=== PATIENT | female | born 1945 | race Caucasian/White ===

== ENCOUNTER 2018-06-15 19:24 | Inpatient (IN) ==
[2018-06-15] MEDS ORDERED: SODIUM CHLORIDE 0.9% 1000ML 1,000 ML IV STA (20:20)
[2018-06-15] MEDS ORDERED: SODIUM CHLORIDE 0.9% 500 ML IV SCH (20:30)
[2018-06-15] MEDS ORDERED: ONDANSETRON INJ 2 MG/ML 2 ML VIAL IV STA (20:51)
[2018-06-15] MEDS ORDERED: HYDROmorphone INJ 0.5 MG/0.5 ML SYR IV PRN (20:51)
[2018-06-15 20:56] LABS: Basophils # (auto) 0.03 K/uL (0-0.2); Basophils % (auto) 0.3 %; Eosinophils # (auto) 0.14 K/uL (0-0.5); Eosinophils % (auto) 1.3 %; Hematocrit (blood only) 43.7 % (37-47); Hemoglobin 15.2 g/dL (12.0-16.0); Immature Granulocytes # (auto) 0.03 K/uL (0.00-0.02); Immature Granulocytes % (auto) 0.3 %; Lymphocytes # (auto) 1.88 K/uL (1.2-3.4); Lymphocytes % (auto) 17.8 %; Mean Corpuscular Hgb Conc 34.8 g/dL (32-36); Mean Corpuscular Volume 82.3 fL (80-100); Mean Platelet Volume 8.9 fL (7.4-10.4); Monocytes # (auto) 1.09 K/uL (0.11-0.59); Monocytes % (auto) 10.3 %; Neutrophils # (auto) 7.39 K/uL (1.4-6.5); Platelet Count 257 K/uL (130-400); RDW Standard Deviation 41.8 fL (36.4-46.3); Red Blood Count 5.31 M/uL (4.2-5.4); White Blood Count 10.56 K/uL (4.8-10.8)
[2018-06-15 21:08] LABS: Appearance Urine Clear (Clear); Blood Urine Negative (Negative); Glucose Urine UA Negative (Negative); Ketones Urine 1+ (Negative); Leukocyte Esterase Urine Trace (Negative); Nitrite Urine Negative (Negative); Protein Urine 1+ (Negative); Specific Gravity Urine >= 1.030 (1.000-1.030); Urobilinogen Urine Negative (Negative); pH Urine 5.5 (4.5-7.5)
[2018-06-15 21:10] LABS: Bilirubin Urine Negative (Negative); Ictotest Urine Negative (Negative)
[2018-06-15 21:11] LABS: Color Urine Yellow
[2018-06-15 21:15] LABS: Albumin Level 3.7 gm/dl (3.4-5.0); BUN Creatinine Ratio 18.1 (10-20); Calcium 9.9 mg/dl (8.5-10.1); Creatinine Clr Calc Pharmacy 43.4 ml/min; Est GFR (African American) 60.5; Est GFR (Non-African American) 52.2
[2018-06-15 21:18] LABS: Albumin Globulin Ratio 0.9 (0.9-2); Bilirubin,Total 0.6 mg/dl (0.2-1); Globulin 3.9 gm/dl (2.5-4.0); Total Protein 7.6 gm/dl (6.4-8.2)
--- NOTE | 2018-06-15 21:53 | CT Scan Report ---
CT SCAN OF THE ABDOMEN AND PELVIS WITHOUT IV CONTRAST CLINICAL HISTORY: Right lower quadrant abdominal pain. Nausea and vomiting. Reported history of rec ent diverticulitis. COMPARISON STUDY: Abdominal CT dated 06/09/2015. Abdominal ultrasound dated 06/04/2018. TECHNIQUE: CT scan of the abdomen and pelvis is performed from the lung bases to the proximal femora. Images are reviewed in the axial, sagittal, and coronal planes. IV contrast was not administered for this examination as per the referring clinician. Note that the examination was performed in suboptim al fashion without oral and IV contrast. A dose lowering technique was utilized adhering to the [facility] of CHEMO. CT DOSE: 346.55 mGy.cm FINDINGS: Lung bases: The heart is mildly enlarged and without pericardial effusion. The coronary arteries are densely calcified. A large hiatal hernia is noted. The lung bases are clear, noting bibasilar scarrin g/atelectasis. Liver: The unenhanced liver is normal in size and contour. The liver demonstrates diffusely diminishe d attenuation consistent with hepatic steatosis. Fatty sparing is seen adjacent to gallbladder fossa. There is no intrahepatic biliary ductal dilatation. Gallbladder: Unremarkable. Spleen: Normal in size and attenuation. Pancreas: The unenhanced pancreas is grossly unremarkable. Adrenal glands: Unremarkable. Kidneys: The unenhanced kidneys history cortical atrophy and are without hydronephrosis. There are no renal calculi identified. An 8 cm cyst arises from the upper pole of the left kidney. There are thin calcifications within the cyst wall, and this is consistent with a Bosniak 2 lesion. Abdominal vasculature: The abdominal aorta is normal in course and caliber noting mild atheroscleroti c calcification. Bowel: There is moderate sigmoid diverticulosis. Mild wall thickening and stranding is identified kiko und the sigmoid colon consistent with mild acute diverticulitis. There is no evidence of abscess on t his unenhanced examination. No bowel obstruction is identified. Fecal retention is noted in the right colon. The appendix is not identified and reported surgically absent. There is a large duodenal div erticulum. Peritoneum: There is no intraperitoneal free air or abdominal ascites. There is a small fat-containin g umbilical hernia. Lymphadenopathy: None. Pelvic viscera: The bladder is decompressed and grossly unremarkable. The uterus is surgically absent . No adnexal lesion is seen. Skeletal structures: The skeletal structures are osteopenic. Moderate lumbosacral spondylosis is obse rved. A large posterior disc osteophyte complex is seen at L2-L3. Degenerative sclerosis is noted at the symphysis pubis. No lytic or blastic lesions are seen. IMPRESSION: 1. Suboptimal examination without oral and IV contrast. 2. Colonic diverticulosis without evidence of mild acute sigmoid diverticulitis. 3. No intraperitoneal free air is seen, and there is no evidence of abscess on this unenhanced examin ation. 4. Hepatic steatosis. 5. Large hiatal hernia. 6. Additional findings as above. Electronically signed by: James Becker M.D. 06/15/2018 9:52 PM
[2018-06-15] MEDS ORDERED: metroNIDAZOLE 500 MG/100 ML BAG IV STA (21:59)
[2018-06-15] MEDS ORDERED: AZTREONAM 2,000 MG in DEXTROSE 5% 100 ML IV STA (22:01)
[2018-06-15] MEDS ORDERED: POTASSIUM CHLORIDE / WTR 10 MEQ/100 ML PLCT IV ONE (22:01)
[2018-06-15] MEDS ORDERED: POTASSIUM CHLORIDE 20 MEQ TABCR PO STA (22:15)
[2018-06-15 22:43] LABS: Magnesium 1.9 mg/dl (1.8-2.4)
[2018-06-15] MEDS ORDERED: PROCHLORPERAZINE 5 MG in SYRINGE 4 ML IV ONE (22:49)
[2018-06-15] MEDS ORDERED: PROCHLORPERAZINE 5 MG/ML 2 ML VIAL IV ONE ×2 (23:00)
[2018-06-15] MEDS ORDERED: LACTATED RINGER'S 1,000 ML IV ONE (23:01)
--- NOTE | 2018-06-15 23:19 | History & Physical Report ---
Date of Service June 15, 2018 Assessment & Plan (1) Diverticulitis: Improved symptoms on outpatient regimen Patient not septic. Resolved on repeat CT today. Incomplete Rx given possible intolerance to oral antibiotics Hypokalemia, clinical dehydration secondary to emesis symptoms Home diuretic contributory Hypertension, elevated secondary discomfort Abnormal LFTs likely from fatty liver GMF Bowel rest, clear liquids for now IV Ceftriaxone, Flagyl course for now Replace potassium, hold home diuretic until hydration status better Antiemetics as needed DVT prophylaxis. Lovenox subcu Full code History of Present Illness Chief Complaint: Nausea, emesis Primary Care Provider: Krissy Carson MD History obtained from patient and records. Medical history significant for hypertension, osteoarthritis, diverticulosis. Last week patient noted achy lower abdominal pain. No fever, no chills. Some nausea. Outpatient CT showed mild acute sigmoid diverticulitis. Patient prescribed oral Cipro and Flagyl. Abdominal discomfort improved. Patient noted increased nausea, intractable emesis after 2 days of antibiotic Rx. No constipation/diarrhea. At the ER, patient received IV Azactam and Flagyl. 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 Allergies Allergy/AdvReac Type Severity Reaction Status Date / Time erythromycin base Allergy Severe HIVES,SOB,I Unverified 06/15/18 20:35 TCHIDAWSON ESTES Penicillins Allergy Severe SOB,ITCHING Unverified 06/15/18 20:35 ,HIVES,SWEL LING Sulfa (Sulfonamide Allergy Severe HIVES,SOB,I Unverified 06/15/18 20:35 Antibiotics) TCDAWSON PINON Home Medications Home Medications Medication Instructions Recorded Confirmed Type aspirin [Aspir-Low] 81 mg PO DAILY 06/04/18 06/15/18 History hydrochlorothiazide 25 mg PO DAILY 06/04/18 06/15/18 History lisinopril 20 mg PO DAILY 06/04/18 06/15/18 History multivitamin 1 tab PO DAILY 06/04/18 06/15/18 History naproxen [Naprosyn] 500 mg PO BID PRN 06/04/18 06/15/18 History omeprazole 20 mg PO DAILY 06/04/18 06/15/18 History ranitidine HCl [Zantac] 150 mg PO BID PRN #60 tab 06/04/18 06/15/18 Rx Past Med/Surg History Medical History Diverticulitis (Resolved) No pertinent past medical history Surgical History No pertinent past surgical history Family History Other Family history non-contributory Social History Preferred Language: Nigerian Communication Ability: Effective [employer] Required: No Beliefs That Will Affect Care: None Current Living Situation: Spouse Other Information That Helps Us Care for You: No Feels Safe at Home: Yes Safety Concerns: Feels Safe At This Time Smoking Status: Never smoker Hx Alcohol Use: Yes Hx Substance Use: No Review of Systems As per HPI, all 10 systems reviewed, all other ROS negative Physical Exam Vital Signs (Past 24 Hours): Last Vital Signs Temp 36.9 C 06/15/18 19:36 Pulse 83 06/15/18 20:48 Resp 18 06/15/18 20:48 BP 175/89 H 06/15/18 20:48 Pulse Ox 96 06/15/18 20:56 Physical Exam: GENERAL: Slightly uncomfortable, obese, dry heaving, no respiratory distress SKIN: Normal color, warm HEENT: [place] palpebral conjunctivae, no ptosis, dry buccal mucosa NECK : Supple, short neck, no tenderness CHEST : CTA, no tenderness HEART : RRR, no obvious murmurs ABDOMEN: Some distention, minimal epigastric tenderness EXTREMITIES : No LE swelling/tenderness, purpuric lesions both forearms (chronic as per patient), no other conspicuous deformities noted NEUROLOGIC : Coherent, no facial asymmetry, no other gross focality Results & Data Laboratory Results Laboratory Results WBC 10.56 K/uL (4.8-10.8) 06/15/18 20:39 RBC 5.31 M/uL (4.2-5.4) 06/15/18 20:39 Hgb 15.2 g/dL (12.0-16.0) 06/15/18 20:39 Hct 43.7 % (37-47) 06/15/18 20:39 MCV 82.3 fL (80-100) 06/15/18 20:39 MCH 28.6 pg (25-34) 06/15/18 20:39 MCHC 34.8 g/dL (32-36) 06/15/18 20:39 RDW Std Deviation 41.8 fL (36.4-46.3) 06/15/18 20:39 RDW Coeff of Leanne 14.0 % (11.5-14.5) 06/15/18 20:39 Plt Count 257 K/uL (130-400) 06/15/18 20:39 MPV 8.9 fL (7.4-10.4) 06/15/18 20:39 Immature Gran % (Auto) 0.3 % 06/15/18 20:39 Neut % (Auto) 70.0 % 06/15/18 20:39 Lymph % (Auto) 17.8 % 06/15/18 20:39 [place] % (Auto) 10.3 % 06/15/18 20:39 Eos % (Auto) 1.3 % 06/15/18 20:39 Baso % (Auto) 0.3 % 06/15/18 20:39 Immature Gran # (Auto) 0.03 K/uL (0.00-0.02) H 06/15/18 20:39 Neut # (Auto) 7.39 K/uL (1.4-6.5) H 06/15/18 20:39 Lymph # (Auto) 1.88 K/uL (1.2-3.4) 06/15/18 20:39 [place] # (Auto) 1.09 K/uL (0.11-0.59) H 06/15/18 20:39 Eos # (Auto) 0.14 K/uL (0-0.5) 06/15/18 20:39 Baso # (Auto) 0.03 K/uL (0-0.2) 06/15/18 20:39 Sodium 143 mmol/L (136-145) 06/15/18 20:39 Potassium 3.0 mmol/L (3.5-5.1) L 06/15/18 20:39 Chloride 107 mmol/L (98-107) 06/15/18 20:39 Carbon Dioxide 29 mmol/L (21-32) 06/15/18 20:39 Anion Gap 7.0 (3-11) 06/15/18 20:39 BUN 19 mg/dl (7-18) H 06/15/18 20:39 Creatinine 1.07 mg/dl (0.6-1.2) 06/15/18 20:39 Est Cr Clr Drug Dosing 43.4 ml/min 06/15/18 20:39 Est GFR ( Amer) 60.5 06/15/18 20:39 Est GFR (Non-Af Amer) 52.2 06/15/18 20:39 BUN/Creatinine Ratio 18.1 (10-20) 06/15/18 20:39 Glucose 110 mg/dl (70-99) H 06/15/18 20:39 Calcium 9.9 mg/dl (8.5-10.1) 06/15/18 20:39 Magnesium 1.9 mg/dl (1.8-2.4) 06/15/18 20:39 Total Bilirubin 0.6 mg/dl (0.2-1) 06/15/18 20:39 AST 114 U/L (15-37) H 06/15/18 20:39 ALT 134 U/L (12-78) H 06/15/18 20:39 Alkaline Phosphatase 89 U/L (45-117) 06/15/18 20:39 Total Protein 7.6 gm/dl (6.4-8.2) 06/15/18 20:39 Albumin 3.7 gm/dl (3.4-5.0) 06/15/18 20:39 Globulin 3.9 gm/dl (2.5-4.0) 06/15/18 20:39 Albumin/Globulin Ratio 0.9 (0.9-2) 06/15/18 20:39 Lipase 114 U/L (73-393) 06/15/18 20:39 Urine Color Yellow 06/15/18 20:53 Urine Appearance Clear (Clear) 06/15/18 20:53 Urine pH 5.5 (4.5-7.5) 06/15/18 20:53 Ur Specific [place] >= 1.030 (1.000-1.030) 06/15/18 20:53 Urine Protein 1+ (Negative) H 06/15/18 20:53 Urine Glucose (UA) Negative (Negative) 06/15/18 20:53 Urine Ketones 1+ (Negative) H 06/15/18 20:53 Urine Blood Negative (Negative) 06/15/18 20:53 Urine Nitrite Negative (Negative) 06/15/18 20:53 Urine Bilirubin Negative (Negative) 06/15/18 20:53 Urine Urobilinogen Negative (Negative) 06/15/18 20:53 Ur Leukocyte Esterase Trace (Negative) H 06/15/18 20:[address] abdomen pelvis: 1. Suboptimal examination without oral and IV contrast. 2. Colonic diverticulosis without evidence of mild acute sigmoid diverticulitis. 3. No intraperitoneal free air is seen, and there is no evidence of abscess on this unenhanced examination. 4. Hepatic steatosis. 5. Large hiatal hernia.
[2018-06-15] MEDS ORDERED: ACETAMINOPHEN 325 MG TAB PO PRN (23:21)
[2018-06-15] MEDS ORDERED: TRAMADOL HCL 50 MG TABLET PO PRN (23:21)
[2018-06-15] MEDS ORDERED: MoRPHine SULFATE 2 MG/ML CARP IV PRN (23:21)
[2018-06-16] MEDS: POTASSIUM CHLORIDE / WTR 10 MEQ/100 ML PLCT IV SCH ×4 (00:48→04:03)
[2018-06-16 05:46] LABS: Basophils # (auto) 0.04 K/uL (0-0.2); Basophils % (auto) 0.5 %; Eosinophils # (auto) 0.15 K/uL (0-0.5); Hematocrit (blood only) 38.7 % (37-47); Immature Granulocytes # (auto) 0.02 K/uL (0.00-0.02); Immature Granulocytes % (auto) 0.3 %; Lymphocytes # (auto) 1.87 K/uL (1.2-3.4); Lymphocytes % (auto) 24.4 %; Mean Corpuscular Hgb Conc 33.6 g/dL (32-36); Mean Corpuscular Volume 84.3 fL (80-100); Mean Platelet Volume 8.8 fL (7.4-10.4); Monocytes # (auto) 0.91 K/uL (0.11-0.59); Monocytes % (auto) 11.9 %; Neutrophils # (auto) 4.68 K/uL (1.4-6.5); Neutrophils % (auto) 60.9 %; Platelet Count 224 K/uL (130-400); RDW Coefficient of Variation 14.1 % (11.5-14.5); RDW Standard Deviation 43.3 fL (36.4-46.3); Red Blood Count 4.59 M/uL (4.2-5.4); White Blood Count 7.67 K/uL (4.8-10.8)
[2018-06-16 06:09] LABS: INR 1.1 (0.9-1.1); Prothrombin Time 11.1 Seconds (9.0-12.0)
[2018-06-16 06:21] LABS: Albumin Globulin Ratio 0.9 (0.9-2); BUN Creatinine Ratio 21.9 (10-20); Bilirubin,Total 0.5 mg/dl (0.2-1); Calcium 8.5 mg/dl (8.5-10.1); Creatinine Clr Calc Pharmacy 56.4 ml/min; Est GFR (African American) 82.2; Est GFR (Non-African American) 70.9; Globulin 3.2 gm/dl (2.5-4.0); Potassium 3.5 mmol/L (3.5-5.1); Total Protein 6.2 gm/dl (6.4-8.2)
[2018-06-16] MEDS: PROCHLORPERAZINE 5 MG in SYRINGE 4 ML IV PRN (06:33)
[2018-06-16] MEDS ORDERED: metroNIDAZOLE 500 MG/100 ML BAG IV SCH (08:00)
[2018-06-16] MEDS ORDERED: cefTRIAXone SODIUM 1,000 MG in DEXTROSE 5% 50 ML IV SCH (09:00)
[2018-06-16] MEDS: ASPIRIN 81 MG ECTAB PO SCH (09:30)
[2018-06-16] MEDS: MULTIVITAMIN TAB PO SCH (09:31)
[2018-06-16] MEDS: PANTOprazole 40 MG TAB PO SCH (09:31)
[2018-06-16] MEDS: LISINOPRIL 20 MG TAB PO SCH (09:31)
[2018-06-16] MEDS: ENOXAPARIN INJ 30 MG/0.3 ML SYR SQ SCH (09:32)
--- NOTE | 2018-06-16 15:19 | Hospitalist Progress Note ---
Date of Service June 16, 2018 Assessment & Plan (1) Diverticulitis: Patient was recently diagnosed through a CT scan with mild acute sigmoid diverticulitis which was done outpatient. She was started on antibiotics and 2 days after receiving it she developed nausea and vomiting which brought her here to the ED. Repeat CT scan on admission shows no diverticulitis, colonic diverticulosis, large hiatal hernia Afebrile, no leukocytosis -Symptoms have improved now. -Advance diet to mechanical soft from clear liquids -Ok to discontinue IVF. Hold diuretics -IV Rocephin and Flagyl---> Will change to PO Flagyl and Ciprofloxacin HYPOKALEMIA Repleted. On diuretics Monitor HYPERTENSION Stable Continue with home medication DVT prophylaxis. Lovenox subcu Full code Disposition Likely next 24 hours if she continues to improve and tolerates p.o. diet/antibiotics Subjective Patient is feeling better today. No more episodes of vomiting. No nausea, abdominal pain. No fever, chills. Tolerating clear liquid diet well. Physical Exam Vital Signs (Past 24 Hours): Last Vital Signs Temp 36.8 C 06/16/18 07:31 Pulse 61 06/16/18 07:31 Resp 16 06/16/18 07:31 BP 126/74 06/16/18 07:31 Pulse Ox 95 06/16/18 07:31 Constitutional: well developed Awake, alert, oriented x3 Cardiovascular: Rate/Rhythm: regular rate and regular rhythm Heart Sounds: normal S1 and normal S2 Extremities: no pedal edema Gastrointestinal (Abdomen): Inspection/Auscultation: normal bowel sounds; abdomen not distended Percussion/Palpation: abdomen soft; abdomen nontender
[2018-06-16] MEDS: CIPROFLOXACIN 500 MG TAB PO SCH ×2 (16:38→22:51)
[2018-06-16] MEDS: metroNIDAZOLE 500 MG TAB PO SCH ×2 (16:39→20:26)
[2018-06-16] MEDS ORDERED: POTASSIUM CHLORIDE 10 MEQ TABCR PO ONE (18:00)
--- NOTE | 2018-06-16 19:35 | Emergency Department Note ---
Entered by Shruthi Ojeda acting as a scribe for Dom White MD ED Provider Note CHIEF COMPLAINT: Vomiting HISTORY OF PRESENT ILLNESS: The patient is a 72 year old female presenting to the ED with vomiting beginning x2 days ago. Patient states that she was recently diagnosed x1 week ago with diverticulitis at [facility]. She shares that she was placed on antibiotics but has not been able to keep them down since onset. She notes she is having RLQ pain, which is moderate in severity and constant since onset. Pain is rated a 8/10. She shares she is having associated fevers and loss of appetite as well. Pt denies LOC, headache, chills, diaphoresis, visual changes, neck pain, chest pain, breathing difficulties, back pain, melena, hematochezia, urinary symptoms, numbness, weakness, lymphadenopathy, rash, or other complaints. REVIEW OF SYSTEMS: See HPI for pertinent positives and negatives. A total of ten systems were reviewed and were otherwise negative. PMHx/PSHx: Diverticulitis SOCIAL HISTORY: Patient lives at home. PHYSICAL EXAM: GENERAL: Awake, alert, well-appearing, in no distress HENT: Normocephalic, atraumatic. Oropharynx unremarkable. EYES: Normal conjunctiva. Sclera non-icteric. NECK: Inspection normal. Non-tender. Supple. No nuchal rigidity. FROM. No masses. RESPIRATORY: Clear to auscultation. No wheezes. No rales. Normal respiratory effort. CARDIAC: Normal rate. Normal rhythm. No murmurs. No rubs. Extremities warm and well perfused. Pulses equal. No JVD. GI: Soft, non-distended. No rebound or guarding. No masses. RLQ tenderness to palpation. RECTAL: Deferred. MUSCULOSKELETAL: Atraumatic. Chest examination reveals no tenderness. The back is symmetrical on inspection without obvious abnormality. There is no CVA tenderness to palpation. No joint edema. LOWER EXTREMITIES: Calves are equal size bilaterally and non-tender. No edema. No discoloration. NEURO: Normal sensorium. No sensory or motor deficits noted. SKIN: No rash or jaundice noted. EMERGENCY DEPARTMENT COURSE: 2048: The patient was evaluated in room C01B, and a complete history and physical examination were performed. 2204: Discussed patient case with Dr. Rodriguez, who accepts patient for admission. 2210: Updated patient on plan for admission. Patient is agreeable to plan. MEDICAL DECISION MAKING: Triage Nursing notes reviewed and agree them. The patient's history was concerning for abdominal pain, recent diverticulitis, and vomiting Differential diagnosis: Etiologies such as appendicitis, worsening diverticulitis, PUD, biliary pathology, UTI, pancreatitis, obstruction, mesenteric ischemia, aortic pathology, infections, inflammatory bowel disease, renal colic, as well as others were entertained. Physical examination findings: As above. Right lower tenderness. ER treatment provided: IV Zofran IV Dilaudid Normal saline hydration On reassessment the patient felt better. IV Flagyl IV aztreonam IV potassium Diagnostics interpreted by me: The labs revealed an unremarkable CBC and chemistry panel except for mild hypokalemia. LFTs lipase negative. Imaging studies: CT scan abdomen pelvis was performed. Mild diverticulitis present. No perforation. Consultation: [facility] was discussed and diagnostics were reviewed. The patient was evaluated in the ER for further treatment. IMPRESSION: Diverticulitis, nausea, vomiting, hypokalemia PLAN: Admission under Dr. Schmidt's care. Impression & Plan Diverticulitis, Nausea & vomiting, Hypokalemia Past Med/Surg History Medical History Diverticulitis (Resolved) No pertinent past medical history Surgical History No pertinent past surgical history Family History Other Family history non-contributory Social History Preferred Language: Mohawk Communication Ability: Effective Table Hand Required: No Beliefs That Will Affect Care: None Current Living Situation: Spouse Other Information That Helps Us Care for You: No Feels Safe at Home: Yes Safety Concerns: Feels Safe At This Time Smoking Status: Never smoker Hx Alcohol Use: Yes Hx Substance Use: No Results & Data Vital Signs Vital Signs - 24 hr 06/15/18 19:36 06/15/18 20:48 06/15/18 20:56 Temperature 36.9 C Temperature Source Oral Sepsis Recent Fever Within 48 Hours No Sepsis Action Taken by Nursing No Action Required Pulse Rate 83 Pulse Rate [Apical] 83 Respiratory Rate 18 18 Respiratory Effort / Characteristics Non-Labored Spontaneous Respiratory Depth Normal Respiratory Pattern Blood Pressure 148/80 H Blood Pressure [Left Arm] Blood Pressure [Right Arm] 175/89 H Blood Pressure Mean 102 Blood Pressure Mean [Left Arm] Blood Pressure Mean [Right Arm] 117 Blood Pressure Position Sitting Blood Pressure Position [Left Arm] Blood Pressure Position [Right Arm] Pulse Oximetry 96 94 96 Oxygen Delivery Method Room Air Room Air Room Air 06/16/18 01:01 06/16/18 07:31 06/16/18 16:35 Temperature 37.0 C 36.8 C 36.6 C Temperature Source Oral Oral Oral Sepsis Recent Fever Within 48 Hours Sepsis Action Taken by Nursing Pulse Rate Pulse Rate [Apical] 81 61 73 Respiratory Rate 16 16 18 Respiratory Effort / Characteristics Non-Labored Spontaneous Respiratory Depth Normal Respiratory Pattern Regular Blood Pressure Blood Pressure [Left Arm] 126/73 126/74 Blood Pressure [Right Arm] 134/75 Blood Pressure Mean Blood Pressure Mean [Left Arm] 90 91 Blood Pressure Mean [Right Arm] 94 Blood Pressure Position Blood Pressure Position [Left Arm] Sitting Lying Blood Pressure Position [Right Arm] Lying Pulse Oximetry 94 95 92 Oxygen Delivery Method Room Air Room Air Room Air Home Medications Current Medication List: was personally reviewed by me Laboratory Data Attestation: I reviewed the patient's lab results. Result diagrams: 06/16/18 05:26 06/16/18 05:26 Lab Results 06/15/18 06/15/18 06/15/18 Range/Units 20:39 20:39 20:53 WBC 10.56 (4.8-10.8) K/uL RBC 5.31 (4.2-5.4) M/uL Hgb 15.2 (12.0-16.0) g/dL Hct 43.7 (37-47) % MCV 82.3 (80-100) fL MCH 28.6 (25-34) pg MCHC 34.8 (32-36) g/dL RDW Std Deviation 41.8 (36.4-46.3) fL RDW Coeff of Leanne 14.0 (11.5-14.5) % Plt Count 257 (130-400) K/uL MPV 8.9 (7.4-10.4) fL Immature Gran % (Auto) 0.3 % Neut % (Auto) 70.0 % Lymph % (Auto) 17.8 % Slope % (Auto) 10.3 % Eos % (Auto) 1.3 % Baso % (Auto) 0.3 % Immature Gran # (Auto) 0.03 H (0.00-0.02) K/uL Neut # (Auto) 7.39 H (1.4-6.5) K/uL Lymph # (Auto) 1.88 (1.2-3.4) K/uL Slope # (Auto) 1.09 H (0.11-0.59) K/uL Eos # (Auto) 0.14 (0-0.5) K/uL Baso # (Auto) 0.03 (0-0.2) K/uL PT (9.0-12.0) Seconds INR (0.9-1.1) Sodium 143 (136-145) mmol/L Potassium 3.0 L (3.5-5.1) mmol/L Chloride 107 (98-107) mmol/L Carbon Dioxide 29 (21-32) mmol/L Anion Gap 7.0 (3-11) BUN 19 H (7-18) mg/dl Creatinine 1.07 (0.6-1.2) mg/dl Est Cr Clr Drug Dosing 43.4 ml/min Est GFR ( Amer) 60.5 Est GFR (Non-Af Amer) 52.2 BUN/Creatinine Ratio 18.1 (10-20) Glucose 110 H (70-99) mg/dl Calcium 9.9 (8.5-10.1) mg/dl Magnesium 1.9 (1.8-2.4) mg/dl Total Bilirubin 0.6 (0.2-1) mg/dl AST 114 H (15-37) U/L ALT 134 H (12-78) U/L Alkaline Phosphatase 89 (45-117) U/L Total Protein 7.6 (6.4-8.2) gm/dl Albumin 3.7 (3.4-5.0) gm/dl Globulin 3.9 (2.5-4.0) gm/dl Albumin/Globulin Ratio 0.9 (0.9-2) Lipase 114 (73-393) U/L Urine Color Yellow Urine Appearance Clear (Clear) Urine pH 5.5 (4.5-7.5) Ur Specific [place] >= 1.030 (1.000-1.030) Urine Protein 1+ H (Negative) Urine Glucose (UA) Negative (Negative) Urine Ketones 1+ H (Negative) Urine Blood Negative (Negative) Urine Nitrite Negative (Negative) Urine Bilirubin Negative (Negative) Urine Urobilinogen Negative (Negative) Ur Leukocyte Esterase Trace H (Negative) 06/16/18 06/16/18 06/16/18 Range/Units 05:26 05:26 05:26 WBC 7.67 (4.8-10.8) K/uL RBC 4.59 (4.2-5.4) M/uL Hgb 13.0 (12.0-16.0) g/dL Hct 38.7 (37-47) % MCV 84.3 (80-100) fL MCH 28.3 (25-34) pg MCHC 33.6 (32-36) g/dL RDW Std Deviation 43.3 (36.4-46.3) fL RDW Coeff of Leanne 14.1 (11.5-14.5) % Plt Count 224 (130-400) K/uL MPV 8.8 (7.4-10.4) fL Immature Gran % (Auto) 0.3 % Neut % (Auto) 60.9 % Lymph % (Auto) 24.4 % Slope % (Auto) 11.9 % Eos % (Auto) 2.0 % Baso % (Auto) 0.5 % Immature Gran # (Auto) 0.02 (0.00-0.02) K/uL Neut # (Auto) 4.68 (1.4-6.5) K/uL Lymph # (Auto) 1.87 (1.2-3.4) K/uL Slope # (Auto) 0.91 H (0.11-0.59) K/uL Eos # (Auto) 0.15 (0-0.5) K/uL Baso # (Auto) 0.04 (0-0.2) K/uL PT 11.1 (9.0-12.0) Seconds INR 1.1 (0.9-1.1) Sodium 142 (136-145) mmol/L Potassium 3.5 D (3.5-5.1) mmol/L Chloride 110 H (98-107) mmol/L Carbon Dioxide 29 (21-32) mmol/L Anion Gap 3.0 (3-11) BUN 18 (7-18) mg/dl Creatinine 0.83 (0.6-1.2) mg/dl Est Cr Clr Drug Dosing 56.4 ml/min Est GFR ( Amer) 82.2 Est GFR (Non-Af Amer) 70.9 BUN/Creatinine Ratio 21.9 H (10-20) Glucose 101 H (70-99) mg/dl Calcium 8.5 (8.5-10.1) mg/dl Magnesium (1.8-2.4) mg/dl Total Bilirubin 0.5 (0.2-1) mg/dl AST 81 H (15-37) U/L ALT 105 H (12-78) U/L Alkaline Phosphatase 71 (45-117) U/L Total Protein 6.2 L (6.4-8.2) gm/dl Albumin 3.0 L (3.4-5.0) gm/dl Globulin 3.2 (2.5-4.0) gm/dl Albumin/Globulin Ratio 0.9 (0.9-2) Lipase (73-393) U/L Urine Color Urine Appearance (Clear) Urine pH (4.5-7.5) Ur Specific [place] (1.000-1.030) Urine Protein (Negative) Urine Glucose (UA) (Negative) Urine Ketones (Negative) Urine Blood (Negative) Urine Nitrite (Negative) Urine Bilirubin (Negative) Urine Urobilinogen (Negative) Ur Leukocyte Esterase (Negative) Administered Medications Acetaminophen (Tylenol) 325 mg PO Q4H PRN PRN Reason: Mild Pain Stop: 07/15/18 23:20 Last Admin: 06/16/18 14:44 Dose: 325 mg Documented by: [id number] Aspirin (Ecotrin Ectab) 81 mg PO DAILY [facility] Stop: 07/16/18 08:59 Last Admin: 06/16/18 09:30 Dose: 81 mg Documented by: [id number] Ciprofloxacin (Cipro) 500 mg PO BID [facility] Stop: 06/26/18 15:29 Last Admin: 06/16/18 16:38 Dose: 500 mg Documented by: [id number] Enoxaparin Sodium (Lovenox) 30 mg SQ QAM [facility] Stop: 07/16/18 08:59 Last Admin: 06/16/18 09:32 Dose: 30 mg Documented by: [id number] Prochlorperazine 5 mg/ Syringe 5 mls @ 5 mls/min IV Q6H PRN PRN Reason: Nausea And Vomiting Stop: 07/15/18 23:20 Last Admin: 06/16/18 06:33 Dose: 5 mls/min Documented by: [id number] Lisinopril (Zestril) 20 mg PO DAILY JOSIANE Stop: 07/16/18 08:59 Last Admin: 06/16/18 09:31 Dose: 20 mg Documented by: [id number] Metronidazole (Flagyl) 500 mg PO TID JOSIANE Stop: 06/26/18 15:29 Last Admin: 06/16/18 16:39 Dose: 500 mg Documented by: [id number] Multivitamins (Multivitamin Tab) 1 tab PO DAILY JOSIANE Stop: 07/16/18 08:59 Last Admin: 06/16/18 09:31 Dose: 1 tab Documented by: [id number] Pantoprazole Sodium (Protonix) 40 mg PO DAILY [facility] Stop: 07/16/18 08:59 Last Admin: 06/16/18 09:31 Dose: 40 mg Documented by: [id number] Ranitidine HCl (Zantac) 150 mg PO BID PRN PRN Reason: gastritis Stop: 07/16/18 00:26 Last Admin: 06/16/18 09:30 Dose: 150 mg Documented by: [id number] Discontinued Medications Hydromorphone HCl (Dilaudid) 0.5 mg IV Q15M PRN PRN Reason: Pain Stop: 06/29/18 20:50 Last Admin: 06/15/18 20:59 Dose: 0.5 mg Documented by: [id number] Sodium Chloride (Nss 1000ml) 1,000 mls @ 125 mls/hr IV .Q8H STA Stop: 06/16/18 04:19 Last Infusion: 06/16/18 02:17 Dose: 0 mls/hr Documented by: [id number] Admin: 06/15/18 21:25 Dose: 125 mls/hr Documented by: [id number] Sodium Chloride (Nss) 500 mls @ 999 mls/hr IV .Q31M JOSIANE Stop: 06/15/18 21:00 Last Infusion: 06/15/18 21:25 Dose: 0 mls/hr Documented by: [id number] Admin: 06/15/18 20:47 Dose: 999 mls/hr Documented by: [id number] Metronidazole (Flagyl) 500 mg in 100 mls @ 100 mls/hr IV NOW STA Stop: 06/15/18 22:58 Last Infusion: 06/16/18 02:39 Dose: 0 mls/hr Documented by: [id number] Admin: 06/16/18 01:25 Dose: 100 mls/hr Documented by: [id number] Aztreonam 2,000 mg/ Dextrose 110 mls @ 100 mls/hr IV NOW STA Stop: 06/15/18 23:06 Last Infusion: 06/16/18 02:11 Dose: 0 mls/hr Documented by: [id number] Admin: 06/15/18 22:38 Dose: 100 mls/hr Documented by: [id number] Potassium Chloride (K Dylan / Wtr) 10 meq in 100 mls @ 100 mls/hr IV ONE ONE Stop: 06/15/18 23:00 Last Infusion: 06/16/18 00:04 Dose: 0 mls/hr Documented by: [id number] Admin: 06/15/18 22:38 Dose: 100 mls/hr Documented by: [id number] Lactated Ringer's (Lr) 1,000 mls @ 75 mls/hr IV .[id number] ONE Stop: 06/16/18 12:20 Last Infusion: 06/16/18 14:44 Dose: 75 mls/hr Documented by: [id number] Admin: 06/16/18 00:36 Dose: 75 mls/hr Documented by: [id number] Metronidazole (Flagyl) 500 mg in 100 mls @ 100 mls/hr IV Q8H JOSIANE Stop: 06/26/18 07:59 Last Infusion: 06/16/18 09:16 Dose: 100 mls/hr Documented by: [id number] Admin: 06/16/18 08:05 Dose: 100 mls/hr Documented by: [id number] Ceftriaxone Sodium 1,000 mg/ (Dextrose) 50 mls @ 100 mls/hr IV Q24H JOSIANE Stop: 06/26/18 08:59 Last Infusion: 06/16/18 09:32 Dose: 100 mls/hr Documented by: [id number] Admin: 06/16/18 08:05 Dose: 100 mls/hr Documented by: [id number] Potassium Chloride (K Dylan / Wtr) 10 meq in 100 mls @ 100 mls/hr IV Q1H JOSIANE Stop: 06/16/18 04:59 Last Infusion: 06/16/18 06:12 Dose: 0 mls/hr Documented by: [id number] Admin: 06/16/18 04:03 Dose: 100 mls/hr Documented by: [id number] Infusion: 06/16/18 04:03 Dose: 100 mls/hr Documented by: [id number] Admin: 06/16/18 03:06 Dose: 100 mls/hr Documented by: [id number] Infusion: 06/16/18 02:58 Dose: 100 mls/hr Documented by: [id number] Admin: 06/16/18 01:58 Dose: 100 mls/hr Documented by: [id number] Infusion: 06/16/18 01:48 Dose: 100 mls/hr Documented by: [id number] Admin: 06/16/18 00:48 Dose: 100 mls/hr Documented by: [id number] Morphine Sulfate (Morphine Sulfate) 2 mg IV Q4H PRN PRN Reason: Pain Stop: 06/29/18 23:20 Last Admin: 06/16/18 01:35 Dose: 2 mg Documented by: [id number] Ondansetron HCl (Zofran) 4 mg IV NOW STA Stop: 06/15/18 20:52 Last Admin: 06/15/18 20:59 Dose: 4 mg Documented by: [id number] Potassium Chloride (Klor-Con M20) 40 meq PO NOW STA Stop: 06/15/18 22:16 Last Admin: 06/15/18 23:21 Dose: Not Given Documented by: [id number] Potassium Chloride (Klor-Con M10) 20 meq PO NOW ONE Stop: 06/16/18 18:01 Last Admin: 06/16/18 18:42 Dose: 20 meq Documented by: [id number] Prochlorperazine (Compazine) 5 mg IV ONE ONE Stop: 06/15/18 23:01 Last Admin: 06/15/18 22:56 Dose: 5 mg Documented by: [id number] Imaging Data Radiologist's Impression: CT SCAN OF THE ABDOMEN AND PELVIS WITHOUT IV CONTRAST CLINICAL HISTORY: Right lower quadrant abdominal pain. Nausea and vomiting. Reported history of recent diverticulitis. COMPARISON STUDY: Abdominal CT dated 06/09/2015. Abdominal ultrasound dated 06/04/2018. TECHNIQUE: CT scan of the abdomen and pelvis is performed from the lung bases to the proximal femora. Images are reviewed in the axial, sagittal, and coronal planes. IV contrast was not administered for this examination as per the referring clinician. Note that the examination was performed in suboptimal fashion without oral and IV contrast. A dose lowering technique was utilized adhering to the principles of ALARA. CT DOSE: 346.55 mGy.cm FINDINGS: Lung bases: The heart is mildly enlarged and without pericardial effusion. The coronary arteries are densely calcified. A large hiatal hernia is noted. The lung bases are clear, noting bibasilar scarring/atelectasis. Liver: The unenhanced liver is normal in size and contour. The liver demonstrates diffusely diminished attenuation consistent with hepatic steatosis. Fatty sparing is seen adjacent to gallbladder fossa. There is no intrahepatic b iliary ductal dilatation. Gallbladder: Unremarkable. Spleen: Normal in size and attenuation. Pancreas: The unenhanced pancreas is grossly unremarkable. Adrenal glands: Unremarkable. Kidneys: The unenhanced kidneys history cortical atrophy and are without hydronephrosis. There are no renal calculi identified. An 8 cm cyst arises from the upper pole of the left kidney. There are thin calcifications within the cyst wall, and this is consistent with a Bosniak 2 lesion. Abdominal vasculature: The abdominal aorta is normal in course and caliber noting mild atherosclerotic calcification. Bowel: There is moderate sigmoid diverticulosis. Mild wall thickening and stranding is identified around the sigmoid colon consistent with mild acute diverticulitis. There is no evidence of abscess on this unenhanced examination. No bowel obstruction is identified. Fecal retention is noted in the right colon. The appendix is not identified and reported surgically absent. There is a large duodenal diverticulum. Peritoneum: There is no intraperitoneal free air or abdominal ascites. There is a small fat-containing umbilical hernia. Lymphadenopathy: None. Pelvic viscera: The bladder is decompressed and grossly unremarkable. The uterus is surgically absent. No adnexal lesion is seen. Skeletal structures: The skeletal structures are osteopenic. Moderate lumbosacral spondylosis is observed. A large posterior disc osteophyte complex is seen at L2-L3. Degenerative sclerosis is noted at the symphysis pubis. No lytic or blastic lesions are seen. IMPRESSION: 1. Suboptimal examination without oral and IV contrast. 2. Colonic diverticulosis without evidence of mild acute sigmoid diverticulitis. 3. No intraperitoneal free air is seen, and there is no evidence of abscess on this unenhanced examination. 4. Hepatic steatosis. 5. Large hiatal hernia. 6. Additional findings as above. Electronically signed by: James Becker M.D. 06/15/2018 9:52 PM Blood Pressure Blood Pressure Findings: Elevated blood pressure Blood Pressure Disposition: further management by hospitalist Discharge Plan Visit Data *Final* Discharge Date/Time: 06/15/18 23:40 Chief Complaint: Vomiting Stated Complaint: VOMITING, SLIGHT PAIN UPPER RT SIDE, DEHYDRATION ED Provider: Dom White Discharge Problem: Diverticulitis, Nausea & vomiting, Hypokalemia Patient Disposition: Admitted As Inpatient Discharge Instructions Interventions: ED Discharge Assessment Last Done: 06/15/18 23:40 Discharge Problem: Nausea & vomiting Qualifiers: Vomiting type: unspecified Vomiting Intractability: unspecified Qualified Code(s): R11.2 - Nausea with vomiting, unspecified The scribe's documentation has been prepared under my direction and personally reviewed by me in its entirety. I confirm that the note above accurately reflects all work, treatment, procedures, and medical decision making performed by me.
[2018-06-17] MEDS: PROCHLORPERAZINE 5 MG in SYRINGE 4 ML IV PRN (05:32)
[2018-06-17 05:52] LABS: Hematocrit (blood only) 38.2 % (37-47); Hemoglobin 13.1 g/dL (12.0-16.0); Mean Corpuscular Hgb Conc 34.3 g/dL (32-36); Mean Corpuscular Volume 82.5 fL (80-100); Mean Platelet Volume 8.9 fL (7.4-10.4); Platelet Count 198 K/uL (130-400); RDW Coefficient of Variation 13.9 % (11.5-14.5); RDW Standard Deviation 41.9 fL (36.4-46.3); Red Blood Count 4.63 M/uL (4.2-5.4); White Blood Count 7.55 K/uL (4.8-10.8)
[2018-06-17 06:12] LABS: BUN Creatinine Ratio 14.3 (10-20); Calcium 8.7 mg/dl (8.5-10.1); Creatinine Clr Calc Pharmacy 54.5 ml/min; Est GFR (African American) 78.8; Potassium 3.3 mmol/L (3.5-5.1)
[2018-06-17] MEDS: CIPROFLOXACIN 500 MG TAB PO SCH (08:00)
[2018-06-17] MEDS: MULTIVITAMIN TAB PO SCH (08:01)
[2018-06-17] MEDS: PANTOprazole 40 MG TAB PO SCH (08:01)
[2018-06-17] MEDS: ENOXAPARIN INJ 30 MG/0.3 ML SYR SQ SCH (08:01)
[2018-06-17] MEDS: ASPIRIN 81 MG ECTAB PO SCH (08:01)
[2018-06-17] MEDS: LISINOPRIL 20 MG TAB PO SCH (08:01)
[2018-06-17] MEDS: metroNIDAZOLE 500 MG TAB PO SCH ×2 (08:01→12:55)
--- NOTE | 2018-06-17 14:10 | Hospitalist Progress Note ---
Date of Service June 17, 2018 Assessment & Plan (1) Diverticulitis: Patient was recently diagnosed through a CT scan with mild acute sigmoid diverticulitis which was done outpatient. She was started on antibiotics and 2 days after receiving it she developed nausea and vomiting which brought her here to the ED. Repeat CT scan on admission shows no diverticulitis, colonic diverticulosis, large hiatal hernia Afebrile, no leukocytosis -Asymtomatic today -Tolerating regular diet -S/P IVF -IV Rocephin and Flagyl---> Changed to PO Flagyl and Ciprofloxacin yesterday and tolerating it well. Continue for 7 more days HYPOKALEMIA Repleted. On diuretics Monitor HYPERTENSION Stable Continue with home medication DVT prophylaxis. Lovenox subcu Full code Disposition Eager to be discharged Okay to discharge home today Subjective Patient is feeling better. No more episodes of vomiting. No nausea, abdominal pain. No fever, chills. Tolerating regular diet well Eager to be discharged Physical Exam Vital Signs (Past 24 Hours): Last Vital Signs Temp 36.9 C 06/17/18 13:21 Pulse 82 06/17/18 13:21 Resp 18 06/17/18 13:21 BP 149/83 H 06/17/18 13:21 Pulse Ox 93 06/17/18 13:21 Physical Exam: Gen: AAOX3, no acute distress CVS: Rate/Rhythm: regular rate and regular rhythm Heart Sounds: normal S1 and normal S2 Extremities: no edema Gastrointestinal (Abdomen): Inspection/Auscultation: normal bowel sounds; abdomen not distended Percussion/Palpation: abdomen soft; abdomen nontender Skin: no rashes
--- NOTE | 2018-06-17 14:16 | Discharge Summary ---
Date of Service June 17, 2018 Admission HPI Per Admitting Provider History obtained from patient and records. Medical history significant for hypertension, osteoarthritis, diverticulosis. Last week patient noted achy lower abdominal pain. No fever, no chills. Some nausea. Outpatient CT showed mild acute sigmoid diverticulitis. Patient prescribed oral Cipro and Flagyl. Abdominal discomfort improved. Patient noted increased nausea, intractable emesis after 2 days of antibiotic Rx . No constipation/diarrhea. At the ER, patient received IV Azactam and Flagyl. 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 Nausea, vomiting, resolved 2. Diverticulitis, resolved 3. Hypokalemia SECONDARY DIAGNOSIS ON DISCHARGE 1 hypertension Discharge Exam Constitutional well developed Cardiovascular Rate/Rhythm: regular rate and regular rhythm Heart Sounds: normal S1 and normal S2 Extremities: no pedal edema Gastrointestinal (Abdomen) Inspection/Auscultation: normal bowel sounds; abdomen not distended Percussion/Palpation: abdomen soft; abdomen nontender Discharge Data Allergies Allergy/AdvReac Type Severity Reaction Status Date / Time erythromycin base Allergy Severe HIVES,SOB,I Unverified 06/15/18 20:35 DAWSON RAMOS Penicillins Allergy Severe SOB,ITCHING Unverified 06/15/18 20:35 ,DAWSON REDDY Sulfa (Sulfonamide Allergy Severe HIVES,SOB,I Unverified 06/15/18 20:35 Antibiotics) DAWSON RAMOS Consultations 06/15/18 22:02 ED Decision to Admit Stat Ordered Studies 06/15/18 20:51 CT abd pelvis wo con Stat Hospital Course (1) Diverticulitis: Patient was recently diagnosed through a CT scan with mild acute sigmoid diverticulitis which was done outpatient. She was started on antibiotics and 2 days after receiving it she developed nausea and vomiting which brought her here to the ED. Repeat CT scan on admission shows no diverticulitis, colonic diverticulosis, large hiatal hernia Afebrile, no leukocytosis -Asymtomatic today -Tolerating regular diet -S/P IVF -IV Rocephin and Flagyl---> Changed to PO Flagyl and Ciprofloxacin yesterday and tolerating it well. Continue for 7 more days to complete course for diverticulitis HYPOKALEMIA Repleted. On diuretics Monitor HYPERTENSION Stable Continue with home medication DVT prophylaxis. Lovenox subcu Full code Disposition Eager to be discharged Okay to discharge home today Total Time Total Time Spent Total Time Spent (In Minutes): 35 minutes Discharge Plan Discharge Items Reason For Visit: DIVERTICULITIS FAILED OUTPX, HYPOKALEMIA Discharge Diagnosis: Nausea/vomiting, resolved Diverticulitis, resolved Discharge Goals: Decrease discomfort Activity: Resume your previous activity Non-emergency contact: Primary Care Provider Call non-emergency contact if: your symptoms worsen Follow-up/Referrals: Krissy Carson MD [Primary Care Provider] - 06/19/18 5:25 am Diet: Low Sodium (2gm) Addtl Provider Instructions: MEDICATION CHANGES: 1. NEW MEDICATION-ciprofloxacin twice a day for 7 days Flagyl twice a day for 7 days Prescriptions: New metronidazole 500 mg Tablet 500 mg PO TID 7 Days Qty: 21 RF: 0 ciprofloxacin HCl 500 mg Tablet 500 mg PO BID 7 Days Qty: 14 RF: 0 Continued multivitamin Tablet 1 tab PO DAILY RF: 0 lisinopril 20 mg Tablet 20 mg PO DAILY RF: 0 aspirin [Aspir-Low] 81 mg Tablet,Delayed Release (Dr/Ec) 81 mg PO DAILY RF: 0 hydrochlorothiazide 25 mg Tablet 25 mg PO DAILY RF: 0 omeprazole 20 mg Tablet,Delayed Release (Dr/Ec) 20 mg PO DAILY RF: 0 ranitidine HCl [Zantac] 150 mg tablet 150 mg PO BID PRN (Reason: gastritis) Qty: 60 RF: 0 Discontinued naproxen [Naprosyn] 500 mg Tablet 500 mg PO BID PRN (Reason: Pain) RF: 0 Stand-Alone Forms: [facility] Admission Data Admit Date/Time: 06/15/18 23:21 Attending Provider: Ally Rucker Admit Provider: Yung Schmidt Primary Care Provider: Krissy Carson Other Providers: Yung Schmidt Service: Medical Other Interventions: Discharge Summary Assessment (RN) Last Done: 06/17/18 13:21
== END 2018-06-17 14:43 | disposition home or self-care (01) | DRG 392 ==
LOC: ED 19:24 → 4E 23:21

== ENCOUNTER 2022-05-27 15:55 | Inpatient (IN) ==
[2022-05-27] MEDS ORDERED: METOCLOPRAMIDE HCL INJ 5 MG/ML 2 ML VIAL IV STA (16:01)
[2022-05-27] MEDS ORDERED: SODIUM CHLORIDE 0.9% 1000ML 1,000 ML IV ONE (16:02)
--- NOTE | 2022-05-27 16:05 | Emergency Department Note ---
Impression & Plan Acute hypoxemic respiratory failure, Hypokalemia, Nausea & vomiting ED Provider Note NAME: DIANE GALLARDO AGE: 76 SEX: F : 1945 ARRIVES VIA: Ambulance INFORMANT: Patient ED PROVIDER(S): Joshua Borges DO CHIEF COMPLAINT: N/V HPI: Patient is a 76-year-old female who presents to the ER for abdominal pain associate with nausea and vomiting. She notes symptoms have been present for the past 3 days. She is been unable to keep anything down. Denies any headache or change in vision. No chest pain or shortness of breath. She does admit to a cough and runny nose. Has been exposed to COVID. No other exacerbating or remitting factors. PAST MEDICAL HISTORY:See Below PAST SURGICAL HISTORY:See Below FAMILY HISTORY:See Below SOCIAL HISTORY:See Below HOME MEDICATIONS:See Below ALLERGIES:See Below VITALS:See Below PHYSICAL EXAMINATION: GENERAL: Sitting up in bed, alert, well appearing, well nourished, no distress, non-toxic EYE EXAM: normal conjunctiva. PERRL and EOM's grossly intact. OROPHARYNX: no exudate, no erythema, lips, buccal mucosa, and tongue normal and mucous membranes are moist NECK: supple, no nuchal rigidity, no adenopathy, non-tender LUNGS: Clear to auscultation. Normal chest wall mechanics HEART: no murmurs, S1 normal and S2 normal ABDOMEN: abdomen soft, non-tender, normo-active bowel sounds, no masses, no rebound or guarding. UPPER EXTREMITIES: upper extremities are grossly normal. LOWER EXTREMITIES: No pitting edema. NEURO EXAM: Normal sensorium, cranial nerves II-XII grossly intact, normal speech, no gross weakness of arms, no gross weakness of legs. MEDICAL DECISION MAKING: Patient is a 76-year-old female who presents the ER for above-stated complaint. IV was established and blood work was obtained. Labs show no significant leukocytosis or anemia. BMP with a hypokalemia of 2.9. LFTs, bilirubin, and lipase is unremarkable. UA was unremarkable. COVID was positive. External records were reviewed. CT abdomen pelvis showed no acute pathology. Chest x- ray was clean. Patient was found to be hypoxic and placed on 2 L nasal cannula. She dipped down to 88. Do favor this secondary to COVID. Was given Decadron IV as well as IV potassium for the hypokalemia which is likely secondary to the diarrhea. Patient was updated bedside. Discussed with the hospitalist admitted for further work-up. Triage Nursing notes reviewed. Limited review of prior medical records performed Vital Signs: reviewed and remarkable for no significant abnormalities Differential diagnosis: Differential diagnoses includes but is not limited to gastritis, peptic ulcer disease, GERD, gallbladder disease, pancreatitis, small bowel obstruction, appendicitis, diverticulitis, hernia, urinary tract infection, torsion, perforation, trauma, infectious. ER treatment provided: See below Diagnostics interpreted by me include EKG and cardiac monitoring as listed below: -Cardiac Monitoring: An order was placed for continuous cardiac monitoring. The monitor shows a rate of 70 with sinus rhythm. -ECG: none -Laboratory studies:Interpreted by me as stated above in MDM and shown below. Imaging studies: Xrays: As interpreted by me: Portable AP upright with chest shows no pneumonia CTs show: CT abdomen pelvis is unremarkable Consultation(s): D/w the hospitalist Procedures:none Critical Care: I have personally spent 32 minutes of critical care time in the direct management of this patient. This includes bedside care, interpretation of diagnostic studies, and testing, discussion with consultants, patient, and family members, and other required patient management activities. This 32 minutes is in excess of all separately billable procedures. Past Med/Surg History Medical History (Updated 05/27/22 @ 22:45 by Joshua Borges DO) Diverticulitis No pertinent past medical history Surgical History No pertinent past surgical history Family History Other Family history non-contributory Social History Smoking Status: Never smoker Hx Alcohol Use: Yes Hx Substance Use: No Preferred Language: Thai Communication Ability: Effective House Cleaner Required: No Beliefs That Will Affect Care: None Current Living Situation: Spouse Feels Safe at Home: Yes Assistive Devices: Glasses Allergies Allergies Allergy/AdvReac Type Severity Reaction Status Date / Time erythromycin base Allergy Severe HIVES,SOB,I Verified 05/27/22 19:18 TCHING,SWEL LING Penicillins Allergy Severe SOB,ITCHING Verified 05/27/22 19:18 ,HIVES,SWEL LING Sulfa (Sulfonamide Allergy Severe HIVES,SOB,I Verified 05/27/22 19:18 Antibiotics) DAWSON RAMOS Home Meds Home Medications Medication Instructions Recorded Confirmed acetaminophen 325 mg tablet 650 mg PO QID PRN Pain 05/27/22 05/27/22 (Tylenol) buspirone 5 mg tablet 5 mg PO TID PRN Anxiety 05/27/22 05/27/22 diclofenac sodium 1 % topical gel 4 g topical QID PRN Pain 05/27/22 05/27/22 hydrochlorothiazide 25 mg tablet 25 mg PO DAILY 05/27/22 05/27/22 lisinopril 20 mg tablet 20 mg PO DAILY 05/27/22 05/27/22 multivitamin 1 tab PO DAILY 05/27/22 05/27/22 Results & Data (ED) Vital Signs Vital Signs - 24 hr 05/27/22 16:04 05/27/22 16:04 05/27/22 16:13 Temperature 38.4 C H Temperature Source Oral Pulse Rate 56 L 98 H Pulse Rate [Right Brachial] Pulse Rate from SpO2 Sensor Pulse Rhythm Regular Pulse Rhythm [Right Brachial] Pulse Strength Normal Pulse Strength [Right Brachial] Respiratory Rate 18 Respiratory Effort / Characteristics Non-Labored Spontaneous Respiratory Depth Normal Respiratory Pattern Regular Blood Pressure 138/71 Blood Pressure [Right Arm] Blood Pressure Mean 93 Blood Pressure Mean [Right Arm] Blood Pressure Position Lying Blood Pressure Position [Right Arm] Pulse Oximetry 95 92 Oxygen Delivery Method Room Air Room Air Oxygen Flow Rate Sepsis Recent Fever Within 48 Hours Yes Sepsis New/Unexplained Change in Mental Status No Sepsis Action Taken by Nursing No Action Required 05/27/22 16:03 05/27/22 16:10 05/27/22 16:20 Temperature Temperature Source Pulse Rate 94 H 88 86 Pulse Rate [Right Brachial] Pulse Rate from SpO2 Sensor 79 89 85 Pulse Rhythm Pulse Rhythm [Right Brachial] Pulse Strength Pulse Strength [Right Brachial] Respiratory Rate 24 21 16 Respiratory Effort / Characteristics Respiratory Depth Respiratory Pattern Blood Pressure Blood Pressure [Right Arm] Blood Pressure Mean Blood Pressure Mean [Right Arm] Blood Pressure Position Blood Pressure Position [Right Arm] Pulse Oximetry 93 91 95 Oxygen Delivery Method Oxygen Flow Rate Sepsis Recent Fever Within 48 Hours Sepsis New/Unexplained Change in Mental Status Sepsis Action Taken by Nursing 05/27/22 16:30 05/27/22 16:40 05/27/22 16:50 Temperature Temperature Source Pulse Rate 81 84 81 Pulse Rate [Right Brachial] Pulse Rate from SpO2 Sensor 81 80 83 Pulse Rhythm Pulse Rhythm [Right Brachial] Pulse Strength Pulse Strength [Right Brachial] Respiratory Rate 23 18 22 Respiratory Effort / Characteristics Respiratory Depth Respiratory Pattern Blood Pressure Blood Pressure [Right Arm] Blood Pressure Mean Blood Pressure Mean [Right Arm] Blood Pressure Position Blood Pressure Position [Right Arm] Pulse Oximetry 96 97 94 Oxygen Delivery Method Oxygen Flow Rate Sepsis Recent Fever Within 48 Hours Sepsis New/Unexplained Change in Mental Status Sepsis Action Taken by Nursing 05/27/22 17:00 05/27/22 17:10 05/27/22 17:20 Temperature Temperature Source Pulse Rate 79 78 82 Pulse Rate [Right Brachial] Pulse Rate from SpO2 Sensor 79 79 83 Pulse Rhythm Pulse Rhythm [Right Brachial] Pulse Strength Pulse Strength [Right Brachial] Respiratory Rate 22 19 21 Respiratory Effort / Characteristics Respiratory Depth Respiratory Pattern Blood Pressure Blood Pressure [Right Arm] Blood Pressure Mean Blood Pressure Mean [Right Arm] Blood Pressure Position Blood Pressure Position [Right Arm] Pulse Oximetry 94 92 95 Oxygen Delivery Method Oxygen Flow Rate Sepsis Recent Fever Within 48 Hours Sepsis New/Unexplained Change in Mental Status Sepsis Action Taken by Nursing 05/27/22 17:30 05/27/22 17:40 05/27/22 17:50 Temperature Temperature Source Pulse Rate 84 85 85 Pulse Rate [Right Brachial] Pulse Rate from SpO2 Sensor 81 79 86 Pulse Rhythm Pulse Rhythm [Right Brachial] Pulse Strength Pulse Strength [Right Brachial] Respiratory Rate 20 18 20 Respiratory Effort / Characteristics Respiratory Depth Respiratory Pattern Blood Pressure Blood Pressure [Right Arm] Blood Pressure Mean Blood Pressure Mean [Right Arm] Blood Pressure Position Blood Pressure Position [Right Arm] Pulse Oximetry 94 96 93 Oxygen Delivery Method Oxygen Flow Rate Sepsis Recent Fever Within 48 Hours Sepsis New/Unexplained Change in Mental Status Sepsis Action Taken by Nursing 05/27/22 18:17 05/27/22 18:20 05/27/22 18:23 Temperature Temperature Source Pulse Rate 79 77 Pulse Rate [Right Brachial] Pulse Rate from SpO2 Sensor 70 79 78 Pulse Rhythm Pulse Rhythm [Right Brachial] Pulse Strength Pulse Strength [Right Brachial] Respiratory Rate 21 20 Respiratory Effort / Characteristics Respiratory Depth Respiratory Pattern Blood Pressure Blood Pressure [Right Arm] Blood Pressure Mean Blood Pressure Mean [Right Arm] Blood Pressure Position Blood Pressure Position [Right Arm] Pulse Oximetry 95 93 89 L Oxygen Delivery Method Oxygen Flow Rate Sepsis Recent Fever Within 48 Hours Sepsis New/Unexplained Change in Mental Status Sepsis Action Taken by Nursing 05/27/22 18:24 05/27/22 18:38 05/27/22 18:56 Temperature 37.2 C Temperature Source Oral Pulse Rate Pulse Rate [Right Brachial] 97 H Pulse Rate from SpO2 Sensor Pulse Rhythm Pulse Rhythm [Right Brachial] Regular Pulse Strength Pulse Strength [Right Brachial] Normal Respiratory Rate 19 Respiratory Effort / Characteristics Non-Labored Spontaneous Respiratory Depth Normal Respiratory Pattern Regular Blood Pressure 122/59 L Blood Pressure [Right Arm] 128/58 L Blood Pressure Mean 80 Blood Pressure Mean [Right Arm] 81 Blood Pressure Position Blood Pressure Position [Right Arm] Lying Pulse Oximetry 88 L 97 Oxygen Delivery Method Room Air Nasal Cannula Oxygen Flow Rate 2 Sepsis Recent Fever Within 48 Hours Sepsis New/Unexplained Change in Mental Status Sepsis Action Taken by Nursing 05/27/22 20:01 Temperature Temperature Source Pulse Rate 73 Pulse Rate [Right Brachial] Pulse Rate from SpO2 Sensor Pulse Rhythm Pulse Rhythm [Right Brachial] Pulse Strength Pulse Strength [Right Brachial] Respiratory Rate Respiratory Effort / Characteristics Respiratory Depth Respiratory Pattern Blood Pressure Blood Pressure [Right Arm] Blood Pressure Mean Blood Pressure Mean [Right Arm] Blood Pressure Position Blood Pressure Position [Right Arm] Pulse Oximetry Oxygen Delivery Method Oxygen Flow Rate Sepsis Recent Fever Within 48 Hours Sepsis New/Unexplained Change in Mental Status Sepsis Action Taken by Nursing Laboratory Data 05/27/22 16:06 05/27/22 17:54 Lab Results 05/27/22 05/27/22 05/27/22 Range/Units 16:05 16:06 16:06 WBC 7.27 (4.8-10.8) K/ul RBC 4.83 (4.20-5.40) M/uL Hgb 12.0 (12.0-16.0) g/dl Hct 37.6 (37.0-47.0) % MCV 77.8 L (80.0-100.0) fL MCH 24.8 L (25.0-34.0) pg MCHC 31.9 L (32.0-36.0) g/dL RDW Std Deviation 44.7 (36.4-46.3) fL RDW Coeff of Leanne 15.8 H (11.5-14.5) % Plt Count 223 (130-400) K/uL MPV 9.8 (9.4-12.4) fL Immature Gran % (Auto) 0.4 % Neut % (Auto) 71.1 % Lymph % (Auto) 12.4 % [place] % (Auto) 15.8 % Eos % (Auto) 0.0 % Baso % (Auto) 0.3 % Neut # (Auto) 5.17 (1.40-6.50) K/uL Lymph # (Auto) 0.90 L (1.2-3.4) K/uL [place] # (Auto) 1.15 H (0.11-0.59) K/uL Eos # (Auto) 0.00 (0-0.50) K/uL Baso # (Auto) 0.02 (0-0.2) K/uL Immature Gran # (Auto) 0.03 (0.01-0.20) K/uL Sodium 137 (136-145) mmol/L Potassium TNP Chloride 97 L (98-107) mmol/L Carbon Dioxide 27 (21-32) mmol/L Anion Gap 13 H (3-11) BUN 19 (6-23) mg/dl Creatinine 0.90 (0.6-1.2) mg/dl Est Cr Clr Drug Dosing 49.5 ml/min Est GFR ( Amer) 72.5 ml/min Est GFR (Non-Af Amer) 62.5 ml/min BUN/Creatinine Ratio 21.1 H (10-20) Glucose 112 H (70-99(Fasting)) mg/dl Calcium 9.0 (8.6-10.3) mg/dl Magnesium (1.7-2.4) mg/dl Total Bilirubin 0.4 (0.2-1.0) mg/dl AST TNP ALT 17 (7-52) U/L Alkaline Phosphatase 100 (34-104) U/L Total Protein 7.3 (6.0-8.3) gm/dl Albumin 3.8 (3.4-5.0) gm/dl Globulin 3.5 (2.5-4.0) gm/dl Albumin/Globulin Ratio 1.1 (0.9-2) Lipase 13 (11-82) U/L Urine Color Urine Appearance (Clear) Urine pH (4.5-7.5) Ur Specific [place] (1.000-1.030) Urine Protein (Negative) Urine Glucose (UA) (Negative) Urine Ketones (Negative) Urine Blood (Negative) Urine Nitrite (Negative) Urine Bilirubin (Negative) Urine Urobilinogen (Negative) Ur Leukocyte Esterase (Negative) Urine WBC (Auto) (0-5) /hpf Urine RBC (Auto) (0-4) /hpf U Hyaline Cast (Auto) (0-5) /lpf U Epithel Cells (Auto) (0-5) /lpf Urine Bacteria (Auto) (Negative) SARS-CoV-2 (PCR) POSITIVE A* (Negative) Influenza Type A (PCR) Negative (Neg) Influenza Type B (PCR) Negative (Neg) RSV (RT-PCR) Negative (Neg) 05/27/22 05/27/22 05/27/22 Range/Units 17:54 19:10 19:15 WBC (4.8-10.8) K/ul RBC (4.20-5.40) M/uL Hgb (12.0-16.0) g/dl Hct (37.0-47.0) % MCV (80.0-100.0) fL MCH (25.0-34.0) pg MCHC (32.0-36.0) g/dL RDW Std Deviation (36.4-46.3) fL RDW Coeff of Leanne (11.5-14.5) % Plt Count (130-400) K/uL MPV (9.4-12.4) fL Immature Gran % (Auto) % Neut % (Auto) % Lymph % (Auto) % [place] % (Auto) % Eos % (Auto) % Baso % (Auto) % Neut # (Auto) (1.40-6.50) K/uL Lymph # (Auto) (1.2-3.4) K/uL [place] # (Auto) (0.11-0.59) K/uL Eos # (Auto) (0-0.50) K/uL Baso # (Auto) (0-0.2) K/uL Immature Gran # (Auto) (0.01-0.20) K/uL Sodium (136-145) mmol/L Potassium 2.9 L Chloride (98-107) mmol/L Carbon Dioxide (21-32) mmol/L Anion Gap (3-11) BUN (6-23) mg/dl Creatinine (0.6-1.2) mg/dl Est Cr Clr Drug Dosing ml/min Est GFR ( Amer) ml/min Est GFR (Non-Af Amer) ml/min BUN/Creatinine Ratio (10-20) Glucose (70-99(Fasting)) mg/dl Calcium (8.6-10.3) mg/dl Magnesium 1.7 Cancelled (1.7-2.4) mg/dl Total Bilirubin (0.2-1.0) mg/dl AST 24 ALT (7-52) U/L Alkaline Phosphatase (34-104) U/L Total Protein (6.0-8.3) gm/dl Albumin (3.4-5.0) gm/dl Globulin (2.5-4.0) gm/dl Albumin/Globulin Ratio (0.9-2) Lipase (11-82) U/L Urine Color Yellow Urine Appearance Clear (Clear) Urine pH 7.0 (4.5-7.5) Ur Specific [place] 1.032 H (1.000-1.030) Urine Protein Trace H (Negative) Urine Glucose (UA) Negative (Negative) Urine Ketones Trace H (Negative) Urine Blood Negative (Negative) Urine Nitrite Negative (Negative) Urine Bilirubin Negative (Negative) Urine Urobilinogen Negative (Negative) Ur Leukocyte Esterase Negative (Negative) Urine WBC (Auto) 1-5 (0-5) /hpf Urine RBC (Auto) 0-4 (0-4) /hpf U Hyaline Cast (Auto) 1-5 (0-5) /lpf U Epithel Cells (Auto) >30 H (0-5) /lpf Urine Bacteria (Auto) Negative (Negative) SARS-CoV-2 (PCR) (Negative) Influenza Type A (PCR) (Neg) Influenza Type B (PCR) (Neg) RSV (RT-PCR) (Neg) Administered Medications Lactated Ringer's (Lr) 1,000 mls @ 75 mls/hr IV .[id number] ONE Stop: 05/28/22 08:35 Last Admin: 05/27/22 19:40 Dose: 75 mls/hr Documented By: ANTONELLA Magnesium Sulfate/Dextrose (Magnesium Sulfate / D5w) 1 gm in 100 mls @ 50 mls/hr IV ONE ONE Stop: 05/27/22 22:59 Last Admin: 05/27/22 21:43 Dose: 50 mls/hr Documented By: ANTONELLA Discontinued Medications Acetaminophen (Acetaminophen 325 Mg Tab) 650 mg PO NOW STA Stop: 05/27/22 16:18 Last Admin: 05/27/22 16:27 Dose: 650 mg Documented By: BRIANNA Dexamethasone Sodium Phosphate (DexamethasonePf 10 Mg/Ml Vial) 10 mg IV NOW ONE Stop: 05/27/22 18:49 Last Admin: 05/27/22 18:58 Dose: 10 mg Documented By: ANTONELLA Sodium Chloride (Nss 1000ml) 1,000 mls @ 999 mls/hr IV .[id number] ONE Stop: 05/27/22 17:02 Last Infusion: 05/27/22 18:17 Dose: 0 mls/hr Documented By: Admin: 05/27/22 16:12 Dose: 999 mls/hr Documented By: ANTONELLA Potassium Chloride (K Dylan / Wtr) 10 meq in 100 mls @ 100 mls/hr IV Q1H JOSIANE; Protocol Stop: 05/27/22 20:59 Last Infusion: 05/27/22 22:10 Dose: 0 mls/hr Documented By: Admin: 05/27/22 21:00 Dose: 100 mls/hr Documented By: Infusion: 05/27/22 19:58 Dose: 100 mls/hr Documented By: Admin: 05/27/22 18:58 Dose: 100 mls/hr Documented By: ANTONELLA Ioversol (Optiray 350 100ml) 85 ml IV ONCE ONE Stop: 05/27/22 18:10 Last Admin: 05/27/22 18:13 Dose: 85 ml Documented By: JEFF Metoclopramide HCl (Metoclopramide Hcl Inj 5 Mg/Ml 2 Ml Vial) 10 mg IV NOW STA Stop: 05/27/22 16:02 Last Admin: 05/27/22 16:12 Dose: 10 mg Documented By: ANTONELLA Potassium Chloride (Potassium Chloride Pwd 20 Meq Pack) 40 meq PO NOW STA Stop: 05/27/22 20:00 Last Admin: 05/27/22 20:32 Dose: 40 meq Documented By: ANTONELLA Imaging Data Radiologist's Impression: Abdomen/Pelvis CT 05/27/22 16:[address] WITH IV CONTRAST CT DOSE: 468.64 mGy.cm HISTORY: Nausea. Vomiting. Right lower quadrant abdominal pain. TECHNIQUE: Multiaxial CT images of the abdomen and pelvis were performed following the use of intravenous contrast. A dose lowering technique was utilized adhering to the principles of ALARA. COMPARISON STUDY: Abdomen and pelvis CT 06/15/2018. FINDINGS: Mild dependent changes and chronic interstitial thickening again noted at the lung bases. No pneumoperitoneum. No pneumatosis. Moderate degenerative changes within the pelvis and hips. No acute fractures identified. Moderate to severe degenerative changes within the lumbar spine. There is a moderate hiatus hernia, unchanged. The heart remains mildly enlarged. There is a large duodenal diverticulum, unchanged. Hepatic steatosis. No hepatic or splenic masses. The gallbladder, spleen, and adrenal glands unremarkable. There are few small hypodense/cystic lesions within the tail the pancreas which are likely present on the prior study. 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 There is a healing/healed left lateral 11th rib fracture. There is a 7.6 cm left renal cyst containing a small amount of punctate peripheral calcification. There are small bilateral peripelvic renal cysts noted. These are similar to the prior lexx dy. No renal or ureteral stones. No hydronephrosis. The main portal vein is patent. Normal caliber abdominal aorta. No retroperitoneal lymphadenopathy. No pelvic free fluid or pelvic lymphadenopathy. Normal bladder. Prior hysterectomy. 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 This extends posteriorly from the mid sigmoid colon multiple colonic diverticula. No evidence for acute diverticulitis. No bowel wall thickening or obstruction. The appendix is not identified and may be surgically absent. IMPRESSION: 1. No bowel wall thickening or obstruction. 2. Colonic diverticulosis. No evidence for acute diverticulitis. 3. 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 4. Hepatic steatosis. 5. Moderate hiatus hernia, unchanged. 6. A healing/healed left lateral left rib fracture. 7. Additional findings as described above. ACT 112: Negative or not required by law. Electronically signed by: Norman Kirby M.D. 05/27/2022 6:39 PM Chest X-Ray 05/27/22 16:31 XR chest 1V portable HISTORY: Shortness of breath. ? covid COMPARISON: Chest 06/21/2018. FINDINGS: No pneumothorax. No pleural effusions. Mild chronic interstitial thickening is again noted. No new focal lung consolidations to suggest a pneumonia. No evidence for pulmonary edema. The axillary veins on enlarged. There is a moderate hiatus hernia, unchanged. IMPRESSION: 1. No acute process within the chest. 2. Moderate hiatus hernia again noted. ACT 112: Negative or not required by law. Electronically signed by: Norman Kirby M.D. 05/27/2022 6:56 PM Discharge Plan Visit Data Chief Complaint: Illness Stated Complaint: NAUSEA/VOMITING EXPOSED TO COVID ED Provider: Joshua Borges Discharge Problem: Acute hypoxemic respiratory failure, Hypokalemia, Nausea & vomiting Patient Disposition: Admitted As Inpatient Discharge Instructions Interventions: ED Discharge Assessment Last Done: 05/27/22 22:04
[2022-05-27] MEDS ORDERED: ACETAMINOPHEN 325 MG TAB PO STA (16:17)
[2022-05-27 16:41] LABS: Basophils # (auto) 0.02 K/uL (0-0.2); Basophils % (auto) 0.3 %; Hematocrit (blood only) 37.6 % (37.0-47.0); Immature Granulocytes # (auto) 0.03 K/uL (0.01-0.20); Immature Granulocytes % (auto) 0.4 %; Lymphocytes % (auto) 12.4 %; Mean Corpuscular Hemoglobin 24.8 pg (25.0-34.0); Mean Corpuscular Hgb Conc 31.9 g/dL (32.0-36.0); Mean Corpuscular Volume 77.8 fL (80.0-100.0); Mean Platelet Volume 9.8 fL (9.4-12.4); Monocytes # (auto) 1.15 K/uL (0.11-0.59); Monocytes % (auto) 15.8 %; Neutrophils # (auto) 5.17 K/uL (1.40-6.50); Neutrophils % (auto) 71.1 %; Platelet Count 223 K/uL (130-400); RDW Coefficient of Variation 15.8 % (11.5-14.5); RDW Standard Deviation 44.7 fL (36.4-46.3); Red Blood Count 4.83 M/uL (4.20-5.40); White Blood Count 7.27 K/ul (4.8-10.8)
[2022-05-27 17:36] LABS: Alanine Aminotransferase 17 U/L (7-52); Albumin Globulin Ratio 1.1 (0.9-2); Albumin Level 3.8 gm/dl (3.4-5.0); Alkaline Phosphatase 100 U/L (34-104); Anion Gap 13 (3-11); BUN Creatinine Ratio 21.1 (10-20); Bilirubin,Total 0.4 mg/dl (0.2-1.0); Blood Urea Nitrogen 19 mg/dl (6-23); Carbon Dioxide 27 mmol/L (21-32); Chloride 97 mmol/L (98-107); Creatinine Clr Calc Pharmacy 49.5 ml/min; Est GFR (African American) 72.5 ml/min; Est GFR (Non-African American) 62.5 ml/min; Globulin 3.5 gm/dl (2.5-4.0); Glucose 112 mg/dl (70-99(Fasting)); Lipase 13 U/L (11-82); Sodium 137 mmol/L (136-145); Total Protein 7.3 gm/dl (6.0-8.3)
[2022-05-27 17:57] LABS: Influenza A virus by PCR Negative (Neg); Influenza B virus by PCR Negative (Neg); RSV by PCR Negative (Neg)
[2022-05-27 17:58] LABS: SARS CoV2 RNA(COVID-19) Ceph POSITIVE (Negative)
[2022-05-27] MEDS ORDERED: OPTIRAY 350 100ml IV ONE (18:09)
[2022-05-27 18:31] LABS: Potassium 2.9 mmol/L (3.5-5.1)
--- NOTE | 2022-05-27 18:42 | CT Scan Report ---
ABDOMEN AND PELVIS CT WITH IV CONTRAST CT DOSE: 468.64 mGy.cm HISTORY: Nausea. Vomiting. Right lower quadrant abdominal pain. TECHNIQUE: Multiaxial CT images of the abdomen and pelvis were performed following the use of intrave nous contrast. A dose lowering technique was utilized adhering to the principles of ALARA. COMPARISON STUDY: Abdomen and pelvis CT 06/15/2018. FINDINGS: Mild dependent changes and chronic interstitial thickening again noted at the lung bases. N o pneumoperitoneum. No pneumatosis. Moderate degenerative changes within the pelvis and hips. No acut e fractures identified. Moderate to severe degenerative changes within the lumbar spine. There is a m oderate hiatus hernia, unchanged. The heart remains mildly enlarged. There is a large duodenal divert iculum, unchanged. Hepatic steatosis. No hepatic or splenic masses. The gallbladder, spleen, and adre nal glands unremarkable. There are few small hypodense/cystic lesions within the tail the pancreas wh ich are likely present on the prior study. Therefore, these favor small side branch intraductal papil jennifer mucinous neoplasms and are of doubtful clinical significance. There is a healing/healed left lat eral 11th rib fracture. There is a 7.6 cm left renal cyst containing a small amount of punctate perip heral calcification. There are small bilateral peripelvic renal cysts noted. These are similar to the prior study. No renal or ureteral stones. No hydronephrosis. The main portal vein is patent. Normal caliber abdominal aorta. No retroperitoneal lymphadenopathy. No pelvic free fluid or pelvic lymphaden opathy. Normal bladder. Prior hysterectomy. There is a small colovaginal fistula best seen on image 3 [id number]. This extends posteriorly from the mid sigmoid colon multiple colonic diverticula. No evidence for acute diverticulitis. No bowel wall thickening or obstruction. The appendix is not identified and ma y be surgically absent. IMPRESSION: 1. No bowel wall thickening or obstruction. 2. Colonic diverticulosis. No evidence for acute diverticulitis. 3. 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 4. Hepatic steatosis. 5. Moderate hiatus hernia, unchanged. 6. A healing/healed left lateral left rib fracture. 7. Additional findings as described above. ACT 112: Negative or not required by law. Electronically signed by: Norman Kirby M.D. 05/27/2022 6:39 PM
[2022-05-27] MEDS ORDERED: dexAMETHasone**PF** 10 MG/ML VIAL IV ONE (18:48)
--- NOTE | 2022-05-27 18:57 | XRay Report ---
XR chest 1V portable HISTORY: Shortness of breath. ? covid COMPARISON: Chest 06/21/2018. FINDINGS: No pneumothorax. No pleural effusions. Mild chronic interstitial thickening is again noted. No new focal lung consolidations to suggest a pneumonia. No evidence for pulmonary edema. The axilla ry veins on enlarged. There is a moderate hiatus hernia, unchanged. IMPRESSION: 1. No acute process within the chest. 2. Moderate hiatus hernia again noted. ACT 112: Negative or not required by law. Electronically signed by: Norman Kirby M.D. 05/27/2022 6:56 PM
[2022-05-27] MEDS: POTASSIUM CHLORIDE / WTR 10 MEQ/100 ML PLCT IV SCH ×2 (18:58→21:00)
[2022-05-27] MEDS ORDERED: LACTATED RINGER'S 1,000 ML IV ONE (19:16)
[2022-05-27 19:44] LABS: Magnesium 1.7 mg/dl (1.7-2.4)
[2022-05-27] MEDS ORDERED: POTASSIUM CHLORIDE PWD 20 MEQ PACK PO STA (19:59)
--- NOTE | 2022-05-27 19:59 | History & Physical Report ---
Date of Service May 27, 2022 Assessment & Plan (1) Acute hypoxemic respiratory failure: Plan: Secondary to severe COVID-19 pneumonia hx PSVT as per records hypertension, stable not on statin Rx hyperlipidemia on statin Rx Hypokalemia, clinical dehydration secondary to emesis symptoms and home diuretic Hyperglycemia rule out DM Medical telemetry supplemental O2 Decadron for severe COVID-19 pneumonia Patient/daughter refusing Remdesivir recommendation. replace potassium, hold home diuretic until patient euvolemic Check hemoglobin A1c DVT prophylaxis. Lovenox subcu Full code Patient daughter requesting updates from providers. Ms. Tanya Taveras, contact #[phone]. Text document was generated using [employer] voice recognition software. It may contain grammatical or spelling errors. Kindly contact undersigned for clarification of any documentation item in question. History of Present Illness Chief Complaint: Abdominal pain, weakness Primary Care Provider: Krissy Carson MD History obtained from patient, family, and records. Medical history significant for PSVT, hypertension, hyperlipidemia, GERD, diverticulosis. Last confinement 2018 for diverticulitis. Few days ago, patient noted chills, dry heaves, dry cough symptoms. Achy abdominal pain with nausea vomiting. No diarrhea. No chest pain, no SOB. Headache attributed to coughing as per patient. Possible sick COVID-19 contacts at a recent gathering. Patient has not received COVID-19 vaccination. Seen at PCP's office yesterday. Requested to return today for COVID-19 test. Patient brought to ER by EMS for worsening symptoms. O2 sats 80s on room air at some point during ER stay. IV Decadron administered at the ER. 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 Allergies Allergy/AdvReac Type Severity Reaction Status Date / Time erythromycin base Allergy Severe HIVES,SOB,I Verified 05/27/22 19:18 TCHIMEERASWEL JACLYN Penicillins Allergy Severe SOB,ITCHING Verified 05/27/22 19:18 ,HIVES,SWEL LING Sulfa (Sulfonamide Allergy Severe HIVES,SOB,I Verified 05/27/22 19:18 Antibiotics) TCKATHRINSWEL JACLYN Home Medications Medication Instructions Recorded Confirmed Type acetaminophen 325 mg tablet 650 mg PO QID PRN Pain 05/27/22 05/27/22 History (Tylenol) buspirone 5 mg tablet 5 mg PO TID PRN Anxiety 05/27/22 05/27/22 History diclofenac sodium 1 % topical gel 4 g topical QID PRN Pain 05/27/22 05/27/22 History hydrochlorothiazide 25 mg tablet 25 mg PO DAILY 05/27/22 05/27/22 History lisinopril 20 mg tablet 20 mg PO DAILY 05/27/22 05/27/22 History multivitamin 1 tab PO DAILY 05/27/22 05/27/22 History Past Med/Surg History Medical History (Updated 05/27/22 @ 21:13 by Yung Schmidt MD) Diverticulitis No pertinent past medical history Surgical History No pertinent past surgical history Family History Other Family history non-contributory Social History Smoking Status: Never smoker Hx Alcohol Use: Yes Hx Substance Use: No Preferred Language: Bhutanese Communication Ability: Effective Water Resources Project Manager Required: No Beliefs That Will Affect Care: None Current Living Situation: Spouse Feels Safe at Home: Yes Assistive Devices: Glasses Review of Systems Review of Systems: As per HPI, all other systems reviewed and negative Physical Exam Physical Exam: GENERAL: Slightly uncomfortable, obese, pleasant, no respiratory distress SKIN: Normal color, warm HEENT: [place] palpebral conjunctivae, no ptosis, dry buccal mucosa, nasal cannula in place NECK : Supple, short neck, no tenderness CHEST : Decreased breath sounds, no tenderness HEART : RRR, no obvious murmurs ABDOMEN: Some distention, no tenderness EXTREMITIES : No LE swelling/tenderness, no other conspicuous deformities noted NEUROLOGIC : Coherent, no facial asymmetry, no other gross focality Results & Data Results & Data Vital Signs (Past 12 Hours) Vital Signs Temp Pulse Pulse Resp BP BP Pulse Ox 05/27/22 18:56 37.2 C 97 H 19 128/58 L 97 05/27/22 18:38 88 L 05/27/22 18:24 122/59 L 05/27/22 18:23 77 20 89 L 03/23/23 18:20 79 21 93 05/27/22 18:17 95 05/27/22 17:50 85 20 93 05/27/22 17:40 85 18 96 05/27/22 17:30 84 20 94 05/27/22 17:20 82 21 95 05/27/22 17:10 78 19 92 05/27/22 17:00 79 22 94 05/27/22 16:50 81 22 94 05/27/22 16:40 84 18 97 05/27/22 16:30 81 23 96 05/27/22 16:20 86 16 95 05/27/22 16:10 88 21 91 05/27/22 16:03 94 H 24 93 05/27/22 16:13 92 05/27/22 16:04 98 H 05/27/22 16:04 38.4 C H 56 L 18 138/71 95 O2 Del Method O2 Flow Rate 05/27/22 18:56 Nasal Cannula 2 05/27/22 18:38 Room Air 05/27/22 18:24 05/27/22 18:23 05/27/22 18:20 05/27/22 18:17 05/27/22 17:50 05/27/22 17:40 05/27/22 17:30 05/27/22 17:20 05/27/22 17:10 05/27/22 17:00 05/27/22 16:50 05/27/22 16:40 05/27/22 16:30 05/27/22 16:20 05/27/22 16:10 05/27/22 16:03 05/27/22 16:13 Room Air 05/27/22 16:04 05/27/22 16:04 Room Air Laboratory Results Laboratory Results WBC 7.27 K/ul (4.8-10.8) 05/27/22 16:06 RBC 4.83 M/uL (4.20-5.40) 05/27/22 16:06 Hgb 12.0 g/dl (12.0-16.0) 05/27/22 16:06 Hct 37.6 % (37.0-47.0) 05/27/22 16:06 MCV 77.8 fL (80.0-100.0) L 05/27/22 16:06 MCH 24.8 pg (25.0-34.0) L 05/27/22 16:06 MCHC 31.9 g/dL (32.0-36.0) L 05/27/22 16:06 RDW Std Deviation 44.7 fL (36.4-46.3) 05/27/22 16:06 RDW Coeff of Leanne 15.8 % (11.5-14.5) H 05/27/22 16:06 Plt Count 223 K/uL (130-400) 05/27/22 16:06 MPV 9.8 fL (9.4-12.4) 05/27/22 16:06 Immature Gran % (Auto) 0.4 % 05/27/22 16:06 Neut % (Auto) 71.1 % 05/27/22 16:06 Lymph % (Auto) 12.4 % 05/27/22 16:06 Cloud % (Auto) 15.8 % 05/27/22 16:06 Eos % (Auto) 0.0 % 05/27/22 16:06 Baso % (Auto) 0.3 % 05/27/22 16:06 Neut # (Auto) 5.17 K/uL (1.40-6.50) 05/27/22 16:06 Lymph # (Auto) 0.90 K/uL (1.2-3.4) L 05/27/22 16:06 Cloud # (Auto) 1.15 K/uL (0.11-0.59) H 05/27/22 16:06 Eos # (Auto) 0.00 K/uL (0-0.50) 05/27/22 16:06 Baso # (Auto) 0.02 K/uL (0-0.2) 05/27/22 16:06 Immature Gran # (Auto) 0.03 K/uL (0.01-0.20) 05/27/22 16:06 Sodium 137 mmol/L (136-145) 05/27/22 16:06 Potassium 2.9 mmol/L (3.5-5.1) L 05/27/22 17:54 Chloride 97 mmol/L (98-107) L 05/27/22 16:06 Carbon Dioxide 27 mmol/L (21-32) 05/27/22 16:06 Anion Gap 13 (3-11) H 05/27/22 16:06 BUN 19 mg/dl (6-23) 05/27/22 16:06 Creatinine 0.90 mg/dl (0.6-1.2) 05/27/22 16:06 Est Cr Clr Drug Dosing 49.5 ml/min 05/27/22 16:06 Est GFR ( Amer) 72.5 ml/min 05/27/22 16:06 Est GFR (Non-Af Amer) 62.5 ml/min 05/27/22 16:06 BUN/Creatinine Ratio 21.1 (10-20) H 05/27/22 16:06 Glucose 112 mg/dl (70-99(Fasting)) H 05/27/22 16:06 Calcium 9.0 mg/dl (8.6-10.3) 05/27/22 16:06 Magnesium Cancelled 05/27/22 19:15 Total Bilirubin 0.4 mg/dl (0.2-1.0) 05/27/22 16:06 AST 24 U/L (13-39) 05/27/22 17:54 ALT 17 U/L (7-52) 05/27/22 16:06 Alkaline Phosphatase 100 U/L (34-104) 05/27/22 16:06 Total Protein 7.3 gm/dl (6.0-8.3) 05/27/22 16:06 Albumin 3.8 gm/dl (3.4-5.0) 05/27/22 16:06 Globulin 3.5 gm/dl (2.5-4.0) 05/27/22 16:06 Albumin/Globulin Ratio 1.1 (0.9-2) 05/27/22 16:06 Lipase 13 U/L (11-82) 05/27/22 16:06 SARS-CoV-2 (PCR) POSITIVE (Negative) A* 05/27/22 16:05 Influenza Type A (PCR) Negative (Neg) 05/27/22 16:05 Influenza Type B (PCR) Negative (Neg) 05/27/22 16:05 RSV (RT-PCR) Negative (Neg) 05/27/22 16:05 Impressions Abdomen/Pelvis CT 05/27/22 16:[address] WITH IV CONTRAST CT DOSE: 468.64 mGy.cm HISTORY: Nausea. Vomiting. Right lower quadrant abdominal pain. TECHNIQUE: Multiaxial CT images of the abdomen and pelvis were performed following the use of intravenous contrast. A dose lowering technique was utilized adhering to the principles of ALARA. COMPARISON STUDY: Abdomen and pelvis CT 06/15/2018. FINDINGS: Mild dependent changes and chronic interstitial thickening again noted at the lung bases. No pneumoperitoneum. No pneumatosis. Moderate degenerative changes within the pelvis and hips. No acute fractures identified. Moderate to severe degenerative changes within the lumbar spine. There is a moderate hiatus hernia, unchanged. The heart remains mildly enlarged. There is a large duodenal diverticulum, unchanged. Hepatic steatosis. No hepatic or splenic masses. The gallbladder, spleen, and adrenal glands unremarkable. There are few small hypodense/cystic lesions within the tail the pancreas which are likely present on the prior study. 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 There is a healing/healed left lateral 11th rib fracture. There is a 7.6 cm left renal cyst containing a small amount of punctate peripheral calcification. There are small bilateral peripelvic renal cysts noted. These are similar to the prior study. No renal or ureteral stones. No hydronephrosis. The main portal vein is patent. Normal caliber abdominal aorta. No retroperitoneal lymphadenopathy. No pelvic free fluid or pelvic lymphadenopathy. Normal bladder. Prior hysterectomy. 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 This extends posteriorly from the mid sigmoid colon multiple colonic diverticula. No evidence for acute diverticulitis. No bowel wall thickening or obstruction. The appendix is not identified and may be surgically absent. IMPRESSION: 1. No bowel wall thickening or obstruction. 2. Colonic diverticulosis. No evidence for acute diverticulitis. 3. 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 4. Hepatic steatosis. 5. Moderate hiatus hernia, unchanged. 6. A healing/healed left lateral left rib fracture. 7. Additional findings as described above. ACT 112: Negative or not required by law. Electronically signed by: Norman Kirby M.D. 05/27/2022 6:39 PM Chest X-Ray 05/27/22 16:31 XR chest 1V portable HISTORY: Shortness of breath. ? covid COMPARISON: Chest 06/21/2018. FINDINGS: No pneumothorax. No pleural effusions. Mild chronic interstitial thickening is again noted. No new focal lung consolidations to suggest a pneumonia. No evidence for pulmonary edema. The axillary veins on enlarged. There is a moderate hiatus hernia, unchanged. IMPRESSION: 1. No acute process within the chest. 2. Moderate hiatus hernia again noted. ACT 112: Negative or not required by law. Electronically signed by: Norman Kirby M.D. 05/27/2022 6:56 PM
[2022-05-27 20:06] LABS: Appearance Urine Clear (Clear); Bacteria Urine Automated Negative (Negative); Bilirubin Urine Negative (Negative); Blood Urine Negative (Negative); Color Urine Yellow; Epithelial Cell Urine Auto >30 /lpf (0-5); Glucose Urine UA Negative (Negative); Ketones Urine Trace (Negative); Leukocyte Esterase Urine Negative (Negative); Nitrite Urine Negative (Negative); Protein Urine Trace (Negative); RBC Urine Automated 0-4 /hpf (0-4); Specific Gravity Urine 1.032 (1.000-1.030); Urobilinogen Urine Negative (Negative)
[2022-05-27] MEDS ORDERED: MAGNESIUM SULFATE / D5W 1 GM/100 ML BAG IV ONE (21:00)
[2022-05-27] MEDS ORDERED: POTASSIUM CHLORIDE PWD 20 MEQ PACK PO ONE (22:00)
[2022-05-27] MEDS ORDERED: PROMETHAZINE HCL 12.5 MG in SODIUM CHLORIDE 0.9% 50 ML IV PRN (23:03)
[2022-05-27] MEDS ORDERED: ACETAMINOPHEN 325 MG TAB PO PRN (23:03)
[2022-05-27] MEDS ORDERED: DICLOFENAC SOD 1% GEL 100 GM TUBE EXT PRN (23:03)
[2022-05-27] MEDS ORDERED: traMADol HCL 50 MG TABLET PO PRN (23:03)
[2022-05-27] MEDS ORDERED: busPIRone 5 MG TAB PO PRN (23:03)
[2022-05-28] MEDS: guaiFENesin 600 MG TABCR PO SCH ×3 (00:02→20:44)
[2022-05-28 07:46] LABS: Hematocrit (blood only) 35.5 % (37.0-47.0); Hemoglobin 11.2 g/dl (12.0-16.0); Immature Granulocytes # (auto) 0.01 K/uL (0.01-0.20); Immature Granulocytes % (auto) 0.3 %; Lymphocytes # (auto) 0.74 K/uL (1.2-3.4); Lymphocytes % (auto) 22.5 %; Mean Corpuscular Hemoglobin 24.7 pg (25.0-34.0); Mean Corpuscular Hgb Conc 31.5 g/dL (32.0-36.0); Mean Corpuscular Volume 78.2 fL (80.0-100.0); Monocytes # (auto) 0.43 K/uL (0.11-0.59); Monocytes % (auto) 13.1 %; Neutrophils # (auto) 2.11 K/uL (1.40-6.50); Neutrophils % (auto) 64.1 %; Platelet Count 191 K/uL (130-400); RDW Coefficient of Variation 15.5 % (11.5-14.5); RDW Standard Deviation 43.9 fL (36.4-46.3); Red Blood Count 4.54 M/uL (4.20-5.40); White Blood Count 3.29 K/ul (4.8-10.8)
[2022-05-28] MEDS: dexAMETHasone 6 MG in SYRINGE 0 ML IV SCH (07:56)
[2022-05-28] MEDS: ENOXAPARIN INJ 40 MG/0.4 ML SYR SQ SCH (07:57)
[2022-05-28] MEDS: MULTIVITAMIN TAB PO SCH (07:57)
[2022-05-28] MEDS: lisinopril 20 MG TAB PO SCH (07:57)
[2022-05-28 08:10] LABS: Albumin Globulin Ratio 1.2 (0.9-2); Albumin Level 3.5 gm/dl (3.4-5.0); BUN Creatinine Ratio 26.5 (10-20); Bilirubin,Total 0.3 mg/dl (0.2-1.0); Calcium 8.6 mg/dl (8.6-10.3); Creatinine Clr Calc Pharmacy 64.8 ml/min; Est GFR (African American) 99.2 ml/min; Est GFR (Non-African American) 85.6 ml/min; Globulin 2.9 gm/dl (2.5-4.0); Potassium 3.9 mmol/L (3.5-5.1); Total Protein 6.4 gm/dl (6.0-8.3)
[2022-05-28 08:36] LABS: Estimated Average Glucose 126 mg/dl
[2022-05-28] MEDS ORDERED: hydrALAZINE 10 MG TAB PO PRN (12:54)
[2022-05-28] MEDS ORDERED: prednisoLONE acetate 1% OP SUSP 5 ML BTL OP SCH (13:00)
--- NOTE | 2022-05-28 14:34 | Hospitalist Progress Note ---
Date of Service May 28, 2022 Assessment & Plan (1) Acute hypoxemic respiratory failure: Plan: COVID-19 Infection Transient Hypoxia due to above --CXR:No acute process within the chest. Moderate hiatus hernia again noted. --Check PCR, Procalcitonin --Patient/family refused Remdesivir per record -Continue Dexamethasone Saturating well on room air Continue Isolation precautions Hypertensive urgency Likely secondary to steroids Continue lisinopril, HCTZ Hydralazine as needed Monitor Hypokalemia Replete electrolytes as needed Monitor Prediabetes HbA1c 6.0 Nausea, vomiting, abdominal pain Likely secondary to COVID infection --CT ABD:No bowel wall thickening or obstruction. Colonic diverticulosis. No evidence for acute diverticulitis. 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 Hepatic steatosis. Moderate hiatus hernia, unchanged. A healing/healed left lateral left rib fracture. Tolerated regular diet Small colovaginal fistula Incidental finding on CT Follow-up as outpatient H/O PSVT Mood disorder Continue home medications DVT Px: Lovenox SQ Code Status Full code Admission and Anticipated Discharge Date Admission Date: May 27, 2022 Subjective Patient is seen and examined bedside States feeling a lot better today Generalized weakness, nausea, abdominal pain resolved Denies any significant cough, dyspnea, dizziness Tolerated regular diet Discussed with patient's daughter over the phone No other complaints Saturating well on room air Review of Systems Review of Systems: All systems reviewed & are unremarkable except as noted in Subjective Physical Exam Physical Exam: Physical Exam: Vitals signs as noted above General Appearance:Obese, no apparent distress Head: normocephalic, Atraumatic Eyes: normal inspection, EOMI Neck: supple, Trachea midline Respiratory/Chest: Decreased breath sounds, CTA, No accessory muscle use Cardiovascular: S1, S2, No murmur Abdomen/GI:Soft, Non tender, Bowel sounds present Extremities/Musculoskeletal:normal inspection, no edema Neurologic/Psych:AAOX3, grossly no focal neurological deficits Skin: normal color, warm Results & Data Results & Data Vital Signs (Past 12 Hours) Vital Signs Temp Pulse Pulse Pulse Resp BP BP 05/28/22 07:00 61 05/28/22 12:00 36.4 C L 67 20 201/84 H 183/77 H 05/28/22 08:58 36.5 C 73 18 181/75 H 05/28/22 04:35 36.4 C L 67 18 168/82 H Pulse Ox O2 Del Method 05/28/22 07:00 05/28/22 12:00 95 Room Air 05/28/22 08:58 96 Room Air 05/28/22 04:35 97 Room Air Laboratory Results Short CBC 05/27/22 05/28/22 Range/Units 16:06 07:19 WBC 7.27 3.29 L (4.8-10.8) K/ul Hgb 12.0 11.2 L (12.0-16.0) g/dl Hct 37.6 35.5 L (37.0-47.0) % Plt Count 223 191 (130-400) K/uL BMP 05/27/22 05/27/22 05/28/22 16:06 17:54 07:19 Sodium 137 140 Potassium TNP 2.9 L 3.9 D Chloride 97 L 106 Carbon Dioxide 27 29 BUN 19 18 Creatinine 0.90 0.68 Glucose 112 H 131 H Calcium 9.0 8.6 Liver Function 05/27/22 05/27/22 05/28/22 Range/Units 16:06 17:54 07:19 Total Bilirubin 0.4 0.3 (0.2-1.0) mg/dl AST TNP 24 22 ALT 17 16 (7-52) U/L Alkaline Phosphatase 100 79 (34-104) U/L Albumin 3.8 3.5 (3.4-5.0) gm/dl Urine 05/27/22 Range/Units 19:10 Urine Color Yellow Urine Appearance Clear (Clear) Urine pH 7.0 (4.5-7.5) Ur Specific [place] 1.032 H (1.000-1.030) Urine Protein Trace H (Negative) Urine Glucose (UA) Negative (Negative)
[2022-05-28] MEDS: hydroCHLOROthiazide 25 MG TAB PO SCH (14:49)
[2022-05-28] MEDS: prednisoLONE acetate 1% OP SUSP 5 ML BTL OP SCH ×3 (14:51→20:45)
[2022-05-29 06:53] LABS: Hematocrit (blood only) 35.5 % (37.0-47.0); Hemoglobin 11.6 g/dl (12.0-16.0); Mean Corpuscular Hemoglobin 25.1 pg (25.0-34.0); Mean Corpuscular Hgb Conc 32.7 g/dL (32.0-36.0); Mean Corpuscular Volume 76.7 fL (80.0-100.0); Mean Platelet Volume 9.3 fL (9.4-12.4); Platelet Count 212 K/uL (130-400); RDW Coefficient of Variation 15.1 % (11.5-14.5); RDW Standard Deviation 41.8 fL (36.4-46.3); Red Blood Count 4.63 M/uL (4.20-5.40)
[2022-05-29 07:18] LABS: C Reactive Protein 3.33 mg/dl (0-0.5); Calcium 8.6 mg/dl (8.6-10.3); Creatinine Clr Calc Pharmacy 55.1 ml/min; Est GFR (African American) 83.6 ml/min; Est GFR (Non-African American) 72.1 ml/min; Magnesium 1.9 mg/dl (1.7-2.4); Potassium 3.3 mmol/L (3.5-5.1)
[2022-05-29] MEDS ORDERED: POTASSIUM CHLORIDE CRTAB 20 MEQ TABCR PO ONE (09:31)
[2022-05-29] MEDS ORDERED: busPIRone 5 MG TAB PO SCH (09:45)
[2022-05-29] MEDS: dexAMETHasone 6 MG in SYRINGE 0 ML IV SCH (11:00)
[2022-05-29] MEDS: ENOXAPARIN INJ 40 MG/0.4 ML SYR SQ SCH (11:00)
[2022-05-29] MEDS: hydroCHLOROthiazide 25 MG TAB PO SCH (11:01)
[2022-05-29] MEDS: lisinopril 20 MG TAB PO SCH (11:01)
[2022-05-29] MEDS: MULTIVITAMIN TAB PO SCH (11:01)
[2022-05-29] MEDS: guaiFENesin 600 MG TABCR PO SCH (11:01)
[2022-05-29] MEDS: prednisoLONE acetate 1% OP SUSP 5 ML BTL OP SCH ×2 (11:02→13:40)
--- NOTE | 2022-05-29 13:38 | Hospitalist Progress Note ---
Date of Service May 29, 2022 Assessment & Plan (1) Acute hypoxemic respiratory failure: Plan: COVID-19 Infection Transient Hypoxia due to above --CXR:No acute process within the chest. Moderate hiatus hernia again noted. --Check PCR, Procalcitonin --Patient/family refused Remdesivir per record -Continue Dexamethasone--no plan to continue upon discharge Saturating well on room air Continue Isolation precautions Plan to discharge home today Hypertensive urgency Likely secondary to steroids Continue lisinopril, HCTZ BP better Monitor Hypokalemia Replete electrolytes as needed Monitor Prediabetes HbA1c 6.0 Nausea, vomiting, abdominal pain Likely secondary to COVID infection --CT ABD:No bowel wall thickening or obstruction. Colonic diverticulosis. No evidence for acute diverticulitis. 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 Hepatic steatosis. Moderate hiatus hernia, unchanged. A healing/healed left lateral left rib fracture. Tolerated regular diet Resolved Small colovaginal fistula Incidental finding on CT Follow-up as outpatient H/O PSVT Mood disorder Continue home medications DVT Px: Lovenox SQ Code Status Full code Admission and Anticipated Discharge Date Admission Date: May 27, 2022 Subjective Patient is seen and examined bedside States having minimal cough Vomiting, abdominal pain resolved Has intermittent nausea Denies any dyspnea, chest pain, dizziness No new complaints Saturating well on room air BP much improved today Review of Systems Review of Systems: All systems reviewed & are unremarkable except as noted in Subjective Physical Exam Physical Exam: Physical Exam: Vitals signs as noted above General Appearance:Obese, no apparent distress Head: normocephalic, Atraumatic Eyes: normal inspection, EOMI Neck: supple, Trachea midline Respiratory/Chest: Decreased breath sounds, CTA, No accessory muscle use Cardiovascular: S1, S2, No murmur Abdomen/GI:Soft, Non tender, Bowel sounds present Extremities/Musculoskeletal:normal inspection, no edema Neurologic/Psych:AAOX3, grossly no focal neurological deficits Skin: normal color, warm Results & Data Results & Data Vital Signs (Past 12 Hours) Vital Signs Temp Pulse Pulse Resp BP BP Pulse Ox 05/29/22 12:22 37.4 C 72 18 164/87 H 95 05/29/22 08:37 36.8 C 70 18 170/72 H 94 05/29/22 07:36 61 05/29/22 03:41 73 O2 Del Method 05/29/22 12:22 Room Air 05/29/22 08:37 Room Air 05/29/22 07:36 05/29/22 03:41 Laboratory Results Short CBC 05/29/22 Range/Units 06:25 WBC 7.30 (4.8-10.8) K/ul Hgb 11.6 L (12.0-16.0) g/dl Hct 35.5 L (37.0-47.0) % Plt Count 212 (130-400) K/uL BMP 05/29/22 06:25 Sodium 140 Potassium 3.3 L Chloride 105 Carbon Dioxide 26 BUN 24 H Creatinine 0.80 Glucose 108 H Calcium 8.6
--- NOTE | 2022-05-29 14:15 | Discharge Summary ---
Date of Service May 29, 2022 Admission HPI Per Admitting Provider History obtained from patient, family, and records. Medical history significant for PSVT, hypertension, hyperlipidemia, GERD, diverticulosis. Last confinement 2018 for diverticulitis. Few days ago, patient noted chills, dry heaves, dry cough symptoms. Achy abdominal pain with nausea vomiting. No diarrhea. No chest pain, no SOB. Headache attributed to coughing as per patient. Possible sick COVID-19 contacts at a recent gathering. Patient has not received COVID-19 vaccination. Seen at PCP's office yesterday. Requested to return today for COVID-19 test. Patient brought to ER by EMS for worsening symptoms. O2 sats 80s on room air at some point during ER stay. IV Decadron administered at the ER. 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 Admission Exam Per Admitting Provider GENERAL: Slightly uncomfortable, obese, pleasant, no respiratory distress SKIN: Normal color, warm HEENT: [place] palpebral conjunctivae, no ptosis, dry buccal mucosa, nasal cannula in place NECK : Supple, short neck, no tenderness CHEST : Decreased breath sounds, no tenderness HEART : RRR, no obvious murmurs ABDOMEN: Some distention, no tenderness EXTREMITIES : No LE swelling/tenderness, no other conspicuous deformities noted NEUROLOGIC : Coherent, no facial asymmetry, no other gross focality Principal Diagnosis COVID-19 Infection Hypertensive urgency Hypokalemia Small colovaginal fistula Discharge Data Allergies Allergy/AdvReac Type Severity Reaction Status Date / Time erythromycin base Allergy Severe HIVES,SOB,I Verified 05/27/22 19:18 DAWSON RAMOS Penicillins Allergy Severe SOB,ITCHING Verified 05/27/22 19:18 ,HIVES,NIKOL JACLYN Sulfa (Sulfonamide Allergy Severe HIVES,SOB,I Verified 05/27/22 19:18 Antibiotics) DAWSON RAMOS Consultations 05/27/22 18:48 ED Decision to Admit Stat Procedures Performed Laboratory Results WBC 7.30 K/ul (4.8-10.8) 05/29/22 06:25 RBC 4.63 M/uL (4.20-5.40) 05/29/22 06:25 Hgb 11.6 g/dl (12.0-16.0) L 05/29/22 06:25 Hct 35.5 % (37.0-47.0) L 05/29/22 06:25 MCV 76.7 fL (80.0-100.0) L 05/29/22 06:25 MCH 25.1 pg (25.0-34.0) 05/29/22 06:25 MCHC 32.7 g/dL (32.0-36.0) 05/29/22 06:25 RDW Std Deviation 41.8 fL (36.4-46.3) 05/29/22 06:25 RDW Coeff of Leanne 15.1 % (11.5-14.5) H 05/29/22 06:25 Plt Count 212 K/uL (130-400) 05/29/22 06:25 MPV 9.3 fL (9.4-12.4) L 05/29/22 06:25 Immature Gran % (Auto) 0.3 % 05/28/22 07:19 Neut % (Auto) 64.1 % 05/28/22 07:19 Lymph % (Auto) 22.5 % 05/28/22 07:19 [place] % (Auto) 13.1 % 05/28/22 07:19 Eos % (Auto) 0.0 % 05/28/22 07:19 Baso % (Auto) 0.0 % 05/28/22 07:19 Neut # (Auto) 2.11 K/uL (1.40-6.50) 05/28/22 07:19 Lymph # (Auto) 0.74 K/uL (1.2-3.4) L 05/28/22 07:19 [place] # (Auto) 0.43 K/uL (0.11-0.59) 05/28/22 07:19 Eos # (Auto) 0.00 K/uL (0-0.50) 05/28/22 07:19 Baso # (Auto) 0.00 K/uL (0-0.2) 05/28/22 07:19 Immature Gran # (Auto) 0.01 K/uL (0.01-0.20) 05/28/22 07:19 Sodium 140 mmol/L (136-145) 05/29/22 06:25 Potassium 3.3 mmol/L (3.5-5.1) L 05/29/22 06:25 Chloride 105 mmol/L (98-107) 05/29/22 06:25 Carbon Dioxide 26 mmol/L (21-32) 05/29/22 06:25 Anion Gap 9 (3-11) 05/29/22 06:25 BUN 24 mg/dl (6-23) H 05/29/22 06:25 Creatinine 0.80 mg/dl (0.6-1.2) 05/29/22 06:25 Est Cr Clr Drug Dosing 55.1 ml/min 05/29/22 06:25 Est GFR ( Amer) 83.6 ml/min 05/29/22 06:25 Est GFR (Non-Af Amer) 72.1 ml/min 05/29/22 06:25 BUN/Creatinine Ratio 30.0 (10-20) H 05/29/22 06:25 Glucose 108 mg/dl (70-99(Fasting)) H 05/29/22 06:25 Estimat Average Glucose 126 mg/dl 05/27/22 16:06 Hemoglobin A1c 6.0 % (4.5-5.6) H 05/27/22 16:06 Calcium 8.6 mg/dl (8.6-10.3) 05/29/22 06:25 Magnesium 1.9 mg/dl (1.7-2.4) 05/29/22 06:25 Total Bilirubin 0.3 mg/dl (0.2-1.0) 05/28/22 07:19 AST 22 U/L (13-39) 05/28/22 07:19 ALT 16 U/L (7-52) 05/28/22 07:19 Alkaline Phosphatase 79 U/L (34-104) 05/28/22 07:19 C-Reactive Protein 3.33 mg/dl (0-0.5) H 05/29/22 06:25 Total Protein 6.4 gm/dl (6.0-8.3) 05/28/22 07:19 Albumin 3.5 gm/dl (3.4-5.0) 05/28/22 07:19 Globulin 2.9 gm/dl (2.5-4.0) 05/28/22 07:19 Albumin/Globulin Ratio 1.2 (0.9-2) 05/28/22 07:19 Lipase 13 U/L (11-82) 05/27/22 16:06 Procalcitonin < 0.05 ng/ml (0-0.5) 05/29/22 06:25 Urine Color Yellow 05/27/22 19:10 Urine Appearance Clear (Clear) 05/27/22 19:10 Urine pH 7.0 (4.5-7.5) 05/27/22 19:10 Ur Specific [place] 1.032 (1.000-1.030) H 05/27/22 19:10 Urine Protein Trace (Negative) H 05/27/22 19:10 Urine Glucose (UA) Negative (Negative) 05/27/22 19:10 Urine Ketones Trace (Negative) H 05/27/22 19:10 Urine Blood Negative (Negative) 05/27/22 19:10 Urine Nitrite Negative (Negative) 05/27/22 19:10 Urine Bilirubin Negative (Negative) 05/27/22 19:10 Urine Urobilinogen Negative (Negative) 05/27/22 19:10 Ur Leukocyte Esterase Negative (Negative) 05/27/22 19:10 Urine WBC (Auto) 1-5 /hpf (0-5) 05/27/22 19:10 Urine RBC (Auto) 0-4 /hpf (0-4) 05/27/22 19:10 U Hyaline Cast (Auto) 1-5 /lpf (0-5) 05/27/22 19:10 U Epithel Cells (Auto) >30 /lpf (0-5) H 05/27/22 19:10 Urine Bacteria (Auto) Negative (Negative) 05/27/22 19:10 SARS-CoV-2 (PCR) POSITIVE (Negative) A* 05/27/22 16:05 Influenza Type A (PCR) Negative (Neg) 05/27/22 16:05 Influenza Type B (PCR) Negative (Neg) 05/27/22 16:05 RSV (RT-PCR) Negative (Neg) 05/27/22 16:05 Impressions Abdomen/Pelvis CT 05/27/22 16:[address] WITH IV CONTRAST CT DOSE: 468.64 mGy.cm HISTORY: Nausea. Vomiting. Right lower quadrant abdominal pain. TECHNIQUE: Multiaxial CT images of the abdomen and pelvis were performed following the use of intravenous contrast. A dose lowering technique was ut ilized adhering to the principles of ALARA. COMPARISON STUDY: Abdomen and pelvis CT 06/15/2018. FINDINGS: Mild dependent changes and chronic interstitial thickening again noted at the lung bases. No pneumoperitoneum. No pneumatosis. Moderate degenerative changes within the pelvis and hips. No acute fractures identified. Moderate to severe degenerative changes within the lumbar spine. There is a moderate hiatus hernia, unchanged. The heart remains mildly enlarged. There is a large duodenal diverticulum, unchanged. Hepatic steatosis. No hepatic or splenic masses. The gallbladder, spleen, and adrenal glands unremarkable. There are few small hypodense/cystic lesions within the tail the pancreas which are likely present on the prior study. 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 There is a healing/healed left lateral 11th rib fracture. There is a 7.6 cm left renal cyst containing a small amount of punctate peripheral calcification. There are small bilateral peripelvic renal cysts noted. These are similar to the prior study. No renal or ureteral stones. No hydronephrosis. The main portal vein is patent. Normal caliber abdominal aorta. No retroperitoneal lymphadenopathy. No pelvic free fluid or pelvic lymphadenopathy. Normal bladder. Prior hysterectomy. 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 This extends posteriorly from the mid sigmoid colon multiple colonic diverticula. No evidence for acute diverticulitis. No bowel wall thickening or obstruction. The appendix is not identified and may be surgically absent. IMPRESSION: 1. No bowel wall thickening or obstruction. 2. Colonic diverticulosis. No evidence for acute diverticulitis. 3. 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 4. Hepatic steatosis. 5. Moderate hiatus hernia, unchanged. 6. A healing/healed left lateral left rib fracture. 7. Additional findings as described above. ACT 112: Negative or not required by law. Electronically signed by: Norman Kirby M.D. 05/27/2022 6:39 PM Chest X-Ray 05/27/22 16:31 XR chest 1V portable HISTORY: Shortness of breath. ? covid COMPARISON: Chest 06/21/2018. FINDINGS: No pneumothorax. No pleural effusions. Mild chronic interstitial thickening is again noted. No new focal lung consolidations to suggest a pneumonia. No evidence for pulmonary edema. The axillary veins on enlarged. There is a moderate hiatus hernia, unchanged. IMPRESSION: 1. No acute process within the chest. 2. Moderate hiatus hernia again noted. ACT 112: Negative or not required by law. Electronically signed by: Norman Kirby M.D. 05/27/2022 6:56 PM Ordered Studies 05/27/22 16:31 CT Abd and Pelvis [CT abd pelvis IV con only] Stat Hospital Course (1) Acute hypoxemic respiratory failure: COVID-19 Infection Transient Hypoxia due to above --CXR:No acute process within the chest. Moderate hiatus hernia again noted. --Check PCR, Procalcitonin --Patient/family refused Remdesivir per record -Continue Dexamethasone--no plan to continue upon discharge Saturating well on room air Continue Isolation precautions Plan to discharge home today Hypertensive urgency Likely secondary to steroids Continue lisinopril, HCTZ BP better Monitor Hypokalemia Replete electrolytes as needed Monitor Prediabetes HbA1c 6.0 Nausea, vomiting, abdominal pain Likely secondary to COVID infection --CT ABD:No bowel wall thickening or obstruction. Colonic diverticulosis. No evidence for acute diverticulitis. 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 Hepatic steatosis. Moderate hiatus hernia, unchanged. A healing/healed left lateral left rib fracture. Tolerated regular diet Resolved Small colovaginal fistula Incidental finding on CT Follow-up as outpatient H/O PSVT Mood disorder Continue home medications DVT Px: Lovenox SQ Code Status Full code Total Time Total Time Spent Total Time Spent (In Minutes): 59 minutes Discharge Plan Discharge Items Patient Disposition: Home - Home Health Services Reason For Visit: RESP FAILURE, COVID Discharge Diagnosis: COVID-19 Infection Hypertensive urgency Hypokalemia Small colovaginal fistula Activity: Per Instructions section Exercise/Sports: Wait until after follow-up appointment Non-emergency contact: Primary Care Provider Call non-emergency contact if: you have any medication questions, your symptoms worsen, your pain is concerning for you and you have a fever Follow-up/Referrals: Krissy Carson MD [Primary Care Provider] - Diet: Heart Healthy Addtl Attending Provider Instructions: Follow-up with your primary care physician in 1 week Follow-up with your surgeon for evaluation of colovaginal fistula. Seek immediate medical attention if your symptoms reoccur or worsen Please take all medications as instructed on discharge list below. Please call if you have any questions or problems. You can reach a [facility] hospitalist on duty at [facility] 24 hours a day by calling [phone] Home Isolation COVID-19 Instructions The following information about Home Isolation is from the CDC Website: https://www.cdc.gov/coronavirus/2019-ncov/hcp/vsjujdpw-xacdcbm-zfkivx.html Stay home except to get medical care People who are mildly ill with COVID-19 are able to isolate at home during their illness. You should restrict activities outside your home, except for getting medical care. Do not go to work, school, or public areas. Avoid using public transportation, ride-sharing, or taxis. Separate yourself from other people and animals in your home People: As much as possible, you should stay in a specific room and away from other people in your home. Also, you should use a separate bathroom, if avail able. Animals: You should restrict contact with pets and other animals while you are sick with COVID-19, just like you would around other people. Although there have not been reports of pets or other animals becoming sick with COVID-19, it is still recommended that people sick with COVID-19 limit contact with animals until more information is known about the virus. When possible, have another member of your household care for your animals while you are sick. If you are sick with COVID-19, avoid contact with your pet, including petting, snuggling, being kissed or licked, and sharing food. If you must care for your pet or be around animals while you are sick, wash your hands before and after you interact with pets and wear a face mask. Call ahead before visiting your doctor If you have a medical appointment, call the healthcare provider and tell them that you have or may have COVID-19. This will help the healthcare providers office take steps to keep other people from getting infected or exposed. Wear a face mask You should wear a face mask when you are around other people (e.g., sharing a room or vehicle) or pets and before you enter a healthcare providers office. If you are not able to wear a face mask (for example, because it causes trouble breathing), then people who live with you should not stay in the same room with you, or they should wear a face mask if they enter your room. Cover your coughs and sneezes Cover your mouth and nose with a tissue when you cough or sneeze. Throw used tissues in a lined trash can. Immediately wash your hands with soap and water for at least 20 seconds or, if soap and water are not available, clean your hands with an alcohol-based hand dubbing machine operator that contains at least 60% alcohol. Clean your hands often Wash your hands often with soap and water for at least 20 seconds, especially after blowing your nose, coughing, or sneezing; going to the bathroom; and before eating or preparing food. If soap and water are not readily available, use an alcohol-based hand dubbing machine operator with at least 60% alcohol, covering all surfaces of your hands and rubbing them together until they feel dry. Soap and water are the best option if hands are visibly dirty. Avoid touching your eyes, nose, and mouth with unwashed hands. Avoid sharing personal household items You should not share dishes, drinking glasses, cups, eating utensils, towels, or bedding with other people or pets in your home. After using these items, they should be washed thoroughly with soap and water. Clean all high-touch surfaces everyday High touch surfaces include counters, tabletops, doorknobs, bathroom fixtures, toilets, phones, keyboards, tablets, and bedside tables. Also, clean any surfaces that may have blood, stool, or body fluids on them. Use a household cleaning spray or wipe, according to the label instructions. Labels contain instructions for safe and effective use of the cleaning product including precautions you should take when applying the product, such as wearing gloves and making sure you have good ventilation during use of the product. Monitor your symptoms Seek prompt medical attention if your illness is worsening (e.g., difficulty breathing).Beforeseeking care, call your healthcare provider and tell them that you have, or are being evaluated for, COVID-19. Put on a face mask before you enter the facility. These steps will help the healthcare providers office to keep other people in the office or waiting room from getting infected or exposed. Ask your healthcare provider to call the local or state health department. Persons who are placed under active monitoring or facilitated self- monitoring should follow instructions provided by their local health department or occupational health professionals, as appropriate. When working with your local health department check their available hours. If you have a medical emergency and need to call 911, notify the dispatch personnel that you have, or are being evaluated for COVID-19. If possible, put on a face mask before emergency medical services arrive. Discontinuing home isolation Patients with confirmed COVID-19 should remain under home isolation precautions until the risk of secondary transmission to others is thought to be low. The decision to discontinue home isolation precautions should be made on a [id number] basis, in consultation with healthcare providers and [facility] and local health departments. Pending Studies at Discharge: No Stand-Alone Forms: My [facility], Smoking Cessation Medications and DC Order Prescriptions: New guaifenesin [Mucinex] 600 mg Tablet Extended Release 12hr 600 mg PO Q12 Qty: 10 0RF potassium chloride 20 mEq tablet extended release 20 meq PO DAILY Qty: 7 0RF ondansetron HCl 4 mg tablet 4 mg PO BID PRN (Reason: nausea and vomiting) Qty: 10 0RF Continued multivitamin Tablet 1 tab PO DAILY buspirone [BuSpar] 5 mg Tablet 5 mg PO TID PRN (Reason: Anxiety) acetaminophen [Tylenol] 325 mg Tablet 650 mg PO QID PRN (Reason: Pain) lisinopril 20 mg Tablet 20 mg PO DAILY hydrochlorothiazide 25 mg tablet 25 mg PO DAILY diclofenac sodium 1 % Gel 4 g TOPICAL QID PRN (Reason: Pain) Rx Instructions: apply to single knee, ankle, foot; for foot includes sole/toes/top of foot prednisolone acetate 1 % drops,suspension 1 drp ophthalmic (eye) UD Discharge Orders: Discharge Order (Routine); Ordered 05/29/22 Ordered By: Doug Ramirez/Other Patient Handouts: Prediabetes, 5 Steps for Eating Healthier Admission Data Admit Date/Time: 05/27/22 20:03 Attending Provider: Doug Gastelum Admit Provider: Yung Schmidt Primary Care Provider: Krissy Carson Other Providers: Yung Schmidt
== END 2022-05-29 14:54 | disposition home health service (06) | DRG 177 ==
LOC: ED 15:55 → SUATTDRO 20:03 → 2N 20:03

== ENCOUNTER 2023-01-22 10:50 | Inpatient (IN) ==
[2023-01-22 11:31] LABS: Basophils # (auto) 0.03 K/uL (0.00-0.20); Basophils % (auto) 0.3 %; Eosinophils # (auto) 0.08 K/uL (0.00-0.50); Eosinophils % (auto) 0.9 %; Hematocrit (blood only) 34.7 % (37.0-47.0); Hemoglobin 10.6 g/dl (12.0-16.0); Immature Granulocytes # (auto) 0.02 K/uL (0.01-0.20); Immature Granulocytes % (auto) 0.2 %; Lymphocytes # (auto) 1.25 K/uL (1.20-3.40); Mean Corpuscular Hemoglobin 22.1 pg (25.0-34.0); Mean Corpuscular Hgb Conc 30.5 g/dL (32.0-36.0); Mean Corpuscular Volume 72.3 fL (80.0-100.0); Mean Platelet Volume 8.7 fL (9.4-12.4); Monocytes # (auto) 0.81 K/uL (0.11-0.59); Monocytes % (auto) 9.1 %; Neutrophils # (auto) 6.72 K/uL (1.40-6.50); Neutrophils % (auto) 75.5 %; Platelet Count 323 K/uL (130-400); RDW Coefficient of Variation 20.9 % (11.5-14.5); RDW Standard Deviation 53.1 fL (36.4-46.3); White Blood Count 8.91 K/ul (4.8-10.8)
[2023-01-22] MEDS ORDERED: ONDANSETRON INJ 2 MG/ML 2 ML VIAL IV STA ×2 (11:36→14:36)
[2023-01-22 11:44] LABS: Albumin Level 4.1 gm/dl (3.4-5.0); Bilirubin,Total 0.5 mg/dl (0.2-1.0); Calcium 9.7 mg/dl (8.6-10.3); Potassium 3.7 mmol/L (3.5-5.1)
[2023-01-22 11:50] LABS: Albumin Globulin Ratio 1.1 (0.9-2); BUN Creatinine Ratio 23.1 (10-20); Creatinine Clr Calc Pharmacy 47.9 ml/min; Est GFR (Non-African American) 61.3 ml/min; Globulin 3.9 gm/dl (2.5-4.0)
[2023-01-22 11:56] LABS: Anisocytosis Present
[2023-01-22] MEDS: HYDROmorphone INJ 0.5 MG/0.5 ML SYR IV PRN ×3 (12:05→15:02)
[2023-01-22] MEDS ORDERED: OPTIRAY 320 100ml IV ONE (12:18)
[2023-01-22 12:30] LABS: Appearance Urine Clear (Clear); Bacteria Urine Automated Negative (Negative); Bilirubin Urine Negative (Negative); Blood Urine Negative (Negative); Cast Urine Automated 0 /lpf (0-5); Color Urine Dark Yellow; Glucose Urine UA Negative (Negative); Ketones Urine Trace (Negative); Leukocyte Esterase Urine 1+ (Negative); Nitrite Urine Negative (Negative); Protein Urine Negative (Negative); RBC Urine Automated 0-4 /hpf (0-4); Specific Gravity Urine 1.024 (1.000-1.030); Urobilinogen Urine Negative (Negative)
--- NOTE | 2023-01-22 13:08 | Emergency Department Note ---
Impression & Plan Right sided abdominal pain ED Provider Note NAME: DIANE GALLARDO AGE: 77 SEX: Female INFORMANT: Patient ED PROVIDER(S): Dom White MD CHIEF COMPLAINT: Right-sided abdominal pain PLAN: Disposition: Admitted Outpatient prescription management: none Referral: None MEDICAL DECISION MAKING: Patient presented with right side abdominal pain. She was concerned about diverticulitis that she has had this in the past. She was not doing well with Cipro and Flagyl prescribed as an outpatient. Patient had an IV established. She was treated with IV Zofran here. She did request analgesia and was given a small dose of IV Dilaudid. Her CBC, chemistry panel, LFTs and lipase were unremarkable. Urinalysis was unremarkable. Patient does have a mild anemia but this is stable. Patient did not have any obvious identifiable diverticulitis or other emergent pathology on CT imaging. She was still nauseated. She did require additional doses of medication for symptom control. Patient does not feel comfortable with discharge. I believe observation in the hospital is reasonable. [facility] Patient was evaluated in the ER and admitted for the management Care/management discussed with: ED psychiatric showcase trimmer. Requires escalation of care to admission. Level of care consideration(s): After review of the information above and other included data, I feel the patient requires escalation of care to admission. Triage Nursing notes: reviewed and agree them. Vital Signs: reviewed and remarkable for no significant abnormalities Additional History obtained from: none Chronic Medical/Social Conditions affecting care: Hypertension Prior/ Outside/ External records reviewed: Prior admission records from May 2022. Patient was admitted for COVID-19. Diverticulosis noted at the time Differential Diagnosis: Renal colic, UTI, appendicitis, diverticulitis, mesenteric ischemia, aortic pathology, infections, inflammatory bowel disease, PUD, biliary pathology, as well as other pathologies. Diagnostics, independently interpreted by me: ECG: none Cardiac Monitoring: Cardiac monitoring ordered by me: The patient was placed on continuous cardiac monitoring and observed. It revealed a normal sinus rhythm at 78 beats per minute without ectopy or evidence of dysrhythmia. Medical decision rules: none Imaging studies: CT imaging of the abdomen pelvis is negative for acute process. No diverticulitis or perforation. HPI: 77 year old Female arrives for evaluation of right-sided flank pain. Patient states she has a history of diverticulitis and this feels similar. She has noted this has been present for about 3 weeks but worsened over the last several days. She was seen by her primary office and given Cipro and Flagyl. She states she has had nausea and vomiting and cannot tolerate the antibiotic. The patient notes her pain is about a 7 out of 10. She does request analgesia. Pt denies LOC, headache, fevers, chills, diaphoresis, visual changes, neck pain, chest pain, breathing difficulties, back pain, melena, hematochezia, urinary symptoms, numbness, weakness, lymphadenopathy, rash, or other complaints.. PAST MEDICAL HISTORY: See Below, diverticulitis PAST SURGICAL HISTORY: See Below, SOCIAL HISTORY: See Below, retired HOME MEDICATIONS: See Below ALLERGIES: See Below VITALS: See Below PHYSICAL EXAMINATION: GENERAL: Awake, alert, uncomfortable-appearing, in no distress HENT: Normocephalic, atraumatic. Oropharynx unremarkable. EYES: Normal conjunctiva. Sclera non-icteric. NECK: Inspection normal. Non-tender. Supple. No nuchal rigidity. FROM. No masses. RESPIRATORY: Clear to auscultation. No wheezes. No rales. Normal respiratory effort. CARDIAC: Normal rate. Normal rhythm. No murmurs. No rubs. Extremities warm and well perfused. Pulses equal. No JVD. GI: Soft, non-distended. Right lower quad and flank tenderness to palpation. No rebound or guarding. No masses. RECTAL: Deferred. MUSCULOSKELETAL: Atraumatic. Chest examination reveals no tenderness. The back is symmetrical on inspection without obvious abnormality. There is no CVA tenderness to palpation. No joint edema. LOWER EXTREMITIES: Calves are equal size bilaterally and non-tender. No edema. No discoloration. NEURO: Normal sensorium. No sensory or motor deficits noted. SKIN: No rash or jaundice noted. PROCEDURES: none CRITICAL CARE: none OBSERVATION NOTE: none Past Med/Surg History Medical History (Updated 01/22/23 @ 16:56 by Velma Hunt PA-C) Anxiety History of nephrolithiasis Essential hypertension Dyslipidemia Acquired cyst of kidney Prediabetes Osteoarthritis of multiple joints SVT (supraventricular tachycardia) Hernia, hiatal Diverticulitis Surgical History (Updated 01/22/23 @ 16:30 by Velma Hunt PA-C) History of hysterectomy History of appendectomy Family History (Updated 01/22/23 @ 16:18 by Velma Hunt PA-C) Other Diabetes Heart disease Social History Smoking Status: Never smoker Second Hand Exposure: No; Do You Dip or Chew Tobacco: No; Tobacco Cessation Education Requested by Patient: No Hx Alcohol Use: No Hx Substance Use: No Preferred Language: Citizen Of [place] Communication Ability: Effective Switch Operator Required: No Beliefs That Will Affect Care: None Current Living Situation: Alone Current Living Situation Comment: Lives at [facility] [place] [facility] [place] Other Information That Helps Us Care for You: No Feels Safe at Home: Yes Safety Concerns: Feels Safe At This Time Assistive Devices: Denture - Upper and Glasses Allergies Allergies Allergy/AdvReac Type Severity Reaction Status Date / Time erythromycin base Allergy Severe HIVES,SOB,I Verified 01/22/23 12:55 TCDAWSON PINON Penicillins Allergy Severe SOB,ITCHING Verified 01/22/23 12:55 ,DAWSON REDDY Sulfa (Sulfonamide Allergy Severe HIVES,SOB,I Verified 01/22/23 12:55 Antibiotics) TCDAWSON PINON Home Meds Home Medications Medication Instructions Recorded Confirmed acetaminophen 325 mg tablet 650 mg PO QID PRN Pain 05/27/22 01/22/23 (Tylenol) diclofenac sodium 1 % topical gel 4 g topical QID PRN Pain 05/27/22 01/22/23 hydrochlorothiazide 25 mg tablet 25 mg PO DAILY 05/27/22 01/22/23 lisinopril 20 mg tablet 20 mg PO DAILY 05/27/22 01/22/23 multivitamin 1 tab PO DAILY 05/27/22 01/22/23 buspirone 10 mg tablet 10 mg PO BID PRN Anxiety 01/22/23 01/22/23 cholecalciferol (vitamin D3) 25 25 mcg PO DAILY 01/22/23 01/22/23 mcg (1,000 unit) capsule (Vitamin D3) ciprofloxacin HCl 500 mg tablet 500 mg PO BID 01/22/23 01/22/23 ferrous sulfate 325 mg (65 mg 325 mg PO BID 01/22/23 01/22/23 iron) tablet (FeroSul) metronidazole 500 mg tablet 500 mg PO TID 01/22/23 01/22/23 Results & Data (ED) Vital Signs Vital Signs - 24 hr 01/22/23 10:52 01/22/23 10:59 01/22/23 11:00 Temperature 36.4 C L Temperature Source Oral Pulse Rate 82 83 81 Pulse Rate [Left Finger] Pulse Rate from SpO2 Sensor Pulse Rhythm Regular Pulse Rhythm [Left Finger] Pulse Strength Normal Pulse Strength [Left Finger] Respiratory Rate 15 19 19 Respiratory Effort / Characteristics Non-Labored Spontaneous Respiratory Depth Normal Respiratory Pattern Regular Blood Pressure 158/74 H 153/69 H Blood Pressure [Right Arm] Blood Pressure Mean 102 97 Blood Pressure Mean [Right Arm] Blood Pressure Position [Right Arm] Pulse Oximetry 99 96 Oxygen Delivery Method Room Air Room Air Sepsis Recent Fever Within 48 Hours No Sepsis New/Unexplained Change in Mental Status N/A Sepsis Action Taken by Nursing No Action Required 01/22/23 11:04 01/22/23 11:10 01/22/23 11:10 Temperature 36.4 C L Temperature Source Oral Pulse Rate 85 Pulse Rate [Left Finger] 82 Pulse Rate from SpO2 Sensor Pulse Rhythm Pulse Rhythm [Left Finger] Regular Pulse Strength Pulse Strength [Left Finger] Normal Respiratory Rate 15 Respiratory Effort / Characteristics Non-Labored Spontaneous Respiratory Depth Normal Respiratory Pattern Regular Blood Pressure Blood Pressure [Right Arm] 158/74 H Blood Pressure Mean Blood Pressure Mean [Right Arm] 102 Blood Pressure Position [Right Arm] Sitting Pulse Oximetry 99 99 Oxygen Delivery Method Room Air Room Air Sepsis Recent Fever Within 48 Hours Sepsis New/Unexplained Change in Mental Status Sepsis Action Taken by Nursing 01/22/23 11:10 01/22/23 12:03 01/22/23 12:04 Temperature Temperature Source Pulse Rate 79 73 Pulse Rate [Left Finger] Pulse Rate from SpO2 Sensor 79 72 73 Pulse Rhythm Pulse Rhythm [Left Finger] Pulse Strength Pulse Strength [Left Finger] Respiratory Rate 21 14 Respiratory Effort / Characteristics Respiratory Depth Respiratory Pattern Blood Pressure 139/73 Blood Pressure [Right Arm] Blood Pressure Mean 95 Blood Pressure Mean [Right Arm] Blood Pressure Position [Right Arm] Pulse Oximetry 97 97 99 Oxygen Delivery Method Sepsis Recent Fever Within 48 Hours Sepsis New/Unexplained Change in Mental Status Sepsis Action Taken by Nursing 01/22/23 12:10 01/22/23 12:23 01/22/23 12:25 Temperature Temperature Source Pulse Rate 72 79 78 Pulse Rate [Left Finger] Pulse Rate from SpO2 Sensor 74 79 Pulse Rhythm Pulse Rhythm [Left Finger] Pulse Strength Pulse Strength [Left Finger] Respiratory Rate 19 19 Respiratory Effort / Characteristics Respiratory Depth Respiratory Pattern Blood Pressure 155/88 H Blood Pressure [Right Arm] Blood Pressure Mean 110 Blood Pressure Mean [Right Arm] Blood Pressure Position [Right Arm] Pulse Oximetry 98 97 Oxygen Delivery Method Room Air Room Air Sepsis Recent Fever Within 48 Hours Sepsis New/Unexplained Change in Mental Status Sepsis Action Taken by Nursing 01/22/23 12:26 01/22/23 12:30 01/22/23 12:40 Temperature Temperature Source Pulse Rate 74 72 Pulse Rate [Left Finger] 78 Pulse Rate from SpO2 Sensor Pulse Rhythm Pulse Rhythm [Left Finger] Regular Pulse Strength Pulse Strength [Left Finger] Normal Respiratory Rate 16 19 14 Respiratory Effort / Characteristics Non-Labored Spontaneous Respiratory Depth Normal Respiratory Pattern Regular Blood Pressure 156/81 H Blood Pressure [Right Arm] 155/88 H Blood Pressure Mean 106 Blood Pressure Mean [Right Arm] 110 Blood Pressure Position [Right Arm] Lying Pulse Oximetry 98 Oxygen Delivery Method Room Air Sepsis Recent Fever Within 48 Hours Sepsis New/Unexplained Change in Mental Status Sepsis Action Taken by Nursing 01/22/23 12:50 01/22/23 13:00 01/22/23 15:01 Temperature Temperature Source Pulse Rate 77 73 Pulse Rate [Left Finger] Pulse Rate from SpO2 Sensor 78 Pulse Rhythm Pulse Rhythm [Left Finger] Pulse Strength Pulse Strength [Left Finger] Respiratory Rate 23 20 Respiratory Effort / Characteristics Respiratory Depth Respiratory Pattern Blood Pressure 145/75 H 153/78 H Blood Pressure [Right Arm] Blood Pressure Mean 98 103 Blood Pressure Mean [Right Arm] Blood Pressure Position [Right Arm] Pulse Oximetry 92 Oxygen Delivery Method Room Air Sepsis Recent Fever Within 48 Hours Sepsis New/Unexplained Change in Mental Status Sepsis Action Taken by Nursing 01/22/23 15:10 01/22/23 15:20 Temperature Temperature Source Pulse Rate 73 76 Pulse Rate [Left Finger] Pulse Rate from SpO2 Sensor 74 Pulse Rhythm Pulse Rhythm [Left Finger] Pulse Strength Pulse Strength [Left Finger] Respiratory Rate 16 25 H Respiratory Effort / Characteristics Respiratory Depth Respiratory Pattern Blood Pressure Blood Pressure [Right Arm] Blood Pressure Mean Blood Pressure Mean [Right Arm] Blood Pressure Position [Right Arm] Pulse Oximetry 97 Oxygen Delivery Method Room Air Sepsis Recent Fever Within 48 Hours Sepsis New/Unexplained Change in Mental Status Sepsis Action Taken by Nursing Laboratory Data 01/22/23 11:00 01/22/23 11:00 Lab Results 01/22/23 Range/Units 11:00 WBC 8.91 (4.8-10.8) K/ul RBC 4.80 (4.20-5.40) M/uL Hgb 10.6 L (12.0-16.0) g/dl Hct 34.7 L (37.0-47.0) % MCV 72.3 L (80.0-100.0) fL MCH 22.1 L (25.0-34.0) pg MCHC 30.5 L (32.0-36.0) g/dL RDW Std Deviation 53.1 H (36.4-46.3) fL RDW Coeff of Leanne 20.9 H (11.5-14.5) % Plt Count 323 (130-400) K/uL MPV 8.7 L (9.4-12.4) fL Immature Gran % (Auto) 0.2 % Neut % (Auto) 75.5 % Lymph % (Auto) 14.0 % [place] % (Auto) 9.1 % Eos % (Auto) 0.9 % Baso % (Auto) 0.3 % Neut # (Auto) 6.72 H (1.40-6.50) K/uL Lymph # (Auto) 1.25 (1.20-3.40) K/uL [place] # (Auto) 0.81 H (0.11-0.59) K/uL Eos # (Auto) 0.08 (0.00-0.50) K/uL Baso # (Auto) 0.03 (0.00-0.20) K/uL Immature Gran # (Auto) 0.02 (0.01-0.20) K/uL Anisocytosis Present Sodium 139 (136-145) mmol/L Potassium 3.7 (3.5-5.1) mmol/L Chloride 105 (98-107) mmol/L Carbon Dioxide 25 (21-32) mmol/L Anion Gap 9 (3-11) BUN 21 (6-23) mg/dl Creatinine 0.91 (0.6-1.2) mg/dl Est Cr Clr Drug Dosing 47.9 ml/min Est GFR ( Amer) 71.0 ml/min Est GFR (Non-Af Amer) 61.3 ml/min BUN/Creatinine Ratio 23.1 H (10-20) Glucose 119 H (70-99(Fasting)) mg/dl Calcium 9.7 (8.6-10.3) mg/dl Total Bilirubin 0.5 (0.2-1.0) mg/dl AST 39 (13-39) U/L ALT 25 (7-52) U/L Alkaline Phosphatase 93 (34-104) U/L Total Protein 8.0 (6.0-8.3) gm/dl Albumin 4.1 (3.4-5.0) gm/dl Globulin 3.9 (2.5-4.0) gm/dl Albumin/Globulin Ratio 1.1 (0.9-2) Lipase 11 (11-82) U/L Urine Color Dark Yellow Urine Appearance Clear (Clear) Urine pH 5.0 (4.5-7.5) Ur Specific [place] 1.024 (1.000-1.030) Urine Protein Negative (Negative) Urine Glucose (UA) Negative (Negative) Urine Ketones Trace H (Negative) Urine Blood Negative (Negative) Urine Nitrite Negative (Negative) Urine Bilirubin Negative (Negative) Urine Urobilinogen Negative (Negative) Ur Leukocyte Esterase 1+ H (Negative) Urine WBC (Auto) 1-5 (0-5) /hpf Urine RBC (Auto) 0-4 (0-4) /hpf U Hyaline Cast (Auto) 0 (0-5) /lpf U Epithel Cells (Auto) 10-20 H (0-5) /lpf Urine Bacteria (Auto) Negative (Negative) Administered Medications Sodium Chloride (Nss) 1,000 mls @ 100 mls/hr IV .Q10H JOSIANE Stop: 02/21/23 14:44 Last Infusion: 01/22/23 17:50 Dose: 100 mls/hr Documented By: Admin: 01/22/23 15:04 Dose: 125 mls/hr Documented By: DISABILITY BENEFITS SPECIALIST Sucralfate (Sucralfate 1 Gm/10 Ml Udc) 1 gm PO QID JOSIANE Stop: 02/21/23 16:59 Last Admin: 01/22/23 18:47 Dose: 1 gm Documented By: MK Discontinued Medications Hydromorphone HCl (Hydromorphone Inj 0.5 Mg/0.5 Ml Syr) 0.25 mg IV Q15M PRN PRN Reason: Pain Stop: 02/05/23 11:35 Last Admin: 01/22/23 15:02 Dose: 0.25 mg Documented By: Admin: 01/22/23 12:56 Dose: 0.25 mg Documented By: Admin: 01/22/23 12:05 Dose: 0.25 mg Documented By: MARKO Sodium Chloride (Nss) 500 mls @ 999 mls/hr IV .Q31M ONE Stop: 01/22/23 15:06 Last Infusion: 01/22/23 15:38 Dose: Infused Documented By: DISABILITY BENEFITS SPECIALIST Admin: 01/22/23 15:03 Dose: 999 mls/hr Documented By: MARKO Pantoprazole Sodium 40 mg/ (Syringe) 10 mls @ 5 mls/min IV NOW ONE Stop: 01/22/23 17:16 Last Admin: 01/22/23 17:55 Dose: 5 mls/min Documented By: MEETA Lorazepam 0.25 mg/ Syringe 0.25 mls @ 2 mls/min IV NOW ONE Stop: 01/22/23 18:01 Last Admin: 01/22/23 17:54 Dose: 2 mls/min Documented By: MEETA Ioversol (Optiray 320 100ml) 93 ml IV ONCE ONE Stop: 01/22/23 12:19 Last Admin: 01/22/23 12:18 Dose: 93 ml Documented By: LOUISE Ondansetron HCl (Ondansetron Inj 2 Mg/Ml 2 Ml Vial) 4 mg IV NOW STA Stop: 01/22/23 11:37 Last Admin: 01/22/23 12:05 Dose: 4 mg Documented By: MARKO Ondansetron HCl (Ondansetron Inj 2 Mg/Ml 2 Ml Vial) 4 mg IV NOW STA Stop: 01/22/23 14:37 Last Admin: 01/22/23 15:04 Dose: 4 mg Documented By: MARKO Imaging Data Radiologist's Impression: Abdomen/Pelvis CT 01/22/23 11:36 CT SCAN OF THE ABDOMEN AND PELVIS WITH IV CONTRAST CLINICAL HISTORY: Right-sided abdominal pain. COMPARISON STUDY: Abdominal CT dated 05/27/2022 and 06/09/2015. TECHNIQUE: Following the IV administration of 93 cc of Optiray 320, CT scan of the abdomen and pelvis is performed from the lung bases to the proximal femora. Images are reviewed in the axial, sagittal, and coronal planes. IV contrast was administered without complication. A dose lowering technique was utilized adhering to the principles of ALARA. CT DOSE: 1142.47 mGy.cm FINDINGS: Lung bases: The heart is enlarged and without pericardial effusion. There are coronary artery calcifications. A moderate hiatal hernia is noted. The lung bases are clear. Liver: The contrast-enhanced liver is normal in size and contour. The liver demonstrates diffusely diminished attenuation indicating steatosis. Fatty sparing is seen adjacent to the gallbladder fossa. There is no intrahepatic biliary ductal dilatation. The hepatic veins and portal veins are patent. Gallbladder: Unremarkable. Spleen: Normal in size and attenuation. Pancreas: Numerous tiny cystic foci are seen. The pancreas measuring up to 10 mm. These likely represent side branch RPM ends and are similar to previous. The pancreas is otherwise normal as imaged. Adrenal glands: Unremarkable. Kidneys: The contrast enhanced kidneys demonstrate mild cortical atrophy and are without hydronephrosis. The kidneys enhance symmetrically. A 7.5 cm mildly thick walled cyst is again seen arising from the left upper pole. This contains a thin calcified septation and is similar in appearance to studies dating back to 06/09/2015. The enhancing or nodular component is identified. Additional cortical renal sinus cysts are noted bilaterally and measure up to 2.7 cm. Abdominal vasculature: The abdominal aorta is normal in course and caliber noting mild atherosclerotic calcification. Bowel: There is moderate to advanced colonic diverticulosis without CT evidence of acute diverticulitis. No bowel obstruction is identified. The appendix is not identified and reported surgically absent. A large duodenal diverticula is noted. A colovaginal fistula is again suggested on axial image #25[id number]. Peritoneum: There is no intraperitoneal free air or abdominal ascites. Lymphadenopathy: None. Pelvic viscera: The bladder is normal as visualized. The uterus is surgically absent. No adnexal lesion is seen. Skeletal structures: The skeletal structures are osteopenic. There is moderate lumbosacral spondylosis. Sclerotic change is noted in the sacroiliac joints and pubic symphysis. No lytic or blastic lesions are seen. IMPRESSION: 1. No acute infectious or inflammatory findings are identified in the abdomen or pelvis. 2. Colonic diverticulosis without CT evidence of acute diverticulitis. 3. A colovaginal fistula is again suggested. 4. Hepatic steatosis. 5. Moderate hiatal hernia. 6. Additional findings as above. ACT 112: Negative or not required by law. Electronically signed by: James Becker M.D. 01/22/2023 1:23 PM Discharge Plan Visit Data Chief Complaint: Flank Pain ED Provider: Dom White Discharge Problem: Right sided abdominal pain Patient Disposition: Admitted As Inpatient Discharge Instructions Interventions: ED Discharge Assessment Last Done: 01/22/23 17:30
--- NOTE | 2023-01-22 13:25 | CT Scan Report ---
CT SCAN OF THE ABDOMEN AND PELVIS WITH IV CONTRAST CLINICAL HISTORY: Right-sided abdominal pain. COMPARISON STUDY: Abdominal CT dated 05/27/2022 and 06/09/2015. TECHNIQUE: Following the IV administration of 93 cc of Optiray 320, CT scan of the abdomen and pelvi s is performed from the lung bases to the proximal femora. Images are reviewed in the axial, sagittal , and coronal planes. IV contrast was administered without complication. A dose lowering technique wa s utilized adhering to the principles of ALARA. CT DOSE: 1142.47 mGy.cm FINDINGS: Lung bases: The heart is enlarged and without pericardial effusion. There are coronary artery calcifi cations. A moderate hiatal hernia is noted. The lung bases are clear. Liver: The contrast-enhanced liver is normal in size and contour. The liver demonstrates diffusely di minished attenuation indicating steatosis. Fatty sparing is seen adjacent to the gallbladder fossa. T here is no intrahepatic biliary ductal dilatation. The hepatic veins and portal veins are patent. Gallbladder: Unremarkable. Spleen: Normal in size and attenuation. Pancreas: Numerous tiny cystic foci are seen. The pancreas measuring up to 10 mm. These likely repres ent side branch RPM ends and are similar to previous. The pancreas is otherwise normal as imaged. Adrenal glands: Unremarkable. Kidneys: The contrast enhanced kidneys demonstrate mild cortical atrophy and are without hydronephros is. The kidneys enhance symmetrically. A 7.5 cm mildly thick walled cyst is again seen arising from t he left upper pole. This contains a thin calcified septation and is similar in appearance to studies dating back to 06/09/2015. The enhancing or nodular component is identified. Additional cortical renal sinus cysts are noted bilaterally and measure up to 2.7 cm. Abdominal vasculature: The abdominal aorta is normal in course and caliber noting mild atheroscleroti c calcification. Bowel: There is moderate to advanced colonic diverticulosis without CT evidence of acute diverticulit is. No bowel obstruction is identified. The appendix is not identified and reported surgically absen t. A large duodenal diverticula is noted. A colovaginal fistula is again suggested on axial image #25 [id number]. Peritoneum: There is no intraperitoneal free air or abdominal ascites. Lymphadenopathy: None. Pelvic viscera: The bladder is normal as visualized. The uterus is surgically absent. No adnexal lesi on is seen. Skeletal structures: The skeletal structures are osteopenic. There is moderate lumbosacral spondylosi s. Sclerotic change is noted in the sacroiliac joints and pubic symphysis. No lytic or blastic lesion s are seen. IMPRESSION: 1. No acute infectious or inflammatory findings are identified in the abdomen or pelvis. 2. Colonic diverticulosis without CT evidence of acute diverticulitis. 3. A colovaginal fistula is again suggested. 4. Hepatic steatosis. 5. Moderate hiatal hernia. 6. Additional findings as above. ACT 112: Negative or not required by law. Electronically signed by: James Becker M.D. 01/22/2023 1:23 PM
[2023-01-22] MEDS ORDERED: SODIUM CHLORIDE 0.9% 500 ML IV ONE (14:36)
[2023-01-22] MEDS: SODIUM CHLORIDE 0.9% 1,000 ML IV SCH (15:04)
--- NOTE | 2023-01-22 15:23 | History & Physical Report ---
Date of Service January 22, 2023 Assessment & Plan (1) Right sided abdominal pain: Plan: This is a 77 y/o female with prediabetes, HTN, hyperlipidemia, OA, anxiety, and hx of SVT who presents to the ED today with worsening abdominal pain, nausea, vomiting. Pt was being treated as an outpatient for presumed diverticulitis with Cipro and Flagyl; however, no imaging was performed to confirm. She has been feeling worse with N/V over the last 2-3 days. She is unsure if this is related to the medication or her pain. Labs in the ED unremarkable including normal LFTs, no leukocytosis, no BEE. CT showed diverticulosis without evidence of diverticulitis. No clear etiology for pt's symptoms but continues with pain, N/V in the ED so referred for observation and additional evaluation. - Observe in med surg - Tylenol/prn Tramadol for pain control - Continue empiric antibiotics for now - HIDA scan to evaluate gallbladder further - Labs in AM - CBC, BMP, LFTs - Trial of Carafate for symptomatic relief, restart PPI - Diet as tolerated - Stool for H. pylori antigen (2) Anxiety: Plan: Continue prn Buspar (3) Essential hypertension: (4) Dyslipidemia: (5) Prediabetes: (6) Morbid obesity: (7) Colovaginal fistula: Plan: Incidental finding - seen on CT in May 2022 as well, but unclear how long it was present before that. Outpatient surgery evaluation. Plan Continue other home medications as appropriate Pt seen and reviewed with collaborating physician, Dr. Henley. Plan of care discussed and as outlined above. Code Status: Full Code DVT Prophylaxis: Donavon Hunt PA-C History of Present Illness Chief Complaint: abdominal pain, N/V Primary Care Provider: Krissy Carson MD This is a 77 y/o female with prediabetes, HTN, hyperlipidemia, OA, anxiety, and hx of SVT who presents to the ED today with worsening abdominal pain, nausea, vomiting. She hasn't been feeling well for the last 2-3 weeks but has felt worse over the last 4-5 days. Having pain in the right flank and RUQ - waxing and waning. No specific triggers. Seen in PCP office on 01/19/23 because she felt like she had diverticulitis again - started on Cipro and Flagyl. However, she feels worse on the antibiotics because she has had trouble keeping the medication down at times due to N/V. Unsure if the N/V is related to the medications or to the pain. Appetite has been at baseline. However, she has been trying to eat small amounts of bland foods hoping that this would improve her symptoms. She has not been able to identify anything that makes her pain better or worse other than the Dilaudid received in the ED. She denies change in bowel habits - no diarrhea or constipation, no blood in stool. Moving bowels daily - notes starting iron about ten days but symptoms preceded starting the iron. Denies fevers, chills, sweats. History of mild sigmoid diverticulitis documented on CT in 2018 but denies recurrence of diverticulitis since then until current symptoms. When she was admitted in May 2022, she was incidentally noted to have a small colovaginal fistula on CT and was to f/u outpatient for this but has not seen any specialist for this at this point. Allergies Allergy/AdvReac Type Severity Reaction Status Date / Time erythromycin base Allergy Severe HIVES,SOB,I Verified 01/22/23 12:55 TCDAWSON PINON Penicillins Allergy Severe SOB,ITCHING Verified 01/22/23 12:55 ,HIVDAWSON RUTLEDGE Sulfa (Sulfonamide Allergy Severe HIVES,SOB,I Verified 01/22/23 12:55 Antibiotics) DAWSON RAMOS Home Medications Medication Instructions Recorded Confirmed Type acetaminophen 325 mg tablet 650 mg PO QID PRN Pain 05/27/22 01/22/23 History (Tylenol) diclofenac sodium 1 % topical gel 4 g topical QID PRN Pain 05/27/22 01/22/23 His tory hydrochlorothiazide 25 mg tablet 25 mg PO DAILY 05/27/22 01/22/23 History lisinopril 20 mg tablet 20 mg PO DAILY 05/27/22 01/22/23 History multivitamin 1 tab PO DAILY 05/27/22 01/22/23 History buspirone 10 mg tablet 10 mg PO BID PRN Anxiety 01/22/23 01/22/23 History cholecalciferol (vitamin D3) 25 25 mcg PO DAILY 01/22/23 01/22/23 History mcg (1,000 unit) capsule (Vitamin D3) ciprofloxacin HCl 500 mg tablet 500 mg PO BID 01/22/23 01/22/23 History ferrous sulfate 325 mg (65 mg 325 mg PO BID 01/22/23 01/22/23 History iron) tablet (FeroSul) metronidazole 500 mg tablet 500 mg PO TID 01/22/23 01/22/23 History Past Med/Surg History Medical History (Updated 01/22/23 @ 16:56 by Velma Hunt PA-C) Anxiety History of nephrolithiasis Essential hypertension Dyslipidemia Acquired cyst of kidney Prediabetes Osteoarthritis of multiple joints SVT (supraventricular tachycardia) Hernia, hiatal Diverticulitis Surgical History (Updated 01/22/23 @ 16:30 by Velma Hunt PA-C) History of hysterectomy History of appendectomy Family History (Updated 01/22/23 @ 16:18 by Velma Hunt PA-C) Other Diabetes Heart disease Social History Smoking Status: Never smoker Second Hand Exposure: No; Do You Dip or Chew Tobacco: No; Tobacco Cessation Education Requested by Patient: No Hx Alcohol Use: No Hx Substance Use: No Preferred Language: Slovenian Communication Ability: Effective Director Pharmacology Required: No Beliefs That Will Affect Care: None Current Living Situation: Alone Current Living Situation Comment: Lives at [facility] Other Information That Helps Us Care for You: No Feels Safe at Home: Yes Safety Concerns: Feels Safe At This Time Assistive Devices: Denture - Upper and Glasses Review of Systems Review of Systems: All systems reviewed & are unremarkable except as noted in HPI & below Constitutional: no fever, no chills and no sweats Ear, Nose, Mouth, Throat: no nasal congestion, no nasal discharge and no sore throat Respiratory: no cough and no dyspnea Cardiovascular: no chest pain, no palpitations and no syncope Gastrointestinal: as per Subjective / HPI Genitourinary: no dysuria, no urinary frequency and no hematuria Musculoskeletal: + back pain; no neck pain Integumentary: no rash and no yellowing of the skin Neurologic: no seizure-like activity, no headache(s) and no confusion Psychiatric: + anxiety a year ago on 01/13 - notes some increased anxiety over the last few weeks but improving with regular use of buspar Physical Exam Physical Exam: General: awake, alert, NAD, Ox3 Eyes: no scleral icterus Mouth: moist mucus membranes Heart: RRR Lungs: CTA bilaterally, no W/R/R Abdomen: soft, +BS, mild right abdominal and right flank tenderness, no guarding or rebound, non-distended Extremities: no pedal edema Skin: no jaundice Neuro: no focal motor deficits, no dysarthria Results & Data Results & Data Vital Signs (Past 12 Hours) Vital Signs Temp Pulse Pulse Resp BP BP Pulse Ox 01/22/23 12:26 78 16 155/88 H 98 01/22/23 12:25 78 19 155/88 H 97 01/22/23 12:23 79 01/22/23 12:10 72 19 98 01/22/23 12:04 73 14 139/73 99 01/22/23 12:03 97 01/22/23 11:10 79 21 97 01/22/23 11:10 99 01/22/23 11:10 36.4 C L 82 15 158/74 H 99 01/22/23 11:04 85 01/22/23 11:00 81 19 153/69 H 96 01/22/23 10:59 83 19 01/22/23 10:52 36.4 C L 82 15 158/74 H 99 O2 Del Method 01/22/23 12:26 Room Air 01/22/23 12:25 Room Air 01/22/23 12:23 01/22/23 12:10 Room Air 01/22/23 12:04 01/22/23 12:03 01/22/23 11:10 01/22/23 11:10 Room Air 01/22/23 11:10 Room Air 01/22/23 11:04 01/22/23 11:00 Room Air 01/22/23 10:59 01/22/23 10:52 Room Air Laboratory Results 01/22/23 11:00 WBC 8.91 RBC 4.80 Hgb 10.6 L Hct 34.7 L MCV 72.3 L MCH 22.1 L MCHC 30.5 L RDW Std Deviation 53.1 H RDW Coeff of Leanne 20.9 H Plt Count 323 MPV 8.7 L Immature Gran % (Auto) 0.2 Neut % (Auto) 75.5 Lymph % (Auto) 14.0 [place] % (Auto) 9.1 Eos % (Auto) 0.9 Baso % (Auto) 0.3 Neut # (Auto) 6.72 H Lymph # (Auto) 1.25 [place] # (Auto) 0.81 H Eos # (Auto) 0.08 Baso # (Auto) 0.03 Immature Gran # (Auto) 0.02 Anisocytosis Present Sodium 139 Potassium 3.7 Chloride 105 Carbon Dioxide 25 Anion Gap 9 BUN 21 Creatinine 0.91 Est Cr Clr Drug Dosing 47.9 Est GFR ( Amer) 71.0 Est GFR (Non-Af Amer) 61.3 BUN/Creatinine Ratio 23.1 H Glucose 119 H Calcium 9.7 Total Bilirubin 0.5 AST 39 ALT 25 Alkaline Phosphatase 93 Total Protein 8.0 Albumin 4.1 Globulin 3.9 Albumin/Globulin Ratio 1.1 Lipase 11 Urine Color Dark Yellow Urine Appearance Clear Urine pH 5.0 Ur Specific [place] 1.024 Urine Protein Negative Urine Glucose (UA) Negative Urine Ketones Trace H Urine Blood Negative Urine Nitrite Negative Urine Bilirubin Negative Urine Urobilinogen Negative Ur Leukocyte Esterase 1+ H Urine WBC (Auto) 1-5 Urine RBC (Auto) 0-4 U Hyaline Cast (Auto) 0 U Epithel Cells (Auto) 10-20 H Urine Bacteria (Auto) Negative Diagnostic Findings Abdomen/Pelvis CT 01/22/23 11:36 CT SCAN OF THE ABDOMEN AND PELVIS WITH IV CONTRAST CLINICAL HISTORY: Right-sided abdominal pain. COMPARISON STUDY: Abdominal CT dated 05/27/2022 and 06/09/2015. TECHNIQUE: Following the IV administration of 93 cc of Optiray 320, CT scan of the abdomen and pelvis is performed from the lung bases to the proximal femora. Images are reviewed in the axial, sagittal, and coronal planes. IV contrast was administered without complication. A dose lowering technique was utilized adhering to the principles of ALARA. CT DOSE: 1142.47 mGy.cm FINDINGS: Lung bases: The heart is enlarged and without pericardial effusion. There are coronary artery calcifications. A moderate hiatal hernia is noted. The lung bases are clear. Liver: The contrast-enhanced liver is normal in size and contour. The liver demonstrates diffusely diminished attenuation indicating steatosis. Fatty sparing is seen adjacent to the gallbladder fossa. There is no intrahepatic biliary ductal dilatation. The hepatic veins and portal veins are patent. Gallbladder: Unremarkable. Spleen: Normal in size and attenuation. Pancreas: Numerous tiny cystic foci are seen. The pancreas measuring up to 10 mm. These likely represent side branch RPM ends and are similar to previous. The pancreas is otherwise normal as imaged. Adrenal glands: Unremarkable. Kidneys: The contrast enhanced kidneys demonstrate mild cortical atrophy and are without hydronephrosis. The kidneys enhance symmetrically. A 7.5 cm mildly thick walled cyst is again seen arising from the left upper pole. This contains a thin calcified septation and is similar in appearance to studies dating back to 06/09/2015. The enhancing or nodular component is identified. Additional cortical renal sinus cysts are noted bilaterally and measure up to 2.7 cm. Abdominal vasculature: The abdominal aorta is normal in course and caliber noting mild atherosclerotic calcification. Bowel: There is moderate to advanced colonic diverticulosis without CT evidence of acute diverticulitis. No bowel obstruction is identified. The appendix is not identified and reported surgically absent. A large duodenal diverticula is noted. A colovaginal fistula is again suggested on axial image #25[id number]. Peritoneum: There is no intraperitoneal free air or abdominal ascites. Lymphadenopathy: None. Pelvic viscera: The bladder is normal as visualized. The uterus is surgically absent. No adnexal lesion is seen. Skeletal structures: The skeletal structures are osteopenic. There is moderate lumbosacral spondylosis. Sclerotic change is noted in the sacroiliac joints and pubic symphysis. No lytic or blastic lesions are seen. IMPRESSION: 1. No acute infectious or inflammatory findings are identified in the abdomen or pelvis. 2. Colonic diverticulosis without CT evidence of acute diverticulitis. 3. A colovaginal fistula is again suggested. 4. Hepatic steatosis. 5. Moderate hiatal hernia. 6. Additional findings as above. ACT 112: Negative or not required by law. Electronically signed by: James Becker M.D. 01/22/2023 1:23 PM Medications Administered Hydromorphone HCl (Hydromorphone Inj 0.5 Mg/0.5 Ml Syr) 0.25 mg IV Q15M PRN PRN Reason: Pain Stop: 02/05/23 11:35 Last Admin: 01/22/23 15:02 Dose: 0.25 mg Documented By: FARM EQUIPMENT MAINTENANCE SUPERVISOR Admin: 01/22/23 12:56 Dose: 0.25 mg Documented By: FARM EQUIPMENT MAINTENANCE SUPERVISOR Admin: 01/22/23 12:05 Dose: 0.25 mg Documented By: FARM EQUIPMENT MAINTENANCE SUPERVISOR Sodium Chloride (Nss) 1,000 mls @ 125 mls/hr IV .Q8H JOSIANE Stop: 02/21/23 14:44 Last Admin: 01/22/23 15:04 Dose: 125 mls/hr Documented By: FARM EQUIPMENT MAINTENANCE SUPERVISOR Discontinued Medications Sodium Chloride (Nss) 500 mls @ 999 mls/hr IV .Q31M ONE Stop: 01/22/23 15:06 Last Infusion: 01/22/23 15:38 Dose: Infused Documented By: FARM EQUIPMENT MAINTENANCE SUPERVISOR Admin: 01/22/23 15:03 Dose: 999 mls/hr Documented By: FARM EQUIPMENT MAINTENANCE SUPERVISOR Ioversol (Optiray 320 100ml) 93 ml IV ONCE ONE Stop: 01/22/23 12:19 Last Admin: 01/22/23 12:18 Dose: 93 ml Documented By: LOUISE Ondansetron HCl (Ondansetron Inj 2 Mg/Ml 2 Ml Vial) 4 mg IV NOW STA Stop: 01/22/23 11:37 Last Admin: 01/22/23 12:05 Dose: 4 mg Documented By: FARM EQUIPMENT MAINTENANCE SUPERVISOR Ondansetron HCl (Ondansetron Inj 2 Mg/Ml 2 Ml Vial) 4 mg IV NOW STA Stop: 01/22/23 14:37 Last Admin: 01/22/23 15:04 Dose: 4 mg Documented By: MARKO Supervising Physician Co-Signing Physician Notes I have seen and examined the patient and have discussed the case with the provider above. I agree with the assessment and plan as stated with the following exceptions. 77-year-old female with a history of complicated diverticulitis in the past, presents with right upper quadrant pain with radiation to her right costovertebral angle x3 weeks. Pain has been worse in the last couple of days and is associated with vomiting. She saw PCP and was placed on Cipro and Flagyl orally but is reporting vomiting. She feels the vomiting is associated with the pain and not allergic response to the antibiotics, but is not truly sure. Denies any changes with bowel movements. She reports being hungry but is purposely restricting her food intake to see if this would help with the pain and it has not. She has a history of an incidental finding of colovesicular fistula on imaging first seen in May 2022. Patient did not know about a fistula prior to that time and has not seen general surgery for this. She denies any history of recurrent diverticulitis with the last diverticulitis episode happening in 2015. Colonoscopy in 2016 revealed diverticulosis in the sigmoid and descending colon with one 4 mm polyp in the sigmoid colon that was resected and retrieved. The exam was otherwise normal. She underwent an endoscopy in July 2018 for epigastric abdominal pain and was found to have hiatal hernia with gastric erosion. Gastritis was present. She was placed on proton pump inhibitor at that time and is no longer on this. She denied taking naproxen. Pt denies UTI symptoms, and denies any stool changes. On exam she is obese, and in NAD. She is mentating clearly. Abdomen is soft with TTP in the RUQ. She has right CVA tenderness. She easily moves around the bed with no gross focal neuromuscular deficits and she is hemodynamically stable and afebrile. Labs/imaging/meds reviewed. No significant lab abnormalities, patent portal vein on imaging with no other structural causes of pain including no rib fracture, no bony mass lesion, no evidence of nephrolithiasis or choledocholithiasis/cholelithiasis, no liver abnormalities. 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 Right flank pain-unclear etiology. Agree with 48 hour trial of IV abx, although there is no evidence of acute diverticulitis present. Stop after this if no improvement in symptoms. Also, given h/o gastritis and not on PPI therapy now, would question referred pain from stomach. Start trial of carafate to see if this helps her pain and if improved consider GI for endoscopy. H pylori stool check. Restart PPI therapy now. Avoid NSAIDs. Management of other stable chronic comorbidities as noted above. DO Kale
[2023-01-22] MEDS ORDERED: traMADol HCL 50 MG TABLET PO PRN (16:12)
--- NOTE | 2023-01-22 16:40 | Communication Note ---
Date of Service: January 22, 2023 Hospitalist Addendum: I have seen and examined the patient and have discussed the case with the provider above. I agree with the assessment and plan as stated with the following exceptions. 77-year-old female with a history of complicated diverticulitis in the past, presents with right upper quadrant pain with radiation to her right costovertebr al angle x3 weeks. Pain has been worse in the last couple of days and is associated with vomiting. She saw PCP and was placed on Cipro and Flagyl orally but is reporting vomiting. She feels the vomiting is associated with the pain and not allergic response to the antibiotics, but is not truly sure. Denies any changes with bowel movements. She reports being hungry but is purposely restricting her food intake to see if this would help with the pain and it has not. She has a history of an incidental finding of colovesicular fistula on imaging first seen in May 2022. Patient did not know about a fistula prior to that time and has not seen general surgery for this. She denies any history of recurrent diverticulitis with the last diverticulitis episode happening in 2015. Colonoscopy in 2015 revealed diverticulosis in the sigmoid and descending colon with one 4 mm polyp in the sigmoid colon that was resected and retrieved. The exam was otherwise normal. She underwent an endoscopy in July 2018 for epigastric abdominal pain and was found to have hiatal hernia with gastric erosion. Gastritis was present. She was placed on proton pump inhibitor at that time and is no longer on this. She denied taking naproxen. Pt denies UTI symptoms, and denies any stool changes. On exam she is obese, and in NAD. She is mentating clearly. Abdomen is soft with TTP in the RUQ. She has right CVA tenderness. She easily moves around the bed with no gross focal neuromuscular deficits and she is hemodynamically stable and afebrile. Labs/imaging/meds reviewed. No significant lab abnormalities, patent portal vein on imaging with no other structural causes of pain including no rib fracture, no bony mass lesion, no evidence of nephrolithiasis or choledocholithiasis/cholelithiasis, no liver abnormalities. 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 Right flank pain-unclear etiology. Agree with 48 hour trial of IV abx, although there is no evidence of acute diverticulitis present. Stop after this if no improvement in symptoms. Also, given h/o gastritis and not on PPI therapy now, would question referred pain from stomach. Start trial of carafate to see if this helps her pain and if improved consider GI for endoscopy. H pylori stool check. Restart PPI therapy now. Avoid NSAIDs. Management of other stable chronic comorbidities as noted above. DO Kale
[2023-01-22] MEDS ORDERED: PANTOprazole 40 MG in SYRINGE 0 ML IV ONE (17:15)
[2023-01-22] MEDS ORDERED: PROMETHAZINE HCL 12.5 MG in SODIUM CHLORIDE 0.9% 50 ML IV PRN (17:27)
[2023-01-22] MEDS ORDERED: busPIRone 5 MG TAB PO PRN (17:47)
[2023-01-22] MEDS ORDERED: LORazepam 0.25 MG in SYRINGE 0.125 ML IV ONE (18:00)
[2023-01-22] MEDS: SUCRALFATE 1 GM/10 ML UDC PO SCH ×2 (18:47→20:33)
[2023-01-22] MEDS: ONDANSETRON INJ 2 MG/ML 2 ML VIAL IV PRN (20:28)
[2023-01-22] MEDS: metroNIDAZOLE 500 MG/100 ML BAG IV SCH (20:28)
[2023-01-22] MEDS: CIPROFLOXACIN / D5W 400 MG/200 ML BAG IV SCH (20:28)
[2023-01-22] MEDS: ACETAMINOPHEN 500 MG TAB PO SCH (20:33)
[2023-01-23] MEDS: SODIUM CHLORIDE 0.9% 1,000 ML IV SCH (04:08)
[2023-01-23] MEDS: metroNIDAZOLE 500 MG/100 ML BAG IV SCH ×3 (04:58→21:49)
[2023-01-23] MEDS: ACETAMINOPHEN 500 MG TAB PO SCH ×3 (04:59→21:48)
[2023-01-23] MEDS: ONDANSETRON INJ 2 MG/ML 2 ML VIAL IV PRN ×3 (05:10→22:02)
[2023-01-23] MEDS: PANTOprazole 40 MG TAB PO SCH (06:26)
[2023-01-23 07:55] LABS: Basophils # (auto) 0.04 K/uL (0.00-0.20); Basophils % (auto) 0.6 %; Eosinophils # (auto) 0.12 K/uL (0.00-0.50); Eosinophils % (auto) 1.8 %; Hematocrit (blood only) 30.3 % (37.0-47.0); Hemoglobin 9.3 g/dl (12.0-16.0); Immature Granulocytes # (auto) 0.02 K/uL (0.01-0.20); Immature Granulocytes % (auto) 0.3 %; Lymphocytes # (auto) 1.52 K/uL (1.20-3.40); Lymphocytes % (auto) 23.3 %; Mean Corpuscular Hemoglobin 21.7 pg (25.0-34.0); Mean Corpuscular Hgb Conc 30.7 g/dL (32.0-36.0); Mean Corpuscular Volume 70.6 fL (80.0-100.0); Mean Platelet Volume 8.6 fL (9.4-12.4); Monocytes # (auto) 0.86 K/uL (0.11-0.59); Monocytes % (auto) 13.2 %; Neutrophils # (auto) 3.95 K/uL (1.40-6.50); Neutrophils % (auto) 60.8 %; Platelet Count 284 K/uL (130-400); RDW Coefficient of Variation 20.9 % (11.5-14.5); RDW Standard Deviation 51.8 fL (36.4-46.3); Red Blood Count 4.29 M/uL (4.20-5.40); White Blood Count 6.51 K/ul (4.8-10.8)
[2023-01-23 08:21] LABS: Albumin Level 3.4 gm/dl (3.4-5.0); BUN Creatinine Ratio 17.1 (10-20); Bilirubin Direct 0.1 mg/dl (0-0.2); Bilirubin,Total 0.4 mg/dl (0.2-1.0); Calcium 8.8 mg/dl (8.6-10.3); Creatinine Clr Calc Pharmacy 62.1 ml/min; Est GFR (African American) 97.5 ml/min; Est GFR (Non-African American) 84.2 ml/min; Potassium 3.3 mmol/L (3.5-5.1); Total Protein 6.5 gm/dl (6.0-8.3)
[2023-01-23] MEDS ORDERED: POTASSIUM CHLORIDE CRTAB 20 MEQ TABCR PO ONE (08:24)
[2023-01-23] MEDS: PROMETHAZINE HCL 12.5 MG in SODIUM CHLORIDE 0.9% 50 ML IV PRN ×2 (08:25→17:09)
[2023-01-23 08:26] LABS: Anisocytosis Present; Polychromasia 1+
[2023-01-23] MEDS: CIPROFLOXACIN / D5W 400 MG/200 ML BAG IV SCH ×2 (08:28→21:49)
[2023-01-23] MEDS: ENOXAPARIN INJ 40 MG/0.4 ML SYR SQ SCH (08:29)
[2023-01-23] MEDS: lisinopril 20 MG TAB PO SCH (08:29)
[2023-01-23] MEDS: CHOLECALCIFEROL 1,000 UNITS 25 MCG TAB PO SCH (08:29)
[2023-01-23] MEDS: SUCRALFATE 1 GM/10 ML UDC PO SCH ×4 (08:29→21:48)
[2023-01-23] MEDS: hydroCHLOROthiazide 25 MG TAB PO SCH (08:29)
--- OUTSIDE RECORDS SUMMARY | 2023-01-23 08:35 | External Medical Summary | Summary of Care ---
Author Name Unknown Organization [facility] Address [address] [place] [address] Phone [phone] Care Team Providers Care Director Of Planning Name Role Phone Krissy Carson MD Primary Care Provide r Reason for Visit * Reason Comments eRx-Medication Refill Encounter Details Date Type Department Care Team (Late st Contact Info) Description 01/18/2023 Refill Family Medicine [address] [phone] Fariha Sylvester PA-C [address] [place] [address] [place] [address] Anxiety Allergies Active Allergy Reactions Criticality Noted Date Comments Cephalosporins 06/28/2003 Itching/hands swelling Erythromycin 06/28/2003 Itching/hands swelling Penicillins 06/14/2000 Sulfamethoxazole W/Trimethoprim (Co-Trimoxazole) 05/17/2001 rash documented as of this encounter (statuses as of 01/19/2023) Medications Medication Sig Dispensed Refills Start Date End Date Status Acetaminophen 325 MG Oral Tablet Take 1 Tablet by mouth every 6 hours as needed for Pain. 0 Active multivitamin (MVI) Tablet Take 1 Tablet by mouth in the morning. 0 Active Triamcinolone Acetonide 0.1 % External Cream (Aristocort) Apply topically to affected area 2 times a day . 30 g 1 10/16/2021 Active Lisinopril 20 MG Oral Tablet (Prinivil)Indicat ions:HTN, goal below 140/90 Take 1 Tablet by mouth in the morning. 100 Tablet 1 08/10/2022 Active hydroCHLOROthiazi de 25 MG Oral Tablet (Hydrodiuril) Take 1 Tablet by mouth in the morning. 100 Tablet 1 08/10/2022 Active Vitamin D3 25 MCG (1000 UT) Oral Capsule Take by mouth daily. Unsure dose 0 Active Diclofenac Sodium 1 % External Gel (Voltaren) APPLY 4 GRAMS TOPICALLY TO THE SKIN 4 TIMES A DAY DIRECTED 1200 g 1 12/20/2022 12/20/2023 Active ALPRAZolam 0.5 MG Oral Tablet (xaNAX) Take 1 Tablet by mouth daily as needed for Anxiety. 10 Tablet 0 12/30/2022 Active Ferrous Sulfate 325 (65 Fe) MG Oral Tablet (Feosol)Indicatio ns:Iron deficiency anemia, unspecified iron deficiency anemia type Take 1 Tablet by mouth in the morning and 1 Tablet before bedtime. 60 Tablet 11 12/31/2022 Active busPIRone HCl 10 MG Oral Tablet (Buspar)Indicatio ns:Anxiety Take 1 Tablet by mouth in the morning and 1 Tablet before bedtime. 20 Tablet 0 12/29/2022 01/19/2023 Discontinue d(Refill) documented as of this encounter (statuses as of 01/19/2023) Active Problems Problem Noted Date Diagnosed Date Immunization not carried out because of patient decision 12/07/2022 History of 2019 novel coronavirus disease (COVID -19) 06/04/2022 Prediabetes 06/04/2022 Anxiety 06/04/2022 Hyperlipidemia 05/28/2019 SVT (supraventricular tachycardia) 11/30/2018 Flat foot (pes planus) (acquired), right foot Bunion of great toe of right foot 11/30/2018 History of kidney stones 06/12/2018 History of colonic diverticulitis 06/12/2018 Hiatal hernia 06/09/2018 Primary osteoarthritis of both knees 12/25/2015 Degenerative disc disease, cervical 12/24/2014 Primary osteoarthritis of right shoulder 015 BMI 35-39 ISOLATED (SEE ACTUAL BMI) 06/02/2009 Overview: Per Obesity Taxonomy HTN, goal below 140/90 09/23/2006 Overview: 168/102 ADVANCE DIRECTIVE INFORMATION 05/24/2005 Overview: No, Advance Directive brochure given to patient. Kidney cyst, acquired documented as of this encounter (statuses as of 01/19/2023) Resolved Problems Problem Noted Date Diagnosed Date Resolved Date Hypertensive kidney disease with chronic kidney disease stage II 12/04/2021 12/04/2021 CKD (chronic kidney disease), stage II 10/21/2021 12/04/2021 Overview: EGFR 77 Sigmoid diverticulitis 06/09/201806/12 Gastroesophageal reflux dise ase without esophagitis 11/24/2016 08/24/2022 Dyslipidemia, goal to be determined 02/19/2009 08/05/2011 Overview: Per Lipid Taxonomy. chol 219 Obesity, BMI not known 12/01/200406/02 Overview: Per Obesity Taxonomy ARTHRITIS,RHEUMATOID 12/01/2004 015 Cardiac dysrhythmia, unspecified 12/01/2004 10/27/2012 FAM HX-DIABETES MELLITUS 12/01/2004 Dyslipidemia, goal LDL below 160 04/16/1998 02/19/2009 Overview: Per Lipid Taxonomy. chol 219 Renal calculus 06/12/2018 documented as of this encounter (statuses as of 01/19/2023) Immunizations Name Administration Dates Next Due PPD 08/06/2014,11/21/2006 TDAP (age 10 and older)(Boostrix) 12/08/2017 TDAP (age 11 and older)(Adacel) 03/07/2001 documented as of this encounter Social History Tobacco Use Types Packs/Day Years Used Date Smoking Tobacco: Never Smokeless Tobacco: Never Alcohol Use Standard Drinks/Week Comments No 0 (1 standard drink = 0.6 oz pur e alcohol) PHQ-2 Answer Date Recorded PHQ Adult Total Score 1 12/07/2022 Hunger Vital Sign Answer Date Recorded Within the past 12 months, y ou worried that your food would run out before you got the money to buy more. Never true 12/08/19 23 Within the past 12 months, t he food you bought just didn't last and you didn't have money to get more. Never true 12/07/2022 Sex and Gender Information Value Date Recorded Sex Assigned at Not on file Gender Identity Female 12/07/2022 11:11 AM EDT Sexual Orientation Straight 12/07/2022 11 :11 AM EDT Job Start Date Occupation Industry Not on file Not on file Not on file documented as of this encounter Miscellaneous Notes * Telephone Encounter - John Hickman RPh - 01/19/2023 11:12 AM ESTPending Prescriptions: Disp Refills busPIRone HCl 10 MG Oral Tablet [Pharmacy *20 Tab*0 Sig: Take 1 Tablet by mouth in the morning and 1 Tablet before bedtime. * Telephone Encounter - John Hickman RPh - 01/19/2023 11:11 AM EST [facility] is currently not authorized to approve refills for the pended medication(s) per refill protocol. Please approve if appropriate. Did you pend patient's preferred pharmacy and medication before forwarding?yes Pharmacy: [facility], [address] [place] Pending Prescriptions: Disp Refills busPIRone HCl 10 MG Oral Tablet (Buspar) *20 Tab*0 Sig: Take 1 Tablet by mouth in the morning and 1 Tablet before bedtime. Last Visit: 12/30/2022 (in office), Visit date not found (telemedicine) Next Visit: 01/19/2023 If no future appointments scheduled, and last appointment is greater than a year ago, please schedule patient for a follow-up appointment Last date the medication was ordered: 12/29/22 Is this request for a controlled substance?No Urine Drug Screen:No results found for this or any previous visit. Patient Phone Numbers Labs: Lab Results Component Value Date/Time CREAT 0.8 12/22/2022 12:48 PM CREAT 0.91 06/21/2018 12:00 AM CREAT 0.8 09/06/2017 10:45 AM POTASSIUM 4.2 12/22/2022 12:48 PM POTASSIUM 3.4 (L) 06/30/2018 01:42 PM TSH 0.70 12/30/2022 11:20 AM TSH 1.11 01/02/1999 09:48 AM LDLCALC 147 (H) 11/24/2016 01:24 PM LDLDIRECT NOT APPLICABLE 11/24/2016 01:24 PM ALT 24 10/21/2021 12:47 PM ALT 45 (H) 11/06/2010 10:41 AM HGBA1C 6.2 (H) 12/22/2022 12:48 PM documented in this encounter Plan of Treatment Upcoming Encounters Date Type Department Care Team (Late st Contact Info) Description 02/18/2023 11:00 AM EST Office Visit Cardiology, [facility] [address] [place] [address] Troy Barrera, [address] [place] [address] 06/13/2023 11:00 AM EDT Office Visit Family Medicine [address] [place] [phone] Krissy Carson MD [address] [place] [address] [place] [address] 12/12/2023 11:00 AM EDT Nurse Only Ancillary [address] [place] [address] [place], Nurse Annual Wellness [address] [place] [address] [place] [address] Scheduled Procedures Name Priority Associated Diagnoses Date/Ti me COLONOSCOPY FLEXIBLE PROXIMA L DIAGNOSTIC Recall Encounter for screening colonoscopy Health Maintenance Due Date Last Done Comments DXA Scan 1945 COVID-19 Vaccine (#1) 01/03/1946 Hepatitis C Screening 1963 Depression Screening 12/08/2023 12/07/2022 GFR 12/23/2023 12/22/2022, 08/06, 10/21/2021, Additional history exists HbA1c 12/23/2023 12/22/2022, 08/24/2022 Albumin/Creatinine Ratio 08/24/2025 08/24/2022 DTaP,Tdap,and Td Vaccines (3 - Td or Tdap) 12/09/2027 12/08/2017, 03/07/2001 Colonoscopy Discontinued 07/02/2015, 07/02/2015 Colorectal Cancer Screening Discontinued Cologuard Discontinued Fecal Occult Blood Test Discontinued GARDASIL-HPV IMMUNIZATION SERIES Aged Out No longer eligible based on patient's age to complete this topic Hepatitis B Aged Out No longer eligi ble based on patient's age to complete this topic MENINGOCOCCAL (MENACTRA/MENVEO) Aged Out No longer eligible based on patient's age to complete this topic Sigmoidoscopy Discontinued Zoster Vaccines Discontinued documented as of this encounter Medical Devices Not on filedocumented as of this encounter Visit Diagnoses Diagnosis Anxiety Anxiety state, unspecified documented in this encounter Care Teams Director Of Planning Relationship Specialty Start Date End Date Krissy Carson MD [address] [place] [address] [place] [address] PCP - General Family Medicine 09/22/22 documented as of this encounter
--- OUTSIDE RECORDS SUMMARY | 2023-01-23 08:35 | External Medical Summary | Summary of Care ---
Author Name Unknown Organization [facility] Address [address] [place] [address] Phone [phone] Care Team Providers Care Medical Communication Specialist Name Role Phone Krissy Carson MD Primary Care Provide r Reason for Visit * Reason Onset Date Comments Advice 01/18/2023 Diverticulitis F lare Up Encounter Details Date Type Department Care Team (Late st Contact Info) Description 01/18/2023 Telephone Family Medicine [address] [phone] Krissy Carson MD [address] [place] [address] Advice (Diverticulitis Flare Up ) Allergies Active Allergy Reactions Criticality Noted Date Comments Cephalosporins 06/28/2003 Itching/hands swelling Erythromycin 06/28/2003 Itching/hands swelling Penicillins 06/14/2000 Sulfamethoxazole W/Trimethoprim (Co-Trimoxazole) 05/17/2001 rash documented as of this encounter (statuses as of 01/18/2023) Medications Medication Sig Dispensed Refills Start Date [...] 10/16/2021 Active Lisinopril 20 MG Oral Tablet (Prinivil)Indicatio ns:HTN, goal below 140/90 Take 1 Tablet by mouth in the morning. 100 Tablet 1 08/10/2022 Active hydroCHLOROthiazide 25 MG Oral Tablet (Hydrodiuril) Take 1 Tablet by mouth in the morning. 100 Tablet 1 08/10/2022 Active Vitamin D3 25 MCG (1000 UT) Oral Capsule Take by mouth daily. Unsure dose 0 Active Diclofenac Sodium 1 % External Gel (Voltaren) APPLY 4 GRAMS TOPICALLY TO THE SKIN 4 TIMES A DAY DIRECTED 1200 g 1 12/20/2022 12/20/2023 Active busPIRone HCl 10 MG Oral Tablet (Buspar)Indications :Anxiety Take 1 Tablet by mouth in the morning and 1 Tablet before bedtime. 20 Tablet 0 12/29/2022 Active ALPRAZolam 0.5 MG Oral Tablet (xaNAX) Take 1 Tablet by mouth daily as needed for Anxiety. 10 Tablet 0 12/30/2022 Active Ferrous Sulfate 325 (65 Fe) MG Oral Tablet (Feosol)Indications :Iron deficiency anemia, unspecified iron deficiency anemia type Take 1 Tablet by mouth in the morning and 1 Tablet before bedtime. 60 Tablet 11 12/31/2022 Active documented as of this encounter (statuses as of 01/18/2023) Active Problems Problem Noted Date Diagnosed Date [...] as of this encounter (statuses as of 01/18/2023) Resolved Problems Problem Noted Date Diagnosed Date [...] as of this encounter (statuses as of 01/18/2023) Immunizations Name Administration Dates Next Due PPD [...] encounter Miscellaneous Notes * Telephone Encounter - Marjorie Parrish OSA - 01/18/2023 2:31 PM EST Appt scheduled, pt aware. * Telephone Encounter - Krissy Carson MD - 01/18/2023 12:24 PM EST She really should be seen for this * Telephone Encounter - Tiago Yoder LPN - 01/18/2023 10:32 AM EST See call details. Hx Diverticulitis Tx in 2019 with Cipro and Metronidazole No apt made for issues at this time * Telephone Encounter - Joana Mathews OSA - 01/18/2023 8:28 AM EST Please see call details documented in this encounter Plan of Treatment Upcoming Encounters Date Type Department Care Team (Late st Contact Info) Description 01/19/2023 11:40 AM EST Office Visit Family Medicine [address] [place] [phone] Fariha Sylvester PA-C [address] [place] [address] [place] [address] 02/18/2023 11:00 AM EST Office Visit Cardiology, [facility] [address] [place] [address] Troy Barrera DO [address] [place] [address] 06/13/2023 11:00 AM EDT Office Visit Family Medicine [address] [place] [phone] Krissy Carson MD [address] [place] [address] [place] [address] 12/12/2023 11:00 AM EDT Nurse Only Ancillary [address] [place] [address] [place], Nurse Annual Wellness [address] [place] [address] [place] [address] Scheduled Procedures Name Priority Associated Diagnoses Date/Ti [...] Not on filedocumented as of this encounter Care Teams Medical Communication Specialist Relationship Specialty Start Date End Date Krissy Carson MD [address] [place] [address] [place] [address] PCP - General Family Medicine 09/22/22 documented as of this encounter
--- OUTSIDE RECORDS SUMMARY | 2023-01-23 08:35 | External Medical Summary | Summary of Care ---
Author Name Unknown Organization [facility] Address [address] [place] [address] Phone [phone] Care Team Providers Care Nematology Teacher Name Role Phone Krissy Carson MD Primary Care Provide r Reason for Visit * Reason Comments Acute Encounter Details Date Type Department Care Team (Late st Contact Info) Description 01/19/2023 11:40 AM EST Office Visit Family Medicine [address] [phone] Fariha Sylvester PA-C [address] [place] [address] [place] [address] Anxiety*; Abdominal pain, right lower quadrant Allergies Active Allergy Reactions Criticality Noted Date [...] and 1 Tablet before bedtime. 60 Tablet 5 01/19/2023 Active Ciprofloxacin HCl 500 MG Oral Tablet (Cipro)Indication s:Abdominal pain, right lower quadrant Take 1 Tablet by mouth in the morning and 1 Tablet before bedtime. Do all this for 10 days. 20 Tablet 0 01/19/2023 01/29/2023 Active metroNIDAZOLE 500 MG Oral Tablet (Flagyl)Indicatio ns:Abdominal pain, right lower quadrant Take 1 Tablet by mouth in the morning and 1 Tablet at noon and 1 Tablet before bedtime. Do all this for 10 days. until gone.. 30 Tablet 0 01/19/2023 01/29/2023 Active busPIRone HCl 10 MG Oral Tablet [...] on file documented as of this encounter Last Filed Vital Signs Vital Sign Reading Time Taken Comments Blood Pressure 148/80 01/19/2023 11:34 AM EST Pulse 68 01/19/2023 11:34 AM EST Temperature 36.4 C (97.6 F) 01/19/2023 11:[address] Respiratory Rate 16 01/19/2023 11:34 AM EST Oxygen Saturation - - Inhaled Oxygen Concentration - - Weight 78.5 kg (173 lb) 01/19/2023 11:34 AM EST Height - - Body Mass Index 36.16 12/07/2022 11:05 AM EDT documented in this encounter Progress Notes * Fariha Sylvester PA-C - 01/19/2023 11:37 AM EST Nursing Notes: Hoda Carey RN 01/19/23 6005 Sign at exiting of workspace Pt having a Divertic Flare, thinks she needs an antibiotic again Pt here today with possible diverticulitis. She has had this in the past and this feels the same. Pain is at right abdomen. Pt denies fever, chills, nausea, vomiting, diarrhea, blood in stool, mucus in stool. Pt would like the abx to clear this up. Pt is eating milder foods. Pt also needs the buspar refilled. It is really helping her anxiety. Review of patient's allergies indicates: Allergen Reactions Cephalosporins Itching/hands swelling Erythromycin Itching/hands swelling Penicillins Sulfamethoxazole W/Trimethoprim (Co-Trimoxazole) rash Current Outpatient Medications Medication Sig Dispense Refill Acetaminophen 325 MG Oral Tablet Take 1 Tablet by mouth every 6 hours as needed for Pain. multivitamin (MVI) Tablet Take 1 Tablet by mouth in the morning. Triamcinolone Acetonide 0.1 % External Cream (Aristocort) Apply topically to affected area 2 times a day . 30 g 1 Lisinopril 20 MG Oral Tablet (Prinivil) Take 1 Tablet by mouth in the morning. 100 Tablet 1 hydroCHLOROthiazide 25 MG Oral Tablet (Hydrodiuril) Take 1 Tablet by mouth in the morning. 100 Tablet 1 Vitamin D3 25 MCG (1000 UT) Oral Capsule Take by mouth daily. Unsure dose Diclofenac Sodium 1 % External Gel (Voltaren) APPLY 4 GRAMS TOPICALLY TO THE SKIN 4 TIMES A DAY DIRECTED 1200 g 1 busPIRone HCl 10 MG Oral Tablet (Buspar) Take 1 Tablet by mouth in the morning and 1 Tablet before bedtime. 20 Tablet 0 ALPRAZolam 0.5 MG Oral Tablet (xaNAX) Take 1 Tablet by mouth daily as needed for Anxiety. 10 Tablet0 Ferrous Sulfate 325 (65 Fe) MG Oral Tablet (Feosol) Take 1 Tablet by mouth in the morning and 1 Tablet before bedtime. 60 Tablet 11 No current facility-administered medications for this visit. Past Medical History: Diagnosis Date Arthritis, rheumatoid (HCC) Cardiac dysrhythmia, unspecified CKD (chronic kidney disease), stage II 10/21/2021 EGFR 77 Degenerative disc disease, cervical 12/24/2014 Dyslipidemia, goal LDL below 160 04/16/1998 chol 219 Family history of diabetes mellitus HTN, goal below 140/90 09/23/2006 168/102 Kidney cyst, acquired Obesity, BMI not known Primary osteoarthritis of right shoulder 12/24/2014 Renal calculus Sigmoid diverticulitis 06/09/2018 Social History Socioeconomic History Marital status: Spouse name: Not on file Number of children: Not on file Years of education: Not on file Highest education level: Not on file Occupational History Not on file Tobacco Use Smoking status: Never Smokeless tobacco: Never Vaping Use Vaping Use: Never used Substance and Sexual Activity Alcohol use: No Drug use: No Sexual activity: Not on file Other Topics Concern Not on file Social History Narrative 01/2022 Social Determinants of Health Financial Resource Strain: Not on file Food Insecurity: No Food Insecurity (12/07/2022) Hunger Vital Sign Worried About Running Out of Food in the Last Year: Never true Ran Out of Food in the Last Year: Never true Transportation Needs: Not on file Physical Activity: Not on file Stress: Not on file Social Connections: Not on file Intimate Partner Violence: Not on file Housing Stability: Not on file O:Blood pressure 148/80, pulse 68, temperature 36.4 C (97.6 F), resp. rate 16, weight 78.5 kg (173 lb). GENERAL: alert, healthy, and no distress ABDOMEN: abdomen soft, non-tender, normal bowel sounds, and no masses or organomegaly A:Anxiety (Primary) - busPIRone HCl 10 MG Oral Tablet (Buspar); Take 1 Tablet by mouth in the morning and 1 Tablet before bedtime. Abdominal pain, right lower quadrant - Ciprofloxacin HCl 500 MG Oral Tablet (Cipro); Take 1 Tablet by mouth in the morning and 1 Tablet before bedtime. Do all this for 10 days. - metroNIDAZOLE 500 MG Oral Tablet (Flagyl); Take 1 Tablet by mouth in the morning and 1 Tablet at noon and 1 Tablet before bedtime. Do all this for 10 days. until gone.. Start above meds. If this doesn't clear or worsens, please call [facility]. Any questions/problems, please call. If anything changes, worsens, develops new sx, please call [facility]. Follow Up: Return if symptoms worsen or fail to improve. Fariha Sylvester PA-C documented in this encounter Nursing Notes * Hoda Carey RN - 01/19/2023 11:32 AM EST Pt having a Divertic Flare, thinks she needs an antibiotic again documented in this encounter Plan of Treatment Upcoming Encounters Date Type Department Care Team (Late st Contact Info) Description 02/18/2023 11:00 AM EST Office Visit Cardiology, [facility] [address] [place] [address] Troy Barrera DO [address] [place] [address] 06/13/2023 11:00 AM EDT Office Visit Family Medicine [address] [place] [phone] Krissy Carson MD [address] [place] [address] [place] [address] 12/12/2023 11:00 AM EDT Nurse Only Ancillary [address] [place] [address] [place], Nurse Annual [address] [place] [address] Scheduled Procedures Name Priority Associated Diagnoses Date/Ti [...] as of this encounter Visit Diagnoses Diagnosis Anxiety- Primary Anxiety state, unspecified Abdominal pain, right lower quadrant documented in this encounter Care Teams Nematology Teacher Relationship Specialty Start Date End Date Krissy Carson MD [address] [place] [address] [place] [id number] PCP - General Family Medicine 09/22/22 documented as of this encounter
--- OUTSIDE RECORDS SUMMARY | 2023-01-23 08:35 | External Medical Summary | Summary of Care ---
Author Name Unknown Organization [facility] Address [address] [place] [address] Phone [phone] Care Team Providers Care Form Setter Steel Pan Forms Name Role Phone Krissy Carson MD Primary Care Provide r Reason for Referral * Evaluate & Treat - Unlimited Visits (Within 3 days (urgent)) - Authorized Specialty Diagnoses / Procedures Referred By Contact Referred To Contact Cardiovascular Medicine / Cardiology Diagnoses SVT (supraventricular tachycardia) Fariha Sylvester PA-C [address] [place] [address] [place] [address] Referral ID Status Reason Start Date Expiration Date Visits Requested Visits Authorized [id number] Authorized Specialty Services Required 3 [phone] Question Answer Referral Priority Within 3 days (urgent) Where should this appointment be scheduled? [facility] To which of the following clinics are you referring your patient? General Cardiology Clinic Comments Zio showed SVT Reason for Visit * Reason Onset Date Comments Cardiology Study 01/17/2023 zio Encounter Details Date Type Department Care Team (Late st Contact Info) Description 01/17/2023 Telephone Family Medicine [address] [place] [phone] Fariha Sylvester PA-C [address] [place] [address] [place] [address] Cardiology Study (zio) Allergies Active Allergy Reactions Criticality Noted Date [...] Encounter - Marjorie Parrish OSA - 01/18/2023 12:31 PM EST Cardiology scheduled, pt aware. * Telephone Encounter - Tiago Yoder LPN - 01/18/2023 10:38 AM EST She is agreeable to see Cardiology She has Been Feeling Fine last week no Palpitations or Tachycardia , but still jennifer like to see Cardiology Ref Signed please help schedule apt. Abby Page ihsan * Telephone Encounter - Fariha Sylvester PA-C - 01/17/2023 2:20 PM EST Please call pt and see how she is feeling. Her zio shows frequent episodes of SVT. She should probably get in to see cardiology for this. Does she want to do this? documented in this encounter Plan of Treatment Upcoming Encounters Date Type Department Care Team (Late st Contact Info) Description 02/18/2023 11:00 AM EST Office Visit Cardiology, [facility] [address] [place] [address] Troy Barrera, [address] [place] [address] 06/13/2023 11:00 AM EDT Office Visit Family Medicine [address] [place] [phone] Krissy Carson MD [address] [place] [address] [place] [address] 12/12/2023 11:00 AM EDT Nurse Only Ancillary [address] [place] [address] [place], Nurse Annual [address] [place] [address] Scheduled Procedures Name Priority Associated Diagnoses Date/Ti me COLONOSCOPY FLEXIBLE PROXIMA L DIAGNOSTIC Recall Encounter for screening colonoscopy Scheduled Referrals Name Type Priority Associated Diagnoses Orde r Schedule CARDIOLOGY REFERRAL OP Referral Within 3 days (urgent) SVT (supraventricular tachycardia) Ordered: 01/18/2023 Health Maintenance Due Date Last Done Comments [...] as of this encounter Visit Diagnoses Diagnosis SVT (supraventricular tachycardia)- Primary Other specified cardiac dysrhythmias documented in this encounter Care Teams Form Setter Steel Pan Forms Relationship Specialty Start Date End Date Krissy Carson MD [address] [place] [address] [place] [address] PCP - General Family Medicine 09/22/22 documented as of this encounter
--- OUTSIDE RECORDS SUMMARY | 2023-01-23 08:36 | External Medical Summary ---
Author Name Unknown Address Unknown Organization K01:[facility] [place] [address] [facility] [address] [facility] [address] Laboratory Report Ordering Provider Test Date Status CHANELLE BHAKTAELENA 12/30/2022 11:20:32 Final Observation Date Value Abnormality Reference (Units ) Status Ferritin 12/30/2022 11:20:32 15 13-150 (ng /mL) Final Postmenopausal women have hi gher ferritin levels than pre-menopausal women. The above reference interval is based on pre-menopausal women. Performing Location [facility] - [address] [place] [address]
--- OUTSIDE RECORDS SUMMARY | 2023-01-23 08:36 | External Medical Summary ---
Author Name Unknown Address Unknown Organization [id number]:[facility] [place] [address] [place] [address] Laboratory Report Ordering Provider Test Date Status JULEE BHAKTA 12/30/2022 11:20:32 Final Observation Date Value Abnormality Reference (Units ) Status TSH 12/30/2022 11:20:32 0.70 0.27-4.20 (uIU/mL) Final Performing Location [facility] [place] [address] [place] [address]
--- OUTSIDE RECORDS SUMMARY | 2023-01-23 08:36 | External Medical Summary | Summary of Care ---
Author Name Unknown Organization [facility] Address [address] [place] [address] Phone [phone] Care Team Providers Care Threader Operator Name Role Phone Krissy Carson MD Primary Care Provide r Reason for Visit * Reason Comments Acute Encounter Details Date Type Department Care Team Description 12/22/2022 Office Visit Family Medicine [address] [phone] Shyla Rincon MD [address] [place] [address] [place] [address] Prediabetes*; Anxiety Allergies Active Allergy Reactions Severity Noted Date Comments Cephalosporins 06/28/2003 Itching/hands swelling Erythromycin 06/28/2003 Itching/hands swelling Penicillins 06/14/2000 Sulfamethoxazole W/Trimethop rim (Co-Trimoxazole) 05/17/2001 rash documented as of this encounter (statuses as of 12/22/2022) Medications Medication Sig Dispensed Refills Start Date [...] 10/16/2021 Active Lisinopril 20 MG Oral Tablet (Prinivil)Indicati ons:HTN, goal below 140/90 Take 1 Tablet by mouth in the morning. 100 Tablet 1 08/10/2022 Active hydroCHLOROthiazid e 25 MG Oral Tablet (Hydrodiuril) Take 1 Tablet by mouth in the morning. 100 Tablet 1 08/10/2022 Active busPIRone HCl 5 MG Oral Tablet (Buspar) Take 1 Tablet by mouth in the morning and 1 Tablet at noon and 1 Tablet before bedtime. 180 Tablet 1 08/20/2022 Active Vitamin D3 25 MCG (1000 UT) Oral Capsule Take by mouth daily. Unsure dose 0 Active Diclofenac Sodium 1 % External Gel (Voltaren) APPLY 4 GRAMS TOPICALLY TO THE SKIN 4 TIMES A DAY DIRECTED 1200 g 1 12/20/2022 12/20/2023 Active Diclofenac Sodium 1 % External Gel (Voltaren) APPLY 4 GRAMS TOPICALLY TO THE SKIN 4 TIMES A DAY DIRECTED 300 g 0 12/20/2022 12/20/2023 Active documented as of this encounter (statuses as of 12/22/2022) Active Problems Problem Noted Date Immunization not carried out because of patient decision 12/07/2022 History of 2019 novel coronavirus diseas e (COVID-19) 06/04/2022 Prediabetes 06/04/2022 Anxiety 06/04/2022 Hyperlipidemia 05/28/2019 SVT (supraventricular tachycardia) 11/30 Flat foot (pes planus) (acquired), right foot 11/30/2018 Bunion of great toe of right foot 2018 History of kidney stones 06/12/2018 History of colonic diverticulitis 2018 Hiatal hernia 06/09/2018 Primary osteoarthritis of both knees Degenerative disc disease, cervical 12/06 Primary osteoarthritis of right shoulder 12/24/2014 BMI 35-39 ISOLATED (SEE ACTUAL BMI) 05/06 Overview: Per Obesity Taxonomy HTN, goal below 140/90 09/23/2006 Overview: 168/102 ADVANCE DIRECTIVE INFORMATION 05/24/2005 Overview: No, Advance Directive brochure given to patient. Kidney cyst, acquired documented as of this encounter (statuses as of 12/22/2022) Resolved Problems Problem Noted Date Resolved Date Hypertensive kidney disease with chronic kidney disease stage II 12/04/2021 12/04/2021 CKD (chronic kidney disease), stage II 2 12/04/2021 Overview: EGFR 77 Sigmoid diverticulitis 06/09/2018 9 Gastroesophageal reflux disease without esophagi tis 11/24/2016 08/24/2022 Dyslipidemia, goal to be determined 02/19/2009 08/05/2011 Overview: Per Lipid Taxonomy. chol 219 Obesity, BMI not known 12/01/2004 0 Overview: Per Obesity Taxonomy ARTHRITIS,RHEUMATOID 12/01/2004 01/23/2015 Cardiac dysrhythmia, unspecified 12/01/2004 10/27/2012 FAM HX-DIABETES MELLITUS 12/01/2004 017 Dyslipidemia, goal LDL below 160 04/16/1998 02/19/2009 Overview: Per Lipid Taxonomy. chol 219 Renal calculus 06/12/2018 documented as of this encounter (statuses as of 12/22/2022) Immunizations Name Administration Dates Next Due PPD 08/06/2014,11/21/2006 TDAP (age 10 and older)(Boostrix) 12/08/2017 TDAP (age 11 and older)(Adacel) 03/07/2001 documented as of this encounter Social History Tobacco Use Types Packs/Day Years Used Date Smoking Tobacco: Never Smokeless Tobacco: Never Tobacco Cessation:Counseling Given: Not Answered Alcohol Use Standard Drinks/Week Comments No 0 (1 standard drink = 0.6 oz pur e alcohol) Food Insecurity Answer Date Recorded Within the past 12 months, y ou worried that your food would run out before you got money to buy more. Never true 12/07/2022 Within the past 12 months, t he food you bought just didn't last and you didn't have money to get more. Never true 12/07/2022 Sex Assigned at Date Recorded Not on file Job Start Date Occupation Industry Not on file Not on file Not on file documented as of this encounter Last Filed Vital Signs Vital Sign Reading Time Taken Comments Blood Pressure 140/70 12/22/2022 12:16 PM EDT Pulse 76 12/22/2022 12:16 PM EDT Temperature 36.3 C (97.3 F) 12/22/2022 12:16 PM E DT Respiratory Rate - - Oxygen Saturation 98% 12/22/2022 12:16 PM EDT Inhaled Oxygen Concentration - - Weight 76.9 kg (169 lb 8 oz) 12/22/2022 12:16 PM EDT Height - - Body Mass Index 35.43 12/07/2022 11:05 AM EDT documented in this encounter Progress Notes * Shyla Robison MD - 12/22/2022 12:27 PM EDT Subjective Criss Umana is a 77 year old female. Chief Complaint Patient presents with Acute HPI: Worrying about diabetes. She was told recently she has prediabetes with A1C 5.9 in August. Denies excess thirst or urination. Has been attentive to healthy diet and daily exercise. Just wants to make sure she is OK. Lost her Jan 2022; is tearful about this. Gets anxiety sometimes but wants to be sure its not a sugar problem. Is using buspar for anxiety, it does help. Taking 5mg BID. PMH: Patient Active Problem List Diagnosis Code ADVANCE DIRECTIVE INFORMATION HTN, goal below 140/90 I10 BMI 35-39 ISOLATED (SEE ACTUAL BMI) E66.9 Kidney cyst, acquired N28.1 Degenerative disc disease, cervical M50.30 Primary osteoarthritis of right shoulder M19.011 Primary osteoarthritis of both knees M17.0 Hiatal hernia K44.9 History of kidney stones Z87.442 History of colonic diverticulitis Z87.19 SVT (supraventricular tachycardia) I47.10 Flat foot (pes planus) (acquired), right foot M21.41 Bunion of great toe of right foot M21.611 Hyperlipidemia E78.5 History of 2019 novel coronavirus disease (COVID-19) Z86.16 Prediabetes R73.03 Anxiety F41.9 Immunization not carried out because of patient decision Z28.20 Current Outpatient Medications Medication Sig Dispense Refill [...] mouth in the morning. 100 Tablet 1 busPIRone HCl 5 MG Oral Tablet (Buspar) Take 1 Tablet by mouth in the morning and 1 Tablet at noon and 1 Tablet before bedtime. 180 Tablet 1 Vitamin D3 25 MCG (1000 UT) Oral Capsule Take by mouth daily. Unsure dose Diclofenac Sodium 1 % External Gel (Voltaren) APPLY 4 GRAMS TOPICALLY TO THE SKIN 4 TIMES A DAY DIRECTED 1200 g 1 Diclofenac Sodium 1 % External Gel (Voltaren) APPLY 4 GRAMS TOPICALLY TO THE SKIN 4 TIMES A DAY DIRECTED 300 g 0 No current facility-administered medications for this visit. Review of patient's allergies indicates: Allergen Reactions Cephalosporins Itching/hands swelling Erythromycin Itching/hands swelling Penicillins Sulfamethoxazole W/Trimethoprim (Co-Trimoxazole) rash Objective BP 140/70 | Pulse 76 | Temp 36.3 C (97.3 F) (Tympanic) | Wt 76.9 kg (169 lb 8 oz) | SpO2 98% | BMI 35.43 kg/m | BSA 1.77 m Physical Exam Constitutional: Appearance: Normal appearance. Cardiovascular: Rate and Rhythm: Normal rate and regular rhythm. Pulses: Normal pulses. Heart sounds: Normal heart sounds. Pulmonary: Effort: Pulmonary effort is normal. Breath sounds: Normal breath sounds. Neurological: Mental Status: She is alert. ASSESSMENT/PLAN: Prediabetes (Primary) - BASIC METABOLIC PANEL; Future; Expected date: 12/22/2022 - HEMOGLOBIN A1C; Future; Expected date: 12/22/2022 Anxiety Repeat labs for reassurance Increase Buspar from 5mg BID to 5mg TID Shyla Gambino MD documented in this encounter Nursing Notes * Tiago Yoder LPN - 12/22/2022 12:14 PM EDT Chief Complaint Patient presents with Acute 08/24/2022 A1C lab work 5.9 and Glucose reading 123 She states when she woke this AM she was a little shaky and after eating it resolved She has changed diet/exercising Wants to talk about Diabetes today The patient has been properly identified by confirmation of name and date of . documented in this encounter Plan of Treatment Upcoming Encounters Date Type Specialty Care Team Description 06/13/2023 Office Visit Family Medicine [place]i, Krissy Hassan MD [address] [place] [address] [place] [address] 12/12/2023 Nurse Only Ancillary [place], Nurse Annual [facility] [address] [place] [address] [place] [address] Pending Results Name Type Priority Associated Diagnoses Date /Time BASIC METABOLIC PANEL Lab Routine Prediabetes 12/22/2022 12:48 PM EDT HEMOGLOBIN A1C Lab Routine Prediabetes 12/22/2022 12:48 PM EDT Scheduled Orders Name Type Priority Associated Diagnoses Orde r Schedule BASIC METABOLIC PANEL Lab Routine Prediabetes Expected: 12/22/2022 (Approximate), Expires: 12/22/2023 HEMOGLOBIN A1C Lab Routine Prediabetes Expected: 12/22/2022 (Approximate), Expires: 12/22/2023 Scheduled Procedures Name Priority Associated Diagnoses Date/Ti me COLONOSCOPY FLEXIBLE PROXIMA L DIAGNOSTIC Recall Encounter for screening colonoscopy Health Maintenance Due Date Last Done Comments DXA Scan 1945 COVID-19 Vaccine (#1) 01/03/1946 Hepatitis C Screening 1963 GFR 08/25/2023 08/24/2022, 10/05, 06/21/2018, Additional history exists HbA1c 08/25/2023 08/24/2022 Depression Screening 12/08/2023 12/07/2022 Albumin/Creatinine Ratio 08/24/2025 08/24/2022 DTaP,Tdap,and Td Vaccines [...] as of this encounter Visit Diagnoses Diagnosis Prediabetes- Primary Other abnormal glucose Anxiety Anxiety state, unspecified documented in this encounter Care Teams Threader Operator Relationship Specialty Start Date End Date Krissy Carson MD [address] [place] [address] [place] [address] PCP - General Family Medicine 09/22/22 documented as of this encounter"
--- OUTSIDE RECORDS SUMMARY | 2023-01-23 08:36 | External Medical Summary | Summary of Care ---
Author Name Unknown Organization [facility] Address [address] [place] [address] Phone [phone] Care Team Providers Care Horizontal Boring Mill Operator Name Role Phone Krissy Carson MD Primary Care Provide r Reason for Visit * Reason Comments Acute Encounter Details Date Type Department Care Team (Late st Contact Info) Description 12/30/2022 11:20 AM EDT Office Visit Family Medicine [address] [phone] Fariha Sylvester PA-C [address] [place] [address] [place] [address] Palpitations* Allergies Active Allergy Reactions Criticality Noted Date Comments Cephalosporins 06/28/2003 Itching/hands swelling Erythromycin 06/28/2003 Itching/hands swelling Penicillins 06/14/2000 Sulfamethoxazole W/Trimethoprim (Co-Trimoxazole) 05/17/2001 rash documented as of this encounter (statuses as of 12/30/2022) Medications Medication Sig Dispensed Refills Start Date [...] Active busPIRone HCl 10 MG Oral Tablet (Buspar)Indication s:Anxiety Take 1 Tablet by mouth in the morning and 1 Tablet before bedtime. 20 Tablet 0 12/29/2022 Active ALPRAZolam 0.5 MG Oral Tablet (xaNAX) Take 1 Tablet by mouth daily as needed for Anxiety. 10 Tablet 0 12/30/2022 Active documented as of this encounter (statuses as of 12/30/2022) Active Problems Problem Noted Date Diagnosed Date [...] as of this encounter (statuses as of 12/30/2022) Resolved Problems Problem Noted Date Diagnosed Date [...] as of this encounter (statuses as of 12/30/2022) Immunizations Name Administration Dates Next Due PPD 08/06/2014,11/21/2006,12/01/2004 ,12/10/2002 TDAP (age 10 and older)(Boostrix) 12/08/2017 TDAP [...] Sign Reading Time Taken Comments Blood Pressure 136/82 12/30/2022 10:49 AM EDT Pulse 71 12/30/2022 10:49 AM EDT Temperature 36.1 C (96.9 F) 12/30/2022 10:49 AM E DT Respiratory Rate - - Oxygen Saturation 99% 12/30/2022 10:49 AM EDT Inhaled Oxygen Concentration - - Weight 76 kg (167 lb 9.6 oz) 12/30/2022 10:49 AM EDT Height - - Body Mass Index 35.03 12/07/2022 11:05 AM EDT documented in this encounter Progress Notes * Fariha Sylvester PA-C - 12/30/2022 10:51 AM EDT Nursing Notes: Tiago Yoder LPN 12/30/22 1051 Signed Chief Complaint Patient presents with Acute Left hand tingling , stiff neck, elevated heart rate States has been acute 4 days , but last night got worse The patient has been properly identified by confirmation of name and date of . Pt here today with worsening sx. She just doesn't fell well. Her heart feels like it is racing. Pulse and BP ok today. We did increase buspar yesterday. It is coming up on a year of the of her . She doesn't feel that much more anxiety than normal. Pt denies chest pain, SOB, dizziness, lightheadedness, syncope, swelling in legs. Pt is tearful in exam room. She feels like her heart is fluttering. It got worse last night. She was just seen yesterday, in office. She is taking her buspar. Review of patient's allergies indicates: Allergen Reactions [...] 1 Tablet before bedtime. 20 Tablet 0 No current facility-administered medications for this [...] Housing Stability: Not on file O:Blood pressure 136/82, pulse 71, temperature 36.1 C (96.9 F), temperature source Tympanic, weight 76 kg (167 lb 9.6 oz), SpO2 99%. GENERAL: alert, healthy, and no distress NECK: supple, no adenopathy, no bruits, thyroid normal size, non-tender, without nodularity EYES: conjunctiva are pink and non-injected, sclera clear HEART: regular rate & rhythm, no murmur, and no gallops LUNGS: chest symmetric with normal AP diameter, no chest deformities noted, no chest wall tenderness, lungs clear to auscultation EXTREMITIES: no edema A:Palpitations (Primary) - EKG - TSH WITH FREE T4 IF INDICATED; Future; Expected date: 12/30/2022 - CBC WITH WBC DIFFERENTIAL AND ANEMIA REFLEX WORKUP; Future; Expected date: 12/30/2022 - TROPONIN T, HIGH SENSITIVITY; Future; Expected date: 12/30/2022 - CK-MB; Future; Expected date: 12/30/2022 - EXTERNAL EKG 2 TO 7 DAYS; Future; Expected date: 12/31/2022 Other orders - ALPRAZolam 0.5 MG Oral Tablet (xaNAX); Take 1 Tablet by mouth daily as needed for Anxiety. EKG normal. Will check some labs. Continue current meds. Will do zio. Alprazolam only as needed. Any questions/problems, please call. If anything changes, worsens, develops new sx, please call [facility]. Follow Up: Return if symptoms worsen or fail to improve. Fariha Sylvester PA-C documented in this encounter Nursing Notes * Tiago Yoder LPN - 12/30/2022 11:25 AM EDT Zio patch applied in clinic, as per provider orders. * Tiago Yoder LPN - 12/30/2022 10:48 AM EDT Chief Complaint Patient presents with Acute Left hand tingling , stiff neck, elevated heart rate States has been acute 4 days , but last night got worse The patient has been properly identified by confirmation of name and date of . documented in this encounter Plan of Treatment Upcoming Encounters Date Type Department Care Team (Late st Contact Info) Description 12/30/2022 11:40 AM EDT Laboratory Laboratory [address] [place] [phone] [place], Lab [address] [place] [address] Palpitations 06/13/2023 11:00 AM EDT Office Visit Family Medicine [address] [place] [phone] Krissy Carson MD [address] [place] [address] [place] [address] 12/12/2023 11:00 AM EDT Nurse Only Ancillary [address] [place] [address] [place], Nurse Annual [facility]ness [address] [place] [address] [place] [address] Pending Results Name Type Priority Associated Diagnoses Date /Time TSH WITH FREE T4 IF INDICATED Lab Routine Palpitations 12/30/2022 11:20 AM EDT CBC WITH WBC DIFFERENTIAL AND ANEMIA REFLEX WORKUP Lab Routine Palpitations 12/30/2022 11:20 AM EDT TROPONIN T, HIGH SENSITIVITY Lab Routine Palpitations 12/30/2022 11:20 AM EDT CK-MB Lab Routine Palpitations 12/30/2022 11:19 AM EDT Scheduled Orders Name Type Priority Associated Diagnoses Orde r Schedule EKG EKG Routine Palpitations Ordered: 12/30/2022 TSH WITH FREE T4 IF INDICATED Lab Routine Palpitations Expected: 12/30/2022 (Approximate), Expires: 12/30/2023 CBC WITH WBC DIFFERENTIAL AND ANEMIA REFLEX WORKUP Lab Routine Palpitations Expected: 12/30/2022 (Approximate), Expires: 12/31/2023 TROPONIN T, HIGH SENSITIVITY Lab Routine Palpitations Expected: 12/30/2022 (Approximate), Expires: 12/30/2023 CK-MB Lab Routine Palpitations Expected: 12/30/2022 (Approximate), Expires: 12/30/2023 EXTERNAL EKG 2 TO 7 DAYS Holter Routine Palpitations Expected: 12/31/2022 (Approximate), Expires: 12/31/2023 Scheduled Procedures Name Priority Associated Diagnoses Date/Ti [...] as of this encounter Visit Diagnoses Diagnosis Palpitations- Primary Palpitations documented in this encounter Care Teams Horizontal Boring Mill Operator Relationship Specialty Start Date End Date Krissy Carson MD [address] [place] [address] [place] [id number] PCP - General Family Medicine 09/22/22 documented as of this encounter
--- OUTSIDE RECORDS SUMMARY | 2023-01-23 08:36 | External Medical Summary ---
Author Name Unknown Address Unknown Organization K01:[facility] [place] [address] [place] [address] Laboratory Report Ordering Provider Test Date Status LIVIACHANELLEELENA 12/30/2022 11:20:32 Final Observation Date Value Abnormality Reference (Units ) Status Iron 12/30/2022 11:20:32 19 Below low normal 33-151 (ug/dL) Final Iron-binding capacity 12/30/2022 11:20:32 422 250-425 (ug/dL) Final Transferrin Sat % 12/30/2022 11:20:32 5 Below low normal 15-55 (%) Final Performing Location [facility] [place] [address] [place] [address]
--- OUTSIDE RECORDS SUMMARY | 2023-01-23 08:36 | External Medical Summary ---
Author Name Unknown Address Unknown Organization [id number]:[facility] [place] [address] [facility] [address] Laboratory Report Ordering Provider Test Date Status JULEE BHAKTA 12/30/2022 11:20:32 Final Observation Date Value Abnormality Reference (Units ) Status SYNC LEUKOCYTES IN BLOOD BY AUTOMATED COUNT 12/30/2022 11:20:32 9.16 4.00-10.80 (K/uL) Final Segs 12/30/2022 11:20:32 69.4 40.0-75.0 (%) Final Lymphs % 12/30/2022 11:20:32 18.6 18.0-42.0 (%) Final Monos 12/30/2022 11:20:32 10.5 1.0-11.0 (%) Final Eosinophils 12/30/2022 11:20:32 0.7 0.0-6.0 (%) Final Basos 12/30/2022 11:20:32 0.4 0.0-2.0 (%) Final Immature Granulocyte, Percent 12/30/2022 11:20:32 0.4 0.0-2.0 (%) Final Absolute Segs 12/30/2022 11:20:32 6.36 1.80-7.70 (K/uL) Final Lymphs, absolute 12/30/2022 11:20:32 1.70 1.00-4.80 (K/ul) Final Monos, Abs 12/30/2022 11:20:32 0.96 0.00-1.10 (K/uL) Final Eos, Abs 12/30/2022 11:20:32 0.06 0.00-0.70 (K/uL) Final Basos, Abs 12/30/2022 11:20:32 0.04 0.00-0.20 (K/uL) Final Immature Granulocytes, Number 12/30/2022 11:20:32 0.04 0.00-0.20 (K/uL) Final Performing Location [facility]ORY [facility] [place] - [facility] [address] [facility] [address]
--- OUTSIDE RECORDS SUMMARY | 2023-01-23 08:36 | External Medical Summary | Summary of Care ---
Author Name Unknown Organization [facility] Address [address] [place] [address] Phone [phone] Care Team Providers Care Physical Education Aide Name Role Phone Krissy Carson MD Primary Care Provide r Encounter Details Date Type Department Care Team (Late st Contact Info) Description 12/30/2022 Telephone Family Medicine [address] [phone] Krissy Carson MD [address] [place] [address] [place] [address] Allergies Active Allergy Reactions Criticality Noted Date Comments Cephalosporins 06/28/2003 Itching/hands swelling Erythromycin 06/28/2003 Itching/hands swelling Penicillins 06/14/2000 Sulfamethoxazole W/Trimethoprim (Co-Trimoxazole) 05/17/2001 rash documented as of this encounter (statuses as of 01/03/2023) Medications Medication Sig Dispensed Refills Start Date [...] as of this encounter (statuses as of 01/03/2023) Active Problems Problem Noted Date Diagnosed Date [...] as of this encounter (statuses as of 01/03/2023) Resolved Problems Problem Noted Date Diagnosed Date [...] as of this encounter (statuses as of 01/03/2023) Immunizations Name Administration Dates Next Due PPD [...] encounter Miscellaneous Notes * Telephone Encounter - Ghada Giang LPN - 01/03/2023 2:43 PM EDT Pt states she has cut out caffeine, pasta, white bread, etc. * Telephone Encounter - Melanie Andres OSA - 12/30/2022 4:28 PM EDT Patient calling to see if Doctor can recommend heart healthy diet Please advise documented in this encounter Plan of Treatment Upcoming Encounters Date Type Department Care Team (Late st Contact Info) Description 06/13/2023 11:00 AM EDT Office Visit Family Medicine [address] [place] [phone] Krissy Carson MD [address] [place] [address] [place] [address] 12/12/2023 11:00 AM EDT Nurse Only Ancillary [address] [place] [address] [place], Nurse Annual Wellness [address] [place] [address] [place] [address] Scheduled Procedures Name Priority Associated Diagnoses Date/Ti [...] filedocumented as of this encounter Care Teams Physical Education Aide Relationship Specialty Start Date End Date Krissy Carson MD [address] [place] [address] [place] [address] PCP - General Family Medicine 09/22/22 documented as of this encounter
--- OUTSIDE RECORDS SUMMARY | 2023-01-23 08:36 | External Medical Summary | Summary of Care ---
Author Name Unknown Organization [facility] Address [address] [place] [address] Phone [phone] Care Team Providers Care Technician [employer] Equipment Name Role Phone Krissy Carson MD Primary Care Provide r Reason for Visit * Reason Comments Acute Elevated BP Encounter Details Date Type Department Care Team (Latest Contact Info) Description 12/29/2022 11:00 AM EDT Office Visit Family Medicine [address] [phone] Fariha Sylvester PA-C [address] [place] [id number] Anxiety*; HTN, goal below 140/90; Hyperlipidemia, unspecified hyperlipidemia type; Prediabetes; SVT (supraventricular tachycardia); Primary osteoarthritis of both knees Allergies Active Allergy Reactions Criticality Noted Date Comments Cephalosporins 06/28/2003 Itching/hands swelling Erythromycin 06/28/2003 Itching/hands swelling Penicillins 06/14/2000 Sulfamethoxazole W/Trimethoprim (Co-Trimoxazole) 05/17/2001 rash documented as of this encounter (statuses as of 12/29/2022) Medications Medication Sig Dispensed Refills Start Date [...] 10/16/2021 Active Lisinopril 20 MG Oral Tablet (Prinivil)Indic ations:HTN, goal below 140/90 Take 1 Tablet by mouth in the morning. 100 Tablet 1 08/10/2022 Active hydroCHLOROthia zide 25 MG Oral Tablet (Hydrodiuril) Take 1 Tablet by mouth in the morning. 100 Tablet 1 08/10/2022 Active Vitamin D3 25 MCG (1000 UT) Oral Capsule Take by mouth daily. Unsure dose 0 Active Diclofenac Sodium 1 % External Gel (Voltaren) APPLY 4 GRAMS TOPICALLY TO THE SKIN 4 TIMES A DAY DIRECTED 1200 g 1 12/20/2022 4 Active busPIRone HCl 10 MG Oral Tablet (Buspar)Indicat ions:Anxiety Take 1 Tablet by mouth in the morning and 1 Tablet before bedtime. 20 Tablet 0 12/29/2022 Active busPIRone HCl 5 MG Oral Tablet (Buspar) Take 1 Tablet by mouth in the morning and 1 Tablet at noon and 1 Tablet before bedtime. 180 Tablet 1 08/20/2022 3 Discontinued(Ref ill) Diclofenac Sodium 1 % External Gel (Voltaren) APPLY 4 GRAMS TOPICALLY TO THE SKIN 4 TIMES A DAY DIRECTED 300 g 0 12/20/2022 3 Discontinued documented as of this encounter (statuses as of 12/29/2022) Active Problems Problem Noted Date Diagnosed Date [...] as of this encounter (statuses as of 12/29/2022) Resolved Problems Problem Noted Date Diagnosed Date [...] as of this encounter (statuses as of 12/29/2022) Immunizations Name Administration Dates Next Due PPD [...] money to buy more. Never true 12/08/19 Within the past 12 months, t he [...] Sign Reading Time Taken Comments Blood Pressure 134/82 12/29/2022 10:48 AM EDT Pulse 113 12/29/2022 10:48 AM EDT Temperature 35.1 C (95.1 F) 12/29/2022 10:48 AM E DT Respiratory Rate - - Oxygen Saturation 98% 12/29/2022 10:48 AM EDT Inhaled Oxygen Concentration - - Weight 76.7 kg (169 lb 3.2 oz) 12/29/2022 10:48 AM EDT Height - - Body Mass Index 35.36 12/07/2022 11:05 AM EDT documented in this encounter Progress Notes * Fariha Sylvester PA-C - 12/29/2022 10:53 AM EDT Nursing Notes: Gena Pickett, [facility] 12/29/22 1047 Sign at exiting of workspace She is here for elevated BP and HR. She knows it is her anxiety so she has been taking her buspar three times a day per Dr. Jamie Robison's instruction. Pt here today with elevated BP and HR. Pt states that it has been like this over the past couple days. She has a wrist cuff but she thinks it is off. Pt did not bring it with her today. BP good today. HR is 113. Pt denies chest pain, SOB, dizziness, lightheadedness, syncope, headache, palpitations.Pt does have hx of PSVT. Pt just had regular check up a couple of weeks ago. Pt has no other issues today. She is having a lot of anxiety. It will be 1 year since the of her , soon. She is taking buspar 5 mg tid. She wonders if she can bump it to 10 mg bid. Review of patient's allergies indicates: Allergen Reactions [...] TIMES A DAY DIRECTED 1200 g 1 No current facility-administered medications for this visit. [...] Housing Stability: Not on file O:Blood pressure 134/82, pulse 113, temperature (!) 35.1 C (95.1 F), weight 76.7 kg (169 lb 3.2oz), SpO2 98%. GENERAL: alert, healthy, and no distress HEART: regular rate & rhythm, no murmur, and no gallops LUNGS: chest symmetric with normal AP diameter, no chest deformities noted, no chest wall tenderness, lungs clear to auscultation A:Anxiety (Primary) - busPIRone HCl 10 MG Oral Tablet (Buspar); Take 1 Tablet by mouth in the morning and 1 Tablet before bedtime. HTN, goal below 140/90 Hyperlipidemia, unspecified hyperlipidemia type Prediabetes SVT (supraventricular tachycardia) Primary osteoarthritis of both knees Start buspar 10 mg bid. Any questions/problems, please call. If anything changes, worsens, developsnew sx, please call [facility]. Nurse visit to check home BP machine. Follow Up: Return if symptoms worsen or fail to improve. Fariha Sylvester PA-C documented in this encounter Nursing Notes * Gena Pickett CMA - 12/29/2022 10:47 AM EDT She is here for elevated BP and HR. She knows it is her anxiety so she has been taking her buspar three times a day per Dr. Jamie Robison's instruction. documented in this encounter Plan of Treatment Upcoming Encounters Date Type Department Care Team (Late st Contact Info) Description 06/13/2023 11:00 AM EDT Office Visit Family [address] [place] [phone] Krissy Carson MD [address] [place] [address] [place] [id number] 12/12/2023 11:00 AM EDT Nurse Only Ancillary [place] [address] [place] [address] [place], Nurse Annual [address] [place] [id number] Scheduled Procedures Name Priority Associated Diagnoses Date/Ti [...] Diagnoses Diagnosis Anxiety- Primary Anxiety state, unspecified HTN, goal below 140/90 Unspecified essential hypertension Hyperlipidemia, unspecified hyperlipidemia type Prediabetes Other abnormal glucose SVT (supraventricular tachycardia) Other specified cardiac dysrhythmias Primary osteoarthritis of both knees Primary localized osteoarthrosis, lower leg documented in this encounter Care Teams Technician [employer] Equipment Relationship Specialty Start Date End Date Krissy Carson MD [address] [place] [address] [place] [id number] PCP - General Family Medicine 09/22/22 documented as of this encounter
--- OUTSIDE RECORDS SUMMARY | 2023-01-23 08:36 | External Medical Summary | Summary of Care ---
Author Name Unknown Organization [facility] Address [address] [place] [address] Phone [phone] Care Team Providers Care Audit Control Clerk Name Role Phone Krissy Carson MD Primary Care Provide r Reason for Visit * Reason Comments Adult Annual Wellness Visit, Initial Vis it Encounter Details Date Type Department Care Team Description 12/07/2022 Nurse Only Ancillary [address] [place] [id number] [facility] Nurse Annual [address] [place] [id number] Adult Annual Wellness Visit, Initial Visit Allergies Active Allergy Reactions Severity Noted Date Comments Cephalosporins 06/28/2003 Itching/hands swelling Erythromycin 06/28/2003 Itching/hands swelling Penicillins 06/14/2000 Sulfamethoxazole W/Trimethop rim (Co-Trimoxazole) 05/17/2001 rash documented as of this encounter (statuses as of 12/07/2022) Medications Medication Sig Dispensed Refills Start Date [...] before bedtime. 180 Tablet 1 08/20/2022 Active Diclofenac Sodium 1 % External Gel (Voltaren) APPLY 4 GRAMS TOPICALLY TO THE SKIN 4 TIMES A DAY DIRECTED 1200 g 1 07/13/2022 07/13/2023 Active Vitamin D3 25 MCG (1000 UT) Oral Capsule Take by mouth daily. Unsure dose 0 Active documented as of this encounter (statuses as of 12/07/2022) Active Problems Problem Noted Date Immunization not [...] as of this encounter (statuses as of 12/07/2022) Resolved Problems Problem Noted Date Resolved Date [...] as of this encounter (statuses as of 12/07/2022) Immunizations Name Administration Dates Next Due PPD [...] Sign Reading Time Taken Comments Blood Pressure 138/64 12/07/2022 11:05 AM EDT Pulse 106 12/07/2022 11:05 AM EDT pt states she does get anxious Temperature - - Respiratory Rate - - Oxygen Saturation 97% 12/07/2022 11: 05 AM EDT Inhaled Oxygen Concentration - - Weight 78.1 kg (172 lb 3.2 oz) 12/07/2022 11:05 AM EDT Height 147.3 cm (4' 10") 12/07/2022 11: 05 AM EDT Body Mass Index 35.99 12/07/2022 11:05 AM EDT documented in this encounter Patient Instructions * Patient Instructions* Jazzy Cavazos RN - 12/07/2022 11:02 AM EDT Patient Instructions - Fall Prevention (This education is for all patients over 65 regardless of symptoms) Remember to take your current medications as prescribed. In order to prevent falls, you are encouraged to: Exercise Utilize assistive/adaptive devices Avoid multifocal lenses when walking Avoid hazards in home Maintain a regular toileting schedule Any questions please contact our office. Preventing Falls in the Home (This education is for all patients over 65 regardless of symptoms) As you get older, falls are more likely. Thats because your reaction time slows. Your muscles and joints may also get stiffer, making them less flexible. Illness, medications, and vision changes can also affect your balance. A fall could leave you unable to live on your own. To make your home safer, follow these tips: Floors Put nonskid pads under area rugs Remove throw rugs Replace worn floor coverings Tack carpets firmly to each step on carpeted stairs. Put nonskid strips on the edges of uncarpeted stairs Keep floors and stairs free of clutter and cords Arrange furniture so there are clear pathways Clean up any spills right away Bathrooms Install grab bars in the tub or shower Apply nonskid strips or put a nonskid rubber mat in the tub or shower Sit on a bath chair to bathe Use bathmats with nonskid backing Lighting Keep a flashlight in each room Put a nightlight along the pathway between the bedroom and the bathroom [employer] Patient Education Copyright 2008 - 2010 James except where otherwise noted Preventing Falls: Exercises to Improve Balance, Flexibility, Strength, and Staying Power (This education is for all patients over 65 regardless of symptoms) Certain types of exercises may help make you less likely to fall. Try the ones below. Or do other exercises that your healthcare provider suggests. Depending on your health, you may need to start slowly. Dont let that stop you. Even small amounts of exercise can help you. Be sure to talk to yourhealthcare provider before starting any exercise program. Improve Balance Many types of exercise can help improve balance. Iam chi and yoga are good examples. Heres another one to try. You can do it anytime and almost anywhere. Stand next to a counter or solid support. Push yourself up onto your tiptoes. Hold for 5 seconds. If you start to lose your balance, hold on to the counter. Rest and repeat 5 times. Work up to holding for 20 to 30 seconds, if you can. Increase Flexibility Being more flexible makes it easier for you to move around safely. Try exercises like the seated hamstring stretch. Sit in a chair and put one foot on a stool. Straighten your leg and reach with both hands down either side of your leg. Reach as far down your leg as you can. Hold for about 20 seconds. Go back to the starting position. Then repeat 5 times. Switch legs. Build Strength Resistance exercises help build strength. You can do them without equipment. Or you can use weights, elastic bands, or special machines. One such exercise is called the biceps curl. You can hold a 1 pound weight or even a can of soup. Do this exercise at least 3 times a week. Strive for everyday. Sit up straight in a chair. Keep your elbow close to your body and your wrist straight. Bend your arm, moving your hand up to your shoulder. Then slowly lower your arm. Repeat 5 times. Switch to the other arm. Build Your Staying Power Aerobic exercises make your heart and lungs stronger so you can keep moving longer. Walking and swimming are two of the best types of exercises you can do. Using a stationary bike is great, too. Find an aerobic exercise that you enjoy. Start slowly and build up. Even 5 minutes is helpful. Aimfor a goal of 30 minutes, at least 3 times a week. You dont have to do 30 minutes in one session. Break it up and walk a little throughout the day. More Helpful Tips Start easy. Slowly work up to doing more. Talk with your healthcare provider about the best exercises for you. Call senior centers or health clubs about exercise programs. If needed, have a family member watch you walk every so often to check your stability. Exercise with a friend. Choose an activity you both enjoy. Try exercises that you can do anytime, anywhere. Here are two examples. Have someone with you when you first try these: Practice walking by placing one foot right in front of the other. Stand up and sit down 10 times. Repeat this throughout the day. [employer] Patient Education Copyright 2008 [employer] except where otherwise noted. Preventing Falls: Moving Safely Using a Cane or Walker (This education is for all patients over 65 regardless of symptoms) Keep the cane away from your feet so you dont trip. A walking aid, such as a cane or walker, can help you stay more independent and avoid falls. Remember to keep your walking aid within easy reach when youre in a chair or in bed. And learn how to use it safely so you dont injure yourself. Using a Cane If you have a stronger side, hold the cane on that side. Get your balance. Move the cane and your weaker leg forward. Support your weight on both the cane and your weaker side. Step with your stronger leg. Start again from step 1. If youre using a folding walker, be sure you know how to lock it open. Check that its locked open before each use. Using a Walker Roll the walker (or lift it, if youre using one without wheels) forward about 12 inches. Step forward with your weaker leg first. Use the walker to help keep your balance. Bring your other foot forward to the center of the walker. Start again from step 1. Helpful Tips Check with your healthcare provider about the right walking aid to use. Ask about a walker with a seat attached. Check the tips of your cane or walker to make sure they have nonskid covers. Move slowly from room to room. Dont parmar. Sit down to get dressed. Use a maurice pack or backpack to keep your hands free. Get help for jobs that mean climbing, even on a stepstool. [employer] Patient Education Copyright 2008 - 2010 [employer] except where otherwise noted. Urinary Incontinence Plan of Care Documentation: (This education is for all patients over 65 regardless of symptoms) Current medications reconciled. Patient encouraged to: Practice kegal exercises Provide education materials Use the restroom every 2 hours throughout the day Limit caffeine, alcohol, spicy foods and acidic foods Keep a bladder diary Limit fluid intake 3-4 hours before bed Lose weight Prevent constipation Take fluid pills at a time when you can get to the bathroom quickly Control sugar better if diabetic Limit fluid intake to 60 oz. per day Wear support stockings (TEDs)if you have edema Jazzy Cavazos RN 12/07/2022 Kegel Exercises Kegel exercises dont require special clothing or equipment. Theyre easy to learn and simple to do. And if you do them right, no one can tell youre doing them, so they can be done almost anywhere. Your doctor, nurse, or physical therapist can answer any questions you have and help you get started. A Weak Pelvic Floor The pelvic floor muscles may weaken due to aging, and vaginal childbirth, injury, surgery, chronic cough, or lack of exercise. If the pelvic floor is weak, your bladder and other pelvic organs may sag out of place. The urethra may also open too easily and allow urine to leak out. Kegel exercises can help you strengthen your pelvic floor muscles so they can better support the pelvic organs and control urine flow. How Kegel Exercises Are Done Try each of the Kegel exercises described below. When youre doing them, try not to move your leg, buttock, or stomach muscles. While youre urinating, try to stop the flow of urine. Start and stop it as often as you can. Contract as if you were stopping your urine stream, but do it when youre not urinating. Tighten your rectum as if trying not to pass gas. Contract your anus, but dont move your buttocks. Helpful Hints Do your Kegels as often as you can. The more you do them, the faster youll feel the results. Pick an activity you do often as a reminder. For instance, do your Kegels every time you sit down. Tighten your pelvic floor before you sneeze, get up from a chair, cough, laugh, or lift. This protects your pelvic floor from injury and can help prevent urine leakage. Try to hold each Kegel for a slow count to five. You probably wont be able to hold them for thatlong at first, but keep practicing. It will get easier as your pelvic floor gets stronger. Eventually, special weights that you place in your vagina may be recommended to help make your Kegels even more effective. James Patient Education Copyright 2009 - 2010 James except where otherwise noted. Here are some helpful tips for your urinary incontinence: (This education is for all patients over 65 regardless of symptoms) Practice Kegel exercises Use the restroom every 2 hours throughout the day Limit caffeine, alcohol, spicy foods, and acidic foods Keep a bladder diary Limit fluid intake 3-4 hours before bed Lose weight Prevent constipation Take fluid pills at a time when can get to the bathroom quickly Control sugar better if diabetic Limit fluid intake to 60 oz. per day Any questions, please feel free to contact our office. Hi Amalia Dong, As your primary care physician, I know that regular visits with my patients who have several chronic conditions can go a long way in helping you stay healthy. Many times, the clinic team and I are in touch with you and/or other care team members between office visits to adjust medications, discuss any changes in your health, and review our care plan to make sure it is still meeting your needs. I am dedicated to helping you take a more active role in your overall care. It is important that there are resources available to you, so I created a personalized plan of care with a Health Calendar for you, which is included on the next page of this letter. Below is a list that summarizes your electronic health record: Health Maintenance Due: Health Maintenance Due Topic Date Due DXA Scan Never done COVID-19 Vaccine (1) Never done Hepatitis C Screening Never done Depression Screening 12/06/2020 Current Medication List: (as of Visit date not found (in office), Visit date not found (telemedicine) ) Current Outpatient Medications Medication Sig Dispense Refill Acetaminophen 325 MG Oral Tablet Take 1 Tablet by mouth every 6 hours as needed for Pain. multivitamin (MVI) Tablet Take 1 Tablet by mouth in the morning. Lisinopril 20 MG Oral Tablet (Prinivil) Take 1 Tablet by mouth in the morning. 100 Tablet 1 hydroCHLOROthiazide 25 MG Oral Tablet (Hydrodiuril) Take 1 Tablet by mouth in the morning. 100 Tablet 1 Diclofenac Sodium 1 % External Gel (Voltaren) APPLY 4 GRAMS TOPICALLY TO THE SKIN 4 TIMES A DAYAS DIRECTED 1200 g 1 Vitamin D3 25 MCG (1000 UT) Oral Capsule Take by mouth daily. Unsure dose Triamcinolone Acetonide 0.1 % External Cream (Aristocort) Apply topically to affected area 2 times a day . 30 g 1 busPIRone HCl 5 MG Oral Tablet (Buspar) Take 1 Tablet by mouth in the morning and 1 Tablet at noon and 1 Tablet before bedtime. 180 Tablet 1 No current facility-administered medications for this visit. Current List of Allergies: (as of Visit date not found (in office), Visit date not found (telemedicine) ) Review of patient's allergies indicates: Allergen Reactions Cephalosporins Itching/hands swelling Erythromycin Itching/hands swelling Penicillins Sulfamethoxazole W/Trimethoprim (Co-Trimoxazole) rash Most Recent Lab Results: Results for orders placed or performed in visit on 08/24/22 ALBUMIN / CREATININE RATIO, URINE Result Value Ref Range Albumin, Random Urine 1.33 mg/dL Creatinine, Random Urine 236 mg/dL Albumin / Creatinine Ratio, Urine 6 <30 mg/g Creat HEMOGLOBIN A1C Result Value Ref Range Hemoglobin A1C 5.9 (H) 4.0 - 5.6 % Estimated Average Glucose 123 <126 mg/dL BASIC METABOLIC PANEL Result Value Ref Range BUN 22 (H) 6 - 20 mg/dL Creatinine 0.9 0.5 - 1.0 mg/dL Estimated Glomerular Filtration Rate 71 >=60 mL/min Sodium 142 135 - 146 mmol/L Potassium 3.8 3.5 - 5.1 mmol/L Chloride 104 98 - 107 mmol/L CO2 25 22 - 32 mmol/L Anion Gap 13 7 - 15 mmol/L Glucose 102 70 - 120 mg/dL Calcium 9.4 8.4 - 10.2 mg/dL Sincerely, Krissy Carson MD 12/07/2022 [facility] Health Calendar (as of Visit date not found (in office), Visit date not found (telemedicine) ) Care needs Care needs Last completed Due next Bone Density --- Never done COVID-19 Vaccine (1) --- Never done Hepatitis C screening --- Never done A1C blood sugar test 08/24/2022 08/25/2023 Kidney Function Test 08/24/2022 08/25/2023 Urine albumin/creatinine test 08/24/2022 08/24/2025 Diphtheria, tetanus & pertussis vaccines (3 - Td or Tdap) 12/08/2017 12/09/2027 As you look over the recommended services, be sure to check with your insurance company to determine what's covered. Free[employer]M is a great tool that helps you review your medical record online, including test results, doctor notes and your health summary. You can also schedule appointments with me and other members of your care team, request prescription refills and ask for advice related to your medical conditions at [email or web address]. documented in this encounter Progress Notes * Jazzy Cavazos RN - 12/07/2022 11:02 AM EDT Urinary Incontinence Plan of Care Documentation: (This education is for all patients over 65 regardless of symptoms) Current medications reconciled. Patient encouraged to: Practice kegal exercises Provide education materials Use the restroom every 2 hours throughout the day Limit caffeine, alcohol, spicy foods and acidic foods Keep a bladder diary Limit fluid intake 3-4 hours before bed Lose weight Prevent constipation Take fluid pills at a time when you can get to the bathroom quickly Control sugar better if diabetic Limit fluid intake to 60 oz. per day Wear support stockings (TEDs)if you have edema Jazzy Cavazos RN 12/07/2022AD8 Dementia Screening Interview Person answering questions: patient Remember, "Yes, a change" indicates that there has been a change in the last several years caused by cognitive (thinking and memory) problems 1. Problems with judgement (eg: problems making decisions, bad financial decisions, problems with thinking). No (0) 2. Less interest in hobbies/activities. No (0) 3. Repeats the same things over and over (questions, stories, or statements). No (0) 4. Trouble learning how to use a tool, appliance, or gadget (eg: VCR, computer, microwave, remote control). No (0) 5. Forgets correct month or year. No (0) 6. Trouble handling complicated financial affairs (eg: balancing checkbook, income taxes, paying bills). No (0) 7. Trouble remembering appointments. No (0) 8. Daily problems with thinking and/or memory. No (0) TOTAL AD8: 0 - AD8 Dementia Screening Score The final score is a sum of the number items marked "Yes, A Change". 0 - 1: Normal cognition; 2 or greater: Cognitive impairments is likely to be present - further testing required Adult Annual Wellness Visit: Criss Umana is a 77 year old female who presents for an Adult Annual Wellness Visit. Depression Screening: Did the patient complete the screening questionnaire for Depression? Yes Is the patient's total score for Depression 15 or greater? No, no further intervention needed, unless requested by patient. Did the patient answer positively to the suicide question? No, no further intervention needed, unless requested by patient. In general, compared to other people your age, what would you say that your health is? Good Ht Readings from Last 1 Encounters: 12/07/22 1.473 m (4' 10") Wt Readings from Last 1 Encounters: 12/07/22 78.1 kg (172 lb 3.2 oz) Body Mass Index: BMI Greater than 30 Body mass index is 35.99 kg/m. BP Readings from Last 1 Encounters: 12/07/22 138/64 Medical/Surgical/Family History Reviewed: Yes Past Medical History: Diagnosis Date Arthritis, rheumatoid (HCC) Cardiac dysrhythmia, unspecified CKD (chronic kidney disease), stage II 10/21/2021 EGFR 77 Degenerative disc disease, cervical 12/24/2014 Dyslipidemia, goal LDL below 160 04/16/1998 chol 219 Family history of diabetes mellitus HTN, goal below 140/90 09/23/2006 168/102 Kidney cyst, acquired Obesity, BMI not known Primary osteoarthritis of right shoulder 12/24/2014 Renal calculus Sigmoid diverticulitis 06/09/2018 Past Surgical History: Procedure Laterality Date CATARACT SURGERY,COMPLEX 2022 bilateral , Dr. Rojas COLONOSCOPY, DIAGNOSTIC (RECTUM) 07/02/2015 hyperplastic polyp, diverticulosis, repeat 10 yrs/COLONOSCOPY FLEXIBLE PROXIMAL DIAGNOSTIC performed by Julianne Gann MD at [facility]COPY [facility] EGD, FLEXIBLE, DIAGNOSTIC 07/05/2018 benign fundic gland polyp, gastric irritation, hiatal hernia/ESOPHAGOGASTRODUODENOSCOPY (EGD), FLEXIBLE, TRANSORAL, DIAGNOSTIC performed by Earl Lemus MD at ENDOSCOPY [facility] REMOVAL OF APPENDIX age 18 REMOVAL OF BLADDER LESION benign TOTAL ABD HYSTERECTOMY W/WO REMOVAL OF TUBE(S) Family History Adopted: Yes Problem Relation Age of Onset Heart Disorder Mother Heart Disorder Sister Heart Disorder Brother Heart Disorder Brother Heart Disorder Brother Diabetes Sister Has patient ever had cancer? No Social History Tobacco Use Smoking status: Never Smokeless tobacco: Never Substance Use Topics Alcohol use: No Vaping/E-Cigarette Use Vaping/E-Cigarette Use Never User Vaping/E-Cigarette Substances Vaping/E-Cigarette Devices Tobacco/Alcohol screening completed today? Yes Hospital Care: Admissions (within the last year): Not Applicable ER within 30 days: No Does the patient have an Advance Directives/Living Will? Yes Last Physical Exam: Last physical exam: 10/27 Does patient see primary provider regularly? Yes Does patient see other providers? Yes, Specialist Patient Care Team updated? Yes Review of patient's allergies indicates: Allergen Reactions Cephalosporins Itching/hands swelling Erythromycin Itching/hands swelling Penicillins Sulfamethoxazole W/Trimethoprim (Co-Trimoxazole) rash Immunization History Administered Date(s) Administered PPD 12/10/2002, 12/01/2004, 11/21/2006, 08/06/2014 TDAP (age 10 and older)(Boostrix) 12/08/2017 TDAP (age 11 and older)(Adacel) 03/07/2001 Current Outpatient Medications Medication Sig Dispense Refill Acetaminophen 325 MG Oral Tablet Take 1 Tablet by mouth every 6 hours as needed for Pain. multivitamin (MVI) Tablet Take 1 Tablet by mouth in the morning. Lisinopril 20 MG Oral Tablet (Prinivil) Take 1 Tablet by mouth in the morning. 100 Tablet 1 hydroCHLOROthiazide 25 MG Oral Tablet (Hydrodiuril) Take 1 Tablet by mouth in the morning. 100 Tablet 1 Diclofenac Sodium 1 % External Gel (Voltaren) APPLY 4 GRAMS TOPICALLY TO THE SKIN 4 TIMES A DAY DIRECTED 1200 g 1 Vitamin D3 25 MCG (1000 UT) Oral Capsule Take by mouth daily. Unsure dose Triamcinolone Acetonide 0.1 % External Cream (Aristocort) Apply topically to affected area 2 times a day . 30 g 1 busPIRone HCl 5 MG Oral Tablet (Buspar) Take 1 Tablet by mouth in the morning and 1 Tablet at noon and 1 Tablet before bedtime. 180 Tablet 1 No current facility-administered medications for this visit. Patient Active Problem List Diagnosis Code ADVANCE [...] carried out because of patient decision Z28.20 Medication Compliance: Patient is able to obtain all of her medications? Yes Patient takes medications as prescribed? Yes Patient manages own medications: Yes Patient uses a pill box? Yes, refill(s) completed by self Dental Exam: encouraged every 6mths Eye Screening: Yes: Every year Are you having trouble with hearing? No Do you use an assistive device to help your hearing? No Exercise Screening: exercises 3-4 times per week Nutrition Assessment: tea for breakfast, light lunch, supper Pain Screening: Are you having any pain? Yes. Pain Scale: 3 out of 10; knee pain Sleep Screening Tool 'STOP': Do you snore? No Do you feel fatigued during the day? Yes Do you wake up feeling like you haven't slept? No Have you been told you stop breathing at night? No Do you gasp for air or choke while sleeping? No Have you been told you have Sleep Apnea? No Do you have high blood pressure or are on medication(s) to control high blood pressure? Yes, white coat sx SCORE: If you check YES to two or more questions, make a referral for Obstructive Sleep Apnea Patient and Caregiver Support System: Patient lives alone Means of Transportation: Drives. Not a concern. Patient lives in 2nd floor in [facility] Community Resources: Not Applicable Functional Status and ADL Skills: Has patient ever had an amputation? No Functional Assessment: 90- Able to carry on normal activity, minor symptoms of disease Ambulation: Patient ambulates with assistive device. Walker to take laundry, or taking out the garbage and Motorized Wheelchair Dressing: Gets clothes and dresses without any assistance: Independent Able to move freely in chair or bed including turning over: Independent Repositioning (bed or chair): Not applicable Transfers: Independent Toileting: Goes to bathroom, uses toilet, arranges clothes and returns without any assistance: Independent Toileting: continent of bowel and incontinent of bladder Feeding: Self Bathing: Self; walk in shower with bench and grab bars Requires none assistance with ADLs. Instrumental ADL's: Shopping: Independent Housekeeping: Independent Handling Finances: Independent DME Vendor Name: Not Applicable Fall Risk Assessment: Can the patient demonstrate that she can stand from a sitting position? Yes Has the patient had a fall within the last 6 months? No Does the patient have a problem with her gait or balance? No Does the patient take 4 or more prescription medicines? Yes Does the patient use sedatives or narcotics? No Fall Risk Factors Present: Uses more than 4 medications Balance or gait disturbances Visually impaired Older than age 70 [id number] Test: Time began at 1100. Patient stood from sitting position and walked approximately 10 feet, returned and sat down. Total time for [id number]-go test was 10 seconds. [id number]-Go Test completed? Yes Gender Specific Preventative Plan: Health Maintenance Topic Date Due DXA Scan Never done COVID-19 Vaccine (1) Never done Hepatitis C Screening Never done Depression Screening 12/06/2020 HbA1c 08/25/2023 GFR 08/25/2023 Albumin/Creatinine Ratio 08/24/2025 DTaP,Tdap,and Td Vaccines (3 - Td or Tdap) 12/09/2027 Hepatitis B Aged Out MENINGOCOCCAL (MENACTRA/MENVEO) Aged Out GARDASIL-HPV IMMUNIZATION SERIES Aged Out Colorectal Cancer Screening Discontinued Zoster Vaccines Discontinued Follow Up/ Referrals/Handouts: Depression screening - completed, patient just lost her 01/2022 and moved into [facility] Functional assessment - doing well, trying to stay active Falls Risk screening - discussed, patient does use her scooter Exercise screening - Nutrition assessment -. Education Provided Incontinence screening - patient wears a liner Patient has been verbally educated on the need or importance of Cholesterol, GFR, Glucose, Hemoglobin A1c, and Immunizations: flu,covid,shingrix Declines all vaccines. Pt has completed the covid vaccines: No declines all vaccines Routine general medical examination at a health care facility (Primary) Risk and functional assessment BMI 35-39 ISOLATED (SEE ACTUAL BMI) Body mass index is 35.99 kg/m. - Discussed Healthy lifestyle, importance of exercise - Diet education - Reviewed labs Anxiety - Med reconciliation completed and compliance discussed. - pt to continue present medications. Immunization not carried out because of patient decision -declined all vaccines Prediabetes - Discussed Healthy lifestyle, importance of exercise - Diet education - Reviewed labs Primary osteoarthritis of both knees -patient does follow up with orthopeadics SVT (supraventricular tachycardia) - Med reconciliation completed and compliance discussed. - pt to continue present medications. Patient declined dexa scan, she states she has never had one and does not want to schedule. Patientgiven handouts on meeting your calcium needs. Follow Up: Return in 1 year (on 12/08/2023) for 12 month Subsequent Adult Wellness Visit. | For: 12 month Subsequent Adult Wellness Visit | Check-out note: 12 month Subsequent Adult Wellness Visit Would patient like to schedule next AWV visit? Yes Jazzy Cavazos RN documented in this encounter Miscellaneous Notes * Pt Handout (on AVS) - Jazzy Cavazos RN - 12/07/2022 11:48 AM EDT [id number] Controlling Your Cholesterol Cholesterol is a waxy substance. Your body needs it to stay healthy. But too much can cause problems. It travels in your blood through the blood vessels. If you have a lot of cholesterol in your blood, it can build up along the haddad of the blood vessels. This makes the vessels narrower. It decreases blood flow. You are then at greater risk of a heart attack or a stroke. Good and bad cholesterol Cholesterol is a type of lipid. Lipids are fats. Blood is mostly water. Fat and water don't mix. Solipids are carried in the blood inside a protein shell. These are called lipoproteins. There are 2 main kinds of lipoproteins: LDL (low-density lipoprotein). This is known as "bad cholesterol." It mainly carries cholesterolto body cells. Excess LDL will build up on artery haddad. This raises your risk for heart disease and stroke. HDL (high-density lipoprotein). This is known as "good cholesterol." This protein shell collectsexcess cholesterol that LDL has left behind on blood vessel haddad. That's why high levels of HDL can lower your risk of heart disease and stroke. Controlling cholesterol levels Total cholesterol includes LDL and HDL cholesterol, as well as other fats in the bloodstream. If your total cholesterol is high, follow the steps below to help lower your total cholesterol level: Eat less unhealthy fat Cut back on saturated fats and trans fats. A diet that?s high in these fats raises your bad cholesterol. It's not enough to just cut back on foods that have cholesterol. Trans fats are also calledpartially hydrogenated oil. Choose lean cuts of meat and low-fat dairy. Use oils instead of solid fats. Limit baked goods, processed meats, and fried foods. Eat about 2 servings of fish each week. A serving size is about 3.5 ounces. Good choices includesalmon, linder, tuna, sardines, or mackerel. The fish should not be fried. Most fish contain omega-3 fatty acids. These help lower total blood cholesterol. [place]-3 fatty acids lowers triglyceride levels, another form of fat in the blood. If you are , planning to be , or are , talk with your healthcare provider for advice. Ask about the best fish choices and how much is safe to eat. Eat more whole grains. Eat soluble fiber such as oat bran. These lower overall cholesterol. Be active If you haven't been exercising regularly, start slowly. Check with your healthcare provider to make sure the exercise plan is right for you. Choose a physical activity you enjoy. Walk, swim, or ride a bike. These are all good ways to be active. Start at a level where you feel comfortable. Increase your time and pace a little each week. Work up to 30 to 40 minutes of moderate to high intensity physical activity at least 3 to 4 daysper week. Remember, some activity is better than none. Quit smoking Quitting smoking can improve your lipid levels. It also lowers your risk for heart disease and stroke. Manage your weight If you are overweight, your healthcare provider will help you to lose weight. They will help you lower your BMI (body mass index) to a normal or near-normal level. Making diet changes and increasing physical activity can help. Take medicine as directed Many people need medicine to help their cholesterol levels. Medicine to treat high cholesterol is effective and safe. But keep in mind that medicine does not take the place of exercise and eating healthy foods. All of these things work together. Your healthcare provider can tell you if you may needa medicine to help lower your cholesterol. Last Reviewed Date: 08/05/202019996153-5250 [employer]. All rights reserved. This information is not intended as a substitute for professional medical care. Always follow your healthcare professional's instructions. * Pt Handout (on AVS) - Jazzy Cavazos RN - 12/07/2022 11:48 AM EDT Images from the original note were not included. [id number] Understanding Diverticulosis and Diverticulitis The colon (large intestine) is the last part of the digestive tract. It absorbs water from stool and changes it from a liquid to a solid. In some people, small pouches called diverticula can form in the colon wall. This is called diverticulosis. It's very common as people get older. The pouches canbecome inflamed and infected. If this happens, it becomes a more severe problem called diverticulitis. These problems can be painful. But they may be managed with treatment. Pouches or diverticula usually occur in the lower part of the colon called the sigmoid. Diverticulitis occurs when the pouches become infected or inflamed. Managing your condition Your provider may prescribe diet changes or medicines. You might need surgery if your problem is severe. If you have diverticulosis Follow this treatment advice: Make changes to your diet. This is often all that's needed to control symptoms. The main changesare adding fiber and drinking more water. Fiber absorbs water as it travels through your colon. This helps your stool stay soft and move smoothly. Water helps this process. If needed, you may be told to take fayr-mti-[id number] stool softeners. To help ease pain, take antispasmodic medicines as prescribed. Watch for changes in your bowel movements. Tell your healthcare provider if you have any changes. Begin an exercise program. Ask your provider how to get started. Get plenty of rest and sleep. If you have diverticulitis Treatment depends on how bad your symptoms are. They include: For mild symptoms. You may be put on a liquid diet for a short time. Antibiotic medicine is often prescribed. If these 2 steps ease your symptoms, you may then be prescribed a high-fiber diet. If you still have symptoms, your healthcare provider will discuss more treatment choices with you. For severe symptoms. You may need to be in the hospital. There, you can be given IV (intravenous) antibiotics and fluids. You'll be put on a low-fiber or liquid diet. You may need surgery if severe symptoms aren't eased by medical treatment, or if diverticula have burst (ruptured). [place]strom to colon health Help keep your colon healthy with these lifestyle tips: Eat a healthy diet. Include plenty of high-fiber fruits, vegetables, and whole grains. Drink plenty of liquids such as water and juice. Keep a healthy lifestyle. Do regular exercise, manage your stress, and get enough rest and sleep. Last Reviewed Date: 12/05/202019999264-6124 [employer]. All rights reserved. This information is not intended as a substitute for professional medical care. Always follow your healthcare professional's instructions. * Pt Handout (on AVS) - Jazzy Cavazos RN - 12/07/2022 11:43 AM EDT Images from the original note were not included. 67077 Understanding Healthy Teeth and Gums When you look at your mouth in the mirror, you can see hard white teeth surrounded by soft gums. What you likely can?t see is a sticky coating of bacteria and other substances on your teeth and gums.This coating, called plaque, can harm your mouth if it?s not kept under control. Healthy teeth and gums To have good oral health, you must have healthy teeth and gums: Teeth are made of hard tissue designed to break up food. Healthy teeth can be many shades of white (some staining on the teeth is normal). Teeth are set into the supporting bone of the jaw. Gums are soft tissues that cover bone and part of each tooth. The color of your gums depends on your ethnicity. Racial pigmentation may or may not be spread evenly throughout the gums. This is normal. Enamel is a hard coating that protects the surface of the tooth. Dentin is the middle layer of the tooth. The pulp is the soft inner tissue of the tooth. Ligaments are tiny fibers of connective tissue that attach the root to the bone. Blood vessels carry nutrients to the tooth. The crown is the part of the tooth you can see. It has surfaces used for biting and chewing. Bone in the jaw provides support and stability. The root is the part of the tooth that is lodged in the supporting bone. Nerves relay signals such as pain to and from the brain. When plaque and tartar form Even in a healthy mouth, plaque forms. If not cleared away with daily brushing and flossing, this sticky film coats the teeth, gums, and tongue: As saliva and the tongue move in the mouth, some plaque is wiped off the tooth surfaces. But plaque can collect in the grooves of the teeth, between teeth, and at the gumline. Plaque bacteria feed on bits of sugary and starchy foods left in your mouth after you eat. This results in acid, the main cause of tooth decay. If not removed, plaque hardens into tartar. Tartar can spread below the gumline, where it damages the gums and bone. Are you at risk? Some factors make you more likely to have problems with your teeth and gums. These include: Not taking good care of your teeth and gums Having a low amount of saliva in the mouth, which allows plaque to collect Smoking, which makes your body less able to fight infections like gum disease and also reduces the amount of saliva in your mouth Eating a lot of sugary and starchy foods, which causes more acid to form Frequent snacking, which lets acid form more often Having crooked teeth, which can be harder to clean Your dentist can help you keep your teeth and gums healthy. Talk with them about resources to help you quit smoking, if needed. Have them show you the best way to keep your teeth clean. And make sureyou see your dentist regularly for cleanings and checkups. They can address any concerns you have. Last Reviewed Date: 10/05/202119990545-3258 [employer]. All rights reserved. This information is not intended as a substitute for professional medical care. Always follow your healthcare professional's instructions. * Pt Handout (on AVS) - Jazzy Cavazos RN - 12/07/2022 11:43 AM EDT Images from the original note were not included. 91382 Understanding Carbohydrates A car needs the right type of fuel to run. And you need the right kind of food to function. To keepyour energy level up, your body needs food that has carbohydrates (carbs). But carbs raise blood sugar levels higher and faster than other kinds of food. Your dietitian will work with you to figure out the amount of carbs you need. Carbs come in 3 types: starches, sugars, and fiber. Starches Starches are found in grains, some vegetables, and beans. Grain products include bread, pasta, cereal, and tortillas. Starchy vegetables include potatoes, peas, corn, gatica beans, yams, and squash. Kidney beans, chu beans, black beans, garbanzo beans, and lentils also have starches. Sugars Sugars are found naturally in many foods. Or they can be added. Foods that contain natural sugar include fruits and fruit juices, dairy products, honey, and molasses. Added sugars are found in most desserts, processed foods, candy, regular soda, and fruit drinks. These are very helpful to treat lowblood sugar (hypoglycemia). They give you sugar quickly. Try to keep at least 15 to 20 grams of these simple sugars with you at all times. Eat or drink these if you start to have symptoms of low blood sugar. Fiber Fiber comes from plant foods. Your body can't digest most fiber. Instead of raising blood sugar levels like other carbs, fiber stops blood sugar from rising too fast. Fiber is found in fruits, vegetables, whole grains, beans, peas, and many nuts. Carb counting Keep track of the amount of carbs you eat. This can help you keep the right balance of carbs, physical activity, and medicine. The amount of carbs you need will be different from what other people need. How much you need depends on many things. These include your health, the medicines you take, andhow active you are. Your healthcare team will help you figure out the right amount of carbs for you. You may start with 45 to 60 grams of carbs per meal, depending on your case. Carb counting is a system that helps you keep track of the carbohydrates you eat at each meal. Carbs come from many foods. These include grains, starchy vegetables, fruit, milk, beans, and snackfoods. You can either count carbohydrate grams or carbohydrate servings. When you count carbohydrate servings, 1 carbohydrate serving = 15 grams of carbohydrates. Here are some examples of foods that have about 15 grams of carbs (1 serving of carbohydrates): 1/2 cup of canned or frozen fruit A small piece of fresh fruit (4 ounces) 1 slice of bread 1/2 cup of oatmeal 1/3 cup of rice 4 to 6 crackers 1/2 Mozamb[place] muffin 1/2 cup of black beans 1/4 of a large baked potato (3 ounces) 2/3 cup of plain fat-free yogurt 1 cup of soup 1/2 cup of casserole 6 chicken nuggets [id number]-[id number] brownie or cake without frosting 2 small cookies 1/2 cup of ice cream or sherbet Carb counting is easier when food labels are available. Look at the label to see how many grams of total carbs per serving the food contains. Then you can figure out how much you should eat. If your food doesn't have a nutrition label, you should be able to get an idea how many carbs there are per serving by using a book or website. Two very important lines to look at on the label are the serving size and the total carbohydrate amount per serving. Here are some tips for using food labels to count your carbs: Check the serving size. The information on the label is based on that serving size. If you eat more than the listed serving size, you may have to double or triple the other information on the label. Check the total grams of carbs. Total carbohydrate from the label includes sugar, starch, and fiber. Be sure to use the total carbohydrate number (minus the fiber) and not sugar alone. Know how many grams of carbs you can have. Be familiar with the matching portion sizes. Compare labels. Compare the labels of different products. Look at serving sizes and total carbs to find the products that work best for you. Don't forget protein and fat. With the focus on carb counting, it might be easy to forget protein and fat in your meals. Don't forget to include sources of protein and healthy fat to balance your meals. Also watch how much salt (sodium) you eat. This is especially true if you have high blood pressure. If you have diabetes, limit the amount of sodium to less than 2,300 mg a day. It?s also important to be consistent with the amount of carbs and time you eat when taking a fixed dose of diabetes medicine. Work with your healthcare provider or dietitian if you need more help. They can help you keep track of your carbs. They can also help you figure out how many grams of carbs you should have. Last Reviewed Date: 02/04/202119993079-3377 [employer]. All rights reserved. This information is not intended as a substitute for professional medical care. Always follow your healthcare professional's instructions. * Pt Handout (on AVS) - Jazzy Cavazos RN - 12/07/2022 11:43 AM EDT Images from the original note were not included. [id number] Preventing Osteoporosis: Meeting Your Calcium Needs Your body needs calcium to build and repair bones. But it can't make calcium on its own. That's whyit's important to eat calcium-rich foods. Some foods are naturally rich in calcium. Others have calcium added (fortified). It's best to get calcium from the foods you eat. But if you can't get enough, you may want to take calcium supplements. To meet your daily calcium needs, try the foods listed below. Dairy Fish & beans Other sources Source Calcium (mg) per serving Source Calcium (mg) per serving Source Calcium (mg) per serving Low-fat yogurt, plain 415 mg/8 oz. Sardines, [place], canned, with bones 351 mg/3 oz. Oatmeal, instant, fortified 215 mg/1 cup Nonfat milk 302 mg/1 cup [place], sockeye, canned, with bones 239 mg/3 oz. Tofu made with calcium sulfate 204 mg/3 oz. Low-fat milk 297 mg/1 cup Soybeans, fresh, boiled 131 mg/1/2 cup Collards 179 mg/1/2 cup Uzbek cheese 272 mg/1 oz. White beans, cooked 81 mg/1/2 cup [place]amb[place] muffin, whole wheat 175 mg/1 muffin Cheddar cheese 205 mg/1 oz. [place] beans, cooked 79 mg/1/2 cup Kale 90 mg/1/2 cup Ice cream strawberry 79 mg/1/2 cup [place], navel 56 mg/1 medium Note: Calcium levels may vary depending on brand and size. Daily calcium needs 14 to 18 years old: 1,300 mg 19 to 30 years old: 1,000 mg 31 to 50 years old: 1,000 mg 51 to 70 years old, women: 1,200 mg 51 to 70 years old, men: 1,000 mg or nursin to 18 years old: 1,300 mg, 19 to 50 years old: 1,000 mg Older than 70 (women and men): 1,200 mg Last Reviewed Date: 01/05/202119994453-2985 [employer]. All rights reserved. This information is not intended as a substitute for professional medical care. Always follow your healthcare professional's instructions. * Pt Handout (on AVS) - Jazzy Cavazos RN - 12/07/2022 11:42 AM EDT Images from the original note were not included. 08572 Healthy Meals for Diabetes Ask your healthcare team to help you make a meal plan that fits your needs. Your meal plan tells you when to eat your meals and snacks, what kinds of foods to eat, and how much of each food to eat. You don?t have to give up all the foods you like. But you do need to follow some guidelines. A healthcare provider will help you develop a meal plan that fits your needs. Choose healthy carbohydrates Starches, sugars, and fiber are all types of carbohydrates (carbs). Carbs can get a bad reputation,especially since they affect your blood sugar. But your body benefits from the right amount of healthy carbs. Fiber can help lower your cholesterol and triglycerides. Fiber is also healthy for your heart. You should have 20 to 35 grams of total fiber each day. Fiber comes from plants. Fiber-rich foods include: Whole-grain breads and cereals Nuts Brown rice and quinoa Whole-wheat pasta Fruits and vegetables Beans and peas Keep track of the amount of carbs you eat. This can help you keep the right balance of physical activity and medicine. The amount of carbs needed will vary for each person. It depends on many things such as your health, the medicines you take, and how active you are. Your healthcare team will help you figure out the right amount of carbs for you. You may start with around 45 to 60 grams of carbs per meal, depending on your situation. Here are some examples of foods containing about 15 grams of carbs (1 serving of carbs): 1/2 cup of canned or frozen fruit A small piece of fresh fruit (4 ounces) 1 slice of bread 1/2 cup of oatmeal 1/3 cup of rice 4 to 6 crackers 1/2 Mozambican muffin 1/2 cup of black beans 1/4 of a large baked potato (3 ounces) 2/3 cup of plain fat-free yogurt 1 cup of soup 1/2 cup of casserole 6 chicken nuggets 9-mbtr-djtkym brownie or cake without frosting 2 small cookies 1/2 cup of ice cream or sherbet Choose healthy protein foods Proteins plays a thomson role in building healthy muscles, bones, skin, and many other parts of your body. Eating protein that's low in fat can help you control your weight. It also helps keep your hearthealthy. Low-fat protein foods include: Fish Plant proteins, such as lentils, beans, peas, nuts, and soy products like tofu and soymilk Lean meat with all visible fat removed Poultry with the skin removed Low-fat or nonfat milk, cheese, and yogurt Limit unhealthy fats and sugar Saturated and trans fats are unhealthy for your heart. They raise LDL ("bad") cholesterol. Fat is also high in calories, so it can make you gain weight. To cut down on unhealthy fats and sugar, limitthese foods: Butter or margarine Palm and palm kernel oils and coconut oil Cream Cheese Leal Lunch meats Ice cream Sweet bakery goods such as pies, muffins, and donuts Jams and jellies Candy bars Regular sodas How much to eat The amount of food you eat affects your blood sugar. It also affects your weight. Your healthcare team will tell you how much of each type of food you should eat. Use measuring cups and spoons and a food scale to measure serving sizes. Learn what a correct serving size looks like on your plate. This will help when you're [facility] and can?t measure your servings. For instance, a serving of meat is about the size of the palmof your hand. Eat only the number of servings given on your meal plan for each food. Don?t take seconds. Learn to read food labels. Be sure to look at serving size, total carbohydrates, fiber, calories, sugar, salt, and saturated and trans fats. Look for healthier options to foods that have added sugar or salt. Plan ahead for parties. Then you can still have a good time without going overboard with unhealthy food choices. Set a good example yourself by bringing a healthy dish to [employer]. Choose healthy snacks When it comes to snacks, we often think about foods with added sugar and fats. But there are many other options for healthier snack choices. Here are a few snack ideas to choose from: Snacks with less than 5 grams of carbohydrates 1 piece of string cheese 3 celery sticks plus 1 tablespoon of peanut butter 5 cosby tomatoes plus 1 tablespoon of ranch dressing 1 hard-boiled egg 1/4 cup of fresh blueberries 5 baby carrots 1 cup of light popcorn 1/2 cup of sugar-free gelatin 15 almonds Snacks with about 10 to 20 grams of carbohydrates 1/3 cup of hummus plus 1 cup of fresh cut nonstarchy vegetables (carrots, green peppers, broccoli, celery, or a mix) 1/2 cup of fresh or canned fruit plus 1/4 cup of cottage cheese 1/2 cup of tuna salad with 4 crackers 2 rice cakes and a tablespoon of peanut butter 1 small apple or orange 3 cups light popcorn 1/2 of a turkey sandwich (1 slice of whole-wheat bread, 2 ounces of turkey, and mustard) Portion sizes are important to controlling your blood sugar and staying at a healthy weight. Stock up on healthy snack items so you always have them on hand. When to eat Your meal plan will likely include breakfast, lunch, dinner, and some snacks. Try to eat your meals and snacks at about the same times each day. Eat all your meals and snacks. Skipping a meal or snack can make your blood sugar drop too low. It can also cause you to eat too much at the next meal or snack. Then your blood sugar could get toohigh. Last Reviewed Date: 02/04/202119994979-3037 [employer]. All rights reserved. This information is not intended as a substitute for professional medical care. Always follow your healthcare professional's instructions. * Pt Handout (on AVS) - Jazzy Cavazos RN - 12/07/2022 11:42 AM EDT Images from the original note were not included. [id number] Diabetes: Learning About Serving and Portion Sizes Servings and portions. What?s the difference? These terms can be very confusing. But learning to measure serving sizes can help you figure out how many carbohydrates (carbs) and other foods you eat each day. They're also powerful tools for managing your weight. A good rule of thumb: Devote half your plate to vegetables and green salad. Split the other half between protein and starchy carbohydrates. Fruit makes a good dessert. Servings and portions Many different words are used to describe amounts of food. If your healthcare provider uses a term you?re not sure of, don?t be afraid to ask. It helps to know the difference between servings and portions: A serving size. This is a fixed size. Food producers use this term to describe their products. For example, the label on a cereal box could say that 1 cup of dry cereal = 1 serving. A portion (also called a helping). This is how much you eat or how much you put on your plate pedro pablo meal. For instance, you might eat 2 cups of cereal at breakfast. Watching serving sizes The portion you choose to eat (such as 2 cups of cereal) may be more than 1 serving as listed on the food label (such as 1 cup of cereal). That?s why it helps to measure or weigh the food you eat. Because the food label values are based on servings, you?ll need to know how many servings you eat at 1 sitting. When you?re planning for a snack or a meal, keep servings in mind. If you don?t have measuring cupsor a scale handy, there are ways to figure out serving sizes. For instance, you can compare the food to the size of your hand (see pictures below). Here are some general tips: About 3 ounces of meat fits in the palm of your hand 1 cup of food is about the size of your fist An open hand holds about 1 to 2 ounces of nuts Ounces: 2 to 3 ounces is about the size of your palm. 1 cup: 1 cup (or a medium-sized piece) is about the size of your fist. 1/2 cup: 1/2 cup is about the size of your cupped hand. Managing portion sizes If your weight is a concern, reducing your portions can help. A portion is the amount of each type of food on your plate. You can eat more than 1 serving of a food at once. But to keep from eating too much at 1 meal, learn how to manage your portions. Portion control will also help with blood sugarmanagement. Last Reviewed Date: 03/07/202119995967-2569 [employer]. All rights reserved. This information is not intended as a substitute for professional medical care. Always follow your healthcare professional's instructions. * Pt Handout (on AVS) - Jazzy Cavazos RN - 12/07/2022 11:41 AM EDT Images from the original note were not included. [id number] 5 Steps for Eating Healthier Changing the way you eat can improve your health. It can lower your cholesterol and blood pressure,and help you stay at a healthy weight. Your diet doesn?t have to be bland and boring to be healthy.Just watch your calories and follow these steps: Step 1. Eat fewer unhealthy fats Choose more fish and lean meats instead of fatty cuts of meat. Skip butter and lard, and use less margarine. Replace these with healthier fats, such as olive, canola, or avocado oils. Pass on foods that have palm, coconut, or partially hydrogenated oils. Eat fewer high-fat dairy foods like cheese, ice cream, and whole milk. Get a heart-healthy cookbook and try some new recipes. Step 2. Go light on salt Keep the saltshaker off the table. Limit high-salt ingredients, such as soy sauce, bouillon, and garlic salt. Instead of adding salt when cooking, season your food with herbs, spices, and other flavorings. Try lemon, garlic, onion, vinegar, or salt-free herb seasonings. Limit convenience foods, such as boxed or canned foods and restaurant food. Read food labels and choose lower-sodium options. Buy fresh, frozen, or canned vegetables that don't have added salt. Step 3. Limit sugar Pause before you add sugars to pancakes, cereal, coffee, or tea. This includes white and brown table sugar, syrup, honey, and molasses. Cut your usual amount by half. Swap out sugar-filled soda and other drinks. Buy sugar-free or low-calorie beverages. Remember, water is always the best choice. Try adding lemon juice to water for extra flavor. Read labels and choose foods with less added sugar. Keep in mind that dairy foods and foods withfruit will have some natural sugar. Cut the sugar in recipes by 1/3 to 1/2. Boost the flavor with extracts like almond, vanilla, or orange. Or add spices such as cinnamon or nutmeg. Step 4. Eat more fiber Eat fresh fruits and vegetables every day. Boost your diet with whole grains. Go for oats, whole-grain rice, and bran. Add beans and lentils to your meals. Drink more water to match your fiber increase to help prevent constipation. Step 5. Pay attention to serving sizes Remember that a serving size is a standard measurement. It will let you track the amount of fat,calories, and other nutrients in the food you eat. Read the Nutrition Facts label on packaged foods to learn their serving sizes. Use serving sizes to assess how much food you put on your plate. Pay attention to your portions.How many servings are you eating? Keep in mind that your needs may change if you?re more active or less active, or if you have other factors that change your calorie needs. Use your hand to help you measure serving sizes. For example: o 1 teaspoon: This is about the size of the first joint of your thumb. o 1 tablespoon: This is about the size of the first 2 joints of your thumb. o 1 ounce: This is about what you can fit in your cupped hand. o 2 to 3 ounces: This is about the size of the palm of your hand. o cup: This is also about what you can fit in your cupped hand. o 1 cup: This is about the size of your fist. Last Reviewed Date: 02/04/202219998435-1032 [employer]. All rights reserved. This information is not intended as a substitute for professional medical care. Always follow your healthcare professional's instructions. documented in this encounter Plan of Treatment Upcoming Encounters Date Type Specialty Care Team Description 12/09/2022 Office Visit Orthopedics Steve Angela MD [address] [place] [address] 06/13/2023 Office Visit Family Medicine Krissy Carson MD [address] [place] [address] [place] [address] 12/12/2023 Nurse Only Ancillary [facility] [address] [place] [address] [place] [address] Scheduled Procedures Name Priority Associated Diagnoses Date/Ti me COLONOSCOPY FLEXIBLE PROXIMA L DIAGNOSTIC Recall Encounter for screening colonoscopy Health Maintenance Due Date Last Done Comments DXA Scan 1945 COVID-19 Vaccine (#1) 01/03/1946 Hepatitis C Screening 1963 Depression Screening 12/06/2020 12/07/2019 GFR 08/25/2023 08/24/2022, 10/05, 06/21/2018, Additional history exists HbA1c 08/25/2023 08/24/2022 Albumin/Creatinine Ratio 08/24/2025 08/24/2022 DTaP,Tdap,and Td [...] as of this encounter Visit Diagnoses Diagnosis Routine general medical examination at a health care facility- Primary Risk and functional assessment Screening for unspecified condition BMI 35-39 ISOLATED (SEE ACTUAL BMI) Morbid obesity Anxiety Anxiety state, unspecified Immunization not carried out because of patient decision Vaccination not carried out for other reason Prediabetes Other abnormal glucose Primary osteoarthritis of both knees Primary localized osteoarthrosis, lower leg SVT (supraventricular tachycardia) Other specified cardiac dysrhythmias documented in this encounter Care Teams Audit Control Clerk Relationship Specialty Start Date End Date Krissy Carson MD [address] [place] [address] [place] [id number] PCP - General Family Medicine 09/22/22 documented as of this encounter
--- OUTSIDE RECORDS SUMMARY | 2023-01-23 08:36 | External Medical Summary ---
Author Name Unknown Address Unknown Organization K01:[facility] [place] [address] [facility] [address] Laboratory Report Ordering Provider Test Date Status JULEE BHAKTA 12/30/2022 11:20:32 Final Observation Date Value Abnormality Reference (Units ) Status WBC, Total 12/30/2022 11:20:32 9.16 4.00-10.8 0 (K/uL) Final RBC 12/30/2022 11:20:32 4.80 3.85-5.15 (M/uL) Final Hemoglobin 12/30/2022 11:20:32 10.3 Below low normal 12 .0-15.3 (g/dL) Final Anemia reflex testing trigge rs on a HGB < 12.0 for Females and HGB < 13.0 for Males in accordance with the WHO Anemia Guidelines
Anemia reflex testing triggers on a HGB < 12.0 for Females and HGB < 13.0 for Males in accordance with the WHO Anemia Guidelines HCT 12/30/2022 11:20:32 36.2 36.0-45.2 (%) Final MCV 12/30/2022 11:20:32 75.4 81.5-97.5 (fL) Final MCH 12/30/2022 11:20:32 21.5 27.0-34.0 (pg) Final MCHC 12/30/2022 11:20:32 28.5 32.0-36.0 (g/dL) Final RDW 12/30/2022 11:20:32 17.2 11.5-15.5 (%) Final Platelets 12/30/2022 11:20:32 362 140-400 (K /uL) Final MPV 12/30/2022 11:20:32 9.2 6.6-11.1 ( fL) Final Nucleated erythrocytes/100 leukocytes [Ratio] in Blood by Automated count 12/30/2022 11:20:32 0 <=0 (/100 WBCs) Critical access hospital Performing Location [facility] [place] [address] [facility] [address]
--- OUTSIDE RECORDS SUMMARY | 2023-01-23 08:36 | External Medical Summary ---
Author Name Unknown Address Unknown Organization K01:LAB[facility]ATORY [facility] - [address] [place] [address] Laboratory Report Ordering Provider Test Date Status JULEE BHAKTA 12/30/2022 11:19:58 Final Observation Date Value Abnormality Reference (Units ) Status CK-MB 12/30/2022 11:19:58 1.4 0.0-4.3 (n g/mL) Final Performing Location LABORATORY [facility] - [address] [place] [address]
--- OUTSIDE RECORDS SUMMARY | 2023-01-23 08:36 | External Medical Summary | Summary of Care ---
Author Name Unknown Organization [facility] Address [address] [place] [address] Phone [phone] Care Team Providers Care Director Records Management Name Role Phone Krissy Carson MD Primary Care Provide r Reason for Visit * Reason Comments Outpatient Testing Encounter Details Date Type Department Care Team (Late st Contact Info) Description 12/30/2022 11:40 AM EDT Laboratory Laboratory [address] [place] [phone] [place] [address] Palpitations Allergies Active Allergy Reactions Criticality Noted Date [...] on file documented as of this encounter Plan of Treatment Upcoming Encounters Date Type Department Care Team (Late st Contact Info) Description 06/13/2023 11:00 AM EDT Office Visit Family Medicine [address] [place] [phone] Krissy Carson MD [address] [place] [address] [place] [address] 12/12/2023 11:00 AM EDT Nurse Only Ancillary [address] [place] [address] [place], Nurse Annual Wellness [address] [place] [address] [place] [address] Pending Results Name Type Priority Associated Diagnoses Date /Time CK-MB Lab Routine Palpitations 12/30/2022 11:19 AM EDT TROPONIN T, HIGH SENSITIVITY Lab Routine Palpitations 12/30/2022 11:20 AM EDT TSH WITH FREE T4 IF INDICATED Lab Routine Palpitations 12/30/2022 11:20 AM EDT CBC WITH WBC DIFFERENTIAL AND ANEMIA REFLEX WORKUP Lab Routine Palpitations 12/30/2022 11:20 AM EDT ANEMIA CBC Lab Routine Palpitations 12/30/2022 11:20 AM EDT DIFFERENTIAL, AUTOMATED Lab Routine Palpitations 12/30/2022 11:20 AM EDT ANEMIA REFLEX CHEMISTRY HOLD Lab Routine Palpitations 12/30/2022 11:20 AM EDT Scheduled Procedures Name Priority Associated Diagnoses Date/Ti [...] as of this encounter Visit Diagnoses Diagnosis Palpitations documented in this encounter Care Teams Director Records Management Relationship Specialty Start Date End Date Krissy Carson MD [address] [place] [address] [place] [address] PCP - General Family Medicine 09/22/22 documented as of this encounter
--- OUTSIDE RECORDS SUMMARY | 2023-01-23 08:36 | External Medical Summary ---
Author Name Unknown Address Unknown Organization K01:[facility] [place] [facility] [address] [address] [place] [address] Laboratory Report Ordering Provider Test Date Status MANAS DYKES 12/22/2022 12:48:15 Final Observation Date Value Abnormality Reference (Units ) Status BUN 12/22/2022 12:48:15 25 Above high normal 6-20 (mg/dL) Final Creatinine 12/22/2022 12:48:15 0.8 0.5-1.0 (mg/dL) Final Glomerular filtration rate/1.73 sq M.predicted [Volume Rate/Area] in Serum, Plasma or Blood by Creatinine-based formula (CKD-EPI) 12/22/2022 12:48:15 74 >=60 (mL/min) Final eGFR is calculated based on the CKD-EPI 2020 equation SODIUM 12/22/2022 12:48:15 141 135-146 (m mol/L) Final Potassium 12/22/2022 12:48:15 4.2 3.5-5.1 (m mol/L) Final Cl 12/22/2022 12:48:15 103 98-107 (mm ol/L) Final CO2 12/22/2022 12:48:15 24 22-32 (mmo l/L) Final Anion gap 12/22/2022 12:48:15 14 7-15 (mmol /L) Final Glucose 12/22/2022 12:48:15 91 70-120 (mg /dL) Final Calcium 12/22/2022 12:48:15 9.9 8.4-10.2 ( mg/dL) Final Performing Location [facility] [place] [address] [place] [address]
--- OUTSIDE RECORDS SUMMARY | 2023-01-23 08:36 | External Medical Summary | Summary of Care ---
Author Name Unknown Organization [facility] Address [address] [place] [address] Phone [phone] Care Team Providers Care Medical Technologist Name Role Phone Krissy Carson MD Primary Care Provide r Reason for Referral * Ancillary Services (Within 10 days (routine)) - Authorized Specialty Diagnoses / Procedures Referred By Teagan corrales Referred To Contact Gastroenterology Diagnoses Iron deficiency anemia, unspecified iron deficiency anemia type Fariha Sylvester PA-C [address] [place] [address] [place] [address] Referral ID Status Reason Start Date Expiration Date Visits Requested Visits Authorized [id number] Authorized Ancillary Services Required 3 [phone] Question Answer Referral Priority Within 10 days (routine) Where should this appointment be scheduled? [facility] Comments ALERT: Do not order for pediatric patients (18 years or younger). Cancel off screen and order PEDS GASTROENTEROLOGY CONSULT (Type: 1 visit only-Evaluate and Treat) The following Pt. Instructions are available: - Gastro Colonoscopy Prep Instructions [32512] - Gastro Colonoscopy Prep Instructions (Gambian Version) [26082] Go to the Pt. Instructions section within the Visit Navigator to access. Colonoscopy ASGE Guidelines: Iron deficiency anemia ADDITIONAL INFORMATION 1. Is the patient on Coumadin? No 2. Is the patient on Pradaxa? No Reason for Visit * Reason Onset Date Comments Advice 12/31/2022 Appointment 12/31/2022 Colonoscopy Encounter Details Date Type Department Care Team (Late st Contact Info) Description 12/31/2022 Telephone Family Medicine Myriam Rico Jessica [address] [place] [address] [place] [phone] Fariha Sylvester PA-C [address] [place] [address] [place] [address] Advice; Appointment (Colonoscopy ) Allergies Active Allergy Reactions Criticality Noted Date Comments Cephalosporins 06/28/2003 Itching/hands swelling Erythromycin 06/28/2003 Itching/hands swelling Penicillins 06/14/2000 Sulfamethoxazole W/Trimethoprim (Co-Trimoxazole) 05/17/2001 rash documented as of this encounter (statuses as of 01/04/2023) Medications Medication Sig Dispensed Refills Start Date [...] as of this encounter (statuses as of 01/04/2023) Active Problems Problem Noted Date Diagnosed Date [...] as of this encounter (statuses as of 01/04/2023) Resolved Problems Problem Noted Date Diagnosed Date [...] as of this encounter (statuses as of 01/04/2023) Immunizations Name Administration Dates Next Due PPD [...] Telephone Encounter - Marjorie Parrish OSA - 01/04/2023 9:33 AM EDT Criss needs a colonoscopy for: Iron deficiency anemia, unspecified iron deficiency anemia type [D50.9] - Primary * Telephone Encounter - Ghada Giang LPN - 01/03/2023 2:42 PM EDT Pt notified of message below from Fariha, advised that the ferrous sulfate is the iron supplement. * Telephone Encounter - Sheri Fam OSA - 01/03/2023 12:19 PM EDT Pt calling in stating that her medication was delivered and she got a med that she isnt sure what it is for. Ferrous sulfate. Please advise. * Telephone Encounter - Fariha Sylvester PA-C - 12/31/2022 10:40 AM EDT Please call pt. Her blood count is a little on the low side. Her iron is also low. She needs to start on an iron supplement and get a colonoscopy. Med sent to pharm. Order in for colonoscopy. documented in this encounter Plan of Treatment Upcoming Encounters Date Type Department Care Team (Late st Contact Info) Description 06/13/2023 11:00 AM EDT Office Visit Family Medicine [address] [place] [phone] Krissy Carson MD [address] [place] [address] [place] [address] 12/12/2023 11:00 AM EDT Nurse Only Ancillary [address] [place] [address] [place], Nurse Annual [address] [place] [address] Scheduled Procedures Name Priority Associated Diagnoses Date/Ti me COLONOSCOPY FLEXIBLE PROXIMA L DIAGNOSTIC Recall Encounter for screening colonoscopy Scheduled Referrals Name Type Priority Associated Diagnoses Orde r Schedule COLONOSCOPY, GI REFERRAL OP Referral Within 10 days (routine) Iron deficiency anemia, unspecified iron deficiency anemia type Ordered: 12/31/2022 Health Maintenance Due Date Last Done Comments [...] as of this encounter Visit Diagnoses Diagnosis Iron deficiency anemia, unspecified iron deficiency anemia type- Primary documented in this encounter Care Teams Medical Technologist Relationship Specialty Start Date End Date Krissy Carson MD [address] [place] [address] [place] [address] PCP - General Family Medicine 09/22/22 documented as of this encounter
--- OUTSIDE RECORDS SUMMARY | 2023-01-23 08:36 | External Medical Summary | Summary of Care ---
Author Name Unknown Organization [facility] Address [address] [place] [address] Phone [phone] Care Team Providers Care Advertising Sales Consultant Name Role Phone Tamika Carson MD Primary Care Provide r Reason for Visit * Reason Comments Medication Refill Encounter Details Date Type Department Care Team Description 12/20/2022 Refill Family Medicine [address] [phone] Tamika Carson MD [address] [place] [address] [place] [address] Allergies Active Allergy Reactions Severity Noted Date Comments Cephalosporins 06/28/2003 Itching/hands swelling Erythromycin 06/28/2003 Itching/hands swelling Penicillins 06/14/2000 Sulfamethoxazole W/Trimethop rim (Co-Trimoxazole) 05/17/2001 rash documented as of this encounter (statuses as of 12/20/2022) Medications Medication Sig Dispensed Refills Start Date [...] 10/16/2021 Active Lisinopril 20 MG Oral Tablet (Prinivil)Indica tions:HTN, goal below 140/90 Take 1 Tablet by mouth in the morning. 100 Tablet 1 08/10/2022 Active hydroCHLOROthiaz rene 25 MG Oral Tablet (Hydrodiuril) Take 1 [...] DIRECTED 300 g 0 12/20/2022 12/20/2023 Active Diclofenac Sodium 1 % External Gel (Voltaren) APPLY 4 GRAMS TOPICALLY TO THE SKIN 4 TIMES A DAY DIRECTED 1200 g 1 07/13/2022 12/20/2022 Discontinued (Refill) documented as of this encounter (statuses as of 12/20/2022) Active Problems Problem Noted Date Immunization not [...] as of this encounter (statuses as of 12/20/2022) Resolved Problems Problem Noted Date Resolved Date [...] as of this encounter (statuses as of 12/20/2022) Immunizations Name Administration Dates Next Due PPD [...] encounter Miscellaneous Notes * Telephone Encounter - Tamika Carson MD - 12/20/2022 10:54 AM EDT Signed Prescriptions: Disp Refills Diclofenac Sodium 1 % External Gel (Voltar*1200 g 1 Sig: APPLY 4GRAMS TOPICALLY TO THE SKIN 4 TIMES A DAY DIRECTEDAuthorizing Provider: TAMIKA CARSONDiclofenac Sodium 1 % External Gel (Voltar*300 g 0 Sig: APPLY 4 GRAMS TOPICALLY TO THE SKIN 4 TIMESA DAY DIRECTEDAuthorizing Provider: TAMIKA CARSON * Telephone Encounter - Tamika Carson MD - 12/20/2022 10:54 AM EDT Signed Prescriptions: Disp Refills Diclofenac Sodium 1 % External Gel (Voltar*1200 g 1 Sig: APPLY 4 GRAMS TOPICALLY TO THE SKIN 4 TIMES A DAY DIRECTED Authorizing Provider: TAMIKA CARSON Diclofenac Sodium 1 % External Gel (Voltar*300 g 0 Sig: APPLY 4 GRAMS TOPICALLY TO THE SKIN 4 TIMES A DAY DIRECTED Authorizing Provider: TAMIKA CARSON * Telephone Encounter - Velma Machado [facility] - 12/20/2022 10:02 AM EDTPending Prescriptions: Disp Refills Diclofenac Sodium 1 % External Gel (Voltar*1200 g 1 Sig: APPLY 4 GRAMS TOPICALLY TO THE SKIN 4 TIMES A DAY DIRECTED Diclofenac Sodium 1 % External Gel (Voltar*300 g 0 Sig: APPLY 4 GRAMS TOPICALLY TO THE SKIN 4 TIMES A DAY DIRECTED * Telephone Encounter - Velma Machado [facility] - 12/20/2022 10:02 AM EDT [facility] is currently not authorized to approve refills for the pended medication(s) per refill protocol. Please approve if appropriate. Thanks, Velma Machado, PharmD Clinical Pharmacist [facility] [phone] 12/20/2022 10:02 AM * Telephone Encounter - Lani Vargas CPhT - 12/20/2022 9:27 AM EDT Pt out of gel Pt is requesting a new 90 day prescription for mail order and a short term prescription for their local pharmacy for the meantime. Please review and approve if appropriate. Pending Prescriptions: Disp Refills Diclofenac Sodium 1 % External Gel ([place]*1200 g 1 Sig: APPLY 4 GRAMS TOPICALLY TO THE SKIN 4 TIMES A DAY DIRECTED Diclofenac Sodium 1 % External Gel ([place]*300 g 0 Sig: APPLY 4 GRAMS TOPICALLY TO THE SKIN 4 TIMES A DAY DIRECTED Last Visit: 10/07/2022 (in office), Visit date not found (telemedicine) 06/13/2023 If no future appointments scheduled, and last appointment is greater than a year ago, please schedule patient for a follow-up appointment Last date the medication was ordered: 07/13/22 Patient Phone Numbers Labs: Lab Results Component Value Date/Time CREAT 0.9 08/24/2022 11:47 AM CREAT 0.91 06/21/2018 12:00 AM CREAT 0.8 09/06/2017 10:45 AM POTASSIUM 3.8 08/24/2022 11:47 AM POTASSIUM 3.4 (L) 06/30/2018 01:42 PM TSH 1.11 01/02/1999 09:48 AM LDLCALC 147 (H) 11/24/2016 01:24 PM LDLDIRECT NOT APPLICABLE 11/24/2016 01:24 PM ALT 24 10/21/2021 12:47 PM ALT 45 (H) 11/06/2010 10:41 AM HGBA1C 5.9 (H) 08/24/2022 11:47 AM documented in this encounter Plan of Treatment Upcoming Encounters Date Type Specialty Care Team Description 06/13/2023 Office Visit Family Medicine Tamika Carson MD [address] [place] [address] [place] [address] 12/12/2023 Nurse Only Ancillary [place], Nurse Annual Wellness [address] [place] [address] [place] [address] Scheduled Procedures Name Priority Associated Diagnoses Date/Ti [...] filedocumented as of this encounter Care Teams Advertising Sales Consultant Relationship Specialty Start Date End Date Tamika Carson MD [address] [place] [address] [place] [address] PCP - General Family Medicine 09/22/22 documented as of this encounter
--- OUTSIDE RECORDS SUMMARY | 2023-01-23 08:36 | External Medical Summary | Summary of Care ---
Author Name Unknown Organization [facility] Address [address] [place] [address] Phone [phone] Care Team Providers Care Director Of Institutional Research Name Role Phone Krissy Carson MD Primary Care Provide r Reason for Referral * Ancillary Services (Within 10 days (routine)) - Authorized Specialty Diagnoses / Procedures Referred By Teagan corrales Referred To Contact Gastroenterology Diagnoses Iron deficiency anemia, unspecified iron deficiency anemia type Fariha Sylvester PA-C [address] [place] [address] [place] [address] Referral ID Status Reason Start Date Expiration Date Visits Requested Visits Authorized [id number] Authorized Ancillary Services Required 3 999 999 Question Answer Referral Priority Within 10 days (routine) Where should this appointment be scheduled? Сергей Comments ALERT: Do not order for pediatric patients (18 years or younger). Cancel off screen and order PEDS GASTROENTEROLOGY CONSULT (Type: 1 visit only-Evaluate and Treat) The following Pt. Instructions are available: - Gastro Colonoscopy Prep Instructions [[id number]] - Gastro Colonoscopy Prep Instructions (Iraqi Version) [[id number]] Go to the Pt. Instructions section within the Visit Navigator to access. Colonoscopy ASGE Guidelines: Iron deficiency anemia ADDITIONAL INFORMATION 1. Is the patient on Coumadin? No 2. Is the patient on Pradaxa? No Reason for Visit * Reason Onset Date Comments Advice 12/31/2022 Encounter Details Date Type Department Care Team ([facility] Contact Info) Description 12/31/2022 Telephone Family Medicine [place] [address] [place] [address] [place] [phone] Fariha Sylvester PA-C [address] [place] [address] [place] [address] Advice Allergies Active Allergy Reactions Criticality Noted Date [...] because of patient decision 12/07/2022 History of 2018 novel coronavirus disease (COVID -19) 06/04/2022 Prediabetes [...] the iron supplement. * Telephone Encounter - Sarwat Sheri, KAMALJIT - 01/03/2023 12:19 PM EDT Pt calling [...] 11:00 AM EDT Office Visit Family Medicine [address] [place] [phone] Krissy Carson MD [address] [place] [address] [place] [address] 12/12/2023 11:00 AM EDT Nurse Only Ancillary [address] [place] [address] [facility], Nurse [address] [place] [address] Scheduled Procedures Name Priority Associated Diagnoses Date/Ti [...] Depression Screening 12/08/2023 12/07/2022 GFR 12/23/2023 12/22/2022, 06, 10/21/2021, Additional history exists HbA1c 12/23/2023 12/22/2022, [...] Primary documented in this encounter Care Teams Director Of Institutional Research Relationship Specialty Start Date End Date Krissy Carson MD [address] [place] [address] [place] [address] PCP - General Family Medicine 09/22/22 documented as of this encounter
--- OUTSIDE RECORDS SUMMARY | 2023-01-23 08:36 | External Medical Summary ---
Author Name Unknown Address Unknown Organization K01:LABORATORY [facility] - [facility] [address] [place] [address] Laboratory Report Ordering Provider Test Date Status JLUEE BHAKTA 12/30/2022 11:20:32 Final Observation Date Value Abnormality Reference (Units ) Status Retic, % (auto) 12/30/2022 11:20:32 1.31 0.80-1.90 (%) Final Reticulocytes, Absolute 12/30/2022 11:20:32 62.6 31.3-100.1 (K/uL) Final Reticulocyte fraction, immature 12/30/2022 11:20:32 25.0 Above high normal 2.5-20.6 (%) Final Reticulocyte HGB 12/30/2022 11:20:32 24.1 Below low normal 29.7-37.4 (pg) Final Performing Location LABORATORY [facility] - [facility] [address] [facility] [address]
--- OUTSIDE RECORDS SUMMARY | 2023-01-23 08:36 | External Medical Summary | Summary of Care ---
Author Name Unknown Organization [facility] Address [address] [place] [address] Phone [phone] Care Team Providers Care Supervisor Air Conditioning Installer Name Role Phone Krissy Carson MD Primary Care Provide r Reason for Visit * Reason Comments Pain * Evaluate & Treat - Unlimited Visits (Within 10 days (routine)) - Authorized Specialty Diagnoses / Procedures Referred By Teagan corrales Referred To Contact Orthopaedic Surgery / Orthopedics Diagnoses Primary osteoarthritis of both knees Krissy Carson MD [address] [place] [address] [place] [address] Referral ID Status Reason Start Date Expiration Date Visits Requested Visits Authorized [id number] Authorized Specialty Services Required 08/25/2022 999 999 Encounter Details Date Type Department Care Team Description 10/28/2022 Office Visit Orthopaedics [address] [phone] Steve Angela MD [address] [place] [address] Primary osteoarthritis of right knee*; Primary osteoarthritis of left knee Allergies Active Allergy Reactions Severity Noted Date Comments Cephalosporins 06/28/2003 Itching/hands swelling Erythromycin 06/28/2003 Itching/hands swelling Penicillins 06/14/2000 Sulfamethoxazole W/Trimethop rim (Co-Trimoxazole) 05/17/2001 rash documented as of this encounter (statuses as of 10/28/2022) Medications Medication Sig Dispensed Refills Start Date [...] DIRECTED 1200 g 1 07/13/2022 07/13/2023 Active documented as of this encounter (statuses as of 10/28/2022) Active Problems Problem Noted Date History of 2019 novel coronavirus diseas e [...] as of this encounter (statuses as of 10/28/2022) Resolved Problems Problem Noted Date Resolved Date [...] as of this encounter (statuses as of 10/28/2022) Immunizations Name Administration Dates Next Due PPD [...] got money to buy more. Never true 12/14/2018 Within the past 12 months, t he food you bought just didn't last and you didn't have money to get more. Never true 12/14/2018 Sex Assigned at Date Recorded Not on file Job Start Date Occupation Industry Not on file Not on file Not on file documented as of this encounter Patient Instructions * Patient Instructions* Steve Angela MD - 10/28/2022 1:59 PM EDT Tylenol (Acetaminophen) Regular Strength 325 mg (1-2 tablets up to 4 times per day)and/or Aleve with food (No other over the counter NSAID medications) Try to limit the aleve (agree with you currently limiting it to just one time per day) Okay to take these medications at the same time or alternate. Use the lowest amount of medication as infrequently as possible to control your pain at a tolerablelevel Do not take Tylenol if drinking more than 3 alcohol drinks daily You can also try topical Voltaren gel (Diclofenac Sodium Topical Gel) which is over the counter up to 4 times per day documented in this encounter Progress Notes * Steve Angela MD - 10/28/2022 1:30 PM EDT Criss Rodriguez Umana [phone] Criss Umana is a 77 year old female who presents for consultation to [facility] Orth[facility] Medicine for bilateral knee injury/pain. Consult requested by Krissy Carson MD. Criss Rodriguez Umana is here unaccompanied Quality: reviewed and agree with Nursing Notes for HPI elements History: History - B/l knee 06/14 today Patient denies any PT for knees Last injection of B/L knee Farihagiovanna Jarrettk PA-C was 09/02/2022 (2 mth out ) notes just started to bepainful last week or so. last injections of gelsyn 3rd injection. 01/22/2021, did not help at all Last A1C 5.9 08/24/2022 ROS: ROS per HPI otherwise non-contributory Past Medical History: Diagnosis Date Arthritis, rheumatoid (HCC) Cardiac dysrhythmia, unspecified CKD (chronic kidney disease), stage II 10/21/2021 EGFR 77 Degenerative disc disease, cervical 12/24/2014 Dyslipidemia, goal LDL below 160 04/16/1998 chol 219 Family history of diabetes mellitus HTN, goal below 140/90 09/23/2006 168/102 Kidney cyst, acquired Obesity, BMI not known Primary osteoarthritis of right shoulder 12/24/2014 Renal calculus Sigmoid diverticulitis 06/09/2018 Family History Adopted: Yes Problem Relation Age of Onset Heart Disorder Mother Heart Disorder Sister Heart Disorder Brother Heart Disorder Brother Heart Disorder Brother Diabetes Sister Social History Socioeconomic History Marital status: Spouse name: Not on file Number of children: Not on file Years of education: Not on file Highest education level: Not on file Occupational History Not on file Tobacco Use Smoking status: Never Smokeless tobacco: Never Substance and Sexual Activity Alcohol use: No Drug use: No Sexual activity: Not on file Other Topics Concern Not on file Social History Narrative Not on file Social Determinants of Health Financial Resource Strain: Not on file Food Insecurity: Not on file Transportation Needs: Not on file Physical Activity: Not on file Stress: Not on file Social Connections: Not on file Intimate Partner Violence: Not on file Housing Stability: Not on file Physical Exam Constitutional: Generally well-nourished and in no acute distress Psychiatric: Mood and Affect normal Eyes: EOMI Respiratory: Normal respiratory effort with regular rate and rhythm Cardiovascular: No edema in the affected extremity(s) Knee Exam, Bilateral Inspection: Alignment: Normal Bilateral Effusion: Negative Bilateral Palpation: Greatest tenderness bilaterally was across the medial joint ROM: Flexion/Neutral/Extension: L - 120/0/0, R - 120/0/0 Pain with full flexion Strength: SLR: Extension: L - 5/5, R - 5/5 Flexion: L - 5/5, R - 5/5 Quadriceps Tone: Good and Equal Bilateral Single Leg Squat: Balance and Control - Fair Special Tests: Crepitus - positive bilateral Iliotibial band: Dunbar compression test- Negative Bilateral Hip exam, bilateral: passive internal and external rotation reproduces no pain. Full ROM B/L Radiology (I have personally reviewed the following films): 08/21/2019: Four view x-ray of each knee FINDINGS Right knee: Tricompartmental osteophytosis with moderate medial compartment joint space narrowing, similar to prior. No radiographically apparent fracture. No knee joint effusion. Left knee: Tricompartmental osteophytosis with severe medial compartment joint space narrowing. No radiographically apparent fracture. No knee joint effusion. IMPRESSION IMPRESSION Severe left and moderate right knee osteoarthritis Assessment and Plan: 1) chronic bilateral knee pain Suspect secondary to DJD. Most recent radiographs are from over 3 years ago. Those showed severe left and moderate right DJD. Suspect progression. Patient however continues to get significant response from intra-articular steroid injections beingperformed at her primary care office. Most recent ones were performed on 09/02/2022. It is too early to repeat these but she is also currently doing relatively well. Patient be scheduled after 12/03/2022 for likely bilateral intra-articular steroid injections Recommended the following medications: Tylenol (Acetaminophen) Regular Strength 325 mg (1-2 tablets up to 4 times per day)and/or Aleve with food (No other over the counter NSAID medications) Try to limit the aleve (agree with you currently limiting it to just one time per day) Okay to take these medications at the same time or alternate. Use the lowest amount of medication as infrequently as possible to control your pain at a tolerablelevel Do not take Tylenol if drinking more than 3 alcohol drinks daily You can also try topical Voltaren gel (Diclofenac Sodium Topical Gel) which is over the counter up to 4 times per day Note: Discussed possibly updating radiographs. However patient is on a fixed budget and these wouldlikely cost her money. Given she continues to respond to steroid injections I do not think there mandatory. She also does not have interest in total knee arthroplasty or formal physical therapy at this time. 2) soft tissue enlargement in the anterolateral proximal lower leg Suspect asymmetric distribution of adipose tissue. View with ultrasound with an unofficial scan. Inthe area of concern was enlargement of adipose tissue. Patient will continue to monitor and for change she will let me know. Could always obtain MRI for changes. Steve Angela MD Primary Care Sports Medicine Orthopaedics [address] [phone] documented in this encounter Nursing Notes * Alice Marcos LPN - 10/28/2022 1:46 PM EDT F/u B/l knee 06/14 today Patient denies any PT for knees Last injection of B/L knee Fariha Koptchak PA-C was 09/02/2022 (2 mth out ) notes just started to bepainful last week or so. last injections of gelsyn 3rd injection. 01/22/2021, did not help at all Last A1C 5.9 08/24/2022 documented in this encounter Plan of Treatment Upcoming Encounters Date Type Specialty Care Team Description 11/01/2022 Nurse Only Ancillary [facility] Nurse [facility] [address] [place] [address] [place] [id number] 12/06/2022 Office Visit Family Medicine Gwendolyn Meza PA-C [address] [place] [address] [place] [address] 12/09/2022 Office Visit Orthopedics Steve Angela MD [address] [place] [address] 06/13/2023 Office Visit Family Medicine Krissy Carson MD [address] [place] [address] [place] [address] Scheduled Procedures Name Priority Associated Diagnoses Date/Ti me COLONOSCOPY FLEXIBLE PROXIMA L DIAGNOSTIC Recall Encounter for screening colonoscopy Scheduled Referrals Name Type Priority Associated Diagnoses Orde r Schedule ORTHOPAEDICS REFERRAL OP Referral Within 10 days (routine) Primary osteoarthritis of both knees Ordered: 08/25/2022 Health Maintenance Due Date Last Done Comments DXA Scan 1945 COVID-19 Vaccine (#1) 01/03/1946 Hepatitis C Screening 1963 Depression Screening, Annual for Pts 12 and Over 12/06/2020 12/07/2019 GFR 08/25/2023 08/24/2022, 10/05, 06/21/2018, [...] as of this encounter Visit Diagnoses Diagnosis Primary osteoarthritis of right knee- Primary Primary localized osteoarthrosis, lower leg Primary osteoarthritis of left knee Primary localized osteoarthrosis, lower leg documented in this encounter Care Teams Supervisor Air Conditioning Installer Relationship Specialty Start Date End Date Krissy Carson MD [address] [place] [address] [place] [phone] PCP - General Family Medicine 09/22/22 documented as of this encounter
--- OUTSIDE RECORDS SUMMARY | 2023-01-23 08:36 | External Medical Summary | Summary of Care ---
Author Name Unknown Organization [facility] Address [address] [place] [address] Phone [phone] Care Team Providers Care Other Sales Support Worker Name Role Phone Krissy Carson MD Primary Care Provide r Reason for Visit * Reason Comments Follow Up B/l knee pain Encounter Details Date Type Department Care Team Description 12/09/2022 Office Visit Orthopaedics [address] [phone] Steve Angela MD [address] [place] [address] Primary osteoarthritis of both knees* Allergies Active Allergy Reactions Severity Noted Date Comments Cephalosporins 06/28/2003 Itching/hands swelling Erythromycin 06/28/2003 Itching/hands swelling Penicillins 06/14/2000 Sulfamethoxazole W/Trimethop rim (Co-Trimoxazole) 05/17/2001 rash documented as of this encounter (statuses as of 12/09/2022) Medications Medication Sig Dispensed Refills Start Date [...] as of this encounter (statuses as of 12/09/2022) Active Problems Problem Noted Date Immunization not [...] as of this encounter (statuses as of 12/09/2022) Resolved Problems Problem Noted Date Resolved Date [...] as of this encounter (statuses as of 12/09/2022) Immunizations Name Administration Dates Next Due PPD [...] on file documented as of this encounter Progress Notes * Steve Angela MD - 12/09/2022 11:30 AM EDT Criss Umana [id number] Criss Umana is a 77 year old female who presents for f/u to [facility] Orthopaedics and Sports Medicine for bilateral knee injury/pain. I saw her originally for this on 10/28/2022 Criss Umana is here unaccompanied Quality: reviewed and agree with Nursing Notes for HPI elements History: History on 10/28/2022 - B/l knee 06/14 today Patient denies any PT for knees Last injection of B/L knee Fariha Koptchak PA-C was 09/02/2022 (2 mth out ) notes just started to bepainful last week or so. last injections of gelsyn 3rd injection. 01/22/2021, did not help at all Last A1C 5.9 08/24/2022 Since that visit: B/l knee 08/14 today with activity Patient has been doing exercise. Patient denies any PT for knees Last injection of B/L knee Fariha Koptchak PA-C was 09/02/2022 (3 mth out ) notes just started to bepainful last week or so. Last A1C 5.9 08/24/2022 ROS: ROS per [...] on file Food Insecurity: No Food Insecurity Worried About Running Out of Food in [...] Flexion/Neutral/Extension: L - 120/0/0, R - 120/0/0 Radiology (I have personally reviewed the following [...] she is also currently doing relatively well. He continues to do well. Did not want her knees injected at this time. She is been taking 1 leave in the morning then taking Tylenol extra-strength 2 tablets 4 times per day. I recommended she decrease from 2 tablets 4 times a day to 1 tablet 4 times a day She also has been using Voltaren gel, which I have instructed her can be used up to 4 times per day Note: [...] Angela MD Primary Care Sports Medicine Orthopaedics [address] [phone] documented in this encounter Nursing Notes * Alice Marcos LPN - 12/09/2022 11:24 AM EDT F/u B/l knee 08/14 today with activity Patient has been doing exercise. Patient denies any PT for knees Last injection of B/L knee Fariha Sylvester PA-C was 09/02/2022 (3 mth out ) notes just started to bepainful last week or so. last injections of gelsyn 3rd injection. 01/22/2021, did not help at all Last A1C 5.9 08/24/2022 documented in this encounter Plan of Treatment Upcoming Encounters Date Type Specialty Care Team Description 06/13/2023 Office Visit Family Medicine Krissy Carson MD [address] [place] [address] [place] [address] 12/12/2023 Nurse Only Ancillary [facility] Nurse [facility] [address] [place] [place] [address] [place] [address] Scheduled Procedures Name Priority Associated Diagnoses Date/Ti [...] encounter Visit Diagnoses Diagnosis Primary osteoarthritis of both knees- Primary Primary localized osteoarthrosis, lower leg documented in this encounter Care Teams Other Sales Support Worker Relationship Specialty Start Date End Date Krissy Carson MD [address] [place] [address] [place] [phone] PCP - General Family Medicine 09/22/22 documented as of this encounter
--- OUTSIDE RECORDS SUMMARY | 2023-01-23 08:36 | External Medical Summary | Summary of Care ---
Author Name Unknown Organization [facility] Address [address] [place] [address] Phone [phone] Care Team Providers Care Sterile Processing Manager Name Role Phone Krissy Carson MD Primary Care Provide r Encounter Details Date Type Department Care Team (Late st Contact Info) Description 12/30/2022 Telephone Family Medicine [address] [phone] Krissy Carson MD [address] [place] [address] [place] [address] Allergies Active Allergy Reactions Criticality Noted [...] 11:00 AM EDT Office Visit Family Medicine [address] [place] [phone] Krissy Carson MD [address] [place] [address] [place] [address] 12/12/2023 11:00 AM EDT Nurse Only Ancillary [address] [place] [address] [place], Nurse [facility] [address] [place] [address] [place] [address] Scheduled Procedures Name Priority Associated Diagnoses Date/Ti [...] filedocumented as of this encounter Care Teams Sterile Processing Manager Relationship Specialty Start Date End Date Krissy Carson MD [address] [place] [address] [place] [address] PCP - General Family Medicine 09/22/22 documented as of this encounter
--- OUTSIDE RECORDS SUMMARY | 2023-01-23 08:36 | External Medical Summary | Summary of Care ---
Author Name Unknown Organization [facility] Address [address] [place] [address] Phone [phone] Care Team Providers Care Marbleizing Machine Tender Name Role Phone Krissy Carson MD Primary Care Provide r Reason for Visit * Reason Comments Outpatient Testing Encounter Details Date Type Department Care Team Description 12/22/2022 Laboratory Laboratory [address] [place] [phone] [place] [address] Prediabetes Allergies Active Allergy Reactions Severity Noted Date [...] Office Visit Family Medicine Krissy Carson MD [address] [place] [address] [place] [address] 12/12/2023 Nurse Only Ancillary Nurse [facility] [address] [place] [address] [place] [address] Pending Results Name Type Priority Associated Diagnoses Date /Time BASIC METABOLIC PANEL Lab Routine Prediabetes 12/22/2022 12:48 PM EDT HEMOGLOBIN A1C Lab Routine Prediabetes 12/22/2022 12:48 PM EDT Scheduled Procedures Name Priority Associated Diagnoses [...] as of this encounter Visit Diagnoses Diagnosis Prediabetes Other abnormal glucose documented in this encounter Care Teams Marbleizing Machine Tender Relationship Specialty Start Date End Date Krissy Carson MD [address] [place] [address] [place] [address] PCP - General Family Medicine 09/22/22 documented as of this encounter
--- OUTSIDE RECORDS SUMMARY | 2023-01-23 08:36 | External Medical Summary | Summary of Care ---
Author Name Unknown Organization [facility] Address [address] [place] [address] Phone [phone] Care Team Providers Care Miller Helper Distillery Name Role Phone Krissy Carson MD Primary Care Provide r Reason for Visit * Reason Comments Acute Encounter Details Date Type Department Care Team (Late st Contact Info) Description 12/30/2022 11:20 AM EDT Office Visit Family Medicine [address] [phone] Fariha Sylvester PA-C [address] [place] [address] [place] [address] Palpitations* Allergies Active Allergy Reactions Criticality Noted [...] Description 12/30/2022 11:40 AM EDT Laboratory Laboratory [address] [place] [phone] [place] [address] [place] [address] Palpitations 06/13/2023 11:00 AM EDT Office Visit Family Medicine [address] [place] [phone] Krissy Carson MD [address] [place] [address] [place] [address] 12/12/2023 11:00 AM EDT Nurse Only Ancillary [address] [place] [address] [place], Nurse [facility] [address] [place] [address] [place] [address] Pending Results Name Type Priority Associated Diagnoses [...] Palpitations documented in this encounter Care Teams Miller Helper Distillery Relationship Specialty Start Date End Date Krissy Carson MD [address] [place] [address] [place] [id number] PCP - General Family Medicine 09/22/22 documented as of this encounter
--- OUTSIDE RECORDS SUMMARY | 2023-01-23 08:36 | External Medical Summary | Summary of Care ---
Author Name Unknown Organization [facility] Address [address] [place] [address] Phone [phone] Care Team Providers Care Senior Sales Representative Name Role Phone Krissy Carson MD Primary Care Provide r Reason for Referral * Ancillary Services (Within 10 days (routine)) - Authorized Specialty Diagnoses / Procedures Referred By Teagan corrales Referred To Contact Gastroenterology Diagnoses Iron deficiency anemia, unspecified iron deficiency anemia type Fariha Sylvester PA-C [address] [place] [address] [place] [address] Referral ID Status Reason Start Date Expiration Date Visits Requested Visits Authorized [id number] Authorized Ancillary Services Required 3 999 999 Question Answer Referral Priority Within 10 days (routine) Where should this appointment be scheduled? Сергей Comments ALERT: Do not order for pediatric patients (18 years or younger). Cancel off screen and order PEDS GASTROENTEROLOGY CONSULT (Type: 1 visit only-Evaluate and Treat) The following Pt. Instructions are available: - Gastro Colonoscopy Prep Instructions [[id number]] - Gastro Colonoscopy Prep Instructions (French Version) [[id number]] Go to the Pt. Instructions section within [...] 12/31/2022 Telephone Family Medicine Myriam Rico Jessica [address] [place] [address] [place] [phone] Fariha Sylvester PA-C [address] [place] [address] [place] [address] Advice; Appointment (Colonoscopy ) Allergies Active Allergy [...] encounter Miscellaneous Notes * Telephone Encounter - Ruben Hidalgo OSA - 01/04/2023 11:07 AM EDT Called and spoke w/ pt, she declined to schedule colonoscopy. * Telephone Encounter - Marjorie Parrish OSA [...] 11:00 AM EDT Office Visit Family Medicine [address] [place] [phone] Krissy Carson MD [address] [place] [address] [place] [address] 12/12/2023 11:00 AM EDT Nurse Only Ancillary [address] [place] [address] [place], Nurse [address] [place] [address] Scheduled Procedures Name Priority Associated Diagnoses Date/Ti [...] Primary documented in this encounter Care Teams Senior Sales Representative Relationship Specialty Start Date End Date Krissy Carson MD [address] [place] [address] [place] [address] PCP - General Family Medicine 09/22/22 documented as of this encounter
--- OUTSIDE RECORDS SUMMARY | 2023-01-23 08:36 | External Medical Summary ---
Author Name Unknown Address Unknown Organization K01:[facility] [place] [address] [facility] [address] Laboratory Report Ordering Provider Test Date Status MANAS DYKES 12/22/2022 12:48:15 Final Observation Date Value Abnormality Reference (Units ) Status HbA1C 12/22/2022 12:48:15 6.2 Above high normal 4. 0-5.6 (%) Final The use of HbA1c to monitor glycemic status is based on normal hemoglobin and HbA composition. This test should not be used in patients with abnormal hemoglobin that affects the half life of the red blood cell or the in vivo glycation rates. Glucose, estimated average 12/22/2022 12:48:15 131 Above high normal <126 (mg/dL) Filiberto oaklye Performing Location [facility] [place] [address] [facility] [address]
--- OUTSIDE RECORDS SUMMARY | 2023-01-23 08:37 | External Medical Summary | Summary of Care ---
Author Name Unknown Organization [facility] Address [address] [place] [address] Phone [phone] Care Team Providers Care Railroad Maintenance Clerk Name Role Phone Krissy Carson MD Primary Care Provide r Reason for Referral * Evaluate & Treat - Unlimited Visits (Within 10 days (routine)) - Authorized Specialty Diagnoses / Procedures Referred By Teagan corrales Referred To Contact Orthopaedic Surgery / Orthopedics Diagnoses Primary osteoarthritis of both knees Krissy Carson MD [address] [place] [address] [place] [address] Referral ID Status Reason Start Date Expiration Date Visits Requested Visits Authorized [id number] Authorized Specialty Services Required 08/25/2022 999 999 Question Answer Referral Priority Within 10 days (routine) What body part is the patient being seen for? Thigh/Knee What condition is the patient being seen for? Arthritis including related infection Reason for Visit * Reason Onset Date Comments Test Results 08/24/2022 Encounter Details Date Type Department Care Team Description 08/24/2022 Telephone Family Medicine [address] [phone] Krissy Carson MD [address] [place] [address] [place] [id number] Test Results Allergies Active Allergy Reactions Severity Noted Date Comments Cephalosporins 06/28/2003 Itching/hands swelling Erythromycin 06/28/2003 Itching/hands swelling Penicillins 06/14/2000 Sulfamethoxazole W/Trimethop rim (Co-Trimoxazole) 05/17/2001 rash documented as of this encounter (statuses as of 08/25/2022) Medications Medication Sig Dispensed Refills Start Date [...] day . 30 g 1 10/16/2021 Active Diclofenac Sodium 1 % External Gel (Voltaren) APPLY 4 GRAMS TOPICALLY TO THE SKIN 4 TIMES A DAY DIRECTED 1200 g 1 07/13/2022 Active Lisinopril 20 MG Oral Tablet (Prinivil)Indicatio [...] before bedtime. 180 Tablet 1 08/20/2022 Active documented as of this encounter (statuses as of 08/25/2022) Active Problems Problem Noted Date History of 2018 novel coronavirus diseas e (COVID-19) 06/04/2022 Prediabetes [...] as of this encounter (statuses as of 08/25/2022) Resolved Problems Problem Noted Date Resolved Date [...] as of this encounter (statuses as of 08/25/2022) Immunizations Name Administration Dates Next Due PPD [...] encounter Miscellaneous Notes * Telephone Encounter - KAMALJIT Swartz - 08/25/2022 3:52 PM EDT I spoke to pt. She is scheduled and aware * Telephone Encounter - KAMALJIT Swartz - 08/25/2022 1:57 PM EDT I called pt and left message on # [phone] to call me back to see where she wants to see ortho at. * Telephone Encounter - Krissy Carson MD - 08/25/2022 11:23 AM EDT Agree with referral. Signed * Telephone Encounter - Franchesca Mariscal LPN - 08/25/2022 10:53 AM EDT Pt talked with me for a bit about her knees & replacements & other options that might be out there for her. She said she would like to discuss with ortho about her knees, she knows she may need a replacement& she would be willing to talk with them about it & see what they have to say. Please advise if okay for referral? * Telephone Encounter - Franchesca Mariscal LPN - 08/25/2022 10:51 AM EDT Made pt aware and they expressed understanding. * Telephone Encounter - Krissy Carson MD - 08/24/2022 5:28 PM EDT Please let patient know her doppler was negative. No blood clot! documented in this encounter Plan of Treatment Upcoming Encounters Date Type Specialty Care Team Description 09/02/2022 Office Visit Family Medicine Fariha Sylvester PA-C [address] [place] [address] [place] [address] 09/30/2022 Office Visit Orthopedics Steve Angela MD [address] [facility] [place] [address] 12/06/2022 Office Visit Family Medicine Gwendolyn Meza PA-C [address] [place] [address] [place] [address] 06/13/2023 Office Visit Family Medicine Krissy Carson MD [address] [place] [address] [place] [address] Scheduled Procedures Name Priority Associated Diagnoses Date/Ti [...] leg documented in this encounter Care Teams Railroad Maintenance Clerk Relationship Specialty Start Date End Date Krissy Carson MD PCP - General Family Medicine 03/11/14 documented as of this encounter
--- OUTSIDE RECORDS SUMMARY | 2023-01-23 08:37 | External Medical Summary | Summary of Care ---
Author Name Unknown Organization [facility] Address [address] [place] [address] Phone [phone] Care Team Providers Care Cook Vegetable Name Role Phone Tamika Carson MD Primary Care Provide r Reason for Visit * Reason Onset Date Comments Medication Refill 08/19/2022 Encounter Details Date Type Department Care Team Description 08/19/2022 Refill Family Medicine [address] [phone] Tamika Carson MD [address] [place] [address] Allergies Active Allergy Reactions Severity Noted Date Comments Cephalosporins 06/28/2003 Itching/hands swelling Erythromycin 06/28/2003 Itching/hands swelling Penicillins 06/14/2000 Sulfamethoxazole W/Trimethop rim (Co-Trimoxazole) 05/17/2001 rash documented as of this encounter (statuses as of 08/20/2022) Medications Medication Sig Dispensed Refills Start Date [...] 07/13/2022 Active Lisinopril 20 MG Oral Tablet (Prinivil)Indica [...] before bedtime. 180 Tablet 1 08/20/2022 Active busPIRone HCl 5 MG Oral Tablet (Buspar) Take 1 Tablet by mouth in the morning and 1 Tablet at noon and 1 Tablet before bedtime. 180 Tablet 1 12/04/2021 08/20/2022 Discontinued (Refill) documented as of this encounter (statuses as of 08/20/2022) Active Problems Problem Noted Date History of 2019 novel coronavirus diseas e (COVID-19) 06/04/2022 Prediabetes 06/04/2022 Anxiety 06/04/2022 Hyperlipidemia 05/28/2019 SVT (supraventricular tachycardia) 11/30 Flat foot (pes planus) (acquired), right foot 11/30/2018 Bunion of great toe of right foot 2018 History of kidney stones 06/12/2018 History of colonic diverticulitis 2018 Hiatal hernia 06/09/2018 Gastroesophageal reflux disease without esophagitis 11/24/2016 Primary osteoarthritis of right knee Degenerative disc disease, cervical 12/06 Primary osteoarthritis of right shoulder 12/24/2014 BMI 35-39 ISOLATED (SEE ACTUAL BMI) 05/06 Overview: Per Obesity Taxonomy HTN, goal below 140/90 09/23/2006 Overview: 168/102 ADVANCE DIRECTIVE INFORMATION 05/24/2005 Overview: No, Advance Directive brochure given to patient. Kidney cyst, acquired documented as of this encounter (statuses as of 08/20/2022) Resolved Problems Problem Noted Date Resolved Date Hypertensive kidney disease with chronic kidney disease stage II 12/04/2021 12/04/2021 CKD (chronic kidney disease), stage II 2 12/04/2021 Overview: EGFR 77 Sigmoid diverticulitis 06/09/2018 9 Dyslipidemia, goal to be determined 02/19/2009 08/05/2011 Overview: Per Lipid Taxonomy. chol 219 Obesity, BMI not known 12/01/2004 0 Overview: Per Obesity Taxonomy ARTHRITIS,RHEUMATOID 12/01/2004 01/23/2015 Cardiac dysrhythmia, unspecified 12/01/2004 10/27/2012 FAM HX-DIABETES MELLITUS 12/01/2004 017 Dyslipidemia, goal LDL below 160 04/16/1998 02/19/2009 Overview: Per Lipid Taxonomy. chol 219 Renal calculus 06/12/2018 documented as of this encounter (statuses as of 08/20/2022) Immunizations Name Administration Dates Next Due PPD [...] Telephone Encounter - Tamika Carson MD - 08/20/2022 10:32 AM EDT Signed Prescriptions: Disp Refills busPIRone HCl 5 MG Oral Tablet (Buspar) 180 Ta*1 Sig: Take 1 Tablet by mouth in the morning and 1 Tablet at noon and 1 Tablet before bedtime. Authorizing Provider: TAMIKA CARSON * Telephone Encounter - Dixie Fatima LPN - 08/20/2022 9:39 AM EDT Pended if agreeable * Telephone Encounter - OLU Snowden Tech - 08/19/2022 10:46 AM EDT Pharmacy calling requesting the following medication below that is listed as "Historical". The following information was provided: Medication Name: Buspirone Strength: 5 mg Directions: Take 1 Tablet by mouth in the morning and 1 Tablet at noon and 1 Tablet before bedtime. Preferred Quantity: 180 Previous Prescriber: Dr Carson Preferred Pharmacy: [facility], [address] [place] Please review and approve if appropriate. Trupti Cisse Athletics Director II [facility] [address] [address] 08/19/2022 10:46 AM documented in this encounter Plan of Treatment Upcoming Encounters Date Type Specialty Care Team Description 12/06/2022 Office Visit Family Medicine Gwendolyn Meza PA-C [address] [place] [address] [place] [address] 06/13/2023 Office Visit Family Medicine Tamika Carson MD [address] [place] [address] [place] [address] Scheduled Procedures Name Priority Associated Diagnoses Date/Ti me COLONOSCOPY FLEXIBLE PROXIMA L DIAGNOSTIC Recall Encounter for screening colonoscopy Health Maintenance Due Date Last Done Comments DXA Scan 1945 COVID-19 Vaccine (#1) 01/03/1946 HbA1c 1954 Albumin/Creatinine Ratio 1964 Hepatitis C Screening 1964 Depression Screening, Annual for Pts 12 and Over 12/06/2020 12/07/2019 GFR 10/21/2022 10/21/2021, 06/05, 06/15/2018, Additional history exists DTaP,Tdap,and Td Vaccines (3 - Td or [...] filedocumented as of this encounter Care Teams Cook Vegetable Relationship Specialty Start Date End Date Tamika Carson MD PCP - General Family Medicine 03/11/14 documented as of this encounter
--- OUTSIDE RECORDS SUMMARY | 2023-01-23 08:37 | External Medical Summary | Summary of Care ---
Author Name Unknown Organization [facility] Address [address] [place] [address] Phone [phone] Care Team Providers Care Toppiece Chopper Name Role Phone Krissy Carson MD Primary Care Provide r Reason for Visit * Reason Comments Outpatient Testing Encounter Details Date Type Department Care Team Description 08/24/2022 Laboratory Laboratory [address] [place] [phone] [place] [address] HTN, goal below 140/90; Prediabetes Allergies Active Allergy Reactions Severity Noted Date Comments Cephalosporins 06/28/2003 Itching/hands swelling Erythromycin 06/28/2003 Itching/hands swelling Penicillins 06/14/2000 Sulfamethoxazole W/Trimethop rim (Co-Trimoxazole) 05/17/2001 rash documented as of this encounter (statuses as of 08/24/2022) Medications Medication Sig Dispensed Refills Start Date [...] as of this encounter (statuses as of 08/24/2022) Active Problems Problem Noted Date History of 2019 novel coronavirus diseas e (COVID-19) 06/04/2022 Prediabetes 06/04/2022 Anxiety 06/04/2022 Hyperlipidemia 05/28/2019 SVT (supraventricular tachycardia) 11/30 Flat foot (pes planus) (acquired), right foot 11/30/2018 Bunion of great toe of right foot 2018 History of kidney stones 06/12/2018 History of colonic diverticulitis 2018 Hiatal hernia 06/09/2018 Primary osteoarthritis of right knee Degenerative disc disease, cervical 12/06 Primary osteoarthritis of right shoulder 12/24/2014 BMI 35-39 ISOLATED (SEE ACTUAL BMI) 05/06 Overview: Per Obesity Taxonomy HTN, goal below 140/90 09/23/2006 Overview: 168/102 ADVANCE DIRECTIVE INFORMATION 05/24/2005 Overview: No, Advance Directive brochure given to patient. Kidney cyst, acquired documented as of this encounter (statuses as of 08/24/2022) Resolved Problems Problem Noted Date Resolved Date [...] as of this encounter (statuses as of 08/24/2022) Immunizations Name Administration Dates Next Due PPD [...] Encounters Date Type Specialty Care Team Description 08/24/2022 Imaging Radiology 09/02/2022 Office Visit Family Medicine Fariha Sylvester PA-C [address] [place] [address] [place] [address] 12/06/2022 Office Visit Family Medicine Gwendolyn Meza PA-C [address] [place] [address] [place] [address] 06/13/2023 Office Visit Family Medicine Krissy Carson MD [address] [place] [address] [place] [address] Pending Results Name Type Priority Associated Diagnoses Date /Time ALBUMIN / CREATININE RATIO, URINE Lab Routine HTN, goal below 140/90 08/24/2022 11:47 AM EDT HEMOGLOBIN A1C Lab Routine Prediabetes 08/24/2022 11:47 AM EDT BASIC METABOLIC PANEL Lab Routine HTN, goal below 140/90 08/24/2022 11:47 AM EDT Scheduled Procedures Name Priority Associated [...] as of this encounter Visit Diagnoses Diagnosis HTN, goal below 140/90 Unspecified essential hypertension Prediabetes Other abnormal glucose documented in this encounter Care Teams Toppiece Chopper Relationship Specialty Start Date End Date Krissy Carson MD PCP - General Family Medicine 03/11/14 documented as of this encounter
--- OUTSIDE RECORDS SUMMARY | 2023-01-23 08:37 | External Medical Summary | Summary of Care ---
Author Name Unknown Organization [facility] Address [address] [place] [address] Phone [phone] Care Team Providers Care Maxillofacial Pathology Name Role Phone Krissy Carson MD Primary Care Provide r Reason for Visit * Reason Comments Procedure Encounter Details Date Type Department Care Team Description 09/02/2022 Office Visit Family Medicine [address] [phone] Fariha Sylvester PA-C [address] [place] [address] [place] [address] Bilateral chronic knee pain* Allergies Active Allergy Reactions Severity Noted Date Comments Cephalosporins 06/28/2003 Itching/hands swelling Erythromycin 06/28/2003 Itching/hands swelling Penicillins 06/14/2000 Sulfamethoxazole W/Trimethop rim (Co-Trimoxazole) 05/17/2001 rash documented as of this encounter (statuses as of 09/02/2022) Medications Medication Sig Dispensed Refills Start Date [...] before bedtime. 180 Tablet 1 08/20/2022 Active Hospital, Clinic, or Other Facility Administered Medication Ordered Dose Route Frequency Start Date End Date Status Triamcinolone Acetonide (Kenalog) 40 MG/ML inj 80 mgIndications:Bilateral chronic knee pain 80 mg IX ONCE 09/02/2022 09/02/2022 Ended Triamcinolone Acetonide (Kenalog) 40 MG/ML inj 80 mgIndications:Bilateral chronic knee pain 80 mg IX ONCE 09/02/2022 09/02/2022 Ended lidocaine 2 % inj 20 mgIndications:Bilateral chronic knee pain 20 mg IX ONCE 09/02/2022 09/02/2022 Ended lidocaine 2 % inj 20 mgIndications:Bilateral chronic knee pain 20 mg IX ONCE 09/02/2022 09/02/2022 Ended documented as of this encounter (statuses as of 09/02/2022) Active Problems Problem Noted Date History of [...] as of this encounter (statuses as of 09/02/2022) Resolved Problems Problem Noted Date Resolved Date [...] as of this encounter (statuses as of 09/02/2022) Immunizations Name Administration Dates Next Due PPD [...] Sign Reading Time Taken Comments Blood Pressure 152/80 09/02/2022 9:45 AM EDT Pulse 81 09/02/2022 9:45 AM EDT Temperature 36.1 C (97 F) 09/02/2022 9:45 AM EDT Respiratory Rate 16 09/02/2022 9:45 AM EDT Oxygen Saturation 97% 09/02/2022 9:45 AM EDT Inhaled Oxygen Concentration - - Weight 75.8 kg (167 lb) 09/02/2022 9:45 AM EDT Height - - Body Mass Index 34.9 06/04/2022 10:56 AM EDT documented in this encounter Progress Notes * Fariha Sylvester PA-C - 09/02/2022 9:58 AM EDT Nursing Notes: Franchesca Mariscal, [place] 09/02/22 0945 Sign at exiting of workspace Bilateral knee injections Pt here today with bilateral knee pain. She is seeing ortho soon. She wants injections. Last injections were 6 months ago and lasted about 5 months. She doesn't want replacements. Review of patient's allergies indicates: Allergen Reactions [...] times a day . 30 g 1 Diclofenac Sodium 1 % External Gel (Voltaren) APPLY 4 GRAMS TOPICALLY TO THE SKIN 4 TIMES A DAYAS DIRECTED 1200 g 1 Lisinopril 20 MG Oral Tablet [...] Housing Stability: Not on file O:Blood pressure 152/80, pulse 81, temperature 36.1 C (97 F), temperature source Tympanic, resp. rate 16, weight 75.8 kg (167 lb), SpO2 97 %. GENERAL: alert, healthy and no distress EXTREMITIES: bilateral knees - mild edema, no erythema, no ecchymosis. A:Bilateral chronic knee pain (Primary) - Triamcinolone Acetonide (Kenalog) 40 MG/ML inj 80 mg - Triamcinolone Acetonide (Kenalog) 40 MG/ML inj 80 mg - lidocaine 2 % inj 20 mg - lidocaine 2 % inj 20 mg - ARTHROCENT ASP &/OR INJ MAJOR JX/BURSA W/O US Bilateral knees prepped with betadine and alcohol swab x 2. Each knee injected with 80 mg kenalog and 1.0 mL lidocaine. Pt tolerated procedure well. Any questions/problems, please call. If anything changes, worsens, develops new sx, please call [facility]. Follow Up: Return if symptoms worsen or fail to improve. Fariha Sylvester PA-C documented in this encounter Nursing Notes * Franchesca Mariscal LPN - 09/02/2022 9:45 AM EDT Bilateral knee injections documented in this encounter Plan of Treatment Upcoming Encounters Date Type Specialty Care Team Description 09/30/2022 Office Visit Orthopedics Steve Angela MD [address] [place] [address] 12/06/2022 Office Visit Family Medicine Gwendolyn Meza PA-C [address] [place] [address] [place] [address] 06/13/2023 Office Visit Family Medicine Krissy Carson MD [address] [place] [address] [place] [address] Scheduled Orders Name Type Priority Associated Diagnoses Orde r Schedule ARTHROCENT ASP &/OR INJ MAJOR JX/BURSA W/O US Procedures Routine Bilateral chronic knee pain Ordered: 09/02/2022 Scheduled Procedures Name Priority Associated Diagnoses Date/Ti [...] as of this encounter Visit Diagnoses Diagnosis Bilateral chronic knee pain- Primary Pain in joint, lower leg documented in this encounter Administered Medications Inactive Administered Medications - up to 3 most recent administrations Medication Order MAR Action Action Date Dose Rate Site lidocaine 2 % inj 20 mg 20 mg (1 mL), Intra-Articular, ONCE, On Raisa 09/02/22 at 1030, For 1 dose Given 09/02/2022 10:20 AM EDT 20 mg Knee Left lidocaine 2 % inj 20 mg 20 mg (1 mL), Intra-Articular, ONCE, On Raisa 09/02/22 at 1030, For 1 dose Given 09/02/2022 10:20 AM EDT 20 mg Knee Right Triamcinolone Acetonide (Kenalog) 40 MG/ML inj 80 mg 80 mg, Intra-Articular, ONCE, On Raisa 09/02/22 at 1030, For 1 dose Given 09/02/2022 10:21 AM EDT 80 mg Knee Right Triamcinolone Acetonide (Kenalog) 40 MG/ML inj 80 mg 80 mg, Intra-Articular, ONCE, On Raisa 09/02/22 at 1030, For 1 dose Given 09/02/2022 10:20 AM EDT 80 mg Knee Right documented in this encounter Care Teams Maxillofacial Pathology Relationship Specialty Start Date End Date Krissy Carson MD PCP - General Family Medicine 03/11/14 documented as of this encounter
--- OUTSIDE RECORDS SUMMARY | 2023-01-23 08:37 | External Medical Summary | Summary of Care ---
Author Name Unknown Organization [facility] Address [address] [place] [address] Phone [phone] Care Team Providers Care Education Reporter Name Role Phone Tamika Carson MD Primary Care Provide r Reason for Visit * Reason Onset Date Comments Medication Refill 08/10/2022 Encounter Details Date Type Department Care Team Description 08/10/2022 Refill Family Medicine [address] [address] Tamika Carson MD [address] [place] [address] [place] [address] HTN, goal below 140/90 Allergies Active Allergy Reactions Severity Noted Date [...] hydroCHLOROthiaz rene 25 MG Oral Tablet (Hydrodiuril) TAKE ONE TABLET BY MOUTH EVERY DAY 100 Tablet 1 11/04/2021 08/10/2022 Discontinued (Refill) Lisinopril 20 MG Oral Tablet (Prinivil)Indica tions:HTN, goal below 140/90 TAKE ONE TABLET BY MOUTH EVERY DAY 100 Tablet 1 11/04/2021 08/10/2022 Discontinued (Refill) busPIRone HCl 5 MG Oral Tablet (Buspar) [...] encounter Miscellaneous Notes * Telephone Encounter - Char Hunter CPhT - 08/20/2022 1:27 PM EDT Pt calling to request Rx. Informed pt that RX is available at their pharmacy. Pt verbalized understanding and stated they will check with their pharmacy regarding this medication. Thank you, Char Hunter Welding Machine Tender Baby [facility] 08/20/2022, 1:27 PM * Telephone Encounter - Valorie Grant [facility] - 08/10/2022 9:43 AM EDTSigned Prescriptions: Disp Refills Lisinopril 20 MG Oral Tablet (Prinivil) 100 Ta*1 Sig: Take 1 Tablet by mouth in the morning. Authorizing Provider: TAMIKA CARSON Ordering User: VALORIE GRANT hydroCHLOROthiazide 25 MG Oral Tablet (Hyd*100 Ta*1 Sig: Take 1 Tablet by mouth in the morning. Authorizing Provider: TAMIKA CARSON Ordering User: VALORIE MATIAS * Telephone Encounter - Gwendolyn Valentine CPhT - 08/10/2022 9:26 AM EDT Pharmacy requesting priority Did you pend patient's preferred pharmacy and medication before forwarding?yes Pharmacy: [facility], [address] [place] Pending Prescriptions: Disp Refills Lisinopril 20 MG Oral Tablet (Prinivil) 100 Ta*1 Sig: Take 1 Tablet by mouth in the morning. hydroCHLOROthiazide 25 MG Oral Tablet (Hy*100 Ta*1 Sig: Take 1 Tablet by mouth in the morning. Last Visit: 06/04/2022 (in office), Visit date not found (telemedicine) Next Visit: 12/06/2022 If no future appointments scheduled, and last appointment is greater than a year ago, please schedule patient for a follow-up appointment Last date the medication was ordered: 11/04/2021 Is this request for a controlled substance?No Urine Drug Screen:No results found for this or any previous visit. Patient Phone Numbers Labs: Lab Results Component Value Date/Time CREAT 0.8 10/21/2021 12:47 PM CREAT 0.91 06/21/2018 12:00 AM CREAT 0.8 09/06/2017 10:45 AM POTASSIUM 3.7 10/21/2021 12:47 PM POTASSIUM 3.4 (L) 06/30/2018 01:42 PM TSH 1.11 01/02/1999 09:48 AM LDLCALC 147 (H) 11/24/2016 01:24 PM LDLDIRECT NOT APPLICABLE 11/24/2016 01:24 PM ALT 24 10/21/2021 12:47 PM ALT 45 (H) 11/06/2010 10:41 AM documented in this encounter Plan of Treatment Upcoming Encounters Date Type Specialty Care Team Description 09/02/2022 Office Visit Family Medicine Fariha Sylvester PA-C [address] [place] [address] [place] [address] 12/06/2022 Office Visit Family Medicine Gwendolyn Meza PA-C [address] [place] [address] [place] [address] 06/13/2023 Office Visit Family Medicine Tamika Carson MD [address] [place] [address] [place] [address] Scheduled Procedures Name Priority Associated Diagnoses Date/Ti [...] HTN, goal below 140/90 Unspecified essential hypertension documented in this encounter Care Teams Education Reporter Relationship Specialty Start Date End Date Tamika Carson MD PCP - General Family Medicine 03/11/14 documented as of this encounter
--- OUTSIDE RECORDS SUMMARY | 2023-01-23 08:37 | External Medical Summary | Summary of Care ---
Author Name Unknown Organization [facility] Address [address] [place] [address] Phone [phone] Care Team Providers Care Food Storeroom Clerk Name Role Phone Krissy Carson MD Primary Care Provide r Reason for Visit * Reason Onset Date Comments Health Maintenance 09/09/2022 Encounter Details Date Type Department Care Team Description 09/09/2022 Telephone Family Medicine [address] [address] Krissy Carson MD [address] [place] [address] Health Maintenance Allergies Active Allergy Reactions Severity Noted Date Comments Cephalosporins 06/28/2003 Itching/hands swelling Erythromycin 06/28/2003 Itching/hands swelling Penicillins 06/14/2000 Sulfamethoxazole W/Trimethop rim (Co-Trimoxazole) 05/17/2001 rash documented as of this encounter (statuses as of 09/09/2022) Medications Medication Sig Dispensed Refills Start Date [...] as of this encounter (statuses as of 09/09/2022) Active Problems Problem Noted Date History of [...] as of this encounter (statuses as of 09/09/2022) Resolved Problems Problem Noted Date Resolved Date [...] as of this encounter (statuses as of 09/09/2022) Immunizations Name Administration Dates Next Due PPD [...] encounter Miscellaneous Notes * Telephone Encounter - Lani Dickey LPN - 09/09/2022 11:13 AM EDT Care Gaps Comprehensive Care Outreach Last Office/Telemedicine Visit: 09/02/2022 (in office), Visit date not found (telemedicine) Next Office Visit: 12/06/2022 Hemoglobin AIC Results: Lab Results Component Value Date/Time HEMOGLOBIN A1C - [facility] 5.9 (H) 08/24/2022 11:47 AM Reviewed Health Maintenance below: Health Maintenance Topic Date Due DXA Scan Never done COVID-19 Vaccine (1) Never done Hepatitis C Screening Never done Depression Screening, Annual for Pts 12 and Over 12/06/2020 dexa declined awv scheduled Care Gap Outreach Action Taken: Spoke to patient documented in this encounter Plan of Treatment Upcoming Encounters Date Type Specialty Care Team Description 09/30/2022 Office Visit Orthopedics Steve Angela MD [address] [place] [address] 11/01/2022 Nurse Only Ancillary [facility], Nurse Annual [facility] [address] [place] [address] [place] [address] 12/06/2022 Office Visit Family Medicine Gwendolyn Meza PA-C [address] [place] [address] [place] [address] 06/13/2023 Office Visit Family Medicine Krissy Carson MD [address] [place] [address] [place] [address] Scheduled Procedures Name Priority Associated Diagnoses Date/Ti [...] filedocumented as of this encounter Care Teams Food Storeroom Clerk Relationship Specialty Start Date End Date Krissy Carson MD PCP - General Family Medicine 03/11/14 documented as of this encounter
--- OUTSIDE RECORDS SUMMARY | 2023-01-23 08:37 | External Medical Summary | Summary of Care ---
Author Name Unknown Organization [facility] Address [address] [place] [address] Phone [phone] Care Team Providers Care Grain And Yeast Plants Supervisor Name Role Phone Krissy Carson MD Primary Care Provide r Reason for Visit * Reason Comments Procedure Encounter Details Date Type Department Care Team Description 09/02/2022 Office Visit Family Medicine [address] [address] Fariha Sylvester PA-C [address] [place] [address] [place] [address] Bilateral chronic knee pain* Allergies Active [...] pain 80 mg IX ONCE 09/02/2022 09/02/2022 Active Triamcinolone Acetonide (Kenalog) 40 MG/ML inj 80 mgIndications:Bilateral chronic knee pain 80 mg IX ONCE 09/02/2022 09/02/2022 Active lidocaine 2 % inj 20 mgIndications:Bilateral chronic knee pain 20 mg IX ONCE 09/02/2022 09/02/2022 Active lidocaine 2 % inj 20 mgIndications:Bilateral chronic knee pain 20 mg IX ONCE 09/02/2022 09/02/2022 Active documented as of this encounter (statuses [...] 09/02/2022 9:58 AM EDT Nursing Notes: Franchesca Mariscal LPN 09/02/22 0945 Sign at exiting of workspace [...] Angela MD [address] [place] [address] 12/06/2022 Office Visit Family Medicine Gwendolyn Meza PA-C [address] [place] [address] [place] [address] 06/13/2023 Office Visit Family Medicine Krissy Carson MD [address] [place] [address] [place] [address] Scheduled Orders Name Type Priority Associated Diagnoses [...] joint, lower leg documented in this encounter Care Teams Grain And Yeast Plants Supervisor Relationship Specialty Start Date End Date Krissy Carson MD PCP - General Family Medicine 03/11/14 documented as of this encounter
--- OUTSIDE RECORDS SUMMARY | 2023-01-23 08:37 | External Medical Summary | Summary of Care ---
Author Name Unknown Organization [facility] Address [address] [place] [address] Phone [phone] Care Team Providers Care Academic Associate Name Role Phone Tamika Carson MD Primary Care Provide r Reason for Visit * Reason Onset Date Comments Medication Refill 08/10/2022 Encounter Details Date Type Department Care Team Description 08/10/2022 Refill Family Medicine [address] [address] Tamika Carson MD [address] [place] [address] HTN, goal below 140/90 Allergies Active Allergy Reactions Severity Noted Date Comments Cephalosporins 06/28/2003 Itching/hands swelling Erythromycin 06/28/2003 Itching/hands swelling Penicillins 06/14/2000 Sulfamethoxazole W/Trimethop rim (Co-Trimoxazole) 05/17/2001 rash documented as of this encounter (statuses as of 08/10/2022) Medications Medication Sig Dispensed Refills Start Date [...] day . 30 g 1 10/16/2021 Active busPIRone HCl 5 MG Oral Tablet (Buspar) Take 1 Tablet by mouth in the morning and 1 Tablet at noon and 1 Tablet before bedtime. 180 Tablet 1 12/04/2021 Active Diclofenac Sodium 1 % External Gel [...] 100 Tablet 1 11/04/2021 08/10/2022 Discontinued (Refill) documented as of this encounter (statuses as of 08/10/2022) Active Problems Problem Noted Date History of [...] as of this encounter (statuses as of 08/10/2022) Resolved Problems Problem Noted Date Resolved Date [...] as of this encounter (statuses as of 08/10/2022) Immunizations Name Administration Dates Next Due PPD [...] encounter Miscellaneous Notes * Telephone Encounter - Valorie Grant [facility] - 08/10/2022 9:43 AM EDTSigned Prescriptions: Disp [...] pharmacy and medication before forwarding?yes Pharmacy: [facility], [address] [place] Pending Prescriptions: Disp Refills [...] Office Visit Family Medicine Gwendolyn Meza PA-C [address] [place] [address] [place] [address] 06/13/2023 Office Visit Family Medicine Tamika Carson MD [address] [place] [address] [place] [address] Scheduled Procedures Name Priority Associated Diagnoses Date/Ti [...] hypertension documented in this encounter Care Teams Academic Associate Relationship Specialty Start Date End Date Tamika Carson MD PCP - General Family Medicine 03/11/14 documented as of this encounter
--- OUTSIDE RECORDS SUMMARY | 2023-01-23 08:37 | External Medical Summary | Summary of Care ---
Author Name Unknown Organization [facility] Address [address] [place] [address] Phone [phone] Care Team Providers Care Welder Fitter Helper Name Role Phone Krissy Carson MD Primary Care Provide r Reason for Visit * Reason Onset Date Comments Advice 10/05/2022 Encounter Details Date Type Department Care Team Description 10/05/2022 Telephone Family Medicine [address] [address] Krissy Carson MD [address] [place] [address] [place] [address] Advice (/) Allergies Active Allergy Reactions Severity Noted Date Comments Cephalosporins 06/28/2003 Itching/hands swelling Erythromycin 06/28/2003 Itching/hands swelling Penicillins 06/14/2000 Sulfamethoxazole W/Trimethop rim (Co-Trimoxazole) 05/17/2001 rash documented as of this encounter (statuses as of 10/06/2022) Medications Medication Sig Dispensed Refills Start Date [...] as of this encounter (statuses as of 10/06/2022) Active Problems Problem Noted Date History of [...] as of this encounter (statuses as of 10/06/2022) Resolved Problems Problem Noted Date Resolved Date [...] as of this encounter (statuses as of 10/06/2022) Immunizations Name Administration Dates Next Due PPD [...] encounter Miscellaneous Notes * Telephone Encounter - Ely Pedroza LPN - 10/06/2022 10:07 AM EDT Looks like pt is scheduled to see Dr. Holland tomorrow for this * Telephone Encounter - KAMALJIT Peoples - 10/05/2022 2:16 PM EDT No Appointments Available Patient declined appointments?: Yes What Visit Type is needed? Acute If Acute Visit Type is needed, were surrounding clinics offered to patient (Yes/No)? Yes Was patient offered appointments with other available providers (Yes/No)? Yes See Call Details? (Yes or No): No Patient was moving furniture when she scraped her right forearm on . She has been using triple abx ointment. She states it now looks infected. No pain. She will see anyone but Dr. Arnold documented in this encounter Plan of Treatment Upcoming Encounters Date Type Specialty Care Team Description 10/07/2022 Office Visit Family Medicine Andrews Holland MD [address] [place] [address] [place] [address] 10/19/2022 Office Visit Orthopedics Steve Angela MD [address] [place] [address] 11/01/2022 Nurse Only Ancillary [facility] Nurse [facility] [address] [place] [address] [place] [address] 12/06/2022 Office Visit Family Medicine Gwendolyn Meza PA-C [address] [place] [address] [place] [address] 06/13/2023 Office Visit Family Medicine Krissy Carson MD [address] [place] [address] [place] [address] Scheduled Procedures Name Priority Associated Diagnoses Date/Ti [...] filedocumented as of this encounter Care Teams Welder Fitter Helper Relationship Specialty Start Date End Date Krissy Carson MD [address] [place] [address] [place] [id number] PCP - General Family Medicine 09/22/22 documented as of this encounter
--- OUTSIDE RECORDS SUMMARY | 2023-01-23 08:37 | External Medical Summary | Summary of Care ---
Author Name Unknown Organization [facility] Address [address] [place] [address] Phone [phone] Care Team Providers Care Recovery Specialist Name Role Phone Krissy Carson MD Primary Care Provide r Reason for Visit * Reason Comments Acute Encounter Details Date Type Department Care Team Description 08/24/2022 Office Visit Family Medicine [address] [address] Krissy Carson MD [address] [place] [address] [place] [address] Pain and swelling of right lower leg*; Primary osteoarthritis of both knees; Prediabetes; HTN, goal below 140/90 Allergies Active Allergy [...] Sign Reading Time Taken Comments Blood Pressure 152/76 08/24/2022 11:14 AM EDT Pulse 70 08/24/2022 11:14 AM EDT Temperature 36.4 C (97.6 F) 08/24/2022 11:14 AM E DT Respiratory Rate 16 08/24/2022 11:14 AM EDT Oxygen Saturation 98% 08/24/2022 11:14 AM EDT Inhaled Oxygen Concentration - - Weight 75.8 kg (167 lb) 08/24/2022 11:14 AM EDT Height - - Body Mass Index 34.9 06/04/2022 10:56 AM EDT documented in this encounter Progress Notes * Krissy Carson MD - 08/24/2022 11:33 AM EDT Subjective: Criss Umana is a 77 year old female. Chief Complaint Patient presents with Acute HPI: Brief Clinical History Ms. Umana is a 77 year old woman last seen in Family Medicine 2 months ago (06-04-22). She has h/o heart arrhythmia and SVT (supraventricular tachycardia) (HCC). Has a puffy spot below the right knee. Is does not hurt. Thinks it is from arthritis. Putting ice on it makes the swelling go down. Has arthritis of both knees. Is afraid to have knee replacements. Takes Tylenol and Aleve in the morning. She also uses Voltaren gel. Is having her right eye cataract done this week by Dr. Varela in [place]. Had the left one done already and it went well. Has her blood pressure checked by the nurse at her apartments. Is usually in the 120/s70s. Results for orders placed or performed in visit on 05/27/22 INFLUENZA A/B RSV SARS-COV2,PCR Result Value Ref Range SARS-CoV-2 (COVID-19) Result Positive (A) Negative Influenza A PCR Result Negative Negative Influenza B PCR Result Negative Negative RSV PCR Result Negative Negative PHM: Patient Active Problem List Diagnosis Code ADVANCE DIRECTIVE INFORMATION HTN, goal below 140/90 I10 BMI 35-39 ISOLATED (SEE ACTUAL BMI) E66.9 Kidney cyst, acquired N28.1 Degenerative disc disease, cervical M50.30 Primary osteoarthritis of right shoulder M19.011 Primary osteoarthritis of right knee M17.11 Hiatal hernia K44.9 History of kidney stones Z87.442 History of colonic diverticulitis Z87.19 SVT (supraventricular tachycardia) (HCC) I47.1 Flat foot (pes planus) (acquired), right foot M21.41 Bunion of great toe of right foot M21.611 Hyperlipidemia E78.5 History of 2019 novel coronavirus disease (COVID-19) Z86.16 Prediabetes R73.03 Anxiety F41.9 Current Outpatient Medications Medication Sig Dispense Refill [...] 06/09/2018 Past Surgical History: Procedure Laterality Date COLONOSCOPY, DIAGNOSTIC (RECTUM) 07/02/2015 hyperplastic polyp, diverticulosis, repeat 10 yrs/COLONOSCOPY FLEXIBLE PROXIMAL DIAGNOSTIC performed by Julianne Gann MD at ENDOSCOPY [facility] EGD, FLEXIBLE, DIAGNOSTIC 07/05/2018 benign fundic gland polyp, gastric irritation, hiatal hernia/ESOPHAGOGASTRODUODENOSCOPY (EGD), FLEXIBLE, TRANSORAL, DIAGNOSTIC performed by Earl Lemus MD at ENDOSCOPY [facility] REMOVAL OF APPENDIX age 18 REMOVAL OF BLADDER LESION benign TOTAL ABD HYSTERECTOMY W/WO REMOVAL OF TUBE(S) Social History Socioeconomic History Marital status: Spouse [...] on file Housing Stability: Not on file Review of patient's allergies indicates: Allergen Reactions Cephalosporins Itching/hands swelling Erythromycin Itching/hands swelling Penicillins Sulfamethoxazole W/Trimethoprim (Co-Trimoxazole) rash Objective: BP 152/76 | Pulse 70 | Temp 36.4 C (97.6 F) (Tympanic) | Resp 16 | Wt 75.8 kg (167 lb) | SpO2 98% | BMI 34.90 kg/m | BSA 1.76 m Physical Exam: General: alert, healthy, no distress, well nourished and well developed Extremities: no clubbing, no cyanosis, right lower extremity with edema of proximal lateral calf area and right lower extremity circumference noticeably larger than left. Negative Radha's sign. +marked arthritic deformities of bilateral knees Extensive ROS Constitutional (f/c/wt/vision/hearing): Negative Resp (cough/sob/cabrera): Negative CV (cp/palp/fluttering/diaphoresis/cabrera/pnd):see above hpi GI (n/v/d/hrtburn): Negative Endo (hair/cold or heat intol/ 3 p's): Negative Neuro (shaking/weak/fatigu/parasthesi/): Negative Skin (rash/easy bruis/xerosis): Negative Psy (si/hi/halluc/): +anxiety and grieving (nocturia/hesit/drib/sexual review): Negative Lymph (swollen glands/b sx's/: Negative ASSESSMENT: Pain and swelling of right lower leg (Primary) - VASC DUPLEX VENOUS LE UNILAT Primary osteoarthritis of both knees Prediabetes - HEMOGLOBIN A1C; Future; Expected date: 08/24/2022 HTN, goal below 140/90 - BASIC METABOLIC PANEL; Future; Expected date: 08/24/2022 Follow-up: Return as scheduled. | Check-out note: Schedule doppler PLAN: Continue present medication(s): Study(ies) ordered: Venous doppler to r/o right lower extremity DVT due to swelling and pain. Schedule labs: A1C and BMP to f/u prediabetes and hypertension. Recommend holding off on knee injections until DVT ruled out and after cataract surgery this week. Follow up: As scheduled. Krissy Carson MD documented in this encounter Nursing Notes * Franchesca Mariscal LPN - 08/24/2022 11:13 AM EDT Lump/ "puffy spot" under bilateral knees- believes it is fluid from arthritis. Due for injections next week, seeing Fariha- Wants them today so she doesn't have to come back for another appointment. documented in this encounter Plan of Treatment Upcoming Encounters Date Type Specialty Care Team Description 09/02/2022 Office Visit Family Medicine Fariha Sylvester PA-C [address] [place] [address] [place] [address] 12/06/2022 Office Visit Family Medicine Gwendolyn Meza PA-C [address] [place] [address] [place] [address] 06/13/2023 Office Visit Family Medicine Krissy Carson MD [address] [place] [address] [place] [address] Pending Results Name Type Priority Associated Diagnoses Date /Time HEMOGLOBIN A1C Lab Routine Prediabetes 08/24/2022 11:47 AM EDT BASIC METABOLIC PANEL Lab Routine HTN, goal below 140/90 08/24/2022 11:47 AM EDT Scheduled Orders Name Type Priority Associated Diagnoses Orde r Schedule HEMOGLOBIN A1C Lab Routine Prediabetes Expected: 08/24/2022 (Approximate), Expires: 09/24/2023 BASIC METABOLIC PANEL Lab Routine HTN, goal below 140/90 Expected: 08/24/2022 (Approximate), Expires: 08/24/2023 Scheduled Procedures Name Priority Associated Diagnoses Date/Ti [...] Not on filedocumented as of this encounter Procedures Procedure Name Priority Date/Time Associated Diagnosis Comments VASC DUPLEX VENOUS LE UNILAT Routine 08/24/2022 2:22 PM EDT Pain and swelling of right lower leg documented in this encounter Results * VASC DUPLEX VENOUS LE UNILAT (08/24/2022 2:22 PM EDT) Anatomical Region Laterality Modality Lower Extremity, Vascular Ultras ound 08/24/2022 2:29 PM EDT Impressions 08/24/2022 2:26 PM EDT IMPRESSION 1. No evidence of a deep venous thrombosis within the visualized veins of the right lower extremity as described above. Narrative 08/24/2022 2:26 PM EDT EXAM VASC DUPLEX VENOUS LE UNILAT-08/24/2022 2:22 pm HISTORY Swelling COMPARISON None TECHNIQUE Using duplex and color flow Doppler, the common femoral, profunda femoral, femoral, popliteal, peroneal and posterior tibial veins were evaluated in the right lower extremity. FINDINGS All of the visualized veins demonstrate compressibility along with flow and augmentation without evidence of a deep venous thrombosis. The contralateral common femoral vein is without intraluminal thrombus. Targeted ultrasound was also performed at the right proximal lateral crook in the area of swelling which demonstrates no discrete abnormality. Procedure Note Lucie Ramirez, DO - 08/24/2022 EXAM VASC DUPLEX VENOUS LE UNILAT-08/24/2022 2:22 pm HISTORY Swelling COMPARISON None TECHNIQUE Using duplex and color flow Doppler, the common femoral, profunda femoral,femoral, popliteal, peroneal and posterior tibial veins were evaluated inthe right lower extremity. FINDINGS All of the visualized veins demonstrate compressibility along with flowand augmentation without evidence of a deep venous thrombosis. Thecontralateral common femoral vein is without intraluminal thrombus. Targeted ultrasound was also performed at the right proximal lateral shinin the area of swelling which demonstrates no discrete abnormality. IMPRESSION IMPRESSION 1. No evidence of a deep venous thrombosis within the visualized veins ofthe right lower extremity as described above. Krissy Carson MD RAD VASCULAR documented in this encounter Visit Diagnoses Diagnosis Pain and swelling of right lower leg- Primary Primary osteoarthritis of both knees Primary localized osteoarthrosis, lower leg Prediabetes Other abnormal glucose HTN, goal below 140/90 Unspecified essential hypertension documented in this encounter Care Teams Recovery Specialist Relationship Specialty Start Date End Date Krissy Carson MD PCP - General Family Medicine 03/11/14 documented as of this encounter
--- OUTSIDE RECORDS SUMMARY | 2023-01-23 08:37 | External Medical Summary ---
Author Name Unknown Address Unknown Organization K01:[facility] [place] [facility] [place] [address] Laboratory Report Ordering Provider Test Date Status LAZARO LUNDBERG 08/24/2022 11:47:00 Final Normal: <30 mg/g creatinine< br/>High: 30-300 mg/g creatinine
Very High: >300 mg/g creatinine
Nephrotic: >2200 mg/g creatinine Observation Date Value Abnormality Reference (Units ) Status Albumin, Urine 08/24/2022 11:47:00 1.33 (mg/dL) Final Creatinine, Urine 08/24/2022 11:47:00 236 (mg/dL) Final Albumin/Creatinine [Mass Ratio] in Urine 08/24/2022 11:47:00 6 <30 (mg/g Creat) Final Performing Location [facility] [place] [address] [place] [address]
--- OUTSIDE RECORDS SUMMARY | 2023-01-23 08:37 | External Medical Summary | Summary of Care ---
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 Name Role Phone Krissy Carson MD Primary Care Provide r Reason for Visit * Reason Comments Acute Encounter Details Date Type Department Care Team Description 10/07/2022 Office Visit Family Medicine [address] [id number] Andrews Holland MD [address] [place] [address] [place] [address] Skin tear of right forearm without complication, initial encounter* Allergies Active Allergy Reactions Severity Noted Date Comments Cephalosporins 06/28/2003 Itching/hands swelling Erythromycin 06/28/2003 Itching/hands swelling Penicillins 06/14/2000 Sulfamethoxazole W/Trimethop rim (Co-Trimoxazole) 05/17/2001 rash documented as of this encounter (statuses as of 10/07/2022) Medications Medication Sig Dispensed Refills Start Date [...] as of this encounter (statuses as of 10/07/2022) Active Problems Problem Noted Date History of [...] as of this encounter (statuses as of 10/07/2022) Resolved Problems Problem Noted Date Resolved Date [...] as of this encounter (statuses as of 10/07/2022) Immunizations Name Administration Dates Next Due PPD 08/06/2014,11/21/2006 TDAP (age 10 and older)(Boostrix) 12/08/2017 TDAP (age 11 and older)(Adacel) 03/07/2001 documented as of this encounter Social History Tobacco Use Types Packs/Day Years Used Date Smoking Tobacco: Never Smokeless Tobacco: Never Tobacco Cessation:Counseling Given: No Alcohol Use Standard Drinks/Week Comments No 0 [...] Sign Reading Time Taken Comments Blood Pressure 150/80 10/07/2022 1:04 PM EDT Pulse 82 10/07/2022 1:04 PM EDT Temperature 36.6 C (97.8 F) 10/07/2022 1:04 PM ED T Respiratory Rate 16 10/07/2022 1:04 PM EDT Oxygen Saturation 96% 10/07/2022 1:04 PM EDT Inhaled Oxygen Concentration - - Weight 76.7 kg (169 lb) 10/07/2022 1:04 PM EDT Height 147.3 cm (4' 10") 10/07/2022 1:04 PM EDT Body Mass Index 35.32 10/07/2022 1:04 PM EDT documented in this encounter Progress Notes * Andrews Holland MD - 10/07/2022 12:58 PM EDT Subjective: HPI: Criss Umana is a 77 year old female with hx of HTN, Prediabetes, HLD, DDD, Anxiety, SVT seen for R forearm skin tear: - happened 1 week ago - mild erythema - denied any drainage or fever or pain - but mild soreness Patient Active Problem List Diagnosis Code ADVANCE [...] 1 Tablet before bedtime. 180 Tablet 1 Diclofenac Sodium 1 % External Gel (Voltaren) APPLY 4 GRAMS TOPICALLY TO THE SKIN 4 TIMES A DAYAS DIRECTED 1200 g 1 No current facility-administered [...] performed by Julianne Gann MD at [facility] EGD, FLEXIBLE, DIAGNOSTIC 07/05/2018 benign fundic gland polyp, gastric irritation, hiatal hernia/ESOPHAGOGASTRODUODENOSCOPY (EGD), FLEXIBLE, TRANSORAL, DIAGNOSTIC performed by Earl Lemus MD at [facility] REMOVAL OF APPENDIX age 18 REMOVAL OF BLADDER LESION 1970's benign TOTAL ABD HYSTERECTOMY W/WO REMOVAL OF TUBE(S) Review of patient's allergies indicates: Allergen Reactions Cephalosporins Itching/hands swelling Erythromycin Itching/hands swelling Penicillins Sulfamethoxazole W/Trimethoprim (Co-Trimoxazole) rash Family History Adopted: Yes Problem Relation Age of Onset Heart Disorder Mother Heart Disorder Sister Heart Disorder Brother Heart Disorder Brother Heart Disorder Brother Diabetes Sister Social History Tobacco Use Smoking status: Never Smokeless tobacco: Never Substance Use Topics Alcohol use: No Vaping/E-Cigarette Use Vaping/E-Cigarette Substances Vaping/E-Cigarette Devices RECENT LABS: Results for orders placed or performed in [...] mg/dL Calcium 9.4 8.4 - 10.2 mg/dL ROS: -Per HPI OBJECTIVE: BP 150/80 | Pulse 82 | Temp 36.6 C (97.8 F) (Tympanic) | Resp 16 | Ht 1.473 m (4' 10") | Wt 76.7 kg (169 lb) | SpO2 96% | BMI 35.32 kg/m | BSA 1.77 m PHYSICAL EXAM: R forearm: mild skin tear, very minimal skin erythema but no streaking, warmth to touch or Tender to touch ASSESSMENT/PLAN: Skin tear of right forearm without complication, initial encounter (Primary) - reassured the pt that there is no sign of infection - it is healing well Andrews Holland MD Family medicine, [address] [address] documented in this encounter Nursing Notes * Ely Pedroza LPN - 10/07/2022 1:03 PM EDT Pt here for skin tear on right forearm x Denies any pain Sometimes is itchy Has been cleaning it and using antibiotic cream on it Wants to make sure its not infected documented in this encounter Plan of Treatment Upcoming Encounters Date Type Specialty Care Team Description 10/19/2022 Office Visit Orthopedics Steve Angela MD [address] [place] [address] 11/01/2022 Nurse Only Ancillary [place], Nurse Annual Wellness [address] [place] [address] [place] [id number] 12/06/2022 Office Visit Family Medicine Gwendolyn Meza PA-C [address] [place] [address] [place] [id number] 06/13/2023 Office Visit Family Medicine Krissy Carson MD [address] [place] [address] [place] [id number] Scheduled Procedures Name Priority Associated Diagnoses Date/Ti [...] as of this encounter Visit Diagnoses Diagnosis Skin tear of right forearm without complication, initial encounter- Primary documented in this encounter Care Teams Electrical Unit Rebuilder Relationship Specialty Start Date End Date Krissy Carson MD [address] [place] [address] [place] [address] PCP - General Family Medicine 09/22/22 documented as of this encounter
--- OUTSIDE RECORDS SUMMARY | 2023-01-23 08:37 | External Medical Summary ---
Author Name Unknown Address Unknown Organization [id number]:[facility] [place] [address] [place] [address] Laboratory Report Ordering Provider Test Date Status LAZARO LUNDBERG 08/24/2022 11:47:00 Final Observation Date Value Abnormality Reference (Units ) Status BUN 08/24/2022 11:47:00 22 Above high normal 6-20 (mg/dL) Final Creatinine 08/24/2022 11:47:00 0.9 0.5-1.0 (mg/dL) Final Glomerular filtration rate/1.73 sq M.predicted [Volume Rate/Area] in Serum, Plasma or Blood by Creatinine-based formula (CKD-EPI) 08/24/2022 11:47:00 71 >=60 (mL/min) Final eGFR is calculated based on the CKD-EPI 2020 equation SODIUM 08/24/2022 11:47:00 142 135-146 (m mol/L) Final Potassium 08/24/2022 11:47:00 3.8 3.5-5.1 (m mol/L) Final Cl 08/24/2022 11:47:00 104 98-107 (mm ol/L) Final CO2 08/24/2022 11:47:00 25 22-32 (mmo l/L) Final Anion gap 08/24/2022 11:47:00 13 7-15 (mmol /L) Final Glucose 08/24/2022 11:47:00 102 70-120 (mg /dL) Final Calcium 08/24/2022 11:47:00 9.4 8.4-10.2 ( mg/dL) Final Performing Location [facility] [place] [address] [place] [address]
--- OUTSIDE RECORDS SUMMARY | 2023-01-23 08:37 | External Medical Summary ---
Author Name Unknown Address Unknown Organization [id number]:[facility] [place] - [address] [facility] [address] Laboratory Report Ordering Provider Test Date Status DIXIELAZARO BREWER 08/24/2022 11:47:00 Final Observation Date Value Abnormality Reference (Units ) Status HbA1C 08/24/2022 11:47:00 5.9 Above high normal 4. 0-5.6 (%) Final The use of HbA1c to monitor glycemic status is based on normal hemoglobin and HbA composition. This test should not be used in patients with abnormal hemoglobin that affects the half life of the red blood cell or the in vivo glycation rates. Glucose, estimated average 08/24/2022 11:47:00 123 <126 (mg/dL) Final Performing Location [facility] [place] - [address] [facility] [address]
[2023-01-23] MEDS: DOCUSATE SODIUM 100 MG CAP PO SCH ×2 (09:47→21:49)
[2023-01-23] MEDS: traMADol HCL 50 MG TABLET PO PRN ×2 (09:52→16:57)
[2023-01-23] MEDS: DICLOFENAC SOD 1% GEL 100 GM TUBE EXT PRN ×2 (12:39→21:49)
[2023-01-23] MEDS ORDERED: POLYETHYLENE (MIRALAX) 17 GM PACK PO PRN (13:14)
--- NOTE | 2023-01-23 13:59 | Gastrointestinal Consultation ---
Date of Consultation January 23, 2023 Assessment & Plan (1) RUQ abdominal pain: (2) Nausea & vomiting: HIDA scan ordered for tomorrow Recommend NPO after midnight Consider EGD in the AM with [facility] Continue Pantoprazole 40 mg by mouth daily Continue Carafate 1 g PO QID ACHS at present. History of Present Illness Reason for Consultation: Abdominal pain and nausea/vomiting Attending Physician: Doug Gastelum MD History of Present Illness Criss Umana is a 77 yo CF who presented to the ER yesterday with complaints of abdominal pain, nausea and vomiting. Upon arrival to the ER her H/H was noted to be 10.6/34.7. Her liver panel was normal. A CT abd/pelvis showed diverticulosis. She was subsequently admitted. At the time I saw the patient, she was sitting upright in bed eating a full lunch, but complaining of intermittent RUQ pain described as sharp, non-radiating, without alleviating or exacerbating factors. She did note recurrent N/V and states the Zofran and Phenergan only help a little. She denies any fevers, chills, hematemesis, melena, or hematochezia. She has no further complaints. Allergies Allergy/AdvReac Type Severity Reaction Status Date / Time erythromycin base Allergy Severe HIVES,SOB,I Verified 01/22/23 12:55 DAWSON RAMOS Penicillins Allergy Severe SOB,ITCHING Verified 01/22/23 12:55 ,HIVDAWSON RUTLEDGE Sulfa (Sulfonamide Allergy Severe HIVES,SOB,I Verified 01/22/23 12:55 Antibiotics) DAWSON RAMOS Home Medications Medication Instructions Recorded Confirmed Type acetaminophen 325 mg tablet 650 mg PO QID PRN Pain 05/27/22 01/22/23 History (Tylenol) diclofenac sodium 1 % topical gel 4 g topical QID PRN Pain 05/27/22 01/22/23 History hydrochlorothiazide 25 mg tablet 25 mg PO DAILY 05/27/22 01/22/23 History lisinopril 20 mg tablet 20 mg PO DAILY 05/27/22 01/22/23 History multivitamin 1 tab PO DAILY 05/27/22 01/22/23 History buspirone 10 mg tablet 10 mg PO BID PRN Anxiety 01/22/23 01/22/23 History cholecalciferol (vitamin D3) 25 25 mcg PO DAILY 01/22/23 01/22/23 History mcg (1,000 unit) capsule (Vitamin D3) ciprofloxacin HCl 500 mg tablet 500 mg PO BID 01/22/23 01/22/23 History ferrous sulfate 325 mg (65 mg 325 mg PO BID 01/22/23 01/22/23 History iron) tablet (FeroSul) metronidazole 500 mg tablet 500 mg PO TID 01/22/23 01/22/23 History Patient History Medical History Anxiety History of nephrolithiasis Essential hypertension Dyslipidemia Acquired cyst of kidney Prediabetes Osteoarthritis of multiple joints SVT (supraventricular tachycardia) Hernia, hiatal Diverticulitis Surgical History History of hysterectomy History of appendectomy Family History Other Diabetes Heart disease Social History Smoking Status: Never smoker Second Hand Exposure: No; Do You Dip or Chew Tobacco: No; Tobacco Cessation Education Requested by Patient: No Hx Alcohol Use: No Hx Substance Use: No Preferred Language: Ethiopian Communication Ability: Effective Assayer Helper Required: No Beliefs That Will Affect Care: None Current Living Situation: Alone Current Living Situation Comment: Lives at [facility] Other Information That Helps Us Care for You: No Feels Safe at Home: Yes Safety Concerns: Feels Safe At This Time Assistive Devices: Denture - Upper and Glasses Review of Systems Review of Systems: All systems reviewed & are unremarkable except as noted in Subjective Physical Exam Constitutional: WD/WN, vitals as above Respiratory: normal respiratory effort, lungs clear to auscultation Cardiovascular: RRR, no murmur, no edema Gastrointestinal (Abdomen): Inspection/Auscultation: normal bowel sounds; abdomen not distended Percussion/Palpation: + abdomen tender and abdomen soft Skin: no rashes, warm and dry Psychiatric: A+Ox3, euthymic affect Results & Data Vital Signs (Past 12 Hours) Vital Signs Temp Pulse Resp BP Pulse Ox O2 Del Method 01/23/23 07:09 36.8 C 67 16 130/67 96 Room Air PG Care Time/CCT Total # of Minutes Spent Total Time Spent with Patient: Total time spent is greater than 50% in coordination of care (as documented) at patient's floor/unit and/or counseling patient: Coding Level of Care Code 45207 IN/OBS CONSULT LVL 4,60M Diagnoses RUQ abdominal pain R10.11 Nausea & vomiting R11.2
--- NOTE | 2023-01-23 15:10 | Hospitalist Progress Note ---
Date of Service January 23, 2023 Assessment & Plan (1) Right sided abdominal pain: Plan: Patient is a 77 y/o female with prediabetes, HTN, hyperlipidemia, OA, anxiety, and hx of SVT who presents to the ED today with worsening abdominal pain, nausea, vomiting. Pt was being treated as an outpatient for presumed diverticulitis with Cipro and Flagyl; however, no imaging was performed to confirm. She has been feeling worse with N/V over the last 2-3 days. She is unsure if this is related to the medication or her pain. Labs in the ED unremarkable including normal LFTs, no leukocytosis, no BEE. CT showed diverticulosis without evidence of diverticulitis. No clear etiology for pt's symptoms but continues with pain, N/V in the ED so referred for observation and additional evaluation. Right upper quadrant abdominal pain Nausea, vomiting, constipation H/O colovaginal fistula DD:? Secondary to ferrous sulfate --CT ABD:No acute infectious or inflammatory findings are identified in the abdomen or pelvis. Colonic diverticulosis without CT evidence of acute diverticulitis. A colovaginal fistula is again suggested. Hepatic steatosis. Moderate hiatal hernia. --Normal LFTs --HIDA pending -- Stool for H. pylori pending --Empirically on Cipro, Flagyl Continue PPI, Carafate Appreciate GI input N.p.o. after midnight for EGD tomorrow (2) Anxiety: Plan: Continue prn Buspar (3) Essential hypertension: Plan: Continue lisinopril, HCTZ (4) Dyslipidemia: (5) Prediabetes: Plan: HbA1c 6.0 (6) Morbid obesity: (7) Colovaginal fistula: Plan: Incidental finding - seen on CT in May 2022 Outpatient surgery evaluation. Plan DVT Px: Lovenox SQ Code Status: Full Code Admission and Anticipated Discharge Date Admission Date: January 22, 2023 Subjective Changes seen and examined at bedside States having intermittent right upper quadrant abdominal pain Also reports nausea associated with constipation Discussed with GI today Denies any chest pain, dyspnea No other complaints Updated patient's daughter over the phone Review of Systems Review of Systems: All systems reviewed & are unremarkable except as noted in Subjective Physical Exam Physical Exam: Physical Exam: Vitals signs as noted above General Appearance:Obese, no apparent distress Head: normocephalic, Atraumatic Eyes: normal inspection, EOMI Neck: supple, Trachea midline Respiratory/Chest: Normal breath sounds, CTA, No accessory muscle use Cardiovascular: S1, S2, No murmur Abdomen/GI:Soft, RUQ tender, Bowel sounds present Extremities/Musculoskeletal:normal inspection, no edema Neurologic/Psych:AAOX3, grossly no focal neurological deficits Skin: normal color, warm Results & Data Results & Data Vital Signs (Past 12 Hours) Vital Signs Temp Pulse Resp BP Pulse Ox O2 Del Method 01/23/23 07:09 36.8 C 67 16 130/67 96 Room Air Laboratory Results Short CBC 01/23/23 Range/Units 07:19 WBC 6.51 (4.8-10.8) K/ul Hgb 9.3 L (12.0-16.0) g/dl Hct 30.3 L (37.0-47.0) % Plt Count 284 (130-400) K/uL BMP 01/23/23 07:19 Sodium 140 Potassium 3.3 L Chloride 109 H Carbon Dioxide 26 BUN 12 Creatinine 0.70 Glucose 92 Calcium 8.8 Liver Function 01/23/23 Range/Units 07:19 Total Bilirubin 0.4 (0.2-1.0) mg/dl Direct Bilirubin 0.1 (0-0.2) mg/dl AST 36 (13-39) U/L ALT 25 (7-52) U/L Alkaline Phosphatase 77 (34-104) U/L Albumin 3.4 (3.4-5.0) gm/dl
[2023-01-23] MEDS ORDERED: LORATADINE 10 MG TAB PO ONE (22:30)
[2023-01-24] MEDS: metroNIDAZOLE 500 MG/100 ML BAG IV SCH ×3 (05:04→20:33)
[2023-01-24] MEDS: ACETAMINOPHEN 500 MG TAB PO SCH ×3 (05:05→20:32)
[2023-01-24] MEDS: PANTOprazole 40 MG TAB PO SCH ×2 (06:00→20:34)
[2023-01-24 07:14] LABS: Hematocrit (blood only) 31.4 % (37.0-47.0); Hemoglobin 9.6 g/dl (12.0-16.0); Mean Corpuscular Hemoglobin 21.8 pg (25.0-34.0); Mean Corpuscular Hgb Conc 30.6 g/dL (32.0-36.0); Mean Corpuscular Volume 71.4 fL (80.0-100.0); Mean Platelet Volume 8.6 fL (9.4-12.4); Platelet Count 291 K/uL (130-400); RDW Coefficient of Variation 20.9 % (11.5-14.5); RDW Standard Deviation 52.6 fL (36.4-46.3); White Blood Count 6.83 K/ul (4.8-10.8)
[2023-01-24] MEDS: ONDANSETRON INJ 2 MG/ML 2 ML VIAL IV PRN ×2 (08:35→17:46)
--- NOTE | 2023-01-24 08:53 | History & Physical Report ---
Date of Service January 24, 2023 Assessment & Plan Admission and Anticipated Discharge Date Admission Date: January 22, 2023 History of Present Illness Primary Care Provider: Krissy Carson MD Abdominal pain CV: RRR Resp: CTA Abd: soft A/P: EGD Allergies Allergy/AdvReac Type Severity Reaction Status Date / Time erythromycin base Allergy Severe HIVES,SOB,I Verified 01/22/23 12:55 TCHING,SWEL LING Penicillins Allergy Severe SOB,ITCHING Verified 01/22/23 12:55 ,HIVES,SWEL LING Sulfa (Sulfonamide Allergy Severe HIVES,SOB,I Verified 01/22/23 12:55 Antibiotics) TCHING,SWEL LING Home Medications Medication Instructions Recorded Confirmed Type acetaminophen 325 mg tablet 650 mg PO QID PRN Pain 05/27/22 01/22/23 History (Tylenol) diclofenac sodium 1 % topical gel 4 g topical QID PRN Pain 05/27/22 01/22/23 History hydrochlorothiazide 25 mg tablet 25 mg PO DAILY 05/27/22 01/22/23 History lisinopril 20 mg tablet 20 mg PO DAILY 05/27/22 01/22/23 History multivitamin 1 tab PO DAILY 05/27/22 01/22/23 History buspirone 10 mg tablet 10 mg PO BID PRN Anxiety 01/22/23 01/22/23 History cholecalciferol (vitamin D3) 25 25 mcg PO DAILY 01/22/23 01/22/23 History mcg (1,000 unit) capsule (Vitamin D3) ciprofloxacin HCl 500 mg tablet 500 mg PO BID 01/22/23 01/22/23 History ferrous sulfate 325 mg (65 mg 325 mg PO BID 01/22/23 01/22/23 History iron) tablet (FeroSul) metronidazole 500 mg tablet 500 mg PO TID 01/22/23 01/22/23 History Past Med/Surg History Medical History Anxiety History of nephrolithiasis Essential hypertension Dyslipidemia Acquired cyst of kidney Prediabetes Osteoarthritis of multiple joints SVT (supraventricular tachycardia) Hernia, hiatal Diverticulitis Surgical History History of hysterectomy History of appendectomy Family History Other Diabetes Heart disease Social History Smoking Status: Never smoker Second Hand Exposure: No; Do You Dip or Chew Tobacco: No; Tobacco Cessation Education Requested by Patient: No Hx Alcohol Use: No Hx Substance Use: No Preferred Language: Vietnamese Communication Ability: Effective Magnetic Grinder Operator Required: No Beliefs That Will Affect Care: None Current Living Situation: Alone Current Living Situation Comment: Lives at [facility] [place] Other Information That Helps Us Care for You: No Feels Safe at Home: Yes Safety Concerns: Feels Safe At This Time Assistive Devices: Denture - Upper and Glasses Results & Data Results & Data Vital Signs (Past 12 Hours) Vital Signs Temp Pulse Resp BP Pulse Ox O2 Del Method 01/24/23 07:25 36.8 C 76 16 130/60 97 Room Air
[2023-01-24 08:54] LABS: BUN Creatinine Ratio 14.5 (10-20); Est GFR (Non-African American) 84.6 ml/min; Magnesium 1.7 mg/dl (1.7-2.4); Potassium 3.6 mmol/L (3.5-5.1)
[2023-01-24] MEDS ORDERED: LIDOCAINE 2% 2 ML VIAL/AMP(20MG/ML) INFIL ONE (08:54)
[2023-01-24] MEDS ORDERED: PROPOFOL IV EMULSION 10 MG/ML 20 ML VIAL IV ONE (08:54)
[2023-01-24 09:06] LABS: Ferritin 9.9 ng/ml (8-388)
[2023-01-24 09:12] LABS: Folate (Folic Acid),Ser orPlas 15.4 ng/ml (>5.38)
[2023-01-24] MEDS ORDERED: ATROPINE SULFATE 0.1 MG/ML 10ML SYR IV PRN (09:36)
[2023-01-24] MEDS ORDERED: ePHEDrine sulfate 50 MG/ML AMP IV PRN (09:36)
--- NOTE | 2023-01-24 09:36 | Anesthesiology Consultation ---
Date of Service January 24, 2023 Assessment & Plan Chart Review Chart Review: Acceptable Risk for Surgery and Patient NOT seen in Pre Admission Testing Consults Requested none ASA ASA3 Proposed Anesthesia Anesthesia Type: MAC Risk / Benefits Reviewed With: PT / POA / Parent / Guardian, Accepts Plan and Informed Consent Obtained History Surgery Operation Date: 01/24/23 16:30 Proposed Procedures p Esophagogastroduodenoscopy Dr Moore - Julianne Gann MD Height/Weight Height: 5 ft Weight: 75.6 kg Allergies Allergy/AdvReac Type Severity Reaction Status Date / Time erythromycin base Allergy Severe HIVES,SOB,I Verified 01/22/23 12:55 TCHING,SWEL LING Penicillins Allergy Severe SOB,ITCHING Verified 01/22/23 12:55 ,HIVES,SWEL LING Sulfa (Sulfonamide Allergy Severe HIVES,SOB,I Verified 01/22/23 12:55 Antibiotics) TCHING,SWEL LING Medications Home Medications Medication Instructions Recorded Confirmed Last Taken acetaminophen 325 mg tablet 650 mg PO QID PRN Pain 05/27/22 01/22/23 01/22/23 (Tylenol) diclofenac sodium 1 % topical gel 4 g topical QID PRN Pain 05/27/22 01/22/23 01/21/23 hydrochlorothiazide 25 mg tablet 25 mg PO DAILY 05/27/22 01/22/23 01/22/23 lisinopril 20 mg tablet 20 mg PO DAILY 05/27/22 01/22/23 01/22/23 multivitamin 1 tab PO DAILY 05/27/22 01/22/23 01/21/23 buspirone 10 mg tablet 10 mg PO BID PRN Anxiety 01/22/23 01/22/23 01/21/23 cholecalciferol (vitamin D3) 25 25 mcg PO DAILY 01/22/23 01/22/23 Unknown mcg (1,000 unit) capsule (Vitamin D3) ciprofloxacin HCl 500 mg tablet 500 mg PO BID 01/22/23 01/22/23 01/22/23 ferrous sulfate 325 mg (65 mg 325 mg PO BID 01/22/23 01/22/23 01/22/23 iron) tablet (FeroSul) metronidazole 500 mg tablet 500 mg PO TID 01/22/23 01/22/23 01/22/23 Active Medications Generic Name Dose Route Start Last Admin Trade Name Antonella PRN Reason Stop Dose Admin Acetaminophen 1,000 mg 01/22/23 16:15 01/24/23 05:05 Acetaminophen 500 Mg Tab PO 02/21/23 16:14 Not Given Q8H JOSIANE Diclofenac Sodium 2 gm 01/23/23 09:17 01/23/23 21:49 Diclofenac Sod 1% Gel 100 Gm Tube EXT 02/22/23 09:29 2 gm BID PRN Administration Pain B/L Knees Protocol Docusate Sodium 100 mg 01/23/23 09:30 01/23/23 21:49 Docusate Sodium 100 Mg Cap PO 02/22/23 09:29 100 mg BID JOSIANE Administration Enoxaparin Sodium 40 mg 01/23/23 09:00 01/23/23 08:29 Enoxaparin Inj 40 Mg/0.4 Ml Syr SQ 02/22/23 08:59 40 mg QAM JOSIANE Administration Hydrochlorothiazide 25 mg 01/23/23 09:00 01/23/23 08:29 Hydrochlorothiazide 25 Mg Tab PO 02/22/23 08:59 25 mg DAILY JOSIANE Administration Ciprofloxacin 400 mg in 200 mls @ 100 mls/hr 01/22/23 21:00 01/24/23 01:06 Cipro / D5w IV 01/26/23 19:14 Infused Q12H JOSIANE Infusion Protocol Metronidazole 500 mg in 100 mls @ 100 mls/hr 01/22/23 20:00 01/24/23 06:22 Flagyl IV 01/26/23 19:14 Infused Q8H JOSIANE Infusion Protocol Promethazine HCl 12.5 mg/ 50.5 mls @ 202 mls/hr 01/22/23 21:20 01/23/23 17:27 Sodium Chloride IV 02/21/23 21:19 Infused Q6H PRN Infusion Nausea And Vomiting Lisinopril 20 mg 01/23/23 09:00 01/23/23 08:29 Lisinopril 20 Mg Tab PO 02/22/23 08:59 20 mg DAILY JOSIANE Administration Ondansetron HCl 4 mg 01/22/23 17:47 01/24/23 08:35 Ondansetron Inj 2 Mg/Ml 2 Ml Vial IV 02/21/23 17:46 4 mg Q6H PRN Administration Nausea Pantoprazole Sodium 40 mg 01/23/23 06:30 01/24/23 06:00 Pantoprazole 40 Mg Tab PO 02/22/23 06:29 40 mg DAILYBB JOSIANE Administration Polyethylene Glycol 17 gm 01/23/23 13:14 01/23/23 16:57 Polyethylene (Miralax) 17 Gm Pack PO 02/22/23 13:13 17 gm DAILY PRN Administration Constipation Sucralfate 1 gm 01/22/23 17:00 01/23/23 21:48 Sucralfate 1 Gm/10 Ml Udc PO 02/21/23 16:59 1 gm QID JOSIANE Administration Tramadol HCl 50 mg 01/23/23 09:20 01/23/23 16:57 Tramadol Hcl 50 Mg Tablet PO 02/22/23 09:19 50 mg Q4H PRN Administration Severe Pain (Scale 7, 8, 9,10) Vitamin D 1,000 units 01/23/23 09:00 01/23/23 08:29 Cholecalciferol 1,000 Units 25 Mcg Tab PO 02/22/23 08:59 1,000 units DAILY JOSIANE Administration NPO Date Last Intake of Fluids: 01/23/23 Time Last Intake of Fluids: 23:00 Date Last Intake of Solids: 01/23/23 Time Last Intake of Solids: 18:00 Past Medical History Medical History Anxiety History of nephrolithiasis Essential hypertension Dyslipidemia Acquired cyst of kidney Prediabetes Osteoarthritis of multiple joints SVT (supraventricular tachycardia) Hernia, hiatal Diverticulitis Exercise / Class Metabolic Activity III < 4 Walking/Shop/Light housework Past Family History Family History Other Diabetes Heart disease Past Surgical History Surgical History History of hysterectomy History of appendectomy Past Anesthesia History No Hx of Anesthesia Complications and No Family Hx of Anesthesia Complications History of PONV No Hx of PONV and No Hx of Motion Sickness Social History Smoking Status: Never smoker Do You Dip or Chew Tobacco: No Hx Alcohol Use: No alcohol intake frequency: holidays/special occasions only Hx Substance Use: No Physical Exam Vital Signs Last Vital Signs Temp 36.7 C 01/24/23 09:27 Pulse 89 01/24/23 09:27 Resp 16 01/24/23 09:27 BP 181/87 H 01/24/23 09:27 Pulse Ox 96 01/24/23 09:27 O2 Del Method Room Air 01/24/23 09:27 Constitutional + obese; no acute distress ENMT Mouth: + dentition abnormality and + dentures Thyromental Distance: < 3.5 Finger Breadths Mallampati Class: II Neck normal visual inspection and trachea midline; neck extension not limited Respiratory normal respiratory effort Auscultation: lungs clear to auscultation bilaterally Cardiovascular Rate/Rhythm: regular rate and regular rhythm Heart Sounds: no murmur Vessels: no carotid bruit Musculoskeletal Spine: normal cervical ROM and no pain with cervical ROM Extremities: extremities normal to inspection; full ROM of extremities Neurologic moves all extremities Motor/Sensory: no sensory deficit Psychiatric Orientation: alert and oriented x 3 Testing Laboratory Results 01/24/23 06:19 01/24/23 06:19 Urine Color Dark Yellow 01/22/23 11:00 Urine Appearance Clear (Clear) 01/22/23 11:00 Urine pH 5.0 (4.5-7.5) 01/22/23 11:00 Ur Specific [place] 1.024 (1.000-1.030) 01/22/23 11:00 Urine Protein Negative (Negative) 01/22/23 11:00 Urine Glucose (UA) Negative (Negative) 01/22/23 11:00 Urine Ketones Trace (Negative) H 01/22/23 11:00 Urine Nitrite Negative (Negative) 01/22/23 11:00 Ur Leukocyte Esterase 1+ (Negative) H 01/22/23 11:00 Urine WBC (Auto) 1-5 /hpf (0-5) 01/22/23 11:00 Urine RBC (Auto) 0-4 /hpf (0-4) 01/22/23 11:00 U Hyaline Cast (Auto) 0 /lpf (0-5) 01/22/23 11:00 U Epithel Cells (Auto) 10-20 /lpf (0-5) H 01/22/23 11:00 Urine Bacteria (Auto) Negative (Negative) 01/22/23 11:00 Electrocardiogram Date: 01/22/23 Findings: + NSR @ (@ 73)
[2023-01-24] MEDS ORDERED: hydrALAZINE 10 MG TAB PO PRN (09:44)
--- NOTE | 2023-01-24 10:11 | GI REPORT ---
Patient Name: Criss Umana Procedure Date: 01/24/2023 9:38 AM Date of : 1945 Admit Type: Inpatient Age: 77 Gender: Female Attending MD: Julianne Gann MD, Procedure: Upper GI endoscopy Providers: Julianne Gann MD Referring MD: Doug Gastelum Md Indications: Abdominal pain in the right upper quadrant, Iron deficiency anemia Medicines: See the Anesthesia note for documentation of the administered medications Complications: No immediate complications. Estimated Blood Loss: Estimated blood loss: none. Procedure: Pre-Anesthesia Assessment: - ASA Grade Assessment: III - A patient with severe systemic disease. After obtaining informed consent, the endoscope was passed under direct vision. Throughout the procedure, the patient's blood pressure, pulse, and oxygen saturations were monitored continuously. The Endoscope was introduced through the mouth, and advanced to the fourth part of duodenum. The upper GI endoscopy was accomplished without difficulty. The patient tolerated the procedure well. Findings: The esophagus was mildly tortuous. The GE junction was at 31 cm and was normal. There was a hiatal hernia measuring 5 cm in axial length. Hill 4. There were a few erosions in the antrum. The remainder of the stomach was normal. Random biopsies done. There was a diverticulum with retained food in the second portion of the duodenum. The ampulla was not visualized due to the diverticulum. The remainder of the duodenum was normal. Biopsies taken from the duodenum and from the stomach. Recommendation: - Discharge patient to floor. Twice daily PPI. NSAID avoidance. Biliary workup. Will need colonoscopy to complete work up of anemia. Julianne Gann M.D. Julianne Gann MD 01/24/2023 10:11:16 AM This report has been signed electronically. Note Initiated On: 01/24/2023 9:38 AM Number of Addenda: 0 I attest to the content of the Intraoperative Record and orders documented therein, exceptions below {[id number]}
--- NOTE | 2023-01-24 10:34 | Anesthesiology Progress Note ---
Date of Service January 24, 2023 Anesthesia Post Procedure Vital Signs Vital Signs: Temp Pulse Resp BP BP Pulse Ox O2 Del Method 01/24/23 10:17 78 16 146/79 H 95 Room Air 01/24/23 10:02 75 14 122/58 L 95 Room Air 01/24/23 09:27 36.7 C 89 16 181/87 H 96 Room Air 01/24/23 07:25 36.8 C 76 16 130/60 97 Room Air 01/23/23 19:44 37.3 C 74 18 146/73 H 95 Room Air 01/23/23 15:35 36.7 C 74 18 130/66 97 Room Air Pain Intensity Right Abdomen: Pain Intensity: 6 Transfer of Care Handoff Completed per policy Notes Mental Status: alert / awake / arousable Patient Amnestic to Procedure: Yes Nausea / Vomiting: adequately controlled Pain: adequately controlled Airway Patency, RR, SpO2: stable & adequate BP & HR: stable & adequate Hydration State: stable & adequate Anesthetic Complications: no major complications apparent
[2023-01-24] MEDS: lisinopril 20 MG TAB PO SCH (10:53)
[2023-01-24] MEDS: CHOLECALCIFEROL 1,000 UNITS 25 MCG TAB PO SCH (10:53)
[2023-01-24] MEDS: DOCUSATE SODIUM 100 MG CAP PO SCH ×2 (10:53→20:35)
[2023-01-24] MEDS: CIPROFLOXACIN / D5W 400 MG/200 ML BAG IV SCH ×2 (10:54→20:33)
[2023-01-24] MEDS: hydroCHLOROthiazide 25 MG TAB PO SCH (10:54)
[2023-01-24] MEDS: SUCRALFATE 1 GM/10 ML UDC PO SCH ×4 (10:55→20:34)
[2023-01-24] MEDS: ENOXAPARIN INJ 40 MG/0.4 ML SYR SQ SCH (10:55)
[2023-01-24] MEDS: PROMETHAZINE HCL 12.5 MG in SODIUM CHLORIDE 0.9% 50 ML IV PRN ×2 (12:14→23:40)
--- NOTE | 2023-01-24 12:18 | Communication Note ---
Date of Service: January 24, 2023 Outpt colonoscopy for anemia evaluation scheduled for 02/01/2023 10:30a (9:30a arrival time)
[2023-01-24] MEDS ORDERED: POLYETHYLENE (MIRALAX) 17 GM PACK PO ONE (16:31)
--- NOTE | 2023-01-24 16:37 | Hospitalist Progress Note ---
Date of Service January 24, 2023 Assessment & Plan (1) Right sided abdominal pain: Plan: Patient is a 77 y/o female with prediabetes, HTN, hyperlipidemia, OA, anxiety, and hx of SVT who presents to the ED today with worsening abdominal pain, nausea, vomiting. Pt was being treated as an outpatient for presumed diverticulitis with Cipro and Flagyl; however, no imaging was performed to confirm. She has been feeling worse with N/V over the last 2-3 days. She is unsure if this is related to the medication or her pain. Labs in the ED unremarkable including normal LFTs, no leukocytosis, no BEE. CT showed diverticulosis without evidence of diverticulitis. No clear etiology for pt's symptoms but continues with pain, N/V in the ED so referred for observation and additional evaluation. Right upper quadrant abdominal pain Nausea, vomiting, constipation H/O colovaginal fistula DD:? Secondary to ferrous sulfate --CT ABD:No acute infectious or inflammatory findings are identified in the abdomen or pelvis. Colonic diverticulosis without CT evidence of acute diverticulitis. A colovaginal fistula is again suggested. Hepatic steatosis. Moderate hiatal hernia. --Normal LFTs --HIDA pending --EGD on 01/24/23:The esophagus was mildly tortuous. The GE junction was at 31 cm and was normal. There was a hiatal hernia measuring 5 cm in axial length. Hill 4. There were a few erosions in the antrum. The remainder of the stomach was normal. Random biopsies done. There was a diverticulum with retained food in the second portion of the duodenum. The ampulla was not visualized due to the diverticulum. The remainder of the duodenum was normal. Biopsies taken from the duodenum and from the stomach. -- Stool for H. pylori pending --Follow-up pathology results --Empirically on Cipro, Flagyl Continue PPI BID, Carafate Appreciate GI input Outpatient colonoscopy scheduled on 01/24/2023 at 10:30 AM (arrival time 9:30 AM) Avoid NSAIDs Continue PPI twice daily Further management based on HIDA results (2) Anxiety: Plan: Continue prn Buspar (3) Essential hypertension: Plan: Continue lisinopril, HCTZ (4) Dyslipidemia: (5) Prediabetes: Plan: HbA1c 6.0 (6) Morbid obesity: (7) Colovaginal fistula: Plan: Incidental finding - seen on CT in May 2022 Outpatient surgery evaluation. Plan DVT Px: Lovenox SQ Code Status: Full Code Admission and Anticipated Discharge Date Admission Date: January 24, 2023 Subjective Patient is seen and examined at bedside Had EGD earlier today Reports having nausea associated with constipation Still has intermittent right upper quadrant pain Denies any chest pain, dyspnea, dizziness Tolerating diet Review of Systems Review of Systems: All systems reviewed & are unremarkable except as noted in Subjective Physical Exam Physical Exam: Physical Exam: Vitals signs as noted above General Appearance:Obese, no apparent distress Head: normocephalic, Atraumatic Eyes: normal inspection, EOMI Neck: supple, Trachea midline Respiratory/Chest: Normal breath sounds, CTA, No accessory muscle use Cardiovascular: S1, S2, No murmur Abdomen/GI:Soft, RUQ tender, Bowel sounds present Extremities/Musculoskeletal:normal inspection, no edema Neurologic/Psych:AAOX3, grossly no focal neurological deficits Skin: normal color, warm Results & Data Results & Data Vital Signs (Past 12 Hours) Vital Signs Temp Pulse Resp BP BP Pulse Ox O2 Del Method 01/24/23 14:43 36.9 C 75 16 125/67 97 Room Air 01/24/23 11:53 76 18 150/64 H 97 Room Air 01/24/23 10:48 36.8 C 84 18 177/78 H 97 Room Air 01/24/23 10:34 70 16 175/82 H 97 Room Air 01/24/23 10:17 78 16 146/79 H 95 Room Air 01/24/23 10:02 75 14 122/58 L 95 Room Air 01/24/23 09:27 36.7 C 89 16 181/87 H 96 Room Air 01/24/23 07:25 36.8 C 76 16 130/60 97 Room Air Laboratory Results Short CBC 01/24/23 Range/Units 06:19 WBC 6.83 (4.8-10.8) K/ul Hgb 9.6 L (12.0-16.0) g/dl Hct 31.4 L (37.0-47.0) % Plt Count 291 (130-400) K/uL BMP 01/24/23 06:19 Sodium 141 Potassium 3.6 Chloride 109 H Carbon Dioxide 25 BUN 10 Creatinine 0.69 Glucose 85 Calcium 9.0
[2023-01-24] MEDS: traMADol HCL 50 MG TABLET PO PRN (17:46)
[2023-01-24] MEDS ORDERED: ONDANSETRON INJ 2 MG/ML 2 ML VIAL IV STA (18:33)
[2023-01-24] MEDS ORDERED: MoRPHine SULFATE 2 MG/ML CARP IV PRN (18:34)
[2023-01-24] MEDS: DICLOFENAC SOD 1% GEL 100 GM TUBE EXT PRN (20:32)
[2023-01-24] MEDS: SENNA 8.6 MG TAB PO SCH (20:34)
--- NOTE | 2023-01-25 00:19 | XRay Report ---
SINGLE VIEW CHEST CLINICAL HISTORY: Right upper quadrant abdominal pain. FINDINGS: An AP, portable, upright chest radiograph is compared to study dated 05/27/2022. The examina tion is degraded by portable technique and apical lordotic positioning. The heart is mildly enlarged. The pulmonary vasculature is noncongested. There is mild bibasilar atelectasis. The lungs and pleura l spaces are otherwise clear. No pneumothorax is seen. The skeletal structures are osteopenic. The [place] thorax is grossly intact. IMPRESSION: Cardiomegaly with no active disease in the chest. ACT 112: Negative or not required by law. Electronically signed by: James Becker M.D. 01/25/2023 12:18 AM
[2023-01-25] MEDS: metroNIDAZOLE 500 MG/100 ML BAG IV SCH ×3 (03:23→19:45)
[2023-01-25] MEDS: ACETAMINOPHEN 500 MG TAB PO SCH ×3 (03:24→22:04)
[2023-01-25 07:23] LABS: Hematocrit (blood only) 31.7 % (37.0-47.0); Hemoglobin 9.7 g/dl (12.0-16.0); Mean Corpuscular Hgb Conc 30.6 g/dL (32.0-36.0); Mean Corpuscular Volume 71.9 fL (80.0-100.0); Mean Platelet Volume 8.7 fL (9.4-12.4); Platelet Count 273 K/uL (130-400); RDW Coefficient of Variation 21.1 % (11.5-14.5); RDW Standard Deviation 53.6 fL (36.4-46.3); Red Blood Count 4.41 M/uL (4.20-5.40); White Blood Count 7.19 K/ul (4.8-10.8)
[2023-01-25 08:17] LABS: Potassium 3.4 mmol/L (3.5-5.1)
[2023-01-25 08:23] LABS: BUN Creatinine Ratio 14.3 (10-20); Creatinine Clr Calc Pharmacy 56.5 ml/min; Est GFR (African American) 86.9 ml/min
[2023-01-25] MEDS ORDERED: SINCALIDE 1.5 MCG in 0.9 % SODIUM CHLORIDE 100 ML IV ONE (08:30)
--- NOTE | 2023-01-25 09:59 | Communication Note ---
Date of Service: January 25, 2023 Pt at HIDA scan study this morning, I did not personally examine her. Spoke w RN who reported that pt was c/o RUQ abd pain radiating to her back after dinner last night. Chart reviewed - H/H stable. Stool occult blood +. Will review HIDA scan results. OP colonoscopy has been scheduled for 02/01 @ 10:30am (Dr. Olimpia Chen) Pls recall GI prn
--- NOTE | 2023-01-25 10:12 | Nuclear Medicine Report ---
NUCLEAR HEPATOBILIARY SCAN WITH EJECTION FRACTION IMAGING CLINICAL HISTORY: Right upper quadrant abdominal pain. Nausea and vomiting. COMPARISON STUDY: Abdominal CT dated 01/22/2023. TECHNIQUE: Dynamic images of the liver and anterior abdomen were obtained every 5 minutes for a total of 60 minutes following the IV administration of 4.9 mCi of technetium 99m Mebrofenin. 1.5 mcg of sincalide was then injected with additional images acquired every 5 minutes for 45 minutes to calcula te the gallbladder ejection fraction. FINDINGS: The hepatobiliary scan shows prompt and homogeneous hepatic uptake. There is visualized act ivity within the intra and extrahepatic biliary tree at 10 minutes, and within the gallbladder at 15 minutes. There is normal biliary to bowel transit, with small bowel visualized by 40 minutes. On the sincalide imaging, the gallbladder ejection fraction was measured at 41%. IMPRESSION: 1. Unremarkable nuclear hepatobiliary scan. There is no scintigraphic evidence of cholecystitis. 2. The gallbladder ejection fraction measured 41% which is normal. ACT 112: Negative or not required by law. Electronically signed by: James Becker M.D. 01/25/2023 10:10 AM
[2023-01-25] MEDS: SUCRALFATE 1 GM/10 ML UDC PO SCH ×4 (10:34→22:04)
[2023-01-25] MEDS: ENOXAPARIN INJ 40 MG/0.4 ML SYR SQ SCH (10:35)
[2023-01-25] MEDS: PANTOprazole 40 MG TAB PO SCH ×2 (10:35→22:04)
[2023-01-25] MEDS: DOCUSATE SODIUM 100 MG CAP PO SCH ×2 (10:35→22:04)
[2023-01-25] MEDS: hydroCHLOROthiazide 25 MG TAB PO SCH (10:36)
[2023-01-25] MEDS: CHOLECALCIFEROL 1,000 UNITS 25 MCG TAB PO SCH (10:36)
[2023-01-25] MEDS: lisinopril 20 MG TAB PO SCH (10:37)
[2023-01-25] MEDS: CIPROFLOXACIN / D5W 400 MG/200 ML BAG IV SCH ×2 (10:38→21:59)
[2023-01-25] MEDS: ONDANSETRON INJ 2 MG/ML 2 ML VIAL IV PRN (11:12)
--- NOTE | 2023-01-25 15:36 | Hospitalist Progress Note ---
Date of Service January 25, 2023 Assessment & Plan (1) Right sided abdominal pain: Plan: Patient is a 77 y/o female with prediabetes, HTN, hyperlipidemia, OA, anxiety, and hx of SVT who presents to the ED today with worsening abdominal pain, nausea, vomiting. Right upper quadrant abdominal pain Nausea, vomiting, constipation H/O colovaginal fistula DD:? Secondary to ferrous sulfate --CT ABD:No acute infectious or inflammatory findings are identified in the abdomen or pelvis. Colonic diverticulosis without CT evidence of acute diverticulitis. A colovaginal fistula is again suggested. Hepatic steatosis. Moderate hiatal hernia. --Normal LFTs --HIDA pending --EGD on 01/24/23:The esophagus was mildly tortuous. The GE junction was at 31 cm and was normal. There was a hiatal hernia measuring 5 cm in axial length. Hill 4. There were a few erosions in the antrum. The remainder of the stomach was normal. Random biopsies done. There was a diverticulum with retained food in the second portion of the duodenum. The ampulla was not visualized due to the diverticulum. The remainder of the duodenum was normal. Biopsies taken from the duodenum and from the stomach. -- Stool for H. pylori pending --Follow-up pathology results --Empirically on Ernestine Barrios for possible diverticulitis We will do trial of Bentyl. HIDA scan not suggestive of acute cholecystitis. Continue PPI BID, Carafate Outpatient colonoscopy scheduled on 02/01/2023 at 10:30 AM (arrival time 9:30 AM) Avoid NSAIDs Continue PPI twice daily (2) Anxiety: Plan: Continue prn Buspar (3) Essential hypertension: Plan: Continue lisinopril, HCTZ (4) Dyslipidemia: (5) Prediabetes: Plan: HbA1c 6.0 (6) Morbid obesity: (7) Colovaginal fistula: Plan: Incidental finding - seen on CT in May 2022 Outpatient surgery evaluation. Plan DVT Px: Lovenox SQ Code Status: Full Code Disposition; continues to hospitalize due to intractable right upper quadrant pain. Please note the above document was generated using voice recognition software. It may contain grammatical, syntax or spelling errors. Any formal questions or concerns about the content, text or information contained within the body of this dictation should be directly addressed to the provider for clarification Admission and Anticipated Discharge Date Admission Date: January 24, 2023 Subjective Patient seen and examined at bedside. She continues to report severe right flank pain with radiation to the umbilicus. Reports bowel movement today. Review of Systems Review of Systems: All systems reviewed & are unremarkable except as noted in Subjective Physical Exam Physical Exam: Physical Exam: Vitals signs as noted above General Appearance:Obese, no apparent distress Head: normocephalic, Atraumatic Eyes: normal inspection, EOMI Neck: supple, Trachea midline Respiratory/Chest: Normal breath sounds, CTA, No accessory muscle use Cardiovascular: S1, S2, No murmur Abdomen/GI:Soft, RUQ tender on palpation , Bowel sounds present Extremities/Musculoskeletal:normal inspection, no edema Neurologic/Psych:AAOX3, grossly no focal neurological deficits Skin: normal color, warm Results & Data Results & Data Vital Signs (Past 12 Hours) Vital Signs Temp Pulse Resp BP Pulse Ox O2 Del Method 01/25/23 14:33 36.7 C 93 H 18 124/73 98 Room Air 01/25/23 07:55 36.8 C 70 18 146/87 H 97 Room Air Laboratory Results Laboratory Results WBC 7.19 K/ul (4.8-10.8) 01/25/23 06:39 RBC 4.41 M/uL (4.20-5.40) 01/25/23 06:39 Hgb 9.7 g/dl (12.0-16.0) L 01/25/23 06:39 Hct 31.7 % (37.0-47.0) L 01/25/23 06:39 MCV 71.9 fL (80.0-100.0) L 01/25/23 06:39 MCH 22.0 pg (25.0-34.0) L 01/25/23 06:39 MCHC 30.6 g/dL (32.0-36.0) L 01/25/23 06:39 RDW Std Deviation 53.6 fL (36.4-46.3) H 01/25/23 06:39 RDW Coeff of Leanne 21.1 % (11.5-14.5) H 01/25/23 06:39 Plt Count 273 K/uL (130-400) 01/25/23 06:39 MPV 8.7 fL (9.4-12.4) L 01/25/23 06:39 Immature Gran % (Auto) 0.3 % 01/23/23 07:19 Neut % (Auto) 60.8 % 01/23/23 07:19 Lymph % (Auto) 23.3 % 01/23/23 07:19 [place] % (Auto) 13.2 % 01/23/23 07:19 Eos % (Auto) 1.8 % 01/23/23 07:19 Baso % (Auto) 0.6 % 01/23/23 07:19 Neut # (Auto) 3.95 K/uL (1.40-6.50) 01/23/23 07:19 Lymph # (Auto) 1.52 K/uL (1.20-3.40) 01/23/23 07:19 [place] # (Auto) 0.86 K/uL (0.11-0.59) H 01/23/23 07:19 Eos # (Auto) 0.12 K/uL (0.00-0.50) 01/23/23 07:19 Baso # (Auto) 0.04 K/uL (0.00-0.20) 01/23/23 07:19 Immature Gran # (Auto) 0.02 K/uL (0.01-0.20) 01/23/23 07:19 Polychromasia 1+ 01/23/23 07:19 Anisocytosis Present 01/23/23 07:19 Sodium 141 mmol/L (136-145) 01/25/23 06:39 Potassium 3.4 mmol/L (3.5-5.1) L 01/25/23 06:39 Chloride 107 mmol/L (98-107) 01/25/23 06:39 Carbon Dioxide 28 mmol/L (21-32) 01/25/23 06:39 Anion Gap 6 (3-11) 01/25/23 06:39 BUN 11 mg/dl (6-23) 01/25/23 06:39 Creatinine 0.77 mg/dl (0.6-1.2) 01/25/23 06:39 Est Cr Clr Drug Dosing 56.5 ml/min 01/25/23 06:39 Est GFR ( Amer) 86.9 ml/min 01/25/23 06:39 Est GFR (Non-Af Amer) 75.0 ml/min 01/25/23 06:39 BUN/Creatinine Ratio 14.3 (10-20) 01/25/23 06:39 Glucose 87 mg/dl (70-99(Fasting)) 01/25/23 06:39 POC Glucose 147 mg/dl (70-99) H 01/24/23 20:30 Calcium 9.0 mg/dl (8.6-10.3) 01/25/23 06:39 Magnesium 1.7 mg/dl (1.7-2.4) 01/24/23 06:19 Iron 29 mcg/dl (35-150) L 01/24/23 06:19 Transferrin 265 mg/dl (200-360) 01/24/23 06:19 Ferritin 9.9 ng/ml (8-388) 01/24/23 06:19 Total Bilirubin 0.4 mg/dl (0.2-1.0) 01/23/23 07:19 Direct Bilirubin 0.1 mg/dl (0-0.2) 01/23/23 07:19 AST 36 U/L (13-39) 01/23/23 07:19 ALT 25 U/L (7-52) 01/23/23 07:19 Alkaline Phosphatase 77 U/L (34-104) 01/23/23 07:19 Total Protein 6.5 gm/dl (6.0-8.3) 01/23/23 07:19 Albumin 3.4 gm/dl (3.4-5.0) 01/23/23 07:19 Globulin 3.9 gm/dl (2.5-4.0) 01/22/23 11:00 Albumin/Globulin Ratio 1.1 (0.9-2) 01/22/23 11:00 Lipase 11 U/L (11-82) 01/22/23 11:00 Vitamin B12 517 pg/ml (180-914) 01/24/23 06:19 Folate 15.40 ng/ml (>5.38) 01/24/23 06:19 Urine Color Dark Yellow 01/22/23 11:00 Urine Appearance Clear (Clear) 01/22/23 11:00 Urine pH 5.0 (4.5-7.5) 01/22/23 11:00 Ur Specific [place] 1.024 (1.000-1.030) 01/22/23 11:00 Urine Protein Negative (Negative) 01/22/23 11:00 Urine Glucose (UA) Negative (Negative) 01/22/23 11:00 Urine Ketones Trace (Negative) H 01/22/23 11:00 Urine Blood Negative (Negative) 01/22/23 11:00 Urine Nitrite Negative (Negative) 01/22/23 11:00 Urine Bilirubin Negative (Negative) 01/22/23 11:00 Urine Urobilinogen Negative (Negative) 01/22/23 11:00 Ur Leukocyte Esterase 1+ (Negative) H 01/22/23 11:00 Urine WBC (Auto) 1-5 /hpf (0-5) 01/22/23 11:00 Urine RBC (Auto) 0-4 /hpf (0-4) 01/22/23 11:00 U Hyaline Cast (Auto) 0 /lpf (0-5) 01/22/23 11:00 U Epithel Cells (Auto) 10-20 /lpf (0-5) H 01/22/23 11:00 Urine Bacteria (Auto) Negative (Negative) 01/22/23 11:00 Stool Occult Bld Scrn Positive (Negative) A 01/24/23 18:43 Impressions Abdomen/Pelvis CT 01/22/23 11:36 CT SCAN OF THE ABDOMEN AND PELVIS WITH IV CONTRAST CLINICAL HISTORY: Right-sided abdominal pain. COMPARISON STUDY: Abdominal CT dated 05/27/2022 and 06/09/2015. TECHNIQUE: Following the IV administration of 93 cc of Optiray 320, CT scan of the abdomen and pelvis is performed from the lung bases to the proximal femora. Images are reviewed in the axial, sagittal, and coronal planes. IV contrast was administered without complication. A dose lowering technique was utilized adhering to the principles of ALARA. CT DOSE: 1142.47 mGy.cm FINDINGS: Lung bases: The heart is enlarged and without pericardial effusion. There are coronary artery calcifications. A moderate hiatal hernia is noted. The lung bases are clear. Liver: The contrast-enhanced liver is normal in size and contour. The liver demonstrates diffusely diminished attenuation indicating steatosis. Fatty sparing is seen adjacent to the gallbladder fossa. There is no intrahepatic biliary ductal dilatation. The hepatic veins and portal veins are patent. Gallbladder: Unremarkable. Spleen: Normal in size and attenuation. Pancreas: Numerous tiny cystic foci are seen. The pancreas measuring up to 10 mm. These likely represent side branch RPM ends and are similar to previous. The pancreas is otherwise normal as imaged. Adrenal glands: Unremarkable. Kidneys: The contrast enhanced kidneys demonstrate mild cortical atrophy and are without hydronephrosis. The kidneys enhance symmetrically. A 7.5 cm mildly thick walled cyst is again seen arising from the left upper pole. This contains a thin calcified septation and is similar in appearance to studies dating back to 06/09/2015. The enhancing or nodular component is identified. Additional cortical renal sinus cysts are noted bilaterally and measure up to 2.7 cm. Abdominal vasculature: The abdominal aorta is normal in course and caliber noting mild atherosclerotic calcification. Bowel: There is moderate to advanced colonic diverticulosis without CT evidence of acute diverticulitis. No bowel obstruction is identified. The appendix is not identified and reported surgically absent. A large duodenal diverticula is noted. A colovaginal fistula is again suggested on axial image #25[id number]. Peritoneum: There is no intraperitoneal free air or abdominal ascites. Lymphadenopathy: None. Pelvic viscera: The bladder is normal as visualized. The uterus is surgically absent. No adnexal lesion is seen. Skeletal structures: The skeletal structures are osteopenic. There is moderate lumbosacral spondylosis. Sclerotic change is noted in the sacroiliac joints and pubic symphysis. No lytic or blastic lesions are seen. IMPRESSION: 1. No acute infectious or inflammatory findings are identified in the abdomen or pelvis. 2. Colonic diverticulosis without CT evidence of acute diverticulitis. 3. A colovaginal fistula is again suggested. 4. Hepatic steatosis. 5. Moderate hiatal hernia. 6. Additional findings as above. ACT 112: Negative or not required by law. Electronically signed by: James Becker M.D. 01/22/2023 1:23 PM Chest X-Ray 01/24/23 18:35 SINGLE VIEW CHEST CLINICAL HISTORY: Right upper quadrant abdominal pain. FINDINGS: An AP, portable, upright chest radiograph is compared to study dated 05/27/2022. The examination is degraded by portable technique and apical lordotic positioning. The heart is mildly enlarged. The pulmonary vasculature is noncon gested. There is mild bibasilar atelectasis. The lungs and pleural spaces are otherwise clear. No pneumothorax is seen. The skeletal structures are osteopenic. The bony thorax is grossly intact. IMPRESSION: Cardiomegaly with no active disease in the chest. ACT 112: Negative or not required by law. Electronically signed by: James Becker M.D. 01/25/2023 12:18 AM Hepatobiliary Scan Nuclear Medicine 01/25/23 08:00 NUCLEAR HEPATOBILIARY SCAN WITH EJECTION FRACTION IMAGING CLINICAL HISTORY: Right upper quadrant abdominal pain. Nausea and vomiting. COMPARISON STUDY: Abdominal CT dated 01/22/2023. TECHNIQUE: Dynamic images of the liver and anterior abdomen were obtained every 5 minutes for a total of 60 minutes following the IV administration of 4.9 mCi of technetium 99m Mebrofenin. 1.5 mcg of sincalide was then injected with additional images acquired every 5 minutes for 45 minutes to calculate the gallbladder ejection fraction. FINDINGS: The hepatobiliary scan shows prompt and homogeneous hepatic uptake. There is visualized activity within the intra and extrahepatic biliary tree at 10 minutes, and within the gallbladder at 15 minutes. There is normal biliary to bowel transit, with small bowel visualized by 40 minutes. On the sincalide imaging, the gallbladder ejection fraction was measured at 41%. IMPRESSION: 1. Unremarkable nuclear hepatobiliary scan. There is no scintigraphic evidence of cholecystitis. 2. The gallbladder ejection fraction measured 41% which is normal. ACT 112: Negative or not required by law. Electronically signed by: James Becker M.D. 01/25/2023 10:10 AM
[2023-01-25] MEDS: DICYCLOMINE HCL 10 MG CAP PO SCH ×2 (17:06→22:04)
[2023-01-25] MEDS: oxyCODONE HCL IR 5 MG TAB (IMMEDIATE RELEASE) PO PRN (19:45)
[2023-01-25] MEDS: busPIRone 5 MG TAB PO SCH (22:04)
[2023-01-25] MEDS: SENNA 8.6 MG TAB PO SCH (22:04)
--- NOTE | 2023-01-25 22:14 | Electrocardiogram Report ---
Test Reason : Blood Pressure : / mmHG Vent. Rate : 073 BPM Atrial Rate : 073 BPM P-R Int : 150 ms QRS Dur : 086 ms QT Int : 416 ms P-R-T Axes : 043 -08 012 degrees QTc Int : 458 ms Normal sinus rhythm Nonspecific T wave abnormality When compared with ECG of 21-JUN-2018 04:33, Premature supraventricular complexes are no longer Present Confirmed by Galileo Adamson ([id number]) on 01/25/2023 10:14:32 PM Referred By: REFERRED SELF Confirmed By:Galileo Adamson
[2023-01-26] MEDS: ACETAMINOPHEN 500 MG TAB PO SCH ×2 (04:46→12:24)
[2023-01-26] MEDS: metroNIDAZOLE 500 MG/100 ML BAG IV SCH ×2 (04:46→12:30)
[2023-01-26] MEDS: DICYCLOMINE HCL 10 MG CAP PO SCH (06:09)
[2023-01-26] MEDS: PROMETHAZINE HCL 12.5 MG in SODIUM CHLORIDE 0.9% 50 ML IV PRN (06:34)
[2023-01-26] MEDS: oxyCODONE HCL IR 5 MG TAB (IMMEDIATE RELEASE) PO PRN (07:33)
[2023-01-26] MEDS: DICLOFENAC SOD 1% GEL 100 GM TUBE EXT PRN (07:34)
[2023-01-26 08:11] LABS: Hematocrit (blood only) 34.4 % (37.0-47.0); Hemoglobin 10.9 g/dl (12.0-16.0); Mean Corpuscular Hemoglobin 22.2 pg (25.0-34.0); Mean Corpuscular Hgb Conc 31.7 g/dL (32.0-36.0); Mean Corpuscular Volume 69.9 fL (80.0-100.0); Mean Platelet Volume 8.6 fL (9.4-12.4); Platelet Count 311 K/uL (130-400); RDW Coefficient of Variation 21.2 % (11.5-14.5); RDW Standard Deviation 52.6 fL (36.4-46.3); Red Blood Count 4.92 M/uL (4.20-5.40); White Blood Count 7.57 K/ul (4.8-10.8)
[2023-01-26] MEDS: DOCUSATE SODIUM 100 MG CAP PO SCH (08:19)
[2023-01-26] MEDS: lisinopril 20 MG TAB PO SCH (08:19)
[2023-01-26] MEDS: PANTOprazole 40 MG TAB PO SCH (08:20)
[2023-01-26] MEDS: hydroCHLOROthiazide 25 MG TAB PO SCH (08:20)
[2023-01-26] MEDS: busPIRone 5 MG TAB PO SCH (08:20)
[2023-01-26] MEDS: ENOXAPARIN INJ 40 MG/0.4 ML SYR SQ SCH (08:21)
[2023-01-26] MEDS: SUCRALFATE 1 GM/10 ML UDC PO SCH ×2 (08:21→12:24)
[2023-01-26] MEDS: CIPROFLOXACIN / D5W 400 MG/200 ML BAG IV SCH (08:22)
[2023-01-26] MEDS: CHOLECALCIFEROL 1,000 UNITS 25 MCG TAB PO SCH (08:22)
[2023-01-26 08:29] LABS: BUN Creatinine Ratio 12.3 (10-20); Calcium 9.2 mg/dl (8.6-10.3); Creatinine Clr Calc Pharmacy 53.7 ml/min; Est GFR (African American) 81.8 ml/min; Est GFR (Non-African American) 70.5 ml/min; Magnesium 1.7 mg/dl (1.7-2.4)
--- NOTE | 2023-01-26 09:23 | Communication Note ---
Date of Service: January 26, 2023 GI short note: Pt unavailable for colonoscopy on 02/01. We changed her appt to 02/04/23 at 1:30p with Dr. Karen Talbot
[2023-01-26] MEDS ORDERED: POTASSIUM CHLORIDE CRTAB 20 MEQ TABCR PO SCH (11:00)
--- NOTE | 2023-01-26 14:50 | Discharge Summary ---
Date of Service January 26, 2023 Admission HPI Per Admitting Provider This is a 77 y/o female with prediabetes, HTN, hyperlipidemia, OA, anxiety, and hx of SVT who presents to the ED today with worsening abdominal pain, nausea, vomiting. She hasn't been feeling well for the last 2-3 weeks but has felt worse over the last 4-5 days. Having pain in the right flank and RUQ - waxing and waning. No specific triggers. Seen in PCP office on 01/19/23 because she felt like she had diverticulitis again - started on Cipro and Flagyl. However, she feels worse on the antibiotics because she has had trouble keeping the medication down at times due to N/V. Unsure if the N/V is related to the medications or to the pain. Appetite has been at baseline. However, she has been trying to eat small amounts of bland foods hoping that this would improve her symptoms. She has not been able to identify anything that makes her pain better or worse other than the Dilaudid received in the ED. She denies change in bowel habits - no diarrhea or constipation, no blood in stool. Moving bowels daily - notes starting iron about ten days but symptoms preceded starting the iron. Denies fevers, chills, sweats. History of mild sigmoid diverticulitis documented on CT in 2019 but denies recurrence of diverticulitis since then until current symptoms. When she was admitted in May 2022, she was incidentally noted to have a small colovaginal fistula on CT and was to f/u outpatient for this but has not seen any specialist for this at this point. Admission Exam Per Admitting Provider General: awake, alert, NAD, Ox3 Eyes: no scleral icterus Mouth: moist mucus membranes Heart: RRR Lungs: CTA bilaterally, no W/R/R Abdomen: soft, +BS, mild right abdominal and right flank tenderness, no guarding or rebound, non-distended Extremities: no pedal edema Skin: no jaundice Neuro: no focal motor deficits, no dysarthria Principal Diagnosis Right-sided abdominal pain Gastric erosions Discharge Exam Physical Exam: Vitals signs as noted above General Appearance:Obese, no apparent distress Head: normocephalic, Atraumatic Eyes: normal inspection, EOMI Neck: supple, Trachea midline Respiratory/Chest: Normal breath sounds, CTA, No accessory muscle use Cardiovascular: S1, S2, No murmur Abdomen/GI:Soft, nontender, Bowel sounds present Extremities/Musculoskeletal:normal inspection, no edema Neurologic/Psych:AAOX3, grossly no focal neurological deficits Skin: normal color, warm Discharge Data Allergies Allergy/AdvReac Type Severity Reaction Status Date / Time erythromycin base Allergy Severe HIVES,SOB,I Verified 01/22/23 12:55 TCHINGNIKOL LING Penicillins Allergy Severe SOB,ITCHING Verified 01/22/23 12:55 ,HIVES,SWEL LING Sulfa (Sulfonamide Allergy Severe HIVES,SOB,I Verified 01/22/23 12:55 Antibiotics) TCDAWSON PINON Consultations 01/22/23 16:01 ED Decision to Admit Stat 01/22/23 17:30 Consult Gastroenterology Routine Procedures Performed Operation Date: 01/24/23 16:30 Actual Procedures p EGD Biopsy Cytology - Julianne Gann MD Ordered Studies 01/22/23 11:36 CT Abd and Pelvis [CT abd pelvis IV con only] Stat Hospital Course (1) Right sided abdominal pain: (2) Anxiety: (3) Essential hypertension: (4) Dyslipidemia: (5) Prediabetes: HbA1c 6.0 (6) Morbid obesity: (7) Colovaginal fistula: Plan Patient is a 77 y/o female with prediabetes, HTN, hyperlipidemia, OA, anxiety, and hx of SVT who presents to the ED today with right quadrant abdominal pain, nausea, vomiting. CT abdomen on admission:No acute infectious or inflammatory findings are identified in the abdomen or pelvis. Colonic diverticulosis without CT evidence of acute diverticulitis. A colovaginal fistula is again suggested. Hepatic steatosis. Moderate hiatal hernia. Patient underwent EGD on 01/24/23:The esophagus was mildly tortuous. The GE junction was at 31 cm and was normal. There was a hiatal hernia measuring 5 cm in axial length. Hill 4. There were a few erosions in the antrum. The remainder of the stomach was normal. Random biopsies done. Patient also under HIDA scan which was negative And was started on trial of Bentyl. On the day of the discharge, patient reported that abdominal pain had resolved. She was prescribed Bentyl, Tylenol and oxycodone as needed for pain. Patient to undergo endoscopy as outpatient as per GI. Please note the above document was generated using voice recognition software. It may contain grammatical, syntax or spelling errors. Any formal questions or concerns about the content, text or information contained within the body of this dictation should be directly addressed to the provider for clarification Total Time Total Time Spent Total Time Spent (In Minutes): 45 Total Time Includes: Examination of the Patient, Discharge Planning, Medication Reconciliation, Communication With Other Providers and Other Discharge Plan Discharge Items Patient Disposition: Home - Self-Care Reason For Visit: ABDOMINAL PAIN Discharge Diagnosis: Right-sided abdominal pain Gastric erosions Activity: Resume your previous activity Non-emergency contact: Primary Care Provider Call non-emergency contact if: you have any medication questions and your symptoms worsen Follow-up/Referrals: Krissy Carson MD [Primary Care Provider] - Diet: Regular Addtl Attending Provider Instructions: You were admitted to the hospital due to abdominal pain. You underwent endoscopy on December 24, 2022. You are found to have few gastric erosions. You are prescribed Protonix 40 mg to be taken twice daily. For the abdominal pain, you are prescribed Bentyl 10 mg 3 times a day for next 7 days. If Bentyl continues to help you with pain control; discussed with your primary care doctor regarding refills. You are also prescribed following medication for pain control: 1) for mild pain, take Tylenol 500 mg every 8 hours as needed 2) for severe pain, you can use oxycodone. Please minimize the use of oxycodone as it can cause dependence, altered mental status and constipation. You were also prescribed potassium tablets for low potassium level in the blood. You have colonoscopy scheduled on February 04, 2023 at 1:[address] Talbot. Pending Studies at Discharge: No Stand-Alone Forms: [facility], Smoking Cessation Medications and DC Order Prescriptions: New acetaminophen [Tylenol Extra Strength] 500 mg Tablet 500 mg PO Q8H PRN (Reason: pain) Qty: 30 0RF dicyclomine 10 mg Capsule 10 mg PO Q8 7 Days Qty: 21 0RF potassium chloride 20 mEq Tablet,Er Particles/Crystals 40 meq PO DAILY Qty: 60 0RF pantoprazole 40 mg Tablet,Delayed Release (Dr/Ec) 40 mg PO BID Qty: 60 0RF oxycodone 5 mg Tablet 5 mg PO Q12 PRN (Reason: pain) Qty: 10 0RF Continued multivitamin Tablet 1 tab PO DAILY acetaminophen [Tylenol] 325 mg Tablet 650 mg PO QID PRN (Reason: Pain) lisinopril 20 mg Tablet 20 mg PO DAILY hydrochlorothiazide 25 mg tablet 25 mg PO DAILY diclofenac sodium 1 % Gel 4 g TOPICAL QID PRN (Reason: Pain) Rx Instructions: apply to single knee, ankle, foot; for foot includes sole/toes/top of foot ferrous sulfate [FeroSul] 325 mg (65 mg iron) tablet 325 mg PO BID buspirone 10 mg tablet 10 mg PO BID PRN (Reason: Anxiety) cholecalciferol (vitamin D3) [Vitamin D3] 25 mcg (1,000 unit) Capsule 25 mcg PO DAILY Discontinued metronidazole 500 mg tablet 500 mg PO TID Rx Instructions: Start Date 01/19/23 - End Date 01/29/23 ciprofloxacin HCl 500 mg tablet 500 mg PO BID Discharge Orders: Discharge Order (Routine); Ordered 01/26/23 Ordered By: Rehan Landaverde Admission Data Admit Date/Time: 01/24/23 13:28 Attending Provider: Rehan Landaverde Admit Provider: Kellen Henley Primary Care Provider: Krissy Carson Other Providers: Kellen Henley; Marquise Guidry; Doug Gastelum Other Interventions: Discharge Summary Assessment (RN) Last Done: 01/26/23 13:20
--- NOTE | 2023-01-29 13:45 | Coding Query ---
CODING QUERY To promote full compliance with coding requirements relating to patient care, provider participation is requested in all cases of handcrew foreman uncertainty. Please assist us with the question(s) below: Coding Question(s): Pt admitted with RUQ abdominal pain. CT = colonic diverticulosis , no diverticulitis. EGD found gastric erosions. Please document, if known or suspected, the etiology of the abdominal pain. Thank you. Connor Chan [facility] Physician's Response(s): Gastric erosions likely is the cause for the right upper quadrant abdominal pain Principal Diagnosis: "that condition established after study, to be chiefly responsible for occasioning the admission of the patient to the hospital for care." Co-Existing Principal Diagnosis: "when two or more diagnoses equally meet the criteria for principal diagnosis as determined by the circumstances of admission, diagnostic work up, and/or therapy provided, and the Alphabetic Index, Tabular List, or another coding guideline does not provide sequencing direction, any one of the diagnoses may be sequenced first." "When the physician has documented what appears to be a current diagnosis in the body of the record, but has not included the diagnosis in the final diagnostic statement, the physician should be asked whether the diagnosis should be added." (Source Coding Clinic 2 QTR90. p3-4) [facility]
== END 2023-01-26 14:15 | disposition home or self-care (01) | DRG 384 ==
LOC: ED 10:50 → 3W 10:50 → SUATTDRO 15:27 → 3W 17:30 → SUATTDRO 01-24 13:28

== ENCOUNTER 2024-09-29 02:34 | Observation (INO) ==
[2024-09-29] MEDS: ASPIRIN CHEW 324 MG PO STA (02:52)
[2024-09-29 02:58] LABS: Hematocrit (blood only) 43.5 % (37.0-47.0); Hemoglobin 14.7 g/dl (12.0-16.0); Immature Granulocytes # (auto) 0.07 K/uL (0.01-0.20); Immature Granulocytes % (auto) 0.7 %; Mean Corpuscular Hemoglobin 28.1 pg (25.0-34.0); Mean Corpuscular Volume 83.2 fL (80.0-100.0); Platelet Count 228 K/uL (130-400); RDW Standard Deviation 43.0 fL (36.4-46.3); Red Blood Count 5.23 M/uL (4.20-5.40); White Blood Count 10.38 K/ul (4.8-10.8)
[2024-09-29] MEDS: SODIUM CHLORIDE 0.9% 500 ML IV ONE (03:01)
[2024-09-29] MEDS: NITROGLYCERIN SL 0.4 MG/TAB TAB SL STA (03:01)
[2024-09-29 03:15] LABS: Anion Gap 9.0 (3-11); Blood Urea Nitrogen 25.0 mg/dl (6-23); Calcium 9.3 mg/dl (8.6-10.3); Carbon Dioxide 28.0 mmol/L (21-32); Chloride 105.0 mmol/L (98-107); Creatinine Clr Calc Pharmacy 48.2 ml/min; Glucose 142.0 mg/dl (70-99(Fasting)); Lipase 22.0 U/L (11-82); Potassium 3.4 mmol/L (3.5-5.1); Sodium 142.0 mmol/L (136-145)
--- NOTE | 2024-09-29 03:20 | Emergency Department Note ---
History of Present Illness General Chief Complaint: Cardiac Assessment Stated Complaint: Chest Heaviness, Hypertension, Shoulder Blade Pain Time Seen by Provider: 09/29/24 02:42 History of Present Illness Provider Complaint: chest pain Onset (ago): hour(s) 3 Duration: intermittent Pain Location: substernal Severity: moderate Maximum Pain Intensity: 5 Current Pain Intensity: 5 Quality: + heaviness Relieved By: + nothing Exacerbated By: + nothing Context: no recent illness, no recent surgery, no recent immobilization, no recent travel, no trauma/injury, no new medications or no history of DVT/PE Associated symptoms: no nausea, no vomiting, no dyspnea, no syncope, no palpitations, no fever, no cough or no leg swelling Treatments prior to arrival: aspirin and nitroglycerin Patient reports she has had a lot of stress recently. Home Medications Medication Instructions Recorded Confirmed Type hydrochlorothiazide 25 mg tablet 25 mg PO DAILY 05/27/22 09/29/24 History multivitamin 1 tab PO DAILY 05/27/22 09/29/24 History buspirone 10 mg tablet 10 mg PO BID 01/22/23 09/29/24 History cholecalciferol (vitamin D3) 25 25 mcg PO DAILY 01/22/23 09/29/24 History mcg (1,000 unit) capsule (Vitamin D3) metoprolol succinate 25 mg 25 mg PO DAILY #90 tabs 12/21/23 09/29/24 Rx tablet,extended release 24 hr acetaminophen 650 mg 1,300 mg PO QAM 09/29/24 09/29/24 History tablet,extended release (Tylenol Arthritis Pain) lisinopril 40 mg tablet 40 mg PO DAILY 09/29/24 09/29/24 History naproxen sodium 220 mg capsule 220 mg PO QAM 09/29/24 09/29/24 History (Aleve) pantoprazole 20 mg tablet,delayed 20 mg PO QAM 09/29/24 09/29/24 History release Allergies Allergy/AdvReac Type Severity Reaction Status Date / Time erythromycin base Allergy Severe HIVES,SOB,I Verified 09/29/24 02:46 TCHIDAWSON ESTES Penicillins Allergy Severe SOB,ITCHING Verified 09/29/24 02:46 ,HIVES,SWEL JACLYN Sulfa (Sulfonamide Allergy Severe HIVES,SOB,I Verified 09/29/24 02:46 Antibiotics) TCHING,SWEL LING Cephalosporins Allergy Intermediate HANDS Verified 09/29/24 02:46 SWELL/ITCHY fluconazole Allergy Intermediate Hives Verified 09/29/24 02:46 Past Med/Surg History Problem List (Updated 09/29/24 @ 03:41 by Tony Villegas MD) Chest pain (Acute) Palpitations Paroxysmal SVT (supraventricular tachycardia) Colovaginal fistula Morbid obesity Anxiety Essential hypertension Dyslipidemia Prediabetes Right sided abdominal pain (Acute) Diverticulitis (Acute) Hypokalemia (Acute) Medical History RUQ abdominal pain History of nephrolithiasis Acquired cyst of kidney Osteoarthritis of multiple joints SVT (supraventricular tachycardia) Hernia, hiatal Surgical History History of hysterectomy History of appendectomy Family History Other Diabetes Heart disease Social History Smoking Status: Never smoker Second Hand Exposure: No; Do You Dip or Chew Tobacco: No; Hx Alcohol Use: No Hx Substance Use: No Preferred Language: Jordanian Communication Ability: Effective Formal Service Waiter Required: No Beliefs That Will Affect Care: None Current Living Situation: Alone Current Living Situation Comment: Lives at [facility] Feels Safe at Home: Yes Assistive Devices: None Physical Exam Vital Signs Vital Signs - 24 hr 09/29/24 02:35 09/29/24 02:35 09/29/24 02:35 Temperature 36.6 C Temperature Source Oral Pulse Rate 83 Respiratory Rate 14 Respiratory Effort / Characteristics Non-Labored Spontaneous Respiratory Depth Normal Respiratory Pattern Regular Blood Pressure 175/94 H Blood Pressure Mean 121 Pulse Oximetry 96 97 97 Oxygen Delivery Method Room Air Room Air Room Air Sepsis Recent Fever Within 48 Hours No Sepsis New/Unexplained Change in Mental Status N/A Sepsis Action Taken by Nursing No Action Required 09/29/24 02:42 09/29/24 02:46 09/29/24 03:00 Temperature Temperature Source Pulse Rate 80 94 H Respiratory Rate 14 Respiratory Effort / Characteristics Respiratory Depth Respiratory Pattern Blood Pressure 161/84 H Blood Pressure Mean 109 Pulse Oximetry 97 Oxygen Delivery Method Room Air Sepsis Recent Fever Within 48 Hours Sepsis New/Unexplained Change in Mental Status Sepsis Action Taken by Nursing 09/29/24 03:04 Temperature Temperature Source Pulse Rate 79 Respiratory Rate 18 Respiratory Effort / Characteristics Respiratory Depth Respiratory Pattern Blood Pressure 129/87 Blood Pressure Mean 117 Pulse Oximetry 95 Oxygen Delivery Method Room Air Sepsis Recent Fever Within 48 Hours Sepsis New/Unexplained Change in Mental Status Sepsis Action Taken by Nursing Physical Exam GENERAL: oriented to person, place, and time. appears well-developed and well- nourished. HENT: Exam performed. - Head: Normocephalic and atraumatic. EYES: Conjunctivae and EOM are normal. Right eye exhibits no discharge. Left eye exhibits no discharge. No scleral icterus. NECK: Normal range of motion. Neck supple. No JVD present. CV: Normal rate, regular rhythm, normal heart sounds and intact distal pulses. There is no peripheral edema. Palpable radial pulses bue. PULM/CHEST: Effort normal and breath sounds normal. No respiratory distress. No stridor. no wheezes. no rales. ABD: The abdomen is soft. There is no tenderness. NEURO: Motor and sensation grossly intact. SKIN: Skin is warm and dry. He is not diaphoretic. PSYCH: normal mood and affect. Behavior is normal. Judgment and thought content normal. Course Course 0242: The patient was evaluated in room A9. A complete history and physical exam was performed Cardiac monitoring: An order was placed for continuous cardiac monitoring. The monitor shows a rate of 80 with sinus arrhythmia [place] by [place] 0340: Vital signs stable. Labs and imaging are unremarkable. Patient reports resolvent of her chest pressure after nitro. Patient to be admitted for chest pain rule out ACS. Administered Medications Discontinued Medications Aspirin (Aspirin Chew 324 Mg) 324 mg PO NOW STA Stop: 09/29/24 02:43 Last Admin: 09/29/24 02:52 Dose: Not Given Documented By: JOSE GUADALUPE Sodium Chloride (Nss) 500 mls @ 999 mls/hr IV .Q31M ONE Stop: 09/29/24 03:20 Last Admin: 09/29/24 03:01 Dose: 999 mls/hr Documented By: YFN Nitroglycerin (Nitroglycerin Sl 0.4 Mg/Tab Tab) 0.4 mg SL NOW STA Stop: 09/29/24 02:51 Last Admin: 09/29/24 03:01 Dose: 0.4 mg Documented By: YFN Medical Decision Making Laboratory Data Attestation: I reviewed the patient's lab results. 09/29/24 02:41 09/29/24 02:41 Labs: Lab Results 09/29/24 Range/Units 02:41 WBC 10.38 (4.8-10.8) K/ul RBC 5.23 (4.20-5.40) M/uL Hgb 14.7 (12.0-16.0) g/dl Hct 43.5 (37.0-47.0) % MCV 83.2 (80.0-100.0) fL MCH 28.1 (25.0-34.0) pg MCHC 33.8 (32.0-36.0) g/dL RDW Std Deviation 43.0 (36.4-46.3) fL RDW Coeff of Leanne 14.2 (11.5-14.5) % Plt Count 228 (130-400) K/uL MPV 8.7 L (9.4-12.4) fL Immature Gran % (Auto) 0.7 % Neut % (Auto) 57.2 % Lymph % (Auto) 28.3 % Butts % (Auto) 11.8 % Eos % (Auto) 1.6 % Baso % (Auto) 0.4 % Neut # (Auto) 5.93 (1.40-6.50) K/uL Lymph # (Auto) 2.94 (1.20-3.40) K/uL Butts # (Auto) 1.23 H (0.11-0.59) K/uL Eos # (Auto) 0.17 (0.00-0.50) K/uL Baso # (Auto) 0.04 (0.00-0.20) K/uL Immature Gran # (Auto) 0.07 (0.01-0.20) K/uL PT 10.2 (9.0-12.0) Seconds INR 0.9 (0.9-1.1) APTT 26 (21-31) Seconds PTT Ratio 1.0 Sodium 142 (136-145) mmol/L Potassium 3.4 L (3.5-5.1) mmol/L Chloride 105 (98-107) mmol/L Carbon Dioxide 28 (21-32) mmol/L Anion Gap 9 (3-11) BUN 25 H (6-23) mg/dl Creatinine 0.92 (0.6-1.2) mg/dl Est Cr Clr Drug Dosing 48.2 ml/min eGFR 63.73 BUN/Creatinine Ratio 27.2 H (10-20) Glucose 142 H (70-99(Fasting)) mg/dl Calcium 9.3 (8.6-10.3) mg/dl Troponin I High Sens 8.1 (0-14) pg/ml Lipase 22 (11-82) U/L Imaging Data Chest x-ray: Attestation: I personally reviewed and interpreted this imaging study as follows: My impression: Chest x-ray negative. Airway clear. No pneumothorax. No consolidation. No cardiomegaly or cephalization.. No free air under the diaphragm. No fractures of the skeletal structures. ECG Data Attestation: I personally reviewed and interpreted this ECG as follows: Rate (beats per minute): 82 Rhythm: sinus with SA Findings: no ST depression, no ST elevation or no prolonged QT MDM Narrative 0242: The patient was evaluated in room A9. A complete history and physical exam was performed Cardiac monitoring: An order was placed for continuous cardiac monitoring. The monitor shows a rate of 80 with sinus arrhythmia interpreted by me 0340: Vital signs stable. Labs and imaging are unremarkable. Patient reports resolvent of her chest pressure after nitro. Patient to be admitted for chest pain rule out ACS. Impression & Plan Chest pain Discharge Plan Visit Data Chief Complaint: Cardiac Assessment Stated Complaint: Chest Heaviness, Hypertension, Shoulder Blade Pain ED Provider: Tony Villegas Discharge Problem: Chest pain Patient Disposition: Being Evaluated by Hospitalist Condition: Fair Forms Stand Alone Forms: My [facility] Prescriptions Prescriptions: No Action metoprolol succinate 25 mg tablet extended release 24 hr 25 mg PO DAILY Qty: 90 3RF multivitamin Tablet 1 tab PO DAILY hydrochlorothiazide 25 mg tablet 25 mg PO DAILY buspirone 10 mg tablet 10 mg PO BID cholecalciferol (vitamin D3) [Vitamin D3] 25 mcg (1,000 unit) Capsule 25 mcg PO DAILY pantoprazole 20 mg tablet,delayed release (DR/EC) 20 mg PO QAM lisinopril 40 mg tablet 40 mg PO DAILY acetaminophen [Tylenol Arthritis Pain] 650 mg Tablet Extended Release 1,300 mg PO QAM naproxen sodium [Aleve] 220 mg Capsule 220 mg PO QAM Referrals Referrals: Shyla Gambino MD [Primary Care Provider] - Discharge Problem: Chest pain Qualifiers: Chest pain type: unspecified Qualified Code(s): R07.9 - Chest pain, unspecified
[2024-09-29 03:29] LABS: INR 0.9 (0.9-1.1); Partial Thromboplastin Time 26 Seconds (21-31); Prothrombin Time 10.2 Seconds (9.0-12.0)
--- NOTE | 2024-09-29 04:02 | XRay Report ---
EXAM: XR chest 1V portable CLINICAL HISTORY: Chest pain, nonspecific TECHNIQUE: Radiograph of chest was acquired. COMPARISON: 01/24/2023 19:38:21 ALUMINUM CONTAINER TESTER FINDINGS: The lungs are clear and well-expanded with no pulmonary infiltrate or pleural effusion. The cardiomediastinal silhouette is within normal limits. No acute osseous abnormality. IMPRESSION: 1. No acute cardiopulmonary disease. No new finding. Electronically signed by Carlos Serrano 09-29-2024 04:02 AM
[2024-09-29] MEDS: POTASSIUM CHLORIDE CRTAB 20 MEQ TABCR PO STA (06:07)
--- NOTE | 2024-09-29 06:13 | History & Physical Report ---
Date of Service September 29, 2024 Assessment & Plan (1) Chest pain: Plan: 79-year-old female with past medical history significant for hyperlipidemia, prediabetes, hypertension, SVT, CKD stage III, degenerative disc disease, primary osteoarthritis of both knees, canker sores oral, obesity, history of kidney stones, history of diverticulitis, history of COVID, history of generalized anxiety disorder presents with chest heaviness. Around 10 to 11 PM last night patient noticed chest heaviness also some back pain. Had some palpitations. No shortness of breath. No dizziness. No sweating. Came to the ER and after 2 nitros pain eased up. Currently resting comfortably and hemodynamics stable. Denies any headache. No runny nose or sore throat. No fevers. No abdominal pain. Normal bowel bladder movements. Denies blood in stools or hematuria. Patient says she is having a lot of stress in the family currently and attributes her chest heaviness to stress. Chest pain Improved with nitro Received aspirin family stress Initial troponin negative EKG nonspecific findings Will follow serial enzymes and echo Will follow repeat EKG Will check D-dimer Monitor telemetry Keep her n.p.o. Cardiac consult for further recommendations History of SVT On metoprolol succinate Hypertension On lisinopril, hydrochlorothiazide and metoprolol succinate Will monitor Knee arthritis Continue Tylenol .hold Aleve GERD On Protonix GERD anxiety disorder On buspirone DVT prophylaxis SCDs for now Disposition Med/telemetry Full code. History of Present Illness Chief Complaint: Chest pain Primary Care Provider: Shyla Gambino MD 79-year-old female with past medical history significant for hyperlipidemia, prediabetes, hypertension, SVT, CKD stage III, degenerative disc disease, primary osteoarthritis of both knees, canker sores oral, obesity, history of kidney stones, history of diverticulitis, history of COVID, history of generalized anxiety disorder presents with chest heaviness. Around 10 to 11 PM last night patient noticed chest heaviness also some back pain. Had some palpitations. No shortness of breath. No dizziness. No sweating. Came to the ER and after 2 nitros pain eased up. Currently resting comfortably and hemodynamics stable. Denies any headache. No runny nose or sore throat. No fevers. No abdominal pain. Normal bowel bladder movements. Denies blood in stools or hematuria. Patient says she is having a lot of stress in the family currently and attributes her chest heaviness to stress. Past medical history. As mentioned above. Past surgical history. Bilateral complex cataract surgery. Colonoscopy and EGD. Appendectomy. Removal of bladder lesion. Total abdominal hysterectomy with removal of tubes. Social history. . No smoking. No alcohol use. No drug use. Family history. Sister had diabetes. Brother had heart disorder. Mother had heart disorder. Sister had heart disorder. Allergies Allergy/AdvReac Type Severity Reaction Status Date / Time erythromycin base Allergy Severe HIVES,SOB,I Verified 09/29/24 02:46 TCHING,SWEL LING Penicillins Allergy Severe SOB,ITCHING Verified 09/29/24 02:46 ,HIVES,SWEL LING Sulfa (Sulfonamide Allergy Severe HIVES,SOB,I Verified 09/29/24 02:46 Antibiotics) TCHING,SWEL LING Cephalosporins Allergy Intermediate HANDS Verified 09/29/24 02:46 SWELL/ITCHY fluconazole Allergy Intermediate Hives Verified 09/29/24 02:46 Home Medications Medication Instructions Recorded Confirmed Type hydrochlorothiazide 25 mg tablet 25 mg PO DAILY 05/27/22 09/29/24 History multivitamin 1 tab PO DAILY 05/27/22 09/29/24 History buspirone 10 mg tablet 10 mg PO BID 01/22/23 09/29/24 History cholecalciferol (vitamin D3) 25 25 mcg PO DAILY 01/22/23 09/29/24 History mcg (1,000 unit) capsule (Vitamin D3) metoprolol succinate 25 mg 25 mg PO DAILY #90 tabs 12/21/23 09/29/24 Rx tablet,extended release 24 hr acetaminophen 650 mg 1,300 mg PO QAM 09/29/24 09/29/24 History tablet,extended release (Tylenol Arthritis Pain) lisinopril 40 mg tablet 40 mg PO DAILY 09/29/24 09/29/24 History naproxen sodium 220 mg capsule 220 mg PO QAM 09/29/24 09/29/24 History (Aleve) pantoprazole 20 mg tablet,delayed 20 mg PO QAM 09/29/24 09/29/24 History release Past Med/Surg History Problem List (Updated 09/29/24 @ 03:41 by Tony Villegas MD) Chest pain (Acute) Palpitations Paroxysmal SVT (supraventricular tachycardia) Colovaginal fistula Morbid obesity Anxiety Essential hypertension Dyslipidemia Prediabetes Right sided abdominal pain (Acute) Diverticulitis (Acute) Hypokalemia (Acute) Medical History RUQ abdominal pain History of nephrolithiasis Acquired cyst of kidney Osteoarthritis of multiple joints SVT (supraventricular tachycardia) Hernia, hiatal Surgical History History of hysterectomy History of appendectomy Family History Other Diabetes Heart disease Social History Smoking Status: Never smoker Second Hand Exposure: No; Do You Dip or Chew Tobacco: No; Hx Alcohol Use: No Hx Substance Use: No Preferred Language: Kiswahili Communication Ability: Effective Sticker On Required: No Beliefs That Will Affect Care: None Current Living Situation: Alone Current Living Situation Comment: Lives at [facility] Feels Safe at Home: Yes Assistive Devices: None Review of Systems Review of Systems: All systems reviewed & are unremarkable except as noted in HPI & below Physical Exam Physical Exam: General- Not in distress Head- atraumatic Eyes- PERRL. ENT- oropharynx clear Neck- supple, no JVD. Lungs- clear to auscultation no wheezing or crackles Heart- regular rate and rhythm; no murmur, no gallop. Abdomen- normal bowel sounds, soft, nontender, no distension Extremities- mild pretibial edema, no erythema seen Neuro- alert, oriented PERRL, no facial palsy; no dysarthria; moves extremities Results & Data Results & Data Vital Signs (Past 12 Hours) Vital Signs Temp Pulse Resp BP Pulse Ox O2 Del Method 09/29/24 05:00 143/96 H 95 Room Air 09/29/24 04:00 72 18 136/88 95 Room Air 09/29/24 03:51 74 17 132/82 95 Room Air 09/29/24 03:30 75 16 139/91 96 Room Air 09/29/24 03:20 81 20 147/79 H 96 Room Air 09/29/24 03:10 76 18 146/82 H 09/29/24 03:04 79 18 129/87 95 Room Air 09/29/24 03:00 94 H 14 161/84 H 09/29/24 02:46 80 09/29/24 02:42 97 Room Air 09/29/24 02:35 97 Room Air 09/29/24 02:35 97 Room Air 09/29/24 02:35 36.6 C 83 14 175/94 H 96 Room Air Diagnostic Findings Laboratory Results WBC 10.38 K/ul (4.8-10.8) 09/29/24 02:41 RBC 5.23 M/uL (4.20-5.40) 09/29/24 02:41 Hgb 14.7 g/dl (12.0-16.0) 09/29/24 02:41 Hct 43.5 % (37.0-47.0) 09/29/24 02:41 MCV 83.2 fL (80.0-100.0) 09/29/24 02:41 MCH 28.1 pg (25.0-34.0) 09/29/24 02:41 MCHC 33.8 g/dL (32.0-36.0) 09/29/24 02:41 RDW Std Deviation 43.0 fL (36.4-46.3) 09/29/24 02:41 RDW Coeff of Leanne 14.2 % (11.5-14.5) 09/29/24 02:41 Plt Count 228 K/uL (130-400) 09/29/24 02:41 MPV 8.7 fL (9.4-12.4) L 09/29/24 02:41 Immature Gran % (Auto) 0.7 % 09/29/24 02:41 Neut % (Auto) 57.2 % 09/29/24 02:41 Lymph % (Auto) 28.3 % 09/29/24 02:41 Childress % (Auto) 11.8 % 09/29/24 02:41 Eos % (Auto) 1.6 % 09/29/24 02:41 Baso % (Auto) 0.4 % 09/29/24 02:41 Neut # (Auto) 5.93 K/uL (1.40-6.50) 09/29/24 02:41 Lymph # (Auto) 2.94 K/uL (1.20-3.40) 09/29/24 02:41 Childress # (Auto) 1.23 K/uL (0.11-0.59) H 09/29/24 02:41 Eos # (Auto) 0.17 K/uL (0.00-0.50) 09/29/24 02:41 Baso # (Auto) 0.04 K/uL (0.00-0.20) 09/29/24 02:41 Immature Gran # (Auto) 0.07 K/uL (0.01-0.20) 09/29/24 02:41 PT 10.2 Seconds (9.0-12.0) 09/29/24 02:41 INR 0.9 (0.9-1.1) 09/29/24 02:41 APTT 26 Seconds (21-31) 09/29/24 02:41 PTT Ratio 1.0 09/29/24 02:41 Sodium 142 mmol/L (136-145) 09/29/24 02:41 Potassium 3.4 mmol/L (3.5-5.1) L 09/29/24 02:41 Chloride 105 mmol/L (98-107) 09/29/24 02:41 Carbon Dioxide 28 mmol/L (21-32) 09/29/24 02:41 Anion Gap 9 (3-11) 09/29/24 02:41 BUN 25 mg/dl (6-23) H 09/29/24 02:41 Creatinine 0.92 mg/dl (0.6-1.2) 09/29/24 02:41 Est Cr Clr Drug Dosing 48.2 ml/min 09/29/24 02:41 eGFR 63.73 09/29/24 02:41 BUN/Creatinine Ratio 27.2 (10-20) H 09/29/24 02:41 Glucose 142 mg/dl (70-99(Fasting)) H 09/29/24 02:41 Calcium 9.3 mg/dl (8.6-10.3) 09/29/24 02:41 Troponin I High Sens 8.1 pg/ml (0-14) 09/29/24 02:41 Lipase 22 U/L (11-82) 09/29/24 02:41 Impressions Chest X-Ray 09/29/24 02:42 EXAM: XR chest 1V portable CLINICAL HISTORY: Chest pain, nonspecific TECHNIQUE: Radiograph of chest was acquired. COMPARISON: 01/24/2023 19:38:21 MAPPER FINDINGS: The lungs are clear and well-expanded with no pulmonary infiltrate or pleural effusion. The cardiomediastinal silhouette is within normal limits. No acute osseous abnormality. IMPRESSION: 1. No acute cardiopulmonary disease. No new finding. Electronically signed by Carlos Serrano 09-29-2024 04:02 AM ECG Additional Comments: ECG. Sinus rhythm with PACs at rate of 82. Nonspecific T waves in inferior leads. QTc 448. Code Status & VTE Plan VTE Prophylaxis Plan VTE Prophylaxis will be ordered: Yes (1) Chest pain Chest pain type: unspecified Qualified Code(s): R07.9 - Chest pain, unspecified
[2024-09-29] MEDS ORDERED: POLYETHYLENE (MIRALAX) 17 GM PACK PO PRN (08:28)
[2024-09-29] MEDS ORDERED: NITROGLYCERIN SL 0.4 MG/TAB TAB SL PRN (08:28)
[2024-09-29] MEDS ORDERED: ACETAMINOPHEN 325 MG TAB PO PRN (08:28)
[2024-09-29] MEDS: MULTIVITAMIN TAB PO SCH (10:10)
[2024-09-29] MEDS: CHOLECALCIFEROL 25 MCG (1000 UNITS) TAB PO SCH (10:11)
[2024-09-29] MEDS: hydroCHLOROthiazide 25 MG TAB PO SCH (10:11)
[2024-09-29] MEDS: METOPROLOL SUCC 25MG EXT REL TAB PO SCH (10:11)
[2024-09-29] MEDS: busPIRone 5 MG TAB PO SCH (10:13)
[2024-09-29] MEDS: ACETAMINOPHEN 325 MG TAB PO SCH (10:13)
[2024-09-29] MEDS: OPTIRAY 320 125ml IV ONE (12:01)
--- NOTE | 2024-09-29 12:18 | XCELERA ---
[id number]
--- NOTE | 2024-09-29 12:19 | CT Scan Report ---
CT angio chest PE protocol CT DOSE: 837.09 mGy.cm HISTORY: PE. TECHNIQUE: Multiple CTA images of the chest were obtained after the intravenous administration of 112 ml Optiray. Coronal and sagittal MIPS were obtained from the axial data set and were submitted for review. All measurements were obtained according to NASCET criteria. A dose lowering technique was u tilized adhering to the principles of ALARA. COMPARISON STUDY: None FINDINGS: There is no pneumonia or pleural effusion. No pneumothorax. No interstitial lung disease. T here is a moderate hiatal hernia. There is a likely small sebaceous cyst medial left breast. Enlarged thyroid goiter is present. No enlarged adenopathy. There is moderate cardiomegaly with prominence of the pulmonary vasculature suggesting CHF. No pericardial effusion. No thoracic aortic dissection or aneurysm. No pulmonary embolism. There is a partially visualized left renal cyst, was present on the prior abdominal CT of 01/22/2023. There are moderate diffuse degenerative changes at the thoracic spi ne. IMPRESSION: No pulmonary embolism or pneumonia seen. ACT 112: Negative or not required by law. The above report was generated using voice recognition software. It may contain grammatical, syntax o r spelling errors. Electronically signed by: Hussain Gonzalez M.D. 09/29/2024 12:17 PM
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
--- NOTE | 2024-09-29 12:32 | Communication Note ---
Date of Service: September 29, 2024 Patient was seen and examined at bedside. 79-year-old female with past medical history significant for hyperlipidemia, prediabetes, hypertension, SVT, CKD stage III, degenerative disc disease, primary osteoarthritis of both knees, canker sores oral, obesity, history of kidney stones, history of diverticulitis, history of COVID, history of generalized anxiety disorder presents with chest heaviness. Around 10 to 11 PM last night patient noticed chest heaviness also some back pain. Had some palpitations. No shortness of breath. No dizziness. No sweating. Came to the ER and after 2 nitros, discomfort eased up. Patient says she is having a lot of stress in the family currently and attributes her chest heaviness to stress. She states she started taking buspirone twice a day (instead of once a day) for last 3 days ago [employer]. She is being managed for the following: Chest pain ro ACS, ro PE Likely anxiety contributory c/i w/ chest discomfort, improved w/ nitro. received aspirin 324 mg in ED. Likely family hx contributory, recently increased her buspirone from 10 mg daily to 10 mg bid, continue. Trops x 3 neg, EKG w/ nonspecific T wave abn ECHO w/ EF of 65-70%, no RWMA. nl RVSP. Mild left atrial dilation. c/w tele, await cards eval. D dimer elevated , CTA chest sent, neg for PE. History of SVT: On metoprolol succinate Hypertension: On lisinopril, hydrochlorothiazide and metoprolol succinate. Will monitor Knee arthritis: Continue Tylenol .stop Aleve, use diclo gel. GERD: On Protonix GERD anxiety disorder: On buspirone DVT prophylaxis: SCDs for now Disposition: Med/telemetry Full code. for detailed information on the patient, refer to today's H&P note.
[2024-09-29] MEDS: LABETALOL HCL IV 5 MG/ML 20ML IV PRN (17:10)
[2024-09-29] MEDS: DICLOFENAC SOD 1% GEL 100 GM TUBE EXT SCH (20:34)
[2024-09-30 06:47] LABS: Hematocrit (blood only) 41.2 % (37.0-47.0); Hemoglobin 13.7 g/dl (12.0-16.0); Immature Granulocytes # (auto) 0.06 K/uL (0.01-0.20); Immature Granulocytes % (auto) 0.7 %; Mean Corpuscular Hemoglobin 27.7 pg (25.0-34.0); Mean Corpuscular Volume 83.2 fL (80.0-100.0); Platelet Count 207 K/uL (130-400); RDW Standard Deviation 43.1 fL (36.4-46.3); Red Blood Count 4.95 M/uL (4.20-5.40); White Blood Count 8.04 K/ul (4.8-10.8)
[2024-09-30 07:12] LABS: Anion Gap 8.0 (3-11); Blood Urea Nitrogen 19.0 mg/dl (6-23); Calcium 9.3 mg/dl (8.6-10.3); Carbon Dioxide 27.0 mmol/L (21-32); Chloride 107.0 mmol/L (98-107); Creatinine Clr Calc Pharmacy 60.5 ml/min; Glucose 114.0 mg/dl (70-99(Fasting)); Magnesium 1.7 mg/dl (1.7-2.4); Potassium 3.6 mmol/L (3.5-5.1); Sodium 142.0 mmol/L (136-145)
[2024-09-30 07:19] VITALS: BP 144/84; RESP 18; TEMP 98.1; O2SAT 95
--- NOTE | 2024-09-30 11:58 | Discharge Summary ---
Date of Service September 30, 2024 Admission HPI Per Admitting Provider 79-year-old female with past medical history significant for hyperlipidemia, prediabetes, hypertension, SVT, CKD stage III, degenerative disc disease, primary osteoarthritis of both knees, canker sores oral, obesity, history of kidney stones, history of diverticulitis, history of COVID, history of generalized anxiety disorder presents with chest heaviness. Around 10 to 11 PM last night patient noticed chest heaviness also some back pain. Had some palpitations. No shortness of breath. No dizziness. No sweating. Came to the ER and after 2 nitros pain eased up. Currently resting comfortably and hemodynamics stable. Denies any headache. No runny nose or sore throat. No fevers. No abdominal pain. Normal bowel bladder movements. Denies blood in stools or hematuria. Patient says she is having a lot of stress in the family currently and attributes her chest heaviness to stress. Past medical history. As mentioned above. Past surgical history. Bilateral complex cataract surgery. Colonoscopy and E GD. Appendectomy. Removal of bladder lesion. Total abdominal hysterectomy with removal of tubes. Social history. . No smoking. No alcohol use. No drug use. Family history. Sister had diabetes. Brother had heart disorder. Mother had heart disorder. Sister had heart disorder. Admission Exam Per Admitting Provider General- Not in distress Head- atraumatic Eyes- PERRL. ENT- oropharynx clear Neck- supple, no JVD. Lungs- clear to auscultation no wheezing or crackles Heart- regular rate and rhythm; no murmur, no gallop. Abdomen- normal bowel sounds, soft, nontender, no distension Extremities- mild pretibial edema, no erythema seen Neuro- alert, oriented PERRL, no facial palsy; no dysarthria; moves extremities Principal Diagnosis Chest pain ro ACS, ro PE Likely uncontrolled HTN and recent stressors contributory Discharge Exam General- Not in distress Head- atraumatic Eyes- PERRL. ENT- oropharynx clear Neck- supple, no JVD. Lungs- clear to auscultation no wheezing or crackles Heart- regular rate and rhythm; no murmur, no gallop. Abdomen- normal bowel sounds, soft, nontender, no distension Extremities- mild pretibial edema, no erythema seen Neuro- alert, oriented PERRL, no facial palsy; no dysarthria; moves extremities Discharge Data Allergies Allergy/AdvReac Type Severity Reaction Status Date / Time erythromycin base Allergy Severe HIVES,SOB,I Verified 09/29/24 02:46 TCHING,SWEL LING Penicillins Allergy Severe SOB,ITCHING Verified 09/29/24 02:46 ,HIVES,SWEL LING Sulfa (Sulfonamide Allergy Severe HIVES,SOB,I Verified 09/29/24 02:46 Antibiotics) TCHING,SWEL LING Cephalosporins Allergy Intermediate HANDS Verified 09/29/24 02:46 SWELL/ITCHY fluconazole Allergy Intermediate Hives Verified 09/29/24 02:46 Consultations 09/29/24 03:37 ED Decision to Admit Stat 09/29/24 08:28 Consult Cardiology Routine Ordered Studies 09/29/24 11:29 CT angio chest PE protocol Routine Hospital Course (1) Chest pain: Plan 79-year-old female with past medical history significant for hyperlipidemia, prediabetes, hypertension, SVT, CKD stage III, degenerative disc disease, primary osteoarthritis of both knees, canker sores oral, obesity, history of kidney stones, history of diverticulitis, history of COVID, history of generalized anxiety disorder presents with chest heaviness. Around 10 to 11 PM last night patient noticed chest heaviness also some back pain. Had some palpitations. No shortness of breath. No dizziness. No sweating. Came to the ER and after 2 nitros, discomfort eased up. Patient says she is having a lot of stress in the family currently and attributes her chest heaviness to stress. She states she started taking buspirone twice a day (instead of once a day) for last 3 days ago [employer]. She was managed for the following: Chest pain ro ACS, ro PE Likely uncontrolled HTN and recent stressors contributory c/i w/ chest discomfort, improved w/ nitro. received aspirin 324 mg in ED. Likely recent stressors in the family contributory, recently increased her buspirone from 10 mg daily to 10 mg bid, continue. Trops x 3 neg, EKG w/ nonspecific T wave abn ECHO w/ EF of 65-70%, no RWMA. nl RVSP. Mild left atrial dilation. c/w tele, d/w cardio, plan to f/u her as an OP D dimer elevated , CTA chest sent, neg for PE. History of SVT: On metoprolol succinate Hypertension: On lisinopril, hydrochlorothiazide and metoprolol succinate. Will monitor Knee arthritis: Continue Tylenol .stop Aleve, use diclo gel. GERD: On Protonix GERD anxiety disorder: On buspirone DVT prophylaxis: SCDs for now Disposition: Med/telemetry Full code. Patient is being discharged home with instructions at recommendations: Follow-up with your primary care physician within a week time and likely you will need labs CBC/CMP/magnesium/phosphorus. Cardiology evaluated you for your chest pain, your blood pressure medications has been adjusted. Your lisinopril has been moved to the evening and amlodipine has been added to the morning. Follow-up with cardiology in 2 to 3 weeks time. Would recommend that you not tale Aleve for your knee pain and instead use [id number] diclofenac gel to your knees for pain management. Take your medications as prescribed Please make sure that you are able to get your medications today by calling your pharmacy before you leave the hospital so that your treatment continuity is not broken. Home Health Attestation I certify that this patient is under my care and that I, or a physicians clinical trial assistant working with me, had a face to-face encounter that meets the home health [id number] encounter requirements with this patient. The encounter with the patient was in whole, or in part, for the following medical condition, which is the primary reason for home health care (list medical condition): I certify that, based on my findings, the following services are medically necessary home health services: My clinical findings support the need for the above services because: Further, I certify that my clinical findings support that this patient is homebound (i.e. absences from home require considerable and taxing effort and are for medical reasons or mu-ism services or infrequently or of short duration when for other reasons) because: Certification for Home Health Services: Based on the above findings, I certify that this patient is confined to the home and needs intermittent detention care, physical therapy and/or speech therapy or continues to need occupational therapy. The patient is under my care, and I have initiated the establishment of the plan of care. This patient will be followed by a physician who will periodically review the plan of care. Total Time Total Time Spent Total Time Spent (In Minutes): 35 Discharge Plan Discharge Items Patient Disposition: Home - Self-Care Reason For Visit: CHEST PAIN Discharge Diagnosis: Chest pain ro ACS, ro PE Likely uncontrolled HTN and recent stressors contributory Condition on Discharge: Fair Activity: Resume your previous activity Non-emergency contact: Primary Care Provider Call non-emergency contact if: you have any medication questions and your symptoms worsen Follow-up/Referrals: Shyla Gambino MD [Primary Care Provider] - Diet: Heart Healthy Addtl Attending Provider Instructions: Follow-up with your primary care physician within a week time and likely you will need labs CBC/CMP/magnesium/phosphorus. Cardiology evaluated you for your chest pain, your blood pressure medications has been adjusted. Your lisinopril has been moved to the evening and amlodipine has been added to the morning. Follow-up with cardiology in 2 to 3 weeks time. Would recommend that you not tale Aleve for your knee pain and instead use [id number] diclofenac gel to your knees for pain management. Take your medications as prescribed Please make sure that you are able to get your medications today by calling your pharmacy before you leave the hospital so that your treatment continuity is not broken. Pending Studies at Discharge: No Stand-Alone Forms: My [facility] [email or web address], Smoking Cessation Medications and DC Order Prescriptions: New amlodipine 5 mg Tablet 5 mg PO QAM Qty: 30 0RF diclofenac sodium [Voltaren Arthritis Pain] 1 % Gel 2 g EXT BID PRN (Reason: b/l knee pain) Qty: 100 0RF Continued metoprolol succinate 25 mg tablet extended release 24 hr 25 mg PO DAILY Qty: 90 3RF multivitamin Tablet 1 tab PO DAILY hydrochlorothiazide 25 mg tablet 25 mg PO DAILY buspirone 10 mg tablet 10 mg PO BID cholecalciferol (vitamin D3) [Vitamin D3] 25 mcg (1,000 unit) Capsule 25 mcg PO DAILY pantoprazole 20 mg tablet,delayed release (DR/EC) 20 mg PO QAM acetaminophen [Tylenol Arthritis Pain] 650 mg Tablet Extended Release 1,300 mg PO QAM Changed lisinopril 40 mg tablet 40 mg PO HS Qty: 30 0RF Discontinued naproxen sodium [Aleve] 220 mg Capsule 220 mg PO QAM Discharge Orders: Discharge Order (Routine); Ordered 09/30/24 Ordered By: Vlad Worrell Admission Data Admit Date/Time: 09/29/24 06:03 Attending Provider: Vlad Worrell Admit Provider: Gopi Espinoza Primary Care Provider: Shyla Gambino Other Providers: Gopi Espinoza; Brayan Donald
[2024-09-30 12:55] VITALS: PULSE 67
--- NOTE | 2024-10-02 06:24 | Electrocardiogram Report ---
Test Reason : Blood Pressure : */* mmHG Vent. Rate : 82 BPM Atrial Rate : 82 BPM P-R Int : 146 ms QRS Dur : 84 ms QT Int : 384 ms P-R-T Axes : 43 -3 7 degrees QTcB Int : 448 ms Sinus rhythm with Premature atrial complexes Otherwise normal ECG When compared with ECG of 22-Jan-2023 19:25, Premature atrial complexes are now Present Nonspecific T wave abnormality no longer evident in Anterior leads Confirmed by Galileo Adamson ([id number]) on 10/02/2024 6:23:44 AM Referred By: REFERRED SELF Confirmed By: Galileo Adamson
--- NOTE | 2024-10-02 06:24 | Electrocardiogram Report ---
Test Reason : Blood Pressure : */* mmHG Vent. Rate : 65 BPM Atrial Rate : 65 BPM P-R Int : 164 ms QRS Dur : 86 ms QT Int : 430 ms P-R-T Axes : 33 0 14 degrees QTcB Int : 447 ms Poor data quality, interpretation may be adversely affected Normal sinus rhythm Normal ECG When compared with ECG of 29-Sep-2024 02:39, Premature atrial complexes are no longer Present Confirmed by Galileo Adamson ([id number]) on 10/02/2024 6:24:06 AM Referred By: REFERRED SELF Confirmed By: Galileo Adamson
== END 2024-09-30 13:20 | disposition home or self-care (01) ==
LOC: EDSEX → ED 02:34 → EDINP 02:34 → 2W 11:12